=== PATIENT | male | born 1985 | race Caucasian/White ===

== ENCOUNTER 2016-07-05 21:48 | Inpatient (IN) | payer OTHER ==
--- NOTE | 2016-07-05 23:00 | HP ---
CIWA Score - CIWA Score Nausea/Vomitin-No Nausea/No Vomiting Muscle Tremors: 3 Anxiety: 4-Mod. Anxious/Guarded Agitation: 4-Moderately Restless Paroxysmal Sweats: 3 Orientation: 0-Oriented Tacttile Disturbances: 0-None Auditory Disturbances: 1-Very Mild Visual Disturbances: 1-Very Mild Sensitivity Headache: 2-Mild CIWA-Ar Total Score: 18 Admission ROS BHS - HPI Chief Complaint: WITHDRAWAL SYMPTOMS Allergies/Adverse Reactions: Allergies Allergy/AdvReac Type Severity Reaction Status Date / Time risperidone [From Risperdal] AdvReac Verified 07/05/16 23:12 History of Present Illness: 30 Y.O. MAN WITH AN EXTENSIVE HISTORY OF ALCOHOL AND COCAINE DEPENDENCE IS SEEKING DETOX. HE WAS PREVIOUSLY HERE IN 01/2016. HE STATES HIS LONGEST PERIOD OF SOBRIETY WAS 2 YEARS. Exam Limitations: No Limitations - Ebola screening Have you traveled outside of the country in the last 21 days: No (N) Have you had contact with anyone from an Ebola affected area: No Do you have a fever: No - Review of Systems Constitutional: Chills, Diaphoresis, Loss of Appetite, Night Sweats EENT: reports: Blurred Vision Respiratory: reports: Wheezing (H/O ASTHMA) Cardiac: reports: No Symptoms Reported GI: reports: No Symptoms Reported : reports: No Symptoms Reported Musculoskeletal: reports: No Symptoms Reported Integumentary: reports: No Symptoms Reported Neuro: reports: Headache, Seizure (LAST SEIZURE WAS 2 YEARS PRIOR DUE TO S/E OF RISPERDAL.) Endocrine: reports: No Symptoms Reported Hematology: reports: No Symptoms Reported Psychiatric: reports: Orientated x3, Anxious, Depressed, other Other Systems: Reviewed and Negative (Schizoaffective disorder w/ bipolar tendancies) Patient History - Patient Medical History Hx Anemia: No Hx Asthma: Yes (not on any medication) Hx Chronic Obstructive Pulmonary Disease (COPD): No Hx Cancer: No Hx Cardiac Disorders: No Hx Congestive Heart Failure: No Hx Hypertension: No Hx Hypercholesterolemia: No Hx Pacemaker: No HX Cerebrovascular Accident: No Hx Seizures: Yes (2 years ago-a/e of risperdal) Hx Dementia: No Hx Diabetes: No Hx Gastrointestinal Disorders: Yes (gerd) Hx Liver Disease: No Hx Genitourinary Disorders: No Hx Sexually Transmitted Disorders: Yes (patient reported treated for syphillis & gonorrhea 4 yrs ago.) Hx Renal Disease (ESRD): No Hx Thyroid Disease: No Hx Human Immunodeficiency Virus (HIV): No (negative) Hx Hepatitis C: No Hx Depression: Yes Hx Suicide Attempt: Yes (At 8 y.o. attempted to hang and shoot himself ) Hx Bipolar Disorder: Yes Hx Schizophrenia: Yes - Patient Surgical History Past Surgical History: No Hx Neurologic Surgery: No Hx Cataract Extraction: No Hx Cardiac Surgery: No Hx Lung Surgery: No Hx Breast Surgery: No Hx Breast Biopsy: No Hx Abdominal Surgery: No Hx Appendectomy: No Hx Cholecystectomy: No Hx Genitourinary Surgery: No Hx Section: No Hx Orthopedic Surgery: Yes (right tibia/fibula fracture 12/2015 has a cast on) Anesthesia Reaction: No - PPD History Previous Implant?: Yes Documented Results: Negative w/proof Implanted On Prior [facility] Admission?: Yes Date: 10/21/15 Results: 0 mm. PPD to be Administered?: No - Reproductive History Patient is a Female of Child Bearing Age (11 -55 yrs old): No - Smoking Cessation Smoking history: Current every day smoker Have you smoked in the past 12 months: Yes Aproximately how many cigarettes per day: 10 Cigars Per Day: 0 Hx Chewing Tobacco Use: No Initiated information on smoking cessation: Yes 'Breaking Loose' booklet given: 07/05/16 - Substance & Tx. History Hx Alcohol Use: Yes Hx Substance Use: Yes Substance Use Type: Alcohol, Cocaine Hx Substance Use Treatment: Yes (Detox and rehab ) - Substances Abused Alcohol Frequency: Daily Amount used: 1 pint of liquor and 1-2 cans of 40oz of beer Age of first use: 11 Date of Last Use: 07/05/16 Cocaine Route: Inhalation Frequency: 1-2 times per week Amount used: $20 Age of first use: 10 Date of Last Use: 07/05/16 Family Disease History - Family Disease History Family Disease History: Diabetes: Mother (a lot of medical problems), CA: Mother , Other: Father (etoh), Mother Admission Physical Exam BHS - Vital Signs Vital Signs: Vital Signs 07/05/16 23:17 Temperature 97.9 F Pulse Rate 72 Respiratory 16 Rate Blood Pressure 121/72 - Physical General Appearance: Yes: Disheveled, Irritable, Anxious HEENTM: Yes: Hearing grossly Normal, Normal ENT Inspection, Normocephalic, Normal Voice Respiratory: Yes: Chest Non-Tender, Lungs Clear, Normal Breath Sounds, No Respiratory Distress, No Accessory Muscle Use Neck: Yes: No masses,lesions,Nodules, Trachea in good position Breast: Yes: Breast Exam Deferred Cardiology: Yes: Regular Rhythm, Regular Rate, S1, S2 Abdominal: Yes: Normal Bowel Sounds, Non Tender, Flat Genitourinary: Yes: Other (NO COMPLAINTS REPORTED) Back: Yes: Normal Inspection Extremities: Yes: Normal Capillary Refill, Normal Inspection, Normal Range of Motion, Non-Tender Neurological: Yes: Fully Oriented, Alert, Normal Mood/Affect, Normal Response Integumentary: Yes: Normal Color, Dry, Warm Lymphatic: Yes: Within Normal Limits - Diagnostic (1) Alcohol dependence with uncomplicated withdrawal Current Visit: No Status: Acute (2) Cocaine dependence Current Visit: Yes Status: Chronic Qualifiers: Substance use status: uncomplicated Qualified Code(s): F14.20 - Cocaine dependence, uncomplicated (3) Nicotine dependence Current Visit: Yes Status: Chronic Qualifiers: Nicotine product type: cigarettes Substance use status: uncomplicated Qualified Code(s): F17.210 - Nicotine dependence, cigarettes, uncomplicated (4) Asthma Current Visit: Yes Status: Chronic Qualifiers: Asthma severity: mild intermittent (5) GERD (gastroesophageal reflux disease) Current Visit: Yes Status: Chronic Cleared for Admission BHS - Detox or Rehab [facility] Level of Care: Medically Managed Detox Regimen/Protocol: Valium BHS Breath Alcohol Content Breath Alcohol Content: 0 Vital Signs - Vital Signs Vital Signs Refused: No Temperature: 97.9 F Temperature Source: Oral Pulse Rate: 72 Respiratory Rate: 16 Blood Pressure: 121/72 BP Location: Left Arm Blood Pressure Position: Sitting - Height Height: 5 ft 10 in - Weight Weight: 200 lb Weight Measurement Method: Standing Scale Body Mass Index (BMI): 28.7 Urine Drug Screen - Test Device Lot Number: [id number] Expiration Date: 03/04/18 - Control Is Test Valid: Yes - Results Drug Screen Negative: No Urine Drug Screen Results: SILVANA-Cocaine, TCA-Tricyclic Antidepress
[2016-07-05 23:18] VITALS: BMI 28.7
[2016-07-05] MEDS ORDERED: NICOTINE POLACRILEX 2 MG GUM BC PRN (23:20)
[2016-07-05] MEDS ORDERED: ACETAMINOPHEN 325 MG TABLET (FP) PO PRN (23:20)
[2016-07-05] MEDS ORDERED: guaiFENesin/D-METHORPHAN HB 10 ML UNIT-DOSE CUPS PO PRN (23:20)
[2016-07-05] MEDS ORDERED: MENTHOL/PHENOL 1 EACH UD MM PRN (23:20)
[2016-07-05] MEDS ORDERED: LOPERAMIDE HCL 2 MG CAPSULE PO PRN (23:20)
[2016-07-05] MEDS ORDERED: MAGNESIUM HYDROX 2400MG/30ML ORAL SUSPENSION 30 ML CUP PO PRN (23:20)
[2016-07-05] MEDS ORDERED: hydrOXYzine PAMOATE 50 MG CAPSULE (FP) PO PRN (23:20)
[2016-07-05] MEDS ORDERED: MAGNESIUM CITRATE 300 ML BOTTLE PO PRN (23:20)
[2016-07-05] MEDS ORDERED: diazePAM 5 MG TABLET PO ONE (23:20)
[2016-07-05] MEDS ORDERED: P-EPHED 60MG/TRIPROLIDI 2.5MG TABLET PO PRN (23:20)
[2016-07-05] MEDS ORDERED: MAG HYDROX/AL HYDROX/SIMETH 30 ML UNIT-DOSE CUP PO PRN (23:20)
[2016-07-05] MEDS ORDERED: ALBUTEROL SO4 6.7 GM HFA INHALER IH PRN (23:25)
[2016-07-06] MEDS: diazePAM 5 MG TABLET PO SCH ×5 (00:21→22:14)
[2016-07-06 09:40] LABS: MCH 29.5 pg (25.7-33.7); MCHC 33.1 g/dl (32.0-35.9); MEAN CELL VOLUME 89.2 fl (80-96); MEAN PLT VOLUME 8.7 fl (7.5-11.1); PLATELET COUNT 194 K/MM3 (134-434); RDW 13.9 % (11.9-15.9); WHITE BLOOD COUNT 6.4 K/mm3 (4.0-10.0)
[2016-07-06 09:53] LABS: ALBUMIN 3.4 g/dl (3.4-5.0); ANION GAP 10 (8-16); CALCIUM 8.6 mg/dL (8.5-10.1); CO2 29 mmol/L (21-32); GLUCOSE,RANDOM 116 mg/dL (74-106); SGOT/AST 17 U/L (15-37); SGPT/ALT 27 U/L (12-78)
[2016-07-06 09:55] LABS: ALK PHOS 74 U/L (45-117); BILIRUBIN,TOTAL 0.2 mg/dL (0.2-1.0)
[2016-07-06 10:11] LABS: HIV 1 & 2 AB NEGATIVE; HIV 1 AGp24 NEGATIVE
[2016-07-06] MEDS: RANITIDINE HCL 150 MG TABLET (FP) PO SCH (10:12)
[2016-07-06] MEDS: NICOTINE 14 MG/24 HOURS TOPICAL PATCH TD SCH (10:12)
[2016-07-06] MEDS: PRENATAL VITAMINS W/ FOLIC ACID TABLET (FP) PO SCH (10:12)
[2016-07-06] MEDS: diazePAM 5 MG TABLET PO PRN (10:12)
--- NOTE | 2016-07-06 10:37 | CONSULT ---
[facility] Psychiatric Consult - Data Date of interview: 07/06/16 Admission source: [facility] Identifying data: Another admission to [facility] for this 30 y/o male seeking detox treatment on for alcohol and cocaine dependence.Patient is single,a father of one,domiciled,unemployed and supported on SSI/SSD benefits. Substance Abuse History: - Smoking Cessation. Smoking history: Current every day smoker. Have you smoked in the past 12 months: Yes. Aproximately how many cigarettes per day: 10. Cigars Per Day: 0. Hx Chewing Tobacco Use: No. Initiated information on smoking cessation: Yes. 'Breaking Loose' booklet given : 07/05/16. - Substance & Tx. History. Hx Alcohol Use: Yes. Hx Substance Use : Yes. Substance Use Type: Alcohol, Cocaine. Hx Substance Use Treatment: Yes ( Detox and rehab ). - Substances Abused. Alcohol. Frequency: Daily. Amount used: 1 pint of liquor and 1-2 cans of 40oz of beer. Age of first use: 11. Date of Last Use: 07/05/16. Cocaine. Route: Inhalation. Frequency: 1- 2 times per week. Amount used: $20. Age of first use: 10. Date of Last Use: 07/05/16 Medical History: GERD,bronchial asthma and past treatment for gonorrhea/ syphilis.Additional history of orthosurgery for fracture of right tibia/fibula ( December 2015). Psychiatric History: Diagnosed with Schizoaffective Disorder.Prescribed seroquel 300 mg hs + depakote 500 mg po bid + benadryl 50 mg daily (patient's report).History of multiple hospitalizations (mostly at [facility]) since onset of mental illnes at age 17.Mr Wing is currently getting his OPD care at the [facility] in the [place].Last took his medications four days ago (self-report).Patient reports a remote history of suicide attempts (shooting/ hanging at age [age]). Physical/Sexual Abuse/Trauma History: Patient denies. Additional Comment: Urine Drug Screen Results: SILVANA-Cocaine, TCA-Tricyclic Antidepressant.Noted. Mental Status Exam - Mental Status Exam Alert and Oriented to: Time, Place, Person Cognitive Function: Good Patient Appearance: Well Groomed Mood: Nervous, Withdrawn, Anxious Affect: Mood Congruent Patient Behavior: Fatigued, Appropriate, Cooperative Speech Pattern: Clear Voice Loudness: Normal Thought Process: Goal Oriented Thought Disorder: Not Present Hallucinations: Denies Suicidal Ideation: Denies Homicidal Ideation: Denies Insight/Judgement: Poor Sleep: Fair Appetite: Good Muscle strength/Tone: Normal Gait/Station: Normal Psychiatric Findings - Problem List ([place] 1, 2,3) (1) Cocaine dependence Current Visit: Yes Status: Acute Qualifiers: Substance use status: uncomplicated Qualified Code(s): F14.20 - Cocaine dependence, uncomplicated (2) Alcohol dependence with uncomplicated withdrawal Current Visit: Yes Status: Acute (3) Nicotine dependence Current Visit: Yes Status: Acute Qualifiers: Nicotine product type: cigarettes Substance use status: uncomplicated Qualified Code(s): F17.210 - Nicotine dependence, cigarettes, uncomplicated (4) Substance induced mood disorder Current Visit: Yes Status: Acute (5) Schizoaffective disorder Current Visit: Yes Status: Chronic (6) Asthma Current Visit: Yes Status: Chronic Qualifiers: Asthma severity: mild intermittent (7) GERD (gastroesophageal reflux disease) Current Visit: Yes Status: Chronic - Initial Treatment Plan Initial Treatment Plan: Psychoeducation.Detoxification.Medications : seroquel 200 mg po hs (reduced) + depakote 500 mg po bid + benadryl 50 mg po hs.Side effects/benefits of each drug discussed with the patient.He is in agreement with this plan of care.Observation.Valproic acid level is pending.Will follow.Doses are verified by checking recent pharmacy claims (06/12/16 @ [facility]).
--- NOTE | 2016-07-06 13:17 | PN ---
S CIWA - CIWA Score Nausea/Vomitin-No Nausea/No Vomiting Muscle Tremors: 4-Moderate,w/Arms Extend Anxiety: 4-Mod. Anxious/Guarded Agitation: 3 Paroxysmal Sweats: 3 Orientation: 0-Oriented Tacttile Disturbances: 0-None Auditory Disturbances: 0-None Visual Disturbances: 0-None Headache: 0-None Present CIWA-Ar Total Score: 14 BHS Progress Note (SOAP) Subjective: Anxiety,tremors,sweating,interrupted sleep,restless Objective: 07/06/16 13:16 Vital Signs - 8 hr 07/06/16 07/06/16 06:31 09:51 Temperature 97.2 F L 96 F L Pulse Rate 77 66 Respiratory 16 18 Rate Blood Pressure 110/73 110/69 Laboratory Tests 07/06/16 07/06/16 07/06/16 07:00 07:00 07:00 WBC 6.4 D RBC 4.69 Hgb 13.9 Hct 41.8 MCV 89.2 MCHC 33.1 RDW 13.9 Plt Count 194 D MPV 8.7 Sodium 140 Potassium 3.8 Chloride 101 Carbon Dioxide 29 Anion Gap 10 BUN 14 D Creatinine 1.0 Creat Clearance w eGFR > 60 Random Glucose 116 H D Calcium 8.6 Total Bilirubin 0.2 D AST 17 ALT 27 Alkaline Phosphatase 74 Total Protein 7.0 Albumin 3.4 RPR Titer Reactive 1:4 H T.pallidum Ab (MHA) Previously reactive HIV 1&2 Antibody Screen HIV P24 Antigen 07/06/16 07:00 WBC RBC Hgb Hct MCV MCHC RDW Plt Count MPV Sodium Potassium Chloride Carbon Dioxide Anion Gap BUN Creatinine Creat Clearance w eGFR Random Glucose Calcium Total Bilirubin AST ALT Alkaline Phosphatase Total Protein Albumin RPR Titer T.pallidum Ab (MHA) HIV 1&2 Antibody Screen Negative HIV P24 Antigen Negative labs noted Assessment: 07/06/16 13:16 Withdrawal sx. Plan: Continue detox
[2016-07-06] MEDS: DIVALPROEX SODIUM 500 MG TABLET E.C. PO SCH ×3 (13:42→22:14)
[2016-07-06 14:19] LABS: URINE APPEARANCE CLEAR; URINE BILIRUBIN NEGATIVE (NEGATIVE); URINE BLOOD NEGATIVE (NEGATIVE); URINE COLOR LTYELLOW; URINE GLUCOSE (UA) NEGATIVE (NEGATIVE); URINE KETONE NEGATIVE (NEGATIVE); URINE NITRITE NEGATIVE (NEGATIVE); URINE PROTEIN NEGATIVE (NEGATIVE); URINE UROBILINOGEN 2.0 E.U/dl E.U./dl (0.2-1.0)
[2016-07-06 14:23] LABS: URINE LEUK ESTERASE 1+ (NEGATIVE)
[2016-07-06 14:35] LABS: URINE RBC <1 /hpf (0-3); URINE WBC 3 /hpf (3-5)
[2016-07-06] MEDS: THIAMINE HCL 100 MG TABLET (FP) PO SCH (22:14)
[2016-07-06] MEDS: diphenhydrAMINE HCL 50 MG CAPSULE PO PRN (22:14)
[2016-07-06] MEDS: QUEtiapine FUMARATE 200 MG TABLET PO SCH (22:14)
[2016-07-07] MEDS: diazePAM 5 MG TABLET PO PRN (05:53)
[2016-07-07] MEDS: RANITIDINE HCL 150 MG TABLET (FP) PO SCH (10:18)
[2016-07-07] MEDS: diazePAM 5 MG TABLET PO SCH ×2 (10:18→22:08)
[2016-07-07] MEDS: DIVALPROEX SODIUM 500 MG TABLET E.C. PO SCH ×2 (10:18→22:08)
[2016-07-07] MEDS: PRENATAL VITAMINS W/ FOLIC ACID TABLET (FP) PO SCH (10:18)
[2016-07-07] MEDS: NICOTINE 14 MG/24 HOURS TOPICAL PATCH TD SCH (10:19)
--- NOTE | 2016-07-07 10:29 | PN ---
[facility] CIWA - CIWA Score Nausea/Vomitin-No Nausea/No Vomiting Muscle Tremors: 4-Moderate,w/Arms Extend Anxiety: 4-Mod. Anxious/Guarded Agitation: 4-Moderately Restless Paroxysmal Sweats: 1-Minimal Palms Moist Orientation: 0-Oriented Tacttile Disturbances: 3-Moderate Itch/Numb/Burn Auditory Disturbances: 0-None Visual Disturbances: 0-None Headache: 0-None Present CIWA-Ar Total Score: 16 BHS Progress Note (SOAP) Subjective: ANXIETY,SWEATS,FATIGUE. Objective: 07/07/16 10:29 Vital Signs Temperature 96.4 F L 07/07/16 10:02 Pulse Rate 83 07/07/16 10:02 Respiratory Rate 20 07/07/16 10:02 Blood Pressure 101/72 07/07/16 10:02 O2 Sat by Pulse Oximetry (%) Laboratory Last Values WBC 6.4 K/mm3 (4.0-10.0) D 07/06/16 07:00 RBC 4.69 M/mm3 (4.00-5.60) 07/06/16 07:00 Hgb 13.9 GM/dL (11.7-16.9) 07/06/16 07:00 Hct 41.8 % (35.4-49) 07/06/16 07:00 MCV 89.2 fl (80-96) 07/06/16 07:00 MCHC 33.1 g/dl (32.0-35.9) 07/06/16 07:00 RDW 13.9 % (11.9-15.9) 07/06/16 07:00 Plt Count 194 K/MM3 (134-434) D 07/06/16 07:00 MPV 8.7 fl (7.5-11.1) 07/06/16 07:00 Sodium 140 mmol/L (136-145) 07/06/16 07:00 Potassium 3.8 mmol/L (3.5-5.1) 07/06/16 07:00 Chloride 101 mmol/L (98-107) 07/06/16 07:00 Carbon Dioxide 29 mmol/L (21-32) 07/06/16 07:00 Anion Gap 10 (8-16) 07/06/16 07:00 BUN 14 mg/dL (7-18) D 07/06/16 07:00 Creatinine 1.0 mg/dL (0.7-1.3) 07/06/16 07:00 Creat Clearance w eGFR > 60 (>60) 07/06/16 07:00 Random Glucose 116 mg/dL (74-106) H D 07/06/16 07:00 Calcium 8.6 mg/dL (8.5-10.1) 07/06/16 07:00 Total Bilirubin 0.2 mg/dL (0.2-1.0) D 07/06/16 07:00 AST 17 U/L (15-37) 07/06/16 07:00 ALT 27 U/L (12-78) 07/06/16 07:00 Alkaline Phosphatase 74 U/L (45-117) 07/06/16 07:00 Total Protein 7.0 g/dl (6.4-8.2) 07/06/16 07:00 Albumin 3.4 g/dl (3.4-5.0) 07/06/16 07:00 Urine Color Ltyellow 07/06/16 10:10 Urine Appearance Clear 07/06/16 10:10 Urine pH 7.0 (5.0-8.0) 07/06/16 10:10 Ur Specific [place] 1.016 (1.001-1.035) 07/06/16 10:10 Urine Protein Negative (NEGATIVE) 07/06/16 10:10 Urine Glucose (UA) Negative (NEGATIVE) 07/06/16 10:10 Urine Ketones Negative (NEGATIVE) 07/06/16 10:10 Urine Blood Negative (NEGATIVE) 07/06/16 10:10 Urine Nitrite Negative (NEGATIVE) 07/06/16 10:10 Urine Bilirubin Negative (NEGATIVE) 07/06/16 10:10 Urine Urobilinogen 2.0 e.u/dl E.U./dl (0.2-1.0) 07/06/16 10:10 Ur Leukocyte Esterase 1+ (NEGATIVE) H 07/06/16 10:10 Urine RBC <1 /hpf (0-3) 07/06/16 10:10 Urine WBC 3 /hpf (3-5) 07/06/16 10:10 Valproic Acid 82.411 ug/ml (50-100) 07/07/16 07:00 RPR Titer Reactive 1:4 (NONREACTIVE) H 07/06/16 07:00 T.pallidum Ab (MHA) Previously reactive (NONREACTIVE) 07/06/16 07:00 Hepatitis C Antibody <0.1 s/co ratio (0.0-0.9) 07/05/16 07:00 HIV 1&2 Antibody Screen Negative 07/06/16 07:00 HIV P24 Antigen Negative 07/06/16 07:00 Assessment: 07/07/16 10:29 WITHDRAWAL SX Plan: CONTINUE DETOX
[2016-07-07] MEDS: diphenhydrAMINE HCL 50 MG CAPSULE PO PRN (22:08)
[2016-07-07] MEDS: THIAMINE HCL 100 MG TABLET (FP) PO SCH (22:08)
[2016-07-07] MEDS: QUEtiapine FUMARATE 200 MG TABLET PO SCH (22:08)
--- NOTE | 2016-07-07 22:48 | EKG ---
Test Reason : Blood Pressure : / mmHG Vent. Rate : 061 BPM Atrial Rate : 061 BPM P-R Int : 134 ms QRS Dur : 100 ms QT Int : 386 ms P-R-T Axes : 059 004 016 degrees QTc Int : 388 ms NORMAL SINUS RHYTHM NORMAL ECG NO PREVIOUS ECGS AVAILABLE Confirmed by JOHN CARRASCO MD ([id number]) on 07/07/2016 10:48:33 PM Referred By: Confirmed By:JOHN CARRASCO MD
[2016-07-08] MEDS: diazePAM 5 MG TABLET PO PRN (05:40)
[2016-07-08] MEDS: IBUPROFEN 400 MG TABLET (FP) PO PRN ×2 (05:41→22:19)
[2016-07-08] MEDS: DIVALPROEX SODIUM 500 MG TABLET E.C. PO SCH ×2 (10:16→22:17)
[2016-07-08] MEDS: diazePAM 5 MG TABLET PO SCH ×2 (10:16→22:16)
[2016-07-08] MEDS: PRENATAL VITAMINS W/ FOLIC ACID TABLET (FP) PO SCH (10:16)
[2016-07-08] MEDS: RANITIDINE HCL 150 MG TABLET (FP) PO SCH (10:16)
--- NOTE | 2016-07-08 10:56 | PN ---
BHS Progress Note (SOAP) Subjective: ANXIETY,SWEATS,TREMORS,INTERMITTENT SLEEP. Objective: 07/08/16 10:55 Vital Signs Temperature 97.6 F 07/08/16 09:38 Pulse Rate 89 07/08/16 09:38 Respiratory Rate 18 07/08/16 09:38 Blood Pressure 108/74 07/08/16 09:38 O2 Sat by Pulse Oximetry (%) Laboratory Last Values WBC 6.4 K/mm3 (4.0-10.0) D 07/06/16 07:00 RBC 4.69 M/mm3 (4.00-5.60) 07/06/16 07:00 Hgb 13.9 GM/dL (11.7-16.9) 07/06/16 07:00 Hct 41.8 % (35.4-49) 07/06/16 07:00 MCV 89.2 fl (80-96) 07/06/16 07:00 MCHC 33.1 g/dl (32.0-35.9) 07/06/16 07:00 RDW 13.9 % (11.9-15.9) 07/06/16 07:00 Plt Count 194 K/MM3 (134-434) D 07/06/16 07:00 MPV 8.7 fl (7.5-11.1) 07/06/16 07:00 Sodium 140 mmol/L (136-145) 07/06/16 07:00 Potassium 3.8 mmol/L (3.5-5.1) 07/06/16 07:00 Chloride 101 mmol/L (98-107) 07/06/16 07:00 Carbon Dioxide 29 mmol/L (21-32) 07/06/16 07:00 Anion Gap 10 (8-16) 07/06/16 07:00 BUN 14 mg/dL (7-18) D 07/06/16 07:00 Creatinine 1.0 mg/dL (0.7-1.3) 07/06/16 07:00 Creat Clearance w eGFR > 60 (>60) 07/06/16 07:00 Random Glucose 116 mg/dL (74-106) H D 07/06/16 07:00 Calcium 8.6 mg/dL (8.5-10.1) 07/06/16 07:00 Total Bilirubin 0.2 mg/dL (0.2-1.0) D 07/06/16 07:00 AST 17 U/L (15-37) 07/06/16 07:00 ALT 27 U/L (12-78) 07/06/16 07:00 Alkaline Phosphatase 74 U/L (45-117) 07/06/16 07:00 Total Protein 7.0 g/dl (6.4-8.2) 07/06/16 07:00 Albumin 3.4 g/dl (3.4-5.0) 07/06/16 07:00 Urine Color Ltyellow 07/06/16 10:10 Urine Appearance Clear 07/06/16 10:10 Urine pH 7.0 (5.0-8.0) 07/06/16 10:10 Ur Specific [place] 1.016 (1.001-1.035) 07/06/16 10:10 Urine Protein Negative (NEGATIVE) 07/06/16 10:10 Urine Glucose (UA) Negative (NEGATIVE) 07/06/16 10:10 Urine Ketones Negative (NEGATIVE) 07/06/16 10:10 Urine Blood Negative (NEGATIVE) 07/06/16 10:10 Urine Nitrite Negative (NEGATIVE) 07/06/16 10:10 Urine Bilirubin Negative (NEGATIVE) 07/06/16 10:10 Urine Urobilinogen 2.0 e.u/dl E.U./dl (0.2-1.0) 07/06/16 10:10 Ur Leukocyte Esterase 1+ (NEGATIVE) H 07/06/16 10:10 Urine RBC <1 /hpf (0-3) 07/06/16 10:10 Urine WBC 3 /hpf (3-5) 07/06/16 10:10 Valproic Acid 82.411 ug/ml (50-100) 07/07/16 07:00 RPR Titer Reactive 1:4 (NONREACTIVE) H 07/06/16 07:00 T.pallidum Ab (MHA) Previously reactive (NONREACTIVE) 07/06/16 07:00 Hepatitis C Antibody <0.1 s/co ratio (0.0-0.9) 07/05/16 07:00 HIV 1&2 Antibody Screen Negative 07/06/16 07:00 HIV P24 Antigen Negative 07/06/16 07:00 Assessment: 07/08/16 10:56 WITHDRAWAL SX Plan: CONTINUE DETOX
[2016-07-08] MEDS: NICOTINE 14 MG/24 HOURS TOPICAL PATCH TD SCH (11:50)
[2016-07-08] MEDS: QUEtiapine FUMARATE 200 MG TABLET PO SCH (22:16)
[2016-07-08] MEDS: THIAMINE HCL 100 MG TABLET (FP) PO SCH (22:17)
[2016-07-08] MEDS: diphenhydrAMINE HCL 50 MG CAPSULE PO PRN (22:18)
[2016-07-09] MEDS: IBUPROFEN 400 MG TABLET (FP) PO PRN ×2 (05:29→17:18)
[2016-07-09] MEDS ORDERED: diazePAM 5 MG TABLET PO SCH (10:00)
[2016-07-09] MEDS: PRENATAL VITAMINS W/ FOLIC ACID TABLET (FP) PO SCH (10:08)
[2016-07-09] MEDS: DIVALPROEX SODIUM 500 MG TABLET E.C. PO SCH ×2 (10:08→22:16)
[2016-07-09] MEDS: NICOTINE 14 MG/24 HOURS TOPICAL PATCH TD SCH (10:08)
[2016-07-09] MEDS: RANITIDINE HCL 150 MG TABLET (FP) PO SCH (10:08)
--- NOTE | 2016-07-09 11:42 | PN ---
S Progress Note (SOAP) Subjective: Fatigue, Body Aches, H/A, Tremors, Sweating. Objective: PT. A & O X 3. 07/09/16 11:41 Vital Signs Temperature 95.9 F L 07/09/16 09:18 Pulse Rate 80 07/09/16 09:18 Respiratory Rate 18 07/09/16 09:18 Blood Pressure 101/64 07/09/16 09:18 O2 Sat by Pulse Oximetry (%) Laboratory Last Values WBC 6.4 K/mm3 (4.0-10.0) D 07/06/16 07:00 RBC 4.69 M/mm3 (4.00-5.60) 07/06/16 07:00 Hgb 13.9 GM/dL (11.7-16.9) 07/06/16 07:00 Hct 41.8 % (35.4-49) 07/06/16 07:00 MCV 89.2 fl (80-96) 07/06/16 07:00 MCHC 33.1 g/dl (32.0-35.9) 07/06/16 07:00 RDW 13.9 % (11.9-15.9) 07/06/16 07:00 Plt Count 194 K/MM3 (134-434) D 07/06/16 07:00 MPV 8.7 fl (7.5-11.1) 07/06/16 07:00 Sodium 140 mmol/L (136-145) 07/06/16 07:00 Potassium 3.8 mmol/L (3.5-5.1) 07/06/16 07:00 Chloride 101 mmol/L (98-107) 07/06/16 07:00 Carbon Dioxide 29 mmol/L (21-32) 07/06/16 07:00 Anion Gap 10 (8-16) 07/06/16 07:00 BUN 14 mg/dL (7-18) D 07/06/16 07:00 Creatinine 1.0 mg/dL (0.7-1.3) 07/06/16 07:00 Creat Clearance w eGFR > 60 (>60) 07/06/16 07:00 Random Glucose 116 mg/dL (74-106) H D 07/06/16 07:00 Calcium 8.6 mg/dL (8.5-10.1) 07/06/16 07:00 Total Bilirubin 0.2 mg/dL (0.2-1.0) D 07/06/16 07:00 AST 17 U/L (15-37) 07/06/16 07:00 ALT 27 U/L (12-78) 07/06/16 07:00 Alkaline Phosphatase 74 U/L (45-117) 07/06/16 07:00 Total Protein 7.0 g/dl (6.4-8.2) 07/06/16 07:00 Albumin 3.4 g/dl (3.4-5.0) 07/06/16 07:00 Urine Color Ltyellow 07/06/16 10:10 Urine Appearance Clear 07/06/16 10:10 Urine pH 7.0 (5.0-8.0) 07/06/16 10:10 Ur Specific [place] 1.016 (1.001-1.035) 07/06/16 10:10 Urine Protein Negative (NEGATIVE) 07/06/16 10:10 Urine Glucose (UA) Negative (NEGATIVE) 07/06/16 10:10 Urine Ketones Negative (NEGATIVE) 07/06/16 10:10 Urine Blood Negative (NEGATIVE) 07/06/16 10:10 Urine Nitrite Negative (NEGATIVE) 07/06/16 10:10 Urine Bilirubin Negative (NEGATIVE) 07/06/16 10:10 Urine Urobilinogen 2.0 e.u/dl E.U./dl (0.2-1.0) 07/06/16 10:10 Ur Leukocyte Esterase 1+ (NEGATIVE) H 07/06/16 10:10 Urine RBC <1 /hpf (0-3) 07/06/16 10:10 Urine WBC 3 /hpf (3-5) 07/06/16 10:10 Valproic Acid 82.411 ug/ml (50-100) 07/07/16 07:00 RPR Titer Reactive 1:4 (NONREACTIVE) H 07/06/16 07:00 T.pallidum Ab (MHA) Previously reactive (NONREACTIVE) 07/06/16 07:00 Hepatitis C Antibody <0.1 s/co ratio (0.0-0.9) 07/05/16 07:00 HIV 1&2 Antibody Screen Negative 07/06/16 07:00 HIV P24 Antigen Negative 07/06/16 07:00 LABS NOTED. PATIENT REPORTS THAT HE COMPLETED TREATMENT (ALL 3 DOSES) FOR SYPHILIS WITHIN THE LAST 3-4 YEARS. 07/09/16 13:42 07/09/16 13:46 07/09/16 17:00 Assessment: 07/09/16 11:42 WITHDRAWAL SYMPTOMS. Plan: CONTINUE DETOX. ADVISED PATIENT TO FOLLOW-UP WITH DIPPING MACHINE OPERATOR / REHAB MEDICAL PROVIDER AFTER DISCHARGE FROM DETOX FOR GENERAL MEDICAL ASSESSMENT AND FOR ANY ABNORMAL ADMISSION LAB VALUES.
[2016-07-09] MEDS: diphenhydrAMINE HCL 50 MG CAPSULE PO PRN (22:16)
[2016-07-09] MEDS: QUEtiapine FUMARATE 200 MG TABLET PO SCH (22:16)
[2016-07-09] MEDS: THIAMINE HCL 100 MG TABLET (FP) PO SCH (22:16)
[2016-07-10] MEDS: PRENATAL VITAMINS W/ FOLIC ACID TABLET (FP) PO SCH (09:12)
[2016-07-10] MEDS: DIVALPROEX SODIUM 500 MG TABLET E.C. PO SCH (09:12)
[2016-07-10] MEDS: RANITIDINE HCL 150 MG TABLET (FP) PO SCH (09:12)
[2016-07-10] MEDS: NICOTINE 14 MG/24 HOURS TOPICAL PATCH TD SCH (09:13)
--- NOTE | 2016-07-10 10:13 | DS ---
[facility] Detox Discharge Summary Admission Date: 07/05/16 Discharge Date: 07/10/16 - History Present History: Alcohol Dependence, Cocaine Dependence Pertinent Past History: Asthma GERD - Physical Exam Results Vital Signs: Vital Signs Temperature 97.6 F 07/10/16 07:01 Pulse Rate 82 07/10/16 07:01 Respiratory Rate 18 07/10/16 07:01 Blood Pressure 115/76 07/10/16 07:01 O2 Sat by Pulse Oximetry (%) Pertinent Admission Physical Exam Findings: Withdrawal sx. Laboratory Last Values WBC 6.4 K/mm3 (4.0-10.0) D 07/06/16 07:00 RBC 4.69 M/mm3 (4.00-5.60) 07/06/16 07:00 Hgb 13.9 GM/dL (11.7-16.9) 07/06/16 07:00 Hct 41.8 % (35.4-49) 07/06/16 07:00 MCV 89.2 fl (80-96) 07/06/16 07:00 MCHC 33.1 g/dl (32.0-35.9) 07/06/16 07:00 RDW 13.9 % (11.9-15.9) 07/06/16 07:00 Plt Count 194 K/MM3 (134-434) D 07/06/16 07:00 MPV 8.7 fl (7.5-11.1) 07/06/16 07:00 Sodium 140 mmol/L (136-145) 07/06/16 07:00 Potassium 3.8 mmol/L (3.5-5.1) 07/06/16 07:00 Chloride 101 mmol/L (98-107) 07/06/16 07:00 Carbon Dioxide 29 mmol/L (21-32) 07/06/16 07:00 Anion Gap 10 (8-16) 07/06/16 07:00 BUN 14 mg/dL (7-18) D 07/06/16 07:00 Creatinine 1.0 mg/dL (0.7-1.3) 07/06/16 07:00 Creat Clearance w eGFR > 60 (>60) 07/06/16 07:00 Random Glucose 116 mg/dL (74-106) H D 07/06/16 07:00 Calcium 8.6 mg/dL (8.5-10.1) 07/06/16 07:00 Total Bilirubin 0.2 mg/dL (0.2-1.0) D 07/06/16 07:00 AST 17 U/L (15-37) 07/06/16 07:00 ALT 27 U/L (12-78) 07/06/16 07:00 Alkaline Phosphatase 74 U/L (45-117) 07/06/16 07:00 Total Protein 7.0 g/dl (6.4-8.2) 07/06/16 07:00 Albumin 3.4 g/dl (3.4-5.0) 07/06/16 07:00 Urine Color Ltyellow 07/06/16 10:10 Urine Appearance Clear 07/06/16 10:10 Urine pH 7.0 (5.0-8.0) 07/06/16 10:10 Ur Specific [place] 1.016 (1.001-1.035) 07/06/16 10:10 Urine Protein Negative (NEGATIVE) 07/06/16 10:10 Urine Glucose (UA) Negative (NEGATIVE) 07/06/16 10:10 Urine Ketones Negative (NEGATIVE) 07/06/16 10:10 Urine Blood Negative (NEGATIVE) 07/06/16 10:10 Urine Nitrite Negative (NEGATIVE) 07/06/16 10:10 Urine Bilirubin Negative (NEGATIVE) 07/06/16 10:10 Urine Urobilinogen 2.0 e.u/dl E.U./dl (0.2-1.0) 07/06/16 10:10 Ur Leukocyte Esterase 1+ (NEGATIVE) H 07/06/16 10:10 Urine RBC <1 /hpf (0-3) 07/06/16 10:10 Urine WBC 3 /hpf (3-5) 07/06/16 10:10 Valproic Acid 82.411 ug/ml (50-100) 07/07/16 07:00 RPR Titer Reactive 1:4 (NONREACTIVE) H 07/06/16 07:00 T.pallidum Ab (MHA) Previously reactive (NONREACTIVE) 07/06/16 07:00 Hepatitis C Antibody <0.1 s/co ratio (0.0-0.9) 07/05/16 07:00 HIV 1&2 Antibody Screen Negative 07/06/16 07:00 HIV P24 Antigen Negative 07/06/16 07:00 labs noted - Treatment Hospital Course: Detox Protocol Followed, Detoxed Safely, Responded well, Discharged Condition Good, Rehab Referral Accepted Patient has Accepted a Rehab Referral to: [facility] - Medication Discharge Medications: Ambulatory Orders Zolpidem Tartrate [Ambien] 10 mg PO HS 09/06/13 Quetiapine Fumarate [Seroquel -] 300 mg PO HS #30 tablet 11/19/15 Ranitidine [Zantac -] 150 mg PO BID #60 tablet 11/19/15 Divalproex [Depakote -] 500 mg PO BID #60 tablet.ec 01/22/16 Divalproex [Depakote -] 500 mg PO BID #60 tablet.ec 07/06/16 Quetiapine Fumarate [Seroquel -] 300 mg PO HS #30 tab 07/06/16 - Diagnosis (1) Alcohol dependence with uncomplicated withdrawal Current Visit: Yes Status: Acute (2) Cocaine dependence Current Visit: Yes Status: Acute Qualifiers: Substance use status: uncomplicated Qualified Code(s): F14.20 - Cocaine dependence, uncomplicated (3) Nicotine dependence Current Visit: Yes Status: Acute Qualifiers: Nicotine product type: cigarettes Substance use status: uncomplicated Qualified Code(s): F17.210 - Nicotine dependence, cigarettes, uncomplicated (4) Substance induced mood disorder Current Visit: Yes Status: Acute (5) Asthma Current Visit: Yes Status: Chronic Qualifiers: Asthma severity: mild intermittent (6) GERD (gastroesophageal reflux disease) Current Visit: Yes Status: Chronic (7) Schizoaffective disorder Current Visit: Yes Status: Chronic - AMA Did Patient Leave Against Medical Advice: No
[2016-07-10 10:47] VITALS: BP 115/75; PULSE 85; TEMP 96.3
== END 2016-07-10 10:45 | disposition home or self-care (01) | DRG 897 ==
LOC: YASAS 21:48 → Y3N 22:13
PROVIDERS: ADMIT Internal Medicine; ATTEND Internal Medicine
PROC: HZ2ZZZZ Detoxification Services for Substance Abuse Treatment (ICD-10-PCS; principal; 2016-07-10)
DX: F10.230 Alcohol dependence with withdrawal, uncomplicated (principal); F14.20 Cocaine dependence, uncomplicated; F17.210 Nicotine dependence, cigarettes, uncomplicated; F19.24 Other psychoactive substance dependence with psychoactive substance-induced mood disorder; F25.9 Schizoaffective disorder, unspecified; J45.20 Mild intermittent asthma, uncomplicated; K21.9 Gastro-esophageal reflux disease without esophagitis
CPT/HCPCS: 36415; 80053; 80164; 81003; 81015; 85027; 86593; 86780; 87389; 93005; 93010

== ENCOUNTER 2016-09-02 16:04 | Inpatient (IN) | payer OTHER ==
[2016-09-02 17:34] VITALS: BMI 28.7
--- NOTE | 2016-09-02 19:02 | HP ---
CIWA Score - CIWA Score Nausea/Vomitin-Mild Nausea/No Vomiting Muscle Tremors: 4-Moderate,w/Arms Extend Anxiety: 4-Mod. Anxious/Guarded Agitation: 4-Moderately Restless Paroxysmal Sweats: 1-Minimal Palms Moist Orientation: 0-Oriented Tacttile Disturbances: 0-None Auditory Disturbances: 0-None Visual Disturbances: 0-None Headache: 1-Very Mild CIWA-Ar Total Score: 15 Admission ROS BHS - HPI Chief Complaint: withdrawal sx Allergies/Adverse Reactions: Allergies Allergy/AdvReac Type Severity Reaction Status Date / Time No Known Drug Allergies Allergy Verified 07/06/16 12:25 risperidone [From Risperdal] AdvReac Swelling Verified 09/02/16 17:48 History of Present Illness: 30 years old male with long history of alcohol nicotine dependence has asthma and bipolar ii is admitted to detox Exam Limitations: No Limitations - Ebola screening Have you traveled outside of the country in the last 21 days: No Have you had contact with anyone from an Ebola affected area: No Have you been sick,other than usual withdrawal symptoms: No Do you have a fever: No - Review of Systems Constitutional: Chills, Changes in sleep, Weight Stable EENT: reports: No Symptoms Reported Respiratory: reports: No Symptoms reported Cardiac: reports: No Symptoms Reported GI: reports: Nausea, Indigestion, Abdominal cramping : reports: No Symptoms Reported Musculoskeletal: reports: Joint Pain (right ankle fx 2016) Integumentary: reports: No Symptoms Reported Neuro: reports: Seizure (2016 early no tratment), Tremors Endocrine: reports: No Symptoms Reported Hematology: reports: No Symptoms Reported Psychiatric: reports: Judgement Intact, Orientated x3, Depressed Other Systems: Reviewed and Negative Patient History - Patient Medical History Hx Anemia: No Hx Asthma: Yes Hx Chronic Obstructive Pulmonary Disease (COPD): No Hx Cancer: No Hx Cardiac Disorders: No Hx Congestive Heart Failure: No Hx Hypertension: No Hx Hypercholesterolemia: No Hx Pacemaker: No HX Cerebrovascular Accident: No Hx Seizures: No Hx Dementia: No Hx Diabetes: No Hx Gastrointestinal Disorders: Yes (ACID REFLUX) Hx Liver Disease: No Hx Genitourinary Disorders: No Hx Sexually Transmitted Disorders: Yes (hX. GONORRHEA) Hx Renal Disease (ESRD): No Hx Thyroid Disease: No Hx Human Immunodeficiency Virus (HIV): No (negative) Hx Hepatitis C: No Hx Depression: No Hx Suicide Attempt: Yes (At 8 y.o. attempted to hang and shoot himself ) Hx Bipolar Disorder: Yes Hx Schizophrenia: No - Patient Surgical History Past Surgical History: No Hx Neurologic Surgery: No Hx Cataract Extraction: No Hx Cardiac Surgery: No Hx Lung Surgery: No Hx Breast Surgery: No Hx Breast Biopsy: No Hx Abdominal Surgery: No Hx Appendectomy: No Hx Cholecystectomy: No Hx Genitourinary Surgery: No Hx Section: No Hx Orthopedic Surgery: Yes (right tibia/fibula fracture 12/2015 has a cast on) Anesthesia Reaction: No - PPD History Previous Implant?: Yes Documented Results: Negative w/proof Implanted On Prior R Admission?: Yes Date: 10/21/15 Results: 0 mm PPD to be Administered?: No - Smoking Cessation Smoking history: Current every day smoker Have you smoked in the past 12 months: Yes Aproximately how many cigarettes per day: 10 Cigars Per Day: 0 Hx Chewing Tobacco Use: No Initiated information on smoking cessation: Yes 'Breaking Loose' booklet given: 09/02/16 - Substance & Tx. History Hx Alcohol Use: Yes Hx Substance Use: Yes Substance Use Type: Alcohol, Cocaine Hx Substance Use Treatment: Yes - Substances Abused Alcohol Route: Oral Frequency: Daily Amount used: VODKA 1PINT Age of first use: 11 Date of Last Use: 09/02/16 Cocaine Route: Inhalation Frequency: Daily Amount used: 1 GRAM Age of first use: 22 Date of Last Use: 09/02/16 Family Disease History - Family Disease History Family Disease History: Diabetes: Mother (a lot of medical problems), CA: Mother , Other: Father (etoh), Mother Admission Physical Exam S - Vital Signs Vital Signs: Vital Signs - 24 hr 09/02/16 17:32 Temperature 97.5 F L Pulse Rate 92 H Respiratory 18 Rate Blood Pressure 128/75 - Physical General Appearance: Yes: Nourished, Appropriately Dressed, Tremorous, Irritable , Sweating, Anxious HEENTM: Yes: Hearing grossly Normal, Normal ENT Inspection, Normocephalic, Normal Voice Respiratory: Yes: Chest Non-Tender, Lungs Clear, Normal Breath Sounds, No Respiratory Distress, No Accessory Muscle Use Neck: Yes: No masses,lesions,Nodules, Supple Breast: Yes: Axillae without masses Cardiology: Yes: Regular Rhythm, S1, S2, Tachycardia Abdominal: Yes: Non Tender, Soft Genitourinary: Yes: Within Normal Limits Back: Yes: Normal Inspection Musculoskeletal: Yes: full range of Motion, Gait Steady, Muscle Pain (right ankle pain from fx 2016) Extremities: Yes: Normal Range of Motion, Non-Tender, Tremors Neurological: Yes: Fully Oriented, Alert, Motor Strength 5/5, Normal Response, Depressed Affect Integumentary: Yes: Warm Lymphatic: Yes: Within Normal Limits - Diagnostic (1) Alcohol dependence with uncomplicated withdrawal Current Visit: Yes Status: Acute (2) Nicotine dependence Current Visit: Yes Status: Acute Qualifiers: Nicotine product type: cigarettes Substance use status: in withdrawal Qualified Code(s): F17.213 - Nicotine dependence, cigarettes, with withdrawal (3) Asthma Current Visit: Yes Status: Chronic Qualifiers: Asthma severity: mild intermittent Asthma complication type: uncomplicated Qualified Code(s): J45.20 - Mild intermittent asthma, uncomplicated (4) GERD (gastroesophageal reflux disease) Current Visit: Yes Status: Chronic Qualifiers: Esophagitis presence: without esophagitis Qualified Code(s): K21.9 - Gastro-esophageal reflux disease without esophagitis (5) Schizoaffective disorder Current Visit: Yes Status: Suspected Qualifiers: Schizoaffective disorder type: bipolar Qualified Code(s): F25.0 - Schizoaffective disorder, bipolar type (6) Closed right ankle fracture Current Visit: Yes Status: Chronic Qualifiers: Encounter type: sequela Qualified Code(s): S82.891S - Other fracture of right lower leg, sequela Comment: 01/2016 Cleared for Admission [facility] - Detox or Rehab [facility] Level of Care: Medically Managed Detox Regimen/Protocol: Valium [facility] Breath Alcohol Content Breath Alcohol Content: 0 Urine Drug Screen - Results Drug Screen Negative: No Urine Drug Screen Results: SILVANA-Cocaine
[2016-09-02] MEDS ORDERED: diphenhydrAMINE HCL 50 MG CAPSULE PO PRN (19:09)
[2016-09-02] MEDS ORDERED: NICOTINE POLACRILEX 2 MG GUM BC PRN (19:09)
[2016-09-02] MEDS ORDERED: hydrOXYzine PAMOATE 50 MG CAPSULE (FP) PO PRN (19:09)
[2016-09-02] MEDS ORDERED: diazePAM 5 MG TABLET PO PRN (19:09)
[2016-09-02] MEDS ORDERED: ACETAMINOPHEN 325 MG TABLET (FP) PO PRN (19:09)
[2016-09-02] MEDS ORDERED: guaiFENesin/D-METHORPHAN HB 10 ML UNIT-DOSE CUPS PO PRN (19:09)
[2016-09-02] MEDS ORDERED: MAG HYDROX/AL HYDROX/SIMETH 30 ML UNIT-DOSE CUP PO PRN (19:09)
[2016-09-02] MEDS ORDERED: MAGNESIUM CITRATE 300 ML BOTTLE PO PRN (19:09)
[2016-09-02] MEDS ORDERED: NICOTINE 14 MG/24 HOURS TOPICAL PATCH TD PRN (19:09)
[2016-09-02] MEDS ORDERED: P-EPHED 60MG/TRIPROLIDI 2.5MG TABLET PO PRN (19:09)
[2016-09-02] MEDS ORDERED: MENTHOL/PHENOL 1 EACH UD MM PRN (19:09)
[2016-09-02] MEDS ORDERED: MAGNESIUM HYDROX 2400MG/30ML ORAL SUSPENSION 30 ML CUP PO PRN (19:09)
[2016-09-02] MEDS ORDERED: LOPERAMIDE HCL 2 MG CAPSULE PO PRN (19:09)
[2016-09-02] MEDS ORDERED: diazePAM 5 MG TABLET PO ONE (19:09)
[2016-09-02] MEDS ORDERED: ALBUTEROL SO4 6.7 GM HFA INHALER IH PRN (19:13)
[2016-09-02] MEDS: diazePAM 5 MG TABLET PO SCH (22:24)
[2016-09-02] MEDS: THIAMINE HCL 100 MG TABLET (FP) PO SCH (22:24)
[2016-09-02] MEDS: RANITIDINE HCL 150 MG TABLET (FP) PO SCH (22:24)
[2016-09-02 23:13] LABS: URINE APPEARANCE CLEAR; URINE BILIRUBIN NEGATIVE (NEGATIVE); URINE BLOOD NEGATIVE (NEGATIVE); URINE COLOR LTYELLOW; URINE GLUCOSE (UA) NEGATIVE (NEGATIVE); URINE KETONE 2+ (NEGATIVE); URINE LEUK ESTERASE NEGATIVE (NEGATIVE); URINE NITRITE NEGATIVE (NEGATIVE); URINE PROTEIN NEGATIVE (NEGATIVE); URINE UROBILINOGEN NEGATIVE E.U./dl (0.2-1.0)
[2016-09-03] MEDS: diazePAM 5 MG TABLET PO SCH ×3 (06:12→22:30)
--- NOTE | 2016-09-03 07:34 | CONSULT ---
[facility] Psychiatric Consult - Data Date of interview: 09/03/16 Admission source: [facility] Identifying data: This is 30 years old male with historey of psychiatric hospitalization, history of Bipolar disorder intoxicated with: Alcohol, Cocaine and Nicotine Substance Abuse History: Smoking Cessation. Smoking history: Current every day smoker. Have you smoked in the past 12 months: Yes. Aproximately how many cigarettes per day: 10. Cigars Per Day: 0. Hx Chewing Tobacco Use: No. Initiated information on smoking cessation: Yes. 'Breaking Loose' booklet given : 09/02/16. - Substance & Tx. History. Hx Alcohol Use: Yes. Hx Substance Use : Yes. Substance Use Type: Alcohol, Cocaine. Hx Substance Use Treatment: Yes. - Substances Abused. Alcohol. Route: Oral. Frequency: Daily. Amount used: VODKA 1PINT. Age of first use: 11. Date of Last Use: 09/02/16. Cocaine. Route: Inhalation. Frequency: Daily. Amount used: 1 GRAM. Age of first use: 22. Date of Last Use: 09/02/16 Medical History: GERD, Right Ankle Fracture S/P Psychiatric History: Patient reports to carry Bipolar disorder, as per computer Schizoaffective disorder history, with nost recent psychiatric admsision on at [facility], reports taking prior to admission: Seroquel 200mg poqd, 100mg p[oqhs. Benadryl 50mg po bid. Ambien 10mg po qhs. Depakote 750mg po bid Physical/Sexual Abuse/Trauma History: Denies Additional Comment: Seroquel 200mg poqd, 100mg p[oqhs. Benadryl 50mg po bid. Ambien 10mg po qhs. Depakote 750mg po bid Mental Status Exam - Mental Status Exam Alert and Oriented to: Person Cognitive Function: Fair Patient Appearance: Unkempt Mood: Anxious Affect: Mood Congruent Patient Behavior: Guarded, Talkative Speech Pattern: Excessive Voice Loudness: Normal Thought Process: Circumstantial Thought Disorder: Being Controlled Hallucinations: Denies Suicidal Ideation: Denies Homicidal Ideation: Denies Insight/Judgement: Fair Sleep: Difficulty falling asleep Appetite: Fair Muscle strength/Tone: Mild Hypotonicity Gait/Station: Shuffling Additional Comments: Seroquel 200mg poqd, 100mg p[oqhs. Benadryl 50mg po bid. Ambien 10mg po qhs. Depakote 750mg po bid Psychiatric Findings - Problem List ([place] 1, 2,3) (1) Alcohol dependence with uncomplicated withdrawal Current Visit: Yes Status: Acute (2) Nicotine dependence Current Visit: Yes Status: Acute Qualifiers: Nicotine product type: cigarettes Substance use status: in withdrawal Qualified Code(s): F17.213 - Nicotine dependence, cigarettes, with withdrawal (3) Schizoaffective disorder Current Visit: Yes Status: Suspected Qualifiers: Schizoaffective disorder type: bipolar Qualified Code(s): F25.0 - Schizoaffective disorder, bipolar type (4) Cocaine dependence Current Visit: No Status: Acute Qualifiers: Substance use status: uncomplicated Qualified Code(s): F14.20 - Cocaine dependence, uncomplicated (5) Substance induced mood disorder Current Visit: No Status: Acute (6) Bipolar disorder Current Visit: Yes Status: Acute - Initial Treatment Plan Initial Treatment Plan: Seroquel 200mg poqd, 100mg p[oqhs. Benadryl 50mg po bid. Ambien 10mg po qhs. Depakote 750mg po bid
[2016-09-03] MEDS ORDERED: diphenhydrAMINE HCL 25 MG CAPSULE (FP) PO ONE ×2 (09:23→21:12)
[2016-09-03 10:06] LABS: ALBUMIN 3.7 g/dl (3.4-5.0); ANION GAP 9 (8-16); CALCIUM 8.9 mg/dL (8.5-10.1); CO2 28 mmol/L (21-32); GLUCOSE,RANDOM 134 mg/dL (74-106)
[2016-09-03 10:07] LABS: MCH 29.5 pg (25.7-33.7); MCHC 33.3 g/dl (32.0-35.9); MEAN CELL VOLUME 88.7 fl (80-96); MEAN PLT VOLUME 8.4 fl (7.5-11.1); PLATELET COUNT 183 K/MM3 (134-434); RDW 14.1 % (11.9-15.9); WHITE BLOOD COUNT 5.2 K/mm3 (4.0-10.0)
[2016-09-03 10:10] LABS: ALK PHOS 69 U/L (45-117); BILIRUBIN,TOTAL 0.3 mg/dL (0.2-1.0); COCKROFT - GAULT 137.33; SGOT/AST 22 U/L (15-37); SGPT/ALT 29 U/L (12-78); TOT PROT 7.5 g/dl (6.4-8.2)
[2016-09-03] MEDS: QUEtiapine FUMARATE 200 MG TABLET PO SCH (10:29)
[2016-09-03] MEDS: PRENATAL VITAMINS W/ FOLIC ACID TABLET (FP) PO SCH (10:29)
[2016-09-03] MEDS: DIVALPROEX SODIUM 250 MG TABLET E.C. (FP) PO SCH ×2 (10:29→22:29)
[2016-09-03] MEDS: diphenhydrAMINE HCL 50 MG CAPSULE PO SCH ×2 (10:30→22:29)
[2016-09-03] MEDS: TOLNAFTATE 1% CREAM 15 GM TUBE TP SCH ×2 (10:54→22:43)
[2016-09-03] MEDS: RANITIDINE HCL 150 MG TABLET (FP) PO SCH ×2 (11:24→22:29)
[2016-09-03 12:14] LABS: HIV 1 & 2 AB NEGATIVE; HIV 1 AGp24 NEGATIVE
--- NOTE | 2016-09-03 12:32 | PN ---
[facility] CIWA - CIWA Score Nausea/Vomitin Muscle Tremors: 3 Anxiety: 2 Agitation: 3 Paroxysmal Sweats: 1-Minimal Palms Moist Orientation: 0-Oriented Tacttile Disturbances: 1-Very Mild Itch/Numbness Auditory Disturbances: 1-Very Mild Visual Disturbances: 1-Very Mild Sensitivity Headache: 2-Mild CIWA-Ar Total Score: 17 BHS Progress Note (SOAP) Subjective: ALERT,IRRITABLE,ANXIOUS,INTERRUPTED SLEEP,TREMOR Objective: 09/03/16 12:29 Vital Signs Temperature 98.0 F 09/03/16 09:52 Pulse Rate 81 09/03/16 09:52 Respiratory Rate 20 09/03/16 09:52 Blood Pressure 104/75 09/03/16 09:52 O2 Sat by Pulse Oximetry (%) EKG NSR,LVH NO CHEST PAIN,NO SOB,NO DIZZINESS Laboratory Last Values WBC 5.2 K/mm3 (4.0-10.0) 09/03/16 07:00 RBC 4.76 M/mm3 (4.00-5.60) 09/03/16 07:00 Hgb 14.1 GM/dL (11.7-16.9) 09/03/16 07:00 Hct 42.3 % (35.4-49) 09/03/16 07:00 MCV 88.7 fl (80-96) 09/03/16 07:00 MCHC 33.3 g/dl (32.0-35.9) 09/03/16 07:00 RDW 14.1 % (11.9-15.9) 09/03/16 07:00 Plt Count 183 K/MM3 (134-434) 09/03/16 07:00 MPV 8.4 fl (7.5-11.1) 09/03/16 07:00 Sodium 140 mmol/L (136-145) 09/03/16 07:00 Potassium 3.9 mmol/L (3.5-5.1) 09/03/16 07:00 Chloride 103 mmol/L (98-107) 09/03/16 07:00 Carbon Dioxide 28 mmol/L (21-32) 09/03/16 07:00 Anion Gap 9 (8-16) 09/03/16 07:00 BUN 15 mg/dL (7-18) 09/03/16 07:00 Creatinine 1.0 mg/dL (0.7-1.3) 09/03/16 07:00 Creat Clearance w eGFR > 60 (>60) 09/03/16 07:00 Random Glucose 134 mg/dL (74-106) H 09/03/16 07:00 Calcium 8.9 mg/dL (8.5-10.1) 09/03/16 07:00 Total Bilirubin 0.3 mg/dL (0.2-1.0) D 09/03/16 07:00 AST 22 U/L (15-37) D 09/03/16 07:00 ALT 29 U/L (12-78) 09/03/16 07:00 Alkaline Phosphatase 69 U/L (45-117) 09/03/16 07:00 Total Protein 7.5 g/dl (6.4-8.2) 09/03/16 07:00 Albumin 3.7 g/dl (3.4-5.0) 09/03/16 07:00 Urine Color Ltyellow 09/02/16 23:00 Urine Appearance Clear 09/02/16 23:00 Urine pH 5.0 (5.0-8.0) D 09/02/16 23:00 Ur Specific [place] 1.010 (1.005-1.025) 09/02/16 23:00 Urine Protein Negative (NEGATIVE) 09/02/16 23:00 Urine Glucose (UA) Negative (NEGATIVE) 09/02/16 23:00 Urine Ketones 2+ (NEGATIVE) H 09/02/16 23:00 Urine Blood Negative (NEGATIVE) 09/02/16 23:00 Urine Nitrite Negative (NEGATIVE) 09/02/16 23:00 Urine Bilirubin Negative (NEGATIVE) 09/02/16 23:00 Urine Urobilinogen Negative E.U./dl (0.2-1.0) 09/02/16 23:00 Ur Leukocyte Esterase Negative (NEGATIVE) 09/02/16 23:00 Valproic Acid 4.139 ug/ml (50-100) L 09/03/16 07:00 HIV 1&2 Antibody Screen Negative 09/03/16 07:00 HIV P24 Antigen Negative 09/03/16 07:00 Assessment: 09/03/16 12:31 WITHDRAWAL SYMPTOM Plan: CONTINUE DETOX,BGM MONITORING
[2016-09-03] MEDS: CYCLOBENZAPRINE HCL 10 MG TABLET (FP) PO PRN ×2 (14:11→22:32)
[2016-09-03] MEDS ORDERED: QUEtiapine FUMARATE 100 MG TABLET (FP) PO SCH (22:00)
[2016-09-03] MEDS ORDERED: ZOLPIDEM TARTRATE 10 MG TABLET (PARK CARE ONLY) PO PRN (22:00)
[2016-09-03] MEDS: THIAMINE HCL 100 MG TABLET (FP) PO SCH (22:43)
[2016-09-04] MEDS ORDERED: diphenhydrAMINE HCL 25 MG CAPSULE (FP) PO ONE (09:26)
--- NOTE | 2016-09-04 09:55 | EKG ---
Test Reason : Blood Pressure : / mmHG Vent. Rate : 085 BPM Atrial Rate : 085 BPM P-R Int : 140 ms QRS Dur : 104 ms QT Int : 384 ms P-R-T Axes : 060 -13 000 degrees QTc Int : 456 ms NORMAL SINUS RHYTHM POSSIBLE LEFT ATRIAL ENLARGEMENT LEFT VENTRICULAR HYPERTROPHY ABNORMAL ECG WHEN COMPARED WITH ECG OF 05-JUL-2016 23:26, QT HAS LENGTHENED Confirmed by JAMES ABARCA MD ([id number]) on 09/04/2016 9:55:29 AM Referred By: Confirmed By:JAMES ABARCA MD
[2016-09-04] MEDS ORDERED: diazePAM 5 MG TABLET PO SCH (10:00)
[2016-09-04 10:05] VITALS: BP 100/82; PULSE 82; TEMP 98.2
--- NOTE | 2016-09-04 10:07 | PN ---
S CIWA - CIWA Score Nausea/Vomitin Muscle Tremors: 3 Anxiety: 2 Agitation: 2 Paroxysmal Sweats: 1-Minimal Palms Moist Orientation: 0-Oriented Tacttile Disturbances: 1-Very Mild Itch/Numbness Auditory Disturbances: 1-Very Mild Visual Disturbances: 1-Very Mild Sensitivity Headache: 2-Mild CIWA-Ar Total Score: 15 S Progress Note (SOAP) Subjective: ALERT,IRRITABLE,INTERRUPTED SLEEP,TREMOR Objective: 09/04/16 10:06 Vital Signs Temperature 98.2 F 09/04/16 10:04 Pulse Rate 82 09/04/16 10:04 Respiratory Rate 18 09/04/16 10:04 Blood Pressure 100/82 09/04/16 10:04 O2 Sat by Pulse Oximetry (%) Laboratory Last Values WBC 5.2 K/mm3 (4.0-10.0) 09/03/16 07:00 RBC 4.76 M/mm3 (4.00-5.60) 09/03/16 07:00 Hgb 14.1 GM/dL (11.7-16.9) 09/03/16 07:00 Hct 42.3 % (35.4-49) 09/03/16 07:00 MCV 88.7 fl (80-96) 09/03/16 07:00 MCHC 33.3 g/dl (32.0-35.9) 09/03/16 07:00 RDW 14.1 % (11.9-15.9) 09/03/16 07:00 Plt Count 183 K/MM3 (134-434) 09/03/16 07:00 MPV 8.4 fl (7.5-11.1) 09/03/16 07:00 Sodium 140 mmol/L (136-145) 09/03/16 07:00 Potassium 3.9 mmol/L (3.5-5.1) 09/03/16 07:00 Chloride 103 mmol/L (98-107) 09/03/16 07:00 Carbon Dioxide 28 mmol/L (21-32) 09/03/16 07:00 Anion Gap 9 (8-16) 09/03/16 07:00 BUN 15 mg/dL (7-18) 09/03/16 07:00 Creatinine 1.0 mg/dL (0.7-1.3) 09/03/16 07:00 Creat Clearance w eGFR > 60 (>60) 09/03/16 07:00 POC Glucometer 130 UNITS (()) 09/04/16 06:45 Random Glucose 134 mg/dL (74-106) H 09/03/16 07:00 Calcium 8.9 mg/dL (8.5-10.1) 09/03/16 07:00 Total Bilirubin 0.3 mg/dL (0.2-1.0) D 09/03/16 07:00 AST 22 U/L (15-37) D 09/03/16 07:00 ALT 29 U/L (12-78) 09/03/16 07:00 Alkaline Phosphatase 69 U/L (45-117) 09/03/16 07:00 Total Protein 7.5 g/dl (6.4-8.2) 09/03/16 07:00 Albumin 3.7 g/dl (3.4-5.0) 09/03/16 07:00 Urine Color Ltyellow 09/02/16 23:00 Urine Appearance Clear 09/02/16 23:00 Urine pH 5.0 (5.0-8.0) D 09/02/16 23:00 Ur Specific [place] 1.010 (1.005-1.025) 09/02/16 23:00 Urine Protein Negative (NEGATIVE) 09/02/16 23:00 Urine Glucose (UA) Negative (NEGATIVE) 09/02/16 23:00 Urine Ketones 2+ (NEGATIVE) H 09/02/16 23:00 Urine Blood Negative (NEGATIVE) 09/02/16 23:00 Urine Nitrite Negative (NEGATIVE) 09/02/16 23:00 Urine Bilirubin Negative (NEGATIVE) 09/02/16 23:00 Urine Urobilinogen Negative E.U./dl (0.2-1.0) 09/02/16 23:00 Ur Leukocyte Esterase Negative (NEGATIVE) 09/02/16 23:00 Valproic Acid 4.139 ug/ml (50-100) L 09/03/16 07:00 RPR Titer Reactive 1:1 (NONREACTIVE) H D 09/03/16 07:00 T.pallidum Ab (MHA) Previously reactive (NONREACTIVE) 09/03/16 07:00 HIV 1&2 Antibody Screen Negative 09/03/16 07:00 HIV P24 Antigen Negative 09/03/16 07:00 09/04/16 10:08 PEVIUOSLY TREATED FOR SYPHILIS Assessment: 09/04/16 10:09 WITHDRAWAL SYMPTOM Plan: CONTINUE DETOX
--- NOTE | 2016-09-04 10:12 | PN ---
[facility] Progress Note Note: PATIENT DID NOT WANT TO COMPLETE TREATMENT STATED HE HAS TO LEAVE FOR HIS DOCTOR 'S APPOINT AND PSYCHIATRIST,SEEN BY COUNSELOR,SIGNED RELEASE CAROLINE
--- NOTE | 2016-09-04 10:17 | DS ---
[facility] Detox Discharge Summary Admission Date: 09/02/16 Discharge Date: 09/04/16 - History Present History: Alcohol Dependence Additional Comments: PATIENT DID NOT WANT TO COMPLETE TREATMENT,STATED HAS TO LEAVE FOR DOCTOR'S APPOINTMENT FAMILY PHYSICIAN AND PSYCHIATRIST,SEEN BY COUNSELOR,SIGNED RELEASE AMA Pertinent Past History: ASTHMA GERD SCHIZOAFFECTIVE DISORDER - Physical Exam Results Vital Signs: Vital Signs Temperature 98.2 F 09/04/16 10:04 Pulse Rate 82 09/04/16 10:04 Respiratory Rate 18 09/04/16 10:04 Blood Pressure 100/82 09/04/16 10:04 O2 Sat by Pulse Oximetry (%) Pertinent Admission Physical Exam Findings: WITHDRAWAL SYMPTOM - Medication Discharge Medications: Ambulatory Orders Zolpidem Tartrate [Ambien] 10 mg PO HS 09/06/13 Ranitidine [Zantac -] 150 mg PO BID #60 tablet 11/19/15 Divalproex [Depakote -] 750 mg PO BID 09/02/16 Quetiapine Fumarate [Seroquel -] 100 mg PO HS 09/02/16 Quetiapine Fumarate [Seroquel -] 200 mg PO DAILY 09/02/16 Diphenhydramine [Benadryl Capsule -] 50 mg PO BID #60 cap 09/03/16 Divalproex [Depakote -] 750 mg PO BID #60 tablet 09/03/16 Quetiapine Fumarate [Seroquel -] 200 mg PO DAILY #30 tab 09/03/16 Quetiapine Fumarate [Seroquel] 100 mg PO HS #30 tablet 09/03/16 Zolpidem Tartrate [Ambien] 10 mg PO HS #14 tablet MDD 10 09/03/16 - Diagnosis (1) Alcohol dependence with uncomplicated withdrawal Current Visit: Yes Status: Acute (2) Nicotine dependence Current Visit: Yes Status: Acute Qualifiers: Nicotine product type: cigarettes Substance use status: in withdrawal Qualified Code(s): F17.213 - Nicotine dependence, cigarettes, with withdrawal (3) Asthma Current Visit: Yes Status: Chronic Qualifiers: Asthma severity: mild intermittent Asthma complication type: uncomplicated Qualified Code(s): J45.20 - Mild intermittent asthma, uncomplicated (4) GERD (gastroesophageal reflux disease) Current Visit: Yes Status: Chronic Qualifiers: Esophagitis presence: without esophagitis Qualified Code(s): K21.9 - Gastro-esophageal reflux disease without esophagitis (5) Schizoaffective disorder Current Visit: Yes Status: Suspected Qualifiers: Schizoaffective disorder type: bipolar Qualified Code(s): F25.0 - Schizoaffective disorder, bipolar type - AMA Did Patient Leave Against Medical Advice: Yes
[2016-09-04] MEDS: PRENATAL VITAMINS W/ FOLIC ACID TABLET (FP) PO SCH (10:48)
[2016-09-04] MEDS: DIVALPROEX SODIUM 250 MG TABLET E.C. (FP) PO SCH (10:48)
[2016-09-04] MEDS: QUEtiapine FUMARATE 200 MG TABLET PO SCH (10:48)
[2016-09-04] MEDS: RANITIDINE HCL 150 MG TABLET (FP) PO SCH (10:48)
[2016-09-04] MEDS: diphenhydrAMINE HCL 50 MG CAPSULE PO SCH (10:49)
[2016-09-04] MEDS: TOLNAFTATE 1% CREAM 15 GM TUBE TP SCH (10:49)
[2016-09-06] MEDS ORDERED: diazePAM 5 MG TABLET PO SCH (10:00)
== END 2016-09-04 11:21 | disposition left against medical advice (07) | DRG 894 ==
LOC: YASAS 16:04 → Y6N 18:47
PROVIDERS: ADMIT Internal Medicine Addiction Medicine; ATTEND Internal Medicine Addiction Medicine
PROC: HZ2ZZZZ Detoxification Services for Substance Abuse Treatment (ICD-10-PCS; principal; 2016-09-04)
DX: F10.230 Alcohol dependence with withdrawal, uncomplicated (principal); F14.20 Cocaine dependence, uncomplicated; F17.210 Nicotine dependence, cigarettes, uncomplicated; F25.0 Schizoaffective disorder, bipolar type; F31.9 Bipolar disorder, unspecified; J45.20 Mild intermittent asthma, uncomplicated; K21.9 Gastro-esophageal reflux disease without esophagitis; S82.891S Other fracture of right lower leg, sequela; M89.8X7 Other specified disorders of bone, ankle and foot
CPT/HCPCS: 36415; 80053; 80164; 81003; 85027; 86593; 86780; 87389; 93005; 93010

== ENCOUNTER 2016-12-04 12:19 | Inpatient (IN) | payer OTHER ==
[2016-12-04 13:05] VITALS: BMI 25.8
--- NOTE | 2016-12-04 15:31 | HP ---
CIWA Score - CIWA Score Nausea/Vomitin-No Nausea/No Vomiting Muscle Tremors: 4-Moderate,w/Arms Extend Anxiety: 3 Agitation: 4-Moderately Restless Paroxysmal Sweats: 3 Orientation: 0-Oriented Tacttile Disturbances: 0-None Auditory Disturbances: 0-None Visual Disturbances: 0-None Headache: 1-Very Mild CIWA-Ar Total Score: 15 Admission ROS BHS - HPI Chief Complaint: I am here to detox. Allergies/Adverse Reactions: Allergies Allergy/AdvReac Type Severity Reaction Status Date / Time No Known Drug Allergies Allergy Verified 07/06/16 12:25 risperidone [From Risperdal] AdvReac stiffness Verified 12/04/16 13:18 History of Present Illness: pt is a 31yr old male with a history of alcohol and cocaine dependence seeking detox for treatment. Exam Limitations: No Limitations - Ebola screening Have you traveled outside of the country in the last 21 days: No Have you had contact with anyone from an Ebola affected area: No Have you been sick,other than usual withdrawal symptoms: No Do you have a fever: No - Review of Systems Constitutional: Diaphoresis, Loss of Appetite, Night Sweats, Changes in sleep EENT: reports: Tearing Respiratory: reports: No Symptoms reported Cardiac: reports: No Symptoms Reported GI: reports: No Symptoms Reported : reports: No Symptoms Reported Musculoskeletal: reports: Joint Pain (ankle pain) Integumentary: reports: No Symptoms Reported Neuro: reports: Headache, Seizure (alcohol related seizure 07/2015), Tingling, Tremors Endocrine: reports: Excessive Sweating, Flushing Hematology: reports: No Symptoms Reported Psychiatric: reports: No Sypmtoms Reported, Judgement Intact, Mood/Affect Appropiate, Orientated x3, Agitated, Anxious Other Systems: Reviewed and Negative Patient History - Patient Medical History Hx Anemia: No Hx Asthma: Yes Hx Chronic Obstructive Pulmonary Disease (COPD): No Hx Cancer: No Hx Cardiac Disorders: No Hx Congestive Heart Failure: No Hx Hypertension: No Hx Hypercholesterolemia: No Hx Pacemaker: No HX Cerebrovascular Accident: No Hx Seizures: Yes (alcohol related -last episode was in 07/2015) Hx Dementia: No Hx Diabetes: No Hx Gastrointestinal Disorders: Yes (acid reflux) Hx Liver Disease: No Hx Genitourinary Disorders: No Hx Sexually Transmitted Disorders: Yes (chlamydia) Hx Renal Disease (ESRD): No Hx Thyroid Disease: No Hx Human Immunodeficiency Virus (HIV): No (negative) Hx Hepatitis C: No Hx Depression: No Hx Suicide Attempt: Yes (hanged self at age 8/denies any S/H ideation today) Hx Bipolar Disorder: Yes Hx Schizophrenia: Yes - Patient Surgical History Past Surgical History: No Hx Neurologic Surgery: No Hx Cataract Extraction: No Hx Cardiac Surgery: No Hx Lung Surgery: No Hx Breast Surgery: No Hx Breast Biopsy: No Hx Abdominal Surgery: No Hx Appendectomy: No Hx Cholecystectomy: No Hx Genitourinary Surgery: No Hx Section: No Hx Orthopedic Surgery: No Anesthesia Reaction: No - PPD History Previous Implant?: Yes Documented Results: Negative w/proof Implanted On Prior [facility] Admission?: Yes Date: 10/21/15 Results: 0 mm PPD to be Administered?: No - Reproductive History Patient is a Female of Child Bearing Age (11 -55 yrs old): No - Smoking Cessation Smoking history: Current some day smoker Have you smoked in the past 12 months: Yes Aproximately how many cigarettes per day: 5 Cigars Per Day: 0 Hx Chewing Tobacco Use: No Initiated information on smoking cessation: Yes 'Breaking Loose' booklet given: 12/04/16 - Substance & Tx. History Hx Alcohol Use: Yes Hx Substance Use: Yes Substance Use Type: Alcohol, Cocaine Hx Substance Use Treatment: Yes (last detox 09/2016 [facility]) - Substances Abused Cocaine Route: Inhalation Frequency: Daily Amount used: $20-40 Age of first use: 22 Date of Last Use: 12/03/16 Alcohol-vodka Route: Oral Frequency: Daily Amount used: 2-3 pts. Age of first use: 16 Date of Last Use: 12/04/16 Family Disease History - Family Disease History Family Disease History: Diabetes: Mother (a lot of medical problems), CA: Mother , Other: Father (etoh), Mother Admission Physical Exam BHS - Vital Signs Vital Signs: Vital Signs - 24 hr 12/04/16 13:03 Temperature 97.4 F L Pulse Rate 71 Respiratory 20 Rate Blood Pressure 114/67 - Physical General Appearance: Yes: Appropriately Dressed, Moderate Distress, Tremorous, Irritable, Sweating, Anxious HEENTM: Yes: Hearing grossly Normal, Normal Voice, Nasal Congestion, Rhinorrhea Respiratory: Yes: Lungs Clear, Normal Breath Sounds, No Respiratory Distress Neck: Yes: No masses,lesions,Nodules Breast: Yes: Within Normal Limits Cardiology: Yes: Regular Rhythm, Regular Rate, S1, S2 Abdominal: Yes: Normal Bowel Sounds, Non Tender, Soft Genitourinary: Yes: Within Normal Limits Back: Yes: Normal Inspection Musculoskeletal: Yes: full range of Motion, Joint Stiffness (a healing ankle fx a year ago.) Extremities: Yes: Normal Capillary Refill, Normal Inspection, Non-Tender, Tremors Neurological: Yes: Fully Oriented, Alert, Normal Response Integumentary: Yes: Normal Color, Diaphoresis Lymphatic: Yes: Within Normal Limits - Diagnostic (1) Alcohol dependence with uncomplicated withdrawal Current Visit: Yes Status: Chronic (2) Cocaine dependence Current Visit: No Status: Acute Qualifiers: Substance use status: uncomplicated (3) Nicotine dependence Current Visit: Yes Status: Chronic Qualifiers: Nicotine product type: cigarettes (4) Asthma Current Visit: Yes Status: Chronic Qualifiers: Asthma severity: mild intermittent (5) Closed right ankle fracture Current Visit: No Status: Chronic Qualifiers: Encounter type: subsequent encounter Fracture healing: with routine healing Qualified Code(s): S82.891D - Other fracture of right lower leg, subsequent encounter for closed fracture with routine healing Comment: 01/2016 Cleared for Admission [facility] - Detox or Rehab [facility] Level of Care: Medically Managed Detox Regimen/Protocol: Librium [facility] Breath Alcohol Content Breath Alcohol Content: 0 Urine Drug Screen - Results Drug Screen Negative: No Urine Drug Screen Results: SILVANA-Cocaine, TCA-Tricyclic Antidepress
[2016-12-04] MEDS ORDERED: chlordiazePOXIDE HCL 25 MG CAPSULE PO ONE (15:35)
[2016-12-04] MEDS ORDERED: MAG HYDROX/AL HYDROX/SIMETH 30 ML UNIT-DOSE CUP PO PRN (15:35)
[2016-12-04] MEDS ORDERED: NICOTINE POLACRILEX 4 MG GUM BC PRN (15:35)
[2016-12-04] MEDS ORDERED: chlordiazePOXIDE HCL 25 MG CAPSULE PO PRN (15:35)
[2016-12-04] MEDS ORDERED: MENTHOL/PHENOL 1 EACH UD MM PRN (15:35)
[2016-12-04] MEDS ORDERED: LOPERAMIDE HCL 2 MG CAPSULE PO PRN (15:35)
[2016-12-04] MEDS ORDERED: MAGNESIUM CITRATE 300 ML BOTTLE PO PRN (15:35)
[2016-12-04] MEDS ORDERED: MAGNESIUM HYDROX 2400MG/30ML ORAL SUSPENSION 30 ML CUP PO PRN (15:35)
[2016-12-04] MEDS ORDERED: hydrOXYzine PAMOATE 50 MG CAPSULE (FP) PO PRN (15:35)
[2016-12-04] MEDS ORDERED: IBUPROFEN 400 MG TABLET (FP) PO PRN (15:35)
[2016-12-04] MEDS ORDERED: P-EPHED 60MG/TRIPROLIDI 2.5MG TABLET PO PRN (15:35)
[2016-12-04] MEDS ORDERED: guaiFENesin/D-METHORPHAN HB 10 ML UNIT-DOSE CUPS PO PRN (15:35)
[2016-12-04] MEDS ORDERED: ACETAMINOPHEN 325 MG TABLET (FP) PO PRN (15:35)
[2016-12-04] MEDS: chlordiazePOXIDE HCL 25 MG CAPSULE PO SCH ×2 (17:04→22:13)
--- NOTE | 2016-12-04 17:04 | CONSULT ---
[facility] Psychiatric Consult - Data Date of interview: 12/04/16 Admission source: [facility] Identifying data: One of several admissions to [facility] for this 31 y/o male seeking detox treatment on for alcohol and cocaine dependence.Patient is single,a father of one,undomiciled (care home),unemployed and supported on SSI/SSD benefits. Substance Abuse History: Confirmed by the patient in this interview. Smoking Cessation. Smoking history: Current some day smoker. Have you smoked in the past 12 months: Yes. Aproximately how many cigarettes per day: 5. Cigars Per Day: 0. Hx Chewing Tobacco Use: No. Initiated information on smoking cessation : Yes. 'Breaking Loose' booklet given: 12/04/16. - Substance & Tx. History. Hx Alcohol Use: Yes. Hx Substance Use: Yes. Substance Use Type: Alcohol, Cocaine. Hx Substance Use Treatment: Yes (last detox 09/2016 [facility]). - Substances Abused. Cocaine. Route: Inhalation. Frequency: Daily. Amount used: $20-40. Age of first use: 22. Date of Last Use: 12/03/16. Alcohol- vodka. Route: Oral. Frequency: Daily. Amount used: 2-3 pts. Age of first use : 16. Date of Last Use: 12/04/16 Medical History: No new findings.Medical history is remarkable for GERD, bronchial asthma and past treatment for gonorrhea/syphilis.Additional history of orthosurgery for fracture of right tibia/fibula (December 2015). Psychiatric History: No variation in self-reported psychiatric profile.Diagnosed with Schizoaffective Disorder.Prescribed seroquel 200 mg/ daily - 100 mg at + depakote 750 mg po bid + benadryl 50 mg daily (patient's report).History of multiple hospitalizations (mostly at [facility]) since onset of mental illnes at age 17.Mr Wing is still psychiatric OPD care at the [facility] in the [place].Last took his medications three days ago ( self-report).Patient reports a remote history of suicide attempts (shooting/ hanging at age [age]). Physical/Sexual Abuse/Trauma History: Patient denies history of sexual abuse. Additional Comment: Urine Drug Screen Results: SILVANA-Cocaine, TCA-Tricyclic Antidepressant.Noted. Mental Status Exam - Mental Status Exam Alert and Oriented to: Time, Place, Person Cognitive Function: Good Patient Appearance: Well Groomed Mood: Nervous, Anxious Affect: Mood Congruent Patient Behavior: Fatigued, Appropriate, Cooperative Speech Pattern: Clear, Appropriate Voice Loudness: Normal Thought Process: Intact, Goal Oriented Thought Disorder: Not Present Hallucinations: Denies Suicidal Ideation: Denies Homicidal Ideation: Denies Insight/Judgement: Poor Sleep: Poorly, Difficulty falling asleep Appetite: Good Muscle strength/Tone: Normal Gait/Station: Normal Psychiatric Findings - Problem List ([place] 1, 2,3) (1) Alcohol dependence with uncomplicated withdrawal Current Visit: Yes Status: Acute (2) Cocaine dependence Current Visit: Yes Status: Acute Qualifiers: Substance use status: uncomplicated Qualified Code(s): F14.20 - Cocaine dependence, uncomplicated (3) Nicotine dependence Current Visit: Yes Status: Acute Qualifiers: Nicotine product type: cigarettes (4) Substance induced mood disorder Current Visit: Yes Status: Acute (5) Schizoaffective disorder Current Visit: Yes Status: Chronic Qualifiers: Schizoaffective disorder type: bipolar Qualified Code(s): F25.0 - Schizoaffective disorder, bipolar type Comment: Self-reported history. (6) Asthma Current Visit: Yes Status: Chronic Qualifiers: Asthma severity: mild intermittent (7) GERD (gastroesophageal reflux disease) Current Visit: Yes Status: Chronic Qualifiers: Esophagitis presence: without esophagitis Qualified Code(s): K21.9 - Gastro-esophageal reflux disease without esophagitis (8) Insomnia Current Visit: Yes Status: Acute - Initial Treatment Plan Initial Treatment Plan: Psychoeducation.Detoxification.Medications : seroquel 100 mg po bid + depakote 750 mg po bid + benadryl 50 mg po hs prn hs.Side effects/benefits discussed with patient,including but not limited to risk for liver dysfunction,blood dyscrasias,weight gain,abnormal involuntary movements, metabolic syndrome,oversedation and cardiovascular adverse events.History of good tolerability as per patient.Mr Wing consents (verbally) to follow this plan of care.Medications are verified via survey of recent pharmacy claims.Confirmed ([facility] 11/18/16).Observation.Valproic acid level is requested.Will follow.
[2016-12-04 21:35] LABS: URINE APPEARANCE CLEAR; URINE BILIRUBIN NEGATIVE (NEGATIVE); URINE BLOOD NEGATIVE (NEGATIVE); URINE COLOR LT. YELLOW; URINE GLUCOSE (UA) NEGATIVE (NEGATIVE); URINE KETONE NEGATIVE (NEGATIVE); URINE LEUK ESTERASE NEGATIVE (NEGATIVE); URINE NITRITE NEGATIVE (NEGATIVE); URINE PROTEIN NEGATIVE (NEGATIVE); URINE UROBILINOGEN 0.2 mg/dL (0.2-1.0)
[2016-12-04] MEDS: RANITIDINE HCL 150 MG TABLET (FP) PO SCH (22:13)
[2016-12-04] MEDS: DIVALPROEX SODIUM 250 MG TABLET E.C. (FP) PO SCH (22:13)
[2016-12-04] MEDS: QUEtiapine FUMARATE 100 MG TABLET (FP) PO SCH (22:13)
[2016-12-04] MEDS: THIAMINE HCL 100 MG TABLET (FP) PO SCH (22:13)
[2016-12-04] MEDS: diphenhydrAMINE HCL 50 MG CAPSULE PO PRN (22:14)
[2016-12-05] MEDS: chlordiazePOXIDE HCL 25 MG CAPSULE PO SCH ×4 (05:49→22:13)
[2016-12-05] MEDS: PRENATAL VITAMINS W/ FOLIC ACID TABLET (FP) PO SCH (10:10)
[2016-12-05] MEDS: DIVALPROEX SODIUM 250 MG TABLET E.C. (FP) PO SCH ×2 (10:10→22:14)
[2016-12-05] MEDS: RANITIDINE HCL 150 MG TABLET (FP) PO SCH ×2 (10:10→22:14)
[2016-12-05] MEDS: QUEtiapine FUMARATE 100 MG TABLET (FP) PO SCH ×2 (10:10→22:14)
[2016-12-05] MEDS: NICOTINE 21 MG/24 HOURS TOPICAL PATCH TD SCH (10:10)
[2016-12-05 10:26] LABS: MCH 29.2 pg (25.7-33.7); MCHC 32.3 g/dl (32.0-35.9); MEAN CELL VOLUME 90.2 fl (80-96); MEAN PLT VOLUME 9.5 fl (7.5-11.1); PLATELET COUNT 186 K/MM3 (134-434); RDW 15.2 % (11.9-15.9); WHITE BLOOD COUNT 5.8 K/mm3 (4.0-10.0)
[2016-12-05 10:55] LABS: ALBUMIN 4.1 g/dl (3.4-5.0); ALK PHOS 64 U/L (45-117); ANION GAP 6 (8-16); BILIRUBIN,TOTAL 0.4 mg/dL (0.2-1.0); CALCIUM 9.3 mg/dL (8.5-10.1); CO2 32 mmol/L (21-32); CREATININE 0.9 mg/dL (0.7-1.3); GLUCOSE,RANDOM 86 mg/dL (74-106); SGOT/AST 16 U/L (15-37); SGPT/ALT 20 U/L (12-78); TOT PROT 7.8 g/dl (6.4-8.2)
--- NOTE | 2016-12-05 12:59 | EKG ---
Test Reason : Blood Pressure : / mmHG Vent. Rate : 062 BPM Atrial Rate : 062 BPM P-R Int : 130 ms QRS Dur : 098 ms QT Int : 406 ms P-R-T Axes : 055 028 013 degrees QTc Int : 412 ms NORMAL SINUS RHYTHM BASELINE ARTIFACT WHEN COMPARED WITH ECG OF 02-SEP-2016 19:36, NO SIGNIFICANT CHANGE WAS FOUND Confirmed by NERIS MANUEL MD ([id number]) on 12/05/2016 12:59:19 PM Referred By: Confirmed By:NERIS MANUEL MD
--- NOTE | 2016-12-05 14:22 | PN ---
S CIWA - CIWA Score Nausea/Vomitin-Mild Nausea/No Vomiting Muscle Tremors: 4-Moderate,w/Arms Extend Anxiety: 3 Agitation: 2 Paroxysmal Sweats: 2 Orientation: 0-Oriented Tacttile Disturbances: 3-Moderate Itch/Numb/Burn Auditory Disturbances: 0-None Visual Disturbances: 1-Very Mild Sensitivity Headache: 0-None Present CIWA-Ar Total Score: 16 BHS Progress Note (SOAP) Subjective: Tremors, Body Aches. Objective: PT. A & O X 3. NO ACUTE DISTRESS. 12/05/16 14:20 Vital Signs Temperature 97.8 F 12/05/16 14:08 Pulse Rate 80 12/05/16 14:08 Respiratory Rate 18 12/05/16 14:08 Blood Pressure 84/50 12/05/16 14:08 O2 Sat by Pulse Oximetry (%) Laboratory Tests 12/04/16 12/05/16 12/05/16 21:20 06:00 06:00 WBC 5.8 RBC 4.75 Hgb 13.9 Hct 42.9 MCV 90.2 MCH 29.2 MCHC 32.3 RDW 15.2 Plt Count 186 MPV 9.5 D Sodium 143 Potassium 4.6 Chloride 105 Carbon Dioxide 32 Anion Gap 6 L BUN 16 Creatinine 0.9 Creat Clearance w eGFR > 60 Random Glucose 86 D Calcium 9.3 Total Bilirubin 0.4 D AST 16 D ALT 20 D Alkaline Phosphatase 64 Total Protein 7.8 Albumin 4.1 Urine Color Lt. yellow Urine Appearance Clear Urine pH 6.0 Ur Specific [place] 1.025 Urine Protein Negative Urine Glucose (UA) Negative Urine Ketones Negative Urine Blood Negative Urine Nitrite Negative Urine Bilirubin Negative Urine Urobilinogen 0.2 Ur Leukocyte Esterase Negative Valproic Acid RPR Titer T.pallidum Ab (A) 12/05/16 12/05/16 06:00 06:00 WBC RBC Hgb Hct MCV MCH MCHC RDW Plt Count MPV Sodium Potassium Chloride Carbon Dioxide Anion Gap BUN Creatinine Creat Clearance w eGFR Random Glucose Calcium Total Bilirubin AST ALT Alkaline Phosphatase Total Protein Albumin Urine Color Urine Appearance Urine pH Ur Specific [place] Urine Protein Urine Glucose (UA) Urine Ketones Urine Blood Urine Nitrite Urine Bilirubin Urine Urobilinogen Ur Leukocyte Esterase Valproic Acid 9.579 L RPR Titer Reactive 1:1 H T.pallidum Ab ([facility]) Previously reactive LABS NOTED. PT. REPORTS THAT HE COMPLETED FULL COURSE OF ANTIBIOTIC TREATMENT FOR SYPHILIS IN IN 2011. PSYCHIATRIST DR. BELTRAN MADE AWARE OF VALPROIC ACID LEVEL LAB RESULT. 12/05/16 14:23 Assessment: 12/05/16 14:21 WITHDRAWAL SYMPTOMS. 12/05/16 14:24 Plan: CONTINUED DETOX.
[2016-12-05] MEDS: diphenhydrAMINE HCL 50 MG CAPSULE PO PRN (22:14)
[2016-12-05] MEDS: THIAMINE HCL 100 MG TABLET (FP) PO SCH (22:14)
[2016-12-06] MEDS: chlordiazePOXIDE HCL 25 MG CAPSULE PO SCH ×2 (06:01→10:22)
[2016-12-06] MEDS: PRENATAL VITAMINS W/ FOLIC ACID TABLET (FP) PO SCH (10:22)
[2016-12-06] MEDS: RANITIDINE HCL 150 MG TABLET (FP) PO SCH ×2 (10:22→22:10)
[2016-12-06] MEDS: NICOTINE 21 MG/24 HOURS TOPICAL PATCH TD SCH (10:24)
[2016-12-06] MEDS: DIVALPROEX SODIUM 250 MG TABLET E.C. (FP) PO SCH ×2 (11:19→22:11)
[2016-12-06] MEDS: QUEtiapine FUMARATE 100 MG TABLET (FP) PO SCH ×2 (12:00→22:10)
--- NOTE | 2016-12-06 14:16 | PN ---
[facility] CIWA - CIWA Score Nausea/Vomitin Muscle Tremors: 3 Anxiety: 4-Mod. Anxious/Guarded Agitation: 3 Paroxysmal Sweats: No Perspiration Orientation: 0-Oriented Tacttile Disturbances: 2-Mild Itch/Numbness/Burn Auditory Disturbances: 0-None Visual Disturbances: 2-Mild Sensitivity Headache: 0-None Present CIWA-Ar Total Score: 17 BHS Progress Note (SOAP) Subjective: Diarrhea, Tremors, Body Aches. Objective: PT. A & O X 3, OBSERVED AMBULATING ON UNIT. NO ACUTE DISTRESS PT. REPORTS THAT, AT HOME, HE TAKES 50 MG PO BENADRYL WITH EVERY DOSE OF SEROQUEL (100 MG PO BID). NO SUCH INFORMATION NOTED IN PATIENT'S HOME MEDICATION LIST. PATIENT REPORTS THAT THIS IS FOR THE PREVENTION OF ADVERSE REACTIONS TO SEROQUEL. PSYCHIATRIST DR. PROSPER MD CONTACTED REGARDING THIS MATTER. PER DR. CHENG, PT. OKAY TO RECEIVE DOSE (PRN) OF BENADRYL AT NIGHT WITH EVENING DOSE OF SEROQUEL. HOWEVER, NO BENADRYL TO BE GIVEN WITH AM DOSE OF SEROQUEL. 12/06/16 14:09 Vital Signs Temperature 97 F L 12/06/16 10:23 Pulse Rate 82 12/06/16 10:23 Respiratory Rate 16 12/06/16 10:23 Blood Pressure 99/70 12/06/16 10:23 O2 Sat by Pulse Oximetry (%) Laboratory Tests 12/04/16 12/05/16 12/05/16 21:20 06:00 06:00 WBC 5.8 RBC 4.75 Hgb 13.9 Hct 42.9 MCV 90.2 MCH 29.2 MCHC 32.3 RDW 15.2 Plt Count 186 MPV 9.5 D Sodium 143 Potassium 4.6 Chloride 105 Carbon Dioxide 32 Anion Gap 6 L BUN 16 Creatinine 0.9 Creat Clearance w eGFR > 60 Random Glucose 86 D Calcium 9.3 Total Bilirubin 0.4 D AST 16 D ALT 20 D Alkaline Phosphatase 64 Total Protein 7.8 Albumin 4.1 Urine Color Lt. yellow Urine Appearance Clear Urine pH 6.0 Ur Specific [place] 1.025 Urine Protein Negative Urine Glucose (UA) Negative Urine Ketones Negative Urine Blood Negative Urine Nitrite Negative Urine Bilirubin Negative Urine Urobilinogen 0.2 Ur Leukocyte Esterase Negative Valproic Acid RPR Titer T.pallidum Ab (A) 12/05/16 12/05/16 06:00 06:00 WBC RBC Hgb Hct MCV MCH MCHC RDW Plt Count MPV Sodium Potassium Chloride Carbon Dioxide Anion Gap BUN Creatinine Creat Clearance w eGFR Random Glucose Calcium Total Bilirubin AST ALT Alkaline Phosphatase Total Protein Albumin Urine Color Urine Appearance Urine pH Ur Specific [place] Urine Protein Urine Glucose (UA) Urine Ketones Urine Blood Urine Nitrite Urine Bilirubin Urine Urobilinogen Ur Leukocyte Esterase Valproic Acid 9.579 L RPR Titer Reactive 1:1 H T.pallidum Ab (A) Previously reactive LABS NOTED. 12/06/16 14:11 Assessment: 12/06/16 14:16 WITHDRAWAL SYMPTOMS. Plan: CONTINUE DETOX.
[2016-12-06] MEDS: chlordiazePOXIDE 5 MG CAPSULE PO SCH ×2 (16:52→22:11)
[2016-12-06] MEDS: diphenhydrAMINE HCL 50 MG CAPSULE PO PRN (22:10)
[2016-12-06] MEDS: THIAMINE HCL 100 MG TABLET (FP) PO SCH (22:11)
[2016-12-07] MEDS: chlordiazePOXIDE 5 MG CAPSULE PO SCH ×2 (05:51→10:06)
[2016-12-07] MEDS: DIVALPROEX SODIUM 250 MG TABLET E.C. (FP) PO SCH ×2 (10:05→22:10)
[2016-12-07] MEDS: QUEtiapine FUMARATE 100 MG TABLET (FP) PO SCH ×2 (10:06→22:10)
[2016-12-07] MEDS: NICOTINE 21 MG/24 HOURS TOPICAL PATCH TD SCH (10:06)
[2016-12-07] MEDS: PRENATAL VITAMINS W/ FOLIC ACID TABLET (FP) PO SCH (10:06)
[2016-12-07] MEDS: RANITIDINE HCL 150 MG TABLET (FP) PO SCH ×2 (10:06→22:10)
--- NOTE | 2016-12-07 12:13 | PN ---
BHS Progress Note (SOAP) Subjective: Tremors, Fatigue. Objective: PT. A & O X 2 (DISORIENTED ABOUT DAY / DATE). NO ACUTE DISTRESS. 12/07/16 12:11 Vital Signs Temperature 96.9 F L 12/07/16 09:15 Pulse Rate 72 12/07/16 09:15 Respiratory Rate 18 12/07/16 09:15 Blood Pressure 101/69 12/07/16 09:15 O2 Sat by Pulse Oximetry (%) Laboratory Tests 12/04/16 12/05/16 12/05/16 21:20 06:00 06:00 WBC 5.8 RBC 4.75 Hgb 13.9 Hct 42.9 MCV 90.2 MCH 29.2 MCHC 32.3 RDW 15.2 Plt Count 186 MPV 9.5 D Sodium 143 Potassium 4.6 Chloride 105 Carbon Dioxide 32 Anion Gap 6 L BUN 16 Creatinine 0.9 Creat Clearance w eGFR > 60 Random Glucose 86 D Calcium 9.3 Total Bilirubin 0.4 D AST 16 D ALT 20 D Alkaline Phosphatase 64 Total Protein 7.8 Albumin 4.1 Urine Color Lt. yellow Urine Appearance Clear Urine pH 6.0 Ur Specific [place] 1.025 Urine Protein Negative Urine Glucose (UA) Negative Urine Ketones Negative Urine Blood Negative Urine Nitrite Negative Urine Bilirubin Negative Urine Urobilinogen 0.2 Ur Leukocyte Esterase Negative Valproic Acid RPR Titer T.pallidum Ab ([facility]) 12/05/16 12/05/16 06:00 06:00 WBC RBC Hgb Hct MCV MCH MCHC RDW Plt Count MPV Sodium Potassium Chloride Carbon Dioxide Anion Gap BUN Creatinine Creat Clearance w eGFR Random Glucose Calcium Total Bilirubin AST ALT Alkaline Phosphatase Total Protein Albumin Urine Color Urine Appearance Urine pH Ur Specific [place] Urine Protein Urine Glucose (UA) Urine Ketones Urine Blood Urine Nitrite Urine Bilirubin Urine Urobilinogen Ur Leukocyte Esterase Valproic Acid 9.579 L RPR Titer Reactive 1:1 H T.pallidum Ab ([facility]) Previously reactive LABS NOTED. Assessment: 12/07/16 12:11 WITHDRAWAL SYMPTOMS. Plan: CONTINUE DETOX.
[2016-12-07] MEDS: chlordiazePOXIDE HCL 10 MG CAPSULE PO SCH ×2 (17:57→22:09)
[2016-12-07] MEDS: THIAMINE HCL 100 MG TABLET (FP) PO SCH (22:10)
[2016-12-07] MEDS: diphenhydrAMINE HCL 50 MG CAPSULE PO PRN (22:11)
[2016-12-08] MEDS: chlordiazePOXIDE HCL 10 MG CAPSULE PO SCH ×2 (05:36→12:33)
--- NOTE | 2016-12-08 09:19 | DS ---
[facility] Detox Discharge Summary Admission Date: 12/04/16 Discharge Date: 12/08/16 - History Present History: Alcohol Dependence, Cocaine Dependence Additional Comments: DETOX COMPLETED.ALERT O X 3. NAD. INSTRUCTED TO F/U WITH PMD FOR MEDICAL MANAGEMENT. Pertinent Past History: ASTHMA GERD HX FX RIGHT ANKLE - Physical Exam Results Vital Signs: Vital Signs Temperature 97.8 F 12/08/16 06:24 Pulse Rate 77 12/08/16 06:24 Respiratory Rate 18 12/08/16 06:24 Blood Pressure 107/71 12/08/16 06:24 O2 Sat by Pulse Oximetry (%) Pertinent Admission Physical Exam Findings: WITHDRAWAL SX Laboratory Last Values WBC 5.8 K/mm3 (4.0-10.0) 12/05/16 06:00 RBC 4.75 M/mm3 (4.00-5.60) 12/05/16 06:00 Hgb 13.9 GM/dL (11.7-16.9) 12/05/16 06:00 Hct 42.9 % (35.4-49) 12/05/16 06:00 MCV 90.2 fl (80-96) 12/05/16 06:00 MCH 29.2 pg (25.7-33.7) 12/05/16 06:00 MCHC 32.3 g/dl (32.0-35.9) 12/05/16 06:00 RDW 15.2 % (11.9-15.9) 12/05/16 06:00 Plt Count 186 K/MM3 (134-434) 12/05/16 06:00 MPV 9.5 fl (7.5-11.1) D 12/05/16 06:00 Sodium 143 mmol/L (136-145) 12/05/16 06:00 Potassium 4.6 mmol/L (3.5-5.1) 12/05/16 06:00 Chloride 105 mmol/L (98-107) 12/05/16 06:00 Carbon Dioxide 32 mmol/L (21-32) 12/05/16 06:00 Anion Gap 6 (8-16) L 12/05/16 06:00 BUN 16 mg/dL (7-18) 12/05/16 06:00 Creatinine 0.9 mg/dL (0.7-1.3) 12/05/16 06:00 Creat Clearance w eGFR > 60 (>60) 12/05/16 06:00 Random Glucose 86 mg/dL (74-106) D 12/05/16 06:00 Calcium 9.3 mg/dL (8.5-10.1) 12/05/16 06:00 Total Bilirubin 0.4 mg/dL (0.2-1.0) D 12/05/16 06:00 AST 16 U/L (15-37) D 12/05/16 06:00 ALT 20 U/L (12-78) D 12/05/16 06:00 Alkaline Phosphatase 64 U/L (45-117) 12/05/16 06:00 Total Protein 7.8 g/dl (6.4-8.2) 12/05/16 06:00 Albumin 4.1 g/dl (3.4-5.0) 12/05/16 06:00 Urine Color Lt. yellow 12/04/16 21:20 Urine Appearance Clear 12/04/16 21:20 Urine pH 6.0 (5.0-8.0) 12/04/16 21:20 Ur Specific [place] 1.025 (1.005-1.025) 12/04/16 21:20 Urine Protein Negative (NEGATIVE) 12/04/16 21:20 Urine Glucose (UA) Negative (NEGATIVE) 12/04/16 21:20 Urine Ketones Negative (NEGATIVE) 12/04/16 21:20 Urine Blood Negative (NEGATIVE) 12/04/16 21:20 Urine Nitrite Negative (NEGATIVE) 12/04/16 21:20 Urine Bilirubin Negative (NEGATIVE) 12/04/16 21:20 Urine Urobilinogen 0.2 mg/dL (0.2-1.0) 12/04/16 21:20 Ur Leukocyte Esterase Negative (NEGATIVE) 12/04/16 21:20 Valproic Acid 9.579 ug/ml (50-100) L 12/05/16 06:00 RPR Titer Reactive 1:1 (NONREACTIVE) H 12/05/16 06:00 T.pallidum Ab ([facility]) Previously reactive (NONREACTIVE) 12/05/16 06:00 - Treatment Hospital Course: Detox Protocol Followed, Detoxed Safely, Responded well, Discharged Condition Good, Rehab Referral Accepted Patient has Accepted a Rehab Referral to: [facility] - Medication Discharge Medications: Ambulatory Orders Zolpidem Tartrate [Ambien] 10 mg PO HS 09/06/13 Ranitidine [Zantac -] 150 mg PO BID #60 tablet 11/19/15 Divalproex [Depakote -] 750 mg PO BID 09/02/16 Diphenhydramine [Benadryl Capsule -] 50 mg PO BID #60 cap 09/03/16 Quetiapine Fumarate [Seroquel] 100 mg PO HS 12/09/16 Quetiapine Fumarate [Seroquel] 200 mg PO AM 12/09/16 - Diagnosis (1) Alcohol dependence with uncomplicated withdrawal Status: Acute (2) Cocaine dependence Status: Acute Qualifiers: Substance use status: uncomplicated Qualified Code(s): F14.20 - Cocaine dependence, uncomplicated (3) Nicotine dependence Status: Acute Qualifiers: Nicotine product type: cigarettes (4) Asthma Status: Chronic Qualifiers: Asthma severity: mild intermittent (5) GERD (gastroesophageal reflux disease) Status: Chronic Qualifiers: Esophagitis presence: without esophagitis Qualified Code(s): K21.9 - Gastro-esophageal reflux disease without esophagitis (6) Closed right ankle fracture Status: Chronic Qualifiers: Encounter type: subsequent encounter Fracture healing: with routine healing Qualified Code(s): S82.891D - Other fracture of right lower leg, subsequent encounter for closed fracture with routine healing (7) Insomnia Status: Acute (8) Substance induced mood disorder Status: Acute (9) Schizoaffective disorder Status: Chronic Qualifiers: Schizoaffective disorder type: bipolar Qualified Code(s): F25.0 - Schizoaffective disorder, bipolar type - AMA Did Patient Leave Against Medical Advice: No
[2016-12-08] MEDS: RANITIDINE HCL 150 MG TABLET (FP) PO SCH ×2 (10:20→22:20)
[2016-12-08] MEDS: DIVALPROEX SODIUM 250 MG TABLET E.C. (FP) PO SCH ×2 (10:20→22:19)
[2016-12-08] MEDS: PRENATAL VITAMINS W/ FOLIC ACID TABLET (FP) PO SCH (10:20)
[2016-12-08] MEDS: NICOTINE 21 MG/24 HOURS TOPICAL PATCH TD SCH (10:21)
[2016-12-08] MEDS: QUEtiapine FUMARATE 100 MG TABLET (FP) PO SCH ×2 (10:21→22:20)
[2016-12-08] MEDS: THIAMINE HCL 100 MG TABLET (FP) PO SCH (22:19)
[2016-12-08] MEDS: diphenhydrAMINE HCL 50 MG CAPSULE PO PRN (22:20)
[2016-12-09 06:56] VITALS: BP 112/69; PULSE 76; TEMP 97.7
[2016-12-09] MEDS: RANITIDINE HCL 150 MG TABLET (FP) PO SCH (10:27)
[2016-12-09] MEDS: PRENATAL VITAMINS W/ FOLIC ACID TABLET (FP) PO SCH (10:27)
[2016-12-09] MEDS: NICOTINE 21 MG/24 HOURS TOPICAL PATCH TD SCH (10:27)
[2016-12-09] MEDS: DIVALPROEX SODIUM 250 MG TABLET E.C. (FP) PO SCH (10:27)
[2016-12-09] MEDS: QUEtiapine FUMARATE 100 MG TABLET (FP) PO SCH (10:29)
[2016-12-09] MEDS ORDERED: SUVOREXANT 10 MG TABLET PO PRN (10:56)
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
[2016-12-09] MEDS ORDERED: QUEtiapine FUMARATE 200 MG TABLET PO SCH (22:00)
[2016-12-09] MEDS ORDERED: diphenhydrAMINE HCL 50 MG CAPSULE PO SCH (22:00)
== END 2016-12-08 23:01 | disposition other institution (70) | DRG 897 ==
LOC: YASAS 12:19 → Y3N 15:59 → Y5N 12-08 23:01
PROVIDERS: ADMIT Internal Medicine Addiction Medicine; ATTEND Internal Medicine Addiction Medicine
PROC: HZ2ZZZZ Detoxification Services for Substance Abuse Treatment (ICD-10-PCS; principal; 2016-12-04)
DX: F10.230 Alcohol dependence with withdrawal, uncomplicated (principal); F14.20 Cocaine dependence, uncomplicated; F17.210 Nicotine dependence, cigarettes, uncomplicated; F25.0 Schizoaffective disorder, bipolar type; J45.909 Unspecified asthma, uncomplicated; K21.9 Gastro-esophageal reflux disease without esophagitis; G47.00 Insomnia, unspecified; Z86.69 Personal history of other diseases of the nervous system and sense organs; Z87.438 Personal history of other diseases of male genital organs; Z88.8 Allergy status to other drugs, medicaments and biological substances; Z91.5 Personal history of self-harm
CPT/HCPCS: 36415; 80053; 80164; 81003; 85027; 86593; 86780; 93005; 93010

== ENCOUNTER 2016-12-08 22:50 | Inpatient (IN) | payer OTHER ==
[2016-12-09] MEDS ORDERED: MAGNESIUM CITRATE 300 ML BOTTLE PO PRN (15:20)
[2016-12-09] MEDS ORDERED: guaiFENesin/D-METHORPHAN HB 10 ML UNIT-DOSE CUPS PO PRN (15:20)
[2016-12-09] MEDS ORDERED: diphenhydrAMINE HCL 50 MG CAPSULE PO PRN (15:20)
[2016-12-09] MEDS ORDERED: P-EPHED 60MG/TRIPROLIDI 2.5MG TABLET PO PRN (15:20)
[2016-12-09] MEDS ORDERED: LOPERAMIDE HCL 2 MG CAPSULE PO PRN (15:20)
[2016-12-09] MEDS ORDERED: MENTHOL/PHENOL 1 EACH UD MM PRN (15:20)
[2016-12-09] MEDS ORDERED: MAGNESIUM HYDROX 2400MG/30ML ORAL SUSPENSION 30 ML CUP PO PRN (15:20)
[2016-12-09] MEDS ORDERED: MAG HYDROX/AL HYDROX/SIMETH 30 ML UNIT-DOSE CUP PO PRN (15:20)
[2016-12-09] MEDS ORDERED: TUBERCULIN PPD 5 TU/0.1ML VIAL ID ONE (17:44)
[2016-12-09] MEDS: NICOTINE 14 MG/24 HOURS TOPICAL PATCH TD SCH (17:59)
[2016-12-09] MEDS: THIAMINE HCL 100 MG TABLET (FP) PO SCH (21:41)
[2016-12-09] MEDS: DIVALPROEX SODIUM 250 MG TABLET E.C. (FP) PO SCH (21:41)
[2016-12-09] MEDS: QUEtiapine FUMARATE 200 MG TABLET PO SCH (21:41)
[2016-12-09] MEDS: diphenhydrAMINE HCL 50 MG CAPSULE PO SCH (21:41)
[2016-12-09] MEDS: RANITIDINE HCL 150 MG TABLET (FP) PO SCH (21:42)
[2016-12-10] MEDS: DIVALPROEX SODIUM 250 MG TABLET E.C. (FP) PO SCH ×2 (10:58→21:51)
[2016-12-10] MEDS: NICOTINE 14 MG/24 HOURS TOPICAL PATCH TD SCH (10:58)
[2016-12-10] MEDS: PRENATAL VITAMINS W/ FOLIC ACID TABLET (FP) PO SCH (10:59)
[2016-12-10] MEDS: RANITIDINE HCL 150 MG TABLET (FP) PO SCH ×2 (10:59→21:52)
--- NOTE | 2016-12-10 15:39 | PN ---
[facility] Progress Note Note: The patient Odilon Wing was transferred to 5N from 3N by the user "[email or web address] " instead of discharging the patient from 3 and admit him to 5N with a new account. Patient was seen for attending admission note on by undersigned on on his 3N account. Please see my admission note which was filled on his 3n account.
[2016-12-10] MEDS: QUEtiapine FUMARATE 200 MG TABLET PO SCH (21:51)
[2016-12-10] MEDS: diphenhydrAMINE HCL 50 MG CAPSULE PO SCH (21:52)
[2016-12-10] MEDS: THIAMINE HCL 100 MG TABLET (FP) PO SCH (21:53)
[2016-12-10] MEDS: NICOTINE POLACRILEX 2 MG GUM BUC PRN (21:53)
[2016-12-11] MEDS: RANITIDINE HCL 150 MG TABLET (FP) PO SCH ×2 (10:25→21:39)
[2016-12-11] MEDS: PRENATAL VITAMINS W/ FOLIC ACID TABLET (FP) PO SCH (10:25)
[2016-12-11] MEDS: DIVALPROEX SODIUM 250 MG TABLET E.C. (FP) PO SCH ×2 (10:26→21:38)
[2016-12-11] MEDS: NICOTINE 14 MG/24 HOURS TOPICAL PATCH TD SCH (10:26)
[2016-12-11] MEDS: NICOTINE POLACRILEX 2 MG GUM BUC PRN (10:28)
[2016-12-11] MEDS: THIAMINE HCL 100 MG TABLET (FP) PO SCH (21:38)
[2016-12-11] MEDS: diphenhydrAMINE HCL 50 MG CAPSULE PO SCH (21:38)
[2016-12-11] MEDS: QUEtiapine FUMARATE 200 MG TABLET PO SCH (21:38)
[2016-12-11] MEDS: hydrOXYzine PAMOATE 50 MG CAPSULE (FP) PO PRN (22:12)
[2016-12-12] MEDS: RANITIDINE HCL 150 MG TABLET (FP) PO SCH ×2 (10:28→21:41)
[2016-12-12] MEDS: DIVALPROEX SODIUM 250 MG TABLET E.C. (FP) PO SCH ×2 (10:28→21:40)
[2016-12-12] MEDS: PRENATAL VITAMINS W/ FOLIC ACID TABLET (FP) PO SCH (10:28)
[2016-12-12] MEDS: NICOTINE 14 MG/24 HOURS TOPICAL PATCH TD SCH (10:28)
[2016-12-12] MEDS: THIAMINE HCL 100 MG TABLET (FP) PO SCH (21:40)
[2016-12-12] MEDS: diphenhydrAMINE HCL 50 MG CAPSULE PO SCH (21:41)
[2016-12-12] MEDS: QUEtiapine FUMARATE 200 MG TABLET PO SCH (21:41)
[2016-12-13] MEDS: hydrOXYzine PAMOATE 50 MG CAPSULE (FP) PO PRN (00:30)
[2016-12-13] MEDS: DIVALPROEX SODIUM 250 MG TABLET E.C. (FP) PO SCH ×2 (10:09→21:37)
[2016-12-13] MEDS: RANITIDINE HCL 150 MG TABLET (FP) PO SCH ×2 (10:09→21:37)
[2016-12-13] MEDS: PRENATAL VITAMINS W/ FOLIC ACID TABLET (FP) PO SCH (10:09)
[2016-12-13] MEDS: NICOTINE 14 MG/24 HOURS TOPICAL PATCH TD SCH (10:10)
[2016-12-13] MEDS: diphenhydrAMINE HCL 50 MG CAPSULE PO SCH (21:37)
[2016-12-13] MEDS: THIAMINE HCL 100 MG TABLET (FP) PO SCH (21:37)
[2016-12-13] MEDS: QUEtiapine FUMARATE 200 MG TABLET PO SCH (21:37)
[2016-12-13] MEDS: ACETAMINOPHEN 325 MG TABLET (FP) PO PRN (21:42)
[2016-12-14] MEDS: PRENATAL VITAMINS W/ FOLIC ACID TABLET (FP) PO SCH (10:48)
[2016-12-14] MEDS: NICOTINE 14 MG/24 HOURS TOPICAL PATCH TD SCH (10:48)
[2016-12-14] MEDS: RANITIDINE HCL 150 MG TABLET (FP) PO SCH ×2 (10:48→21:49)
[2016-12-14] MEDS: DIVALPROEX SODIUM 250 MG TABLET E.C. (FP) PO SCH ×2 (10:48→21:49)
[2016-12-14] MEDS: diphenhydrAMINE HCL 50 MG CAPSULE PO SCH (21:49)
[2016-12-14] MEDS: QUEtiapine FUMARATE 200 MG TABLET PO SCH (21:49)
[2016-12-14] MEDS: THIAMINE HCL 100 MG TABLET (FP) PO SCH (21:51)
[2016-12-14] MEDS: IBUPROFEN 400 MG TABLET (FP) PO PRN (21:51)
[2016-12-15] MEDS: PRENATAL VITAMINS W/ FOLIC ACID TABLET (FP) PO SCH (10:21)
[2016-12-15] MEDS: NICOTINE 14 MG/24 HOURS TOPICAL PATCH TD SCH (10:21)
[2016-12-15] MEDS: RANITIDINE HCL 150 MG TABLET (FP) PO SCH ×2 (10:21→21:37)
[2016-12-15] MEDS: DIVALPROEX SODIUM 250 MG TABLET E.C. (FP) PO SCH ×2 (10:21→21:37)
[2016-12-15] MEDS: diphenhydrAMINE HCL 50 MG CAPSULE PO SCH (21:37)
[2016-12-15] MEDS: THIAMINE HCL 100 MG TABLET (FP) PO SCH (21:37)
[2016-12-15] MEDS: QUEtiapine FUMARATE 200 MG TABLET PO SCH (21:37)
[2016-12-15] MEDS: ACETAMINOPHEN 325 MG TABLET (FP) PO PRN (21:39)
[2016-12-15] MEDS: hydrOXYzine PAMOATE 50 MG CAPSULE (FP) PO PRN (23:40)
[2016-12-16] MEDS: DIVALPROEX SODIUM 250 MG TABLET E.C. (FP) PO SCH ×2 (10:19→21:35)
[2016-12-16] MEDS: NICOTINE 14 MG/24 HOURS TOPICAL PATCH TD SCH (10:19)
[2016-12-16] MEDS: PRENATAL VITAMINS W/ FOLIC ACID TABLET (FP) PO SCH (10:19)
[2016-12-16] MEDS: RANITIDINE HCL 150 MG TABLET (FP) PO SCH ×2 (10:19→21:35)
[2016-12-16] MEDS: IBUPROFEN 400 MG TABLET (FP) PO PRN (10:21)
[2016-12-16] MEDS: THIAMINE HCL 100 MG TABLET (FP) PO SCH (21:35)
[2016-12-16] MEDS: diphenhydrAMINE HCL 50 MG CAPSULE PO SCH (21:35)
[2016-12-16] MEDS: QUEtiapine FUMARATE 200 MG TABLET PO SCH (21:35)
[2016-12-17] MEDS: PRENATAL VITAMINS W/ FOLIC ACID TABLET (FP) PO SCH (10:50)
[2016-12-17] MEDS: RANITIDINE HCL 150 MG TABLET (FP) PO SCH ×2 (10:50→21:21)
[2016-12-17] MEDS: DIVALPROEX SODIUM 250 MG TABLET E.C. (FP) PO SCH ×2 (10:50→21:21)
[2016-12-17] MEDS: NICOTINE 14 MG/24 HOURS TOPICAL PATCH TD SCH (10:51)
[2016-12-17] MEDS: IBUPROFEN 400 MG TABLET (FP) PO PRN (10:52)
[2016-12-17] MEDS: QUEtiapine FUMARATE 200 MG TABLET PO SCH (21:21)
[2016-12-17] MEDS: diphenhydrAMINE HCL 50 MG CAPSULE PO SCH (21:21)
[2016-12-17] MEDS: THIAMINE HCL 100 MG TABLET (FP) PO SCH (21:21)
[2016-12-17] MEDS: ACETAMINOPHEN 325 MG TABLET (FP) PO PRN (21:22)
[2016-12-18] MEDS: NICOTINE 14 MG/24 HOURS TOPICAL PATCH TD SCH (10:25)
[2016-12-18] MEDS: PRENATAL VITAMINS W/ FOLIC ACID TABLET (FP) PO SCH (10:25)
[2016-12-18] MEDS: RANITIDINE HCL 150 MG TABLET (FP) PO SCH ×2 (10:25→22:00)
[2016-12-18] MEDS: DIVALPROEX SODIUM 250 MG TABLET E.C. (FP) PO SCH ×2 (10:25→22:00)
[2016-12-18] MEDS: IBUPROFEN 400 MG TABLET (FP) PO PRN (10:26)
--- NOTE | 2016-12-18 12:13 | HP ---
[facility]Y [facility] Rehab Assess/Revision - Admission History Admitted to Rehab from: [facility] Date of Admission to Rehab: 12/09/2016 - Vital signs Vital Signs: Vital Signs Period Temp Pulse Resp BP Sys/Ruiz Pulse Ox Last 24 Hr 98.5 F 78 18-18 96/70 - Findings Detox History & Physical reviewed: Yes Concur with findings: Yes Inpatient Rehab Admission - Initial Determination Are CD services needed?: Yes Free of communicable disease: Yes Not in need of hospitalization: Yes - Rehab Admission Criteria Comorbidities: Yes Patient is meeting Inpatient Rehab admission criteria:: Yes
[2016-12-18] MEDS: diphenhydrAMINE HCL 50 MG CAPSULE PO SCH (22:00)
[2016-12-18] MEDS: THIAMINE HCL 100 MG TABLET (FP) PO SCH (22:00)
[2016-12-18] MEDS: QUEtiapine FUMARATE 200 MG TABLET PO SCH (22:00)
[2016-12-18] MEDS: ACETAMINOPHEN 325 MG TABLET (FP) PO PRN (22:02)
[2016-12-19] MEDS: RANITIDINE HCL 150 MG TABLET (FP) PO SCH ×2 (10:13→21:46)
[2016-12-19] MEDS: DIVALPROEX SODIUM 250 MG TABLET E.C. (FP) PO SCH ×2 (10:14→21:46)
[2016-12-19] MEDS: NICOTINE 14 MG/24 HOURS TOPICAL PATCH TD SCH (10:14)
[2016-12-19] MEDS: PRENATAL VITAMINS W/ FOLIC ACID TABLET (FP) PO SCH (10:14)
[2016-12-19] MEDS: ACETAMINOPHEN 325 MG TABLET (FP) PO PRN ×2 (10:15→21:47)
[2016-12-19] MEDS: THIAMINE HCL 100 MG TABLET (FP) PO SCH (21:46)
[2016-12-19] MEDS: QUEtiapine FUMARATE 200 MG TABLET PO SCH (21:46)
[2016-12-19] MEDS: diphenhydrAMINE HCL 50 MG CAPSULE PO SCH (21:46)
[2016-12-20] MEDS: RANITIDINE HCL 150 MG TABLET (FP) PO SCH ×2 (10:48→21:57)
[2016-12-20] MEDS: NICOTINE 14 MG/24 HOURS TOPICAL PATCH TD SCH (10:48)
[2016-12-20] MEDS: PRENATAL VITAMINS W/ FOLIC ACID TABLET (FP) PO SCH (10:48)
[2016-12-20] MEDS: DIVALPROEX SODIUM 250 MG TABLET E.C. (FP) PO SCH ×2 (10:48→21:56)
[2016-12-20] MEDS: ACETAMINOPHEN 325 MG TABLET (FP) PO PRN ×2 (10:49→21:58)
[2016-12-20] MEDS: diphenhydrAMINE HCL 50 MG CAPSULE PO SCH (21:56)
[2016-12-20] MEDS: QUEtiapine FUMARATE 200 MG TABLET PO SCH (21:57)
[2016-12-20] MEDS: THIAMINE HCL 100 MG TABLET (FP) PO SCH (21:57)
[2016-12-21] MEDS: hydrOXYzine PAMOATE 50 MG CAPSULE (FP) PO PRN (00:14)
[2016-12-21 06:54] VITALS: BP 113/66; PULSE 78; TEMP 97.4
[2016-12-21] MEDS: ACETAMINOPHEN 325 MG TABLET (FP) PO PRN (08:51)
[2016-12-21] MEDS: RANITIDINE HCL 150 MG TABLET (FP) PO SCH (10:29)
[2016-12-21] MEDS: PRENATAL VITAMINS W/ FOLIC ACID TABLET (FP) PO SCH (10:29)
[2016-12-21] MEDS: DIVALPROEX SODIUM 250 MG TABLET E.C. (FP) PO SCH (10:29)
[2016-12-21] MEDS: NICOTINE 14 MG/24 HOURS TOPICAL PATCH TD SCH (10:30)
--- NOTE | 2016-12-21 11:29 | PN ---
Psychiatric Progress Note Vital Signs: Vital Signs Period Temp Pulse Resp BP Sys/Ruiz Pulse Ox Last 24 Hr 97.4 F 78 18-18 113/66 Date of Session: 12/21/16 Chief Complaint:: discharge visit HPI: Patient has addressed alcohol, cocaine, nicotine dependence comorbid Schizoaffective disorder ROS: GERD, Asthma medically managed. Current Medications: Active Medications Generic Name Dose Route Start Last Admin Trade Name Freq PRN Reason Stop Dose Admin Acetaminophen 650 mg 12/09/16 15:20 12/21/16 08:51 Tylenol - PO 650 mg Q4H PRN Administration FEVER OR PAIN Al Hydroxide/Mg Hydroxide 30 ml 12/09/16 15:20 Mylanta Oral Suspension - PO Q6H PRN DYSPEPSIA Diphenhydramine HCl 50 mg 12/09/16 22:00 12/20/16 21:56 Benadryl - PO 50 mg HS EMILY Administration Divalproex Sodium 750 mg 12/09/16 22:00 12/21/16 10:29 Depakote - PO 750 mg BID EMILY Administration Eucalyptus/Menthol/Phenol/Sorbitol 1 each 12/09/16 15:20 Cepastat Lozenge - MM Q4H PRN SORE THROAT Guaifenesin 10 ml 12/09/16 15:20 Robitussin Dm - PO Q6H PRN COUGH Hydroxyzine Pamoate 50 mg 12/09/16 15:20 12/21/16 00:14 Vistaril - PO 50 mg Q4H PRN Administration AGITATION Ibuprofen 400 mg 12/09/16 15:20 12/18/16 10:26 Motrin - PO 400 mg Q6H PRN Administration PAIN Loperamide HCl 4 mg 12/09/16 15:20 Imodium - PO Q6H PRN DIARRHEA Magnesium Hydroxide 30 ml 12/09/16 15:20 Milk Of Magnesia - PO DAILY PRN CONSTIPATION Nicotine 14 mg 12/09/16 15:30 12/21/16 10:30 Nicoderm Patch - TD Not Given DAILY EMILY Nicotine Polacrilex 2 mg 12/09/16 15:20 12/11/16 10:28 Nicorette Gum - BUC 2 mg Q2H PRN Administration NICOTINE REPLACEMENT RX Multivit/Folic Acid/Iron 1 tab 12/10/16 10:00 12/21/16 10:29 Vitamins (Sjr) - PO 1 tab DAILY EMILY Administration Pseudoephedrine/Triprolidine 1 combo 12/09/16 15:20 Actifed - PO TID PRN NASAL CONGESTION Quetiapine Fumarate 200 mg 12/09/16 22:00 12/20/16 21:57 Seroquel - PO 200 mg HS EMILY Administration Ranitidine HCl 150 mg 12/09/16 22:00 12/21/16 10:29 Zantac - PO 150 mg BID EMILY Administration Thiamine HCl 100 mg 12/09/16 22:00 12/20/16 21:57 Vitamin B1 - PO 100 mg HS EMIYL Administration Current Side Effect: No Lab tests ordered: No Lab tests reviewed: Yes Provider note:: Patient has completed today his treatmant and met his goals, will continue to address his issues at the next level of care [facility] outpatient treatment program, where he will f/u by a psychiatric as well. Patient gained insights on his addiction and understands the negative impact of his use over his major life areas, including mental and physical health .Medications ( depakoe and seroquel ) well tolerated, no side-effect sreported, scripts provided, patient is stable for discharge today. Total face to face time:: 35 Mental Status Exam - Mental Status Exam Alert and Oriented to: Time, Place, Person Cognitive Function: Fair Patient Appearance: Well Groomed Mood: Hopeful Affect: Appropriate, Mood Congruent Patient Behavior: Appropriate, Cooperative Speech Pattern: Clear, Appropriate Voice Loudness: Normal Thought Process: Intact, Goal Oriented Thought Disorder: Not Present Hallucinations: Denies Suicidal Ideation: Denies Homicidal Ideation: Denies Insight/Judgement: Fair Sleep: Fair Appetite: Good Muscle strength/Tone: Normal Gait/Station: Normal Psychiatric Treatment Plan - Problem List (2) Cocaine dependence Qualifiers: Substance use status: uncomplicated Qualified Code(s): F14.20 - Cocaine dependence, uncomplicated (3) Nicotine dependence Qualifiers: Nicotine product type: cigarettes (4) Asthma Qualifiers: Asthma severity: mild intermittent (5) GERD (gastroesophageal reflux disease) Qualifiers: Esophagitis presence: without esophagitis Qualified Code(s): K21.9 - Gastro-esophageal reflux disease without esophagitis (6) Schizoaffective disorder Qualifiers: Schizoaffective disorder type: bipolar Qualified Code(s): F25.0 - Schizoaffective disorder, bipolar type Comment: Self-reported history.
== END 2016-12-21 12:20 | disposition home or self-care (01) | DRG 895 ==
LOC: YASAS 22:50 → Y5N 22:51 → UNDOADMIN 22:51 → Y5N 23:02
PROVIDERS: ADMIT Psychiatry & Neurology Psychiatry; ATTEND Psychiatry & Neurology Psychiatry
PROC: HZ42ZZZ Group Counseling for Substance Abuse Treatment, Cognitive-Behavioral (ICD-10-PCS; principal; 2016-12-08)
DX: F10.230 Alcohol dependence with withdrawal, uncomplicated (principal); F14.20 Cocaine dependence, uncomplicated; F17.210 Nicotine dependence, cigarettes, uncomplicated; F25.0 Schizoaffective disorder, bipolar type; J45.20 Mild intermittent asthma, uncomplicated; K21.9 Gastro-esophageal reflux disease without esophagitis

== ENCOUNTER 2017-11-05 15:26 | Inpatient (IN) | payer OTHER ==
[2017-11-05 17:10] VITALS: BMI 26.9
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
[2017-11-05] MEDS ORDERED: MENTHOL/PHENOL 1 EACH UD MM PRN (20:34)
[2017-11-05] MEDS ORDERED: guaiFENesin/D-METHORPHAN HB 10 ML UNIT-DOSE CUPS PO PRN (20:34)
[2017-11-05] MEDS ORDERED: MAGNESIUM CITRATE 300 ML BOTTLE PO PRN (20:34)
[2017-11-05] MEDS ORDERED: P-EPHED 60MG/TRIPROLIDI 2.5MG TABLET PO PRN (20:34)
[2017-11-05] MEDS ORDERED: ACETAMINOPHEN 325 MG TABLET (FP) PO PRN (20:34)
[2017-11-05] MEDS ORDERED: MAG HYDROX/AL HYDROX/SIMETH 30 ML UNIT-DOSE CUP PO PRN (20:34)
[2017-11-05] MEDS ORDERED: hydrOXYzine PAMOATE 50 MG CAPSULE (FP) PO PRN (20:34)
[2017-11-05] MEDS ORDERED: IBUPROFEN 400 MG TABLET (FP) PO PRN ×2 (20:34→20:41)
[2017-11-05] MEDS ORDERED: diazePAM 5 MG TABLET PO PRN (20:34)
[2017-11-05] MEDS ORDERED: LOPERAMIDE HCL 2 MG CAPSULE PO PRN (20:34)
[2017-11-05] MEDS ORDERED: diazePAM 5 MG TABLET PO ONE (20:45)
[2017-11-05] MEDS ORDERED: diphenhydrAMINE HCL 25 MG CAPSULE (FP) PO ONE (21:50)
[2017-11-05] MEDS: THIAMINE HCL 100 MG TABLET (FP) PO SCH (21:54)
[2017-11-05] MEDS: diphenhydrAMINE HCL 50 MG CAPSULE PO SCH (21:55)
[2017-11-05] MEDS ORDERED: MELATONIN 5 MG TABLETS PO PRN (22:00)
[2017-11-05] MEDS: diazePAM 5 MG TABLET PO SCH (22:32)
[2017-11-06] MEDS: diazePAM 5 MG TABLET PO SCH ×3 (05:13→22:18)
[2017-11-06] MEDS: PRENATAL VITAMINS W/ FOLIC ACID TABLET (FP) PO SCH (10:10)
--- NOTE | 2017-11-06 10:18 | EKG ---
Test Reason : Blood Pressure : / mmHG Vent. Rate : 078 BPM Atrial Rate : 078 BPM P-R Int : 140 ms QRS Dur : 096 ms QT Int : 386 ms P-R-T Axes : 079 060 043 degrees QTc Int : 440 ms SINUS RHYTHM WITH PREMATURE SUPRAVENTRICULAR COMPLEXES OTHERWISE NORMAL ECG WHEN COMPARED WITH ECG OF 04-DEC-2016 16:10, PREMATURE SUPRAVENTRICULAR COMPLEXES ARE NOW PRESENT Confirmed by MILLA HOWARD, FORTINO ([id number]) on 11/06/2017 10:17:59 AM Referred By: Confirmed By:FORTINO LOYOLA MD
[2017-11-06 10:27] LABS: HEMATOCRIT 36.2 % (35.4-49); HEMOGLOBIN 12.3 GM/dL (11.7-16.9); MCH 30.7 pg (25.7-33.7); MCHC 33.9 g/dl (32.0-35.9); MEAN CELL VOLUME 90.5 fl (80-96); MEAN PLT VOLUME 9.3 fl (7.5-11.1); PLATELET COUNT 156 K/MM3 (134-434); RDW 13.3 % (11.9-15.9); WHITE BLOOD COUNT 4.4 K/mm3 (4.0-10.0)
[2017-11-06 10:42] LABS: CHLORIDE 106 mmol/L (98-107); POTASSIUM 3.8 mmol/L (3.5-5.1); SODIUM 141 mmol/L (136-145)
[2017-11-06 10:59] LABS: ALBUMIN 2.9 g/dl (3.4-5.0); ALK PHOS 65 U/L (45-117); ANION GAP 5 (8-16); BILIRUBIN,TOTAL 0.3 mg/dL (0.2-1.0); BLOOD UREA NITROGEN 9 mg/dL (7-18); CALCIUM 8.1 mg/dL (8.5-10.1); CO2 30 mmol/L (21-32); CREATININE 0.7 mg/dL (0.7-1.3); GLUCOSE,RANDOM 96 mg/dL (74-106); SGOT/AST 32 U/L (15-37); SGPT/ALT 32 U/L (12-78); TOT PROT 6.1 g/dl (6.4-8.2)
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
[2017-11-06] MEDS ORDERED: ONDANSETRON *ODT* 4 MG TABLET SL PRN (13:09)
[2017-11-06] MEDS: MAGNESIUM HYDROX 2400MG/30ML ORAL SUSPENSION 30 ML CUP PO PRN (13:56)
--- NOTE | 2017-11-06 16:53 | PN ---
[facility] CIWA - CIWA Score Nausea/Vomitin-No Nausea/No Vomiting Muscle Tremors: 3 Anxiety: 4-Mod. Anxious/Guarded Agitation: 3 Paroxysmal Sweats: No Perspiration Orientation: 0-Oriented Tacttile Disturbances: 2-Mild Itch/Numbness/Burn Auditory Disturbances: 2-Mild Harshness/Frighten Visual Disturbances: 2-Mild Sensitivity Headache: 0-None Present CIWA-Ar Total Score: 16 S Progress Note (SOAP) Subjective: Interrupted Sleep, Tremors, Stomach Cramping, Body Aches, Nausea, Constipation. Objective: PATIENT A & O X 3, OBSERVED AMBULATING ON UNIT. NO ACUTE DISTRESS. 11/06/17 16:50 Vital Signs Temperature 98.6 F 11/06/17 14:16 Pulse Rate 66 11/06/17 14:16 Respiratory Rate 18 11/06/17 14:16 Blood Pressure 116/70 11/06/17 14:16 O2 Sat by Pulse Oximetry (%) Laboratory Tests 11/06/17 11/06/17 08:00 08:00 WBC 4.4 RBC 4.00 Hgb 12.3 Hct 36.2 D MCV 90.5 MCH 30.7 MCHC 33.9 RDW 13.3 D Plt Count 156 MPV 9.3 Sodium 141 Potassium 3.8 Chloride 106 Carbon Dioxide 30 Anion Gap 5 L BUN 9 Creatinine 0.7 Creat Clearance w eGFR > 60 Random Glucose 96 Calcium 8.1 L Total Bilirubin 0.3 AST 32 D ALT 32 D Alkaline Phosphatase 65 Total Protein 6.1 L Albumin 2.9 L LABS NOTED. RPR, UA RESULTS PENDING. 11/06/17 16:52 Assessment: 11/06/17 16:50 WITHDRAWAL SYMPTOMS. Plan: CONTINUE DETOX. INCREASE DAILY PO FLUID INTAKE. PRN FLEXERIL FOR BODY ACHES / MUSCLE SPASMS.
[2017-11-06 19:20] LABS: URINE APPEARANCE CLEAR; URINE BILIRUBIN NEGATIVE (<2.0 mg/dL); URINE COLOR LTYELLOW; URINE GLUCOSE (UA) NEGATIVE (NEGATIVE); URINE KETONE NEGATIVE (NEGATIVE); URINE LEUK ESTERASE NEGATIVE (NEGATIVE); URINE NITRITE NEGATIVE (NEGATIVE); URINE PROTEIN NEGATIVE (NEGATIVE)
[2017-11-06] MEDS: CYCLOBENZAPRINE HCL 10 MG TABLET (FP) PO PRN (20:20)
[2017-11-06] MEDS: IBUPROFEN 600 MG TABLET (FP) PO PRN (20:20)
[2017-11-06] MEDS ORDERED: diphenhydrAMINE HCL 25 MG CAPSULE (FP) PO ONE (20:51)
[2017-11-06] MEDS: THIAMINE HCL 100 MG TABLET (FP) PO SCH (22:16)
[2017-11-06] MEDS: diphenhydrAMINE HCL 50 MG CAPSULE PO SCH (22:17)
[2017-11-06] MEDS: QUEtiapine FUMARATE 200 MG TABLET PO SCH (22:17)
[2017-11-06] MEDS: DIVALPROEX SODIUM 250 MG TABLET E.C. PO SCH (22:17)
[2017-11-07] MEDS: DIVALPROEX SODIUM 250 MG TABLET E.C. PO SCH ×2 (10:18→22:38)
[2017-11-07] MEDS: PRENATAL VITAMINS W/ FOLIC ACID TABLET (FP) PO SCH (10:19)
[2017-11-07] MEDS: diazePAM 5 MG TABLET PO SCH ×2 (10:19→22:38)
--- NOTE | 2017-11-07 13:27 | PN ---
[facility] CIWA - CIWA Score Nausea/Vomitin-Mild Nausea/No Vomiting Muscle Tremors: 3 Anxiety: 3 Agitation: 3 Paroxysmal Sweats: 3 Orientation: 0-Oriented Tacttile Disturbances: 0-None Auditory Disturbances: 0-None Visual Disturbances: 0-None Headache: 0-None Present CIWA-Ar Total Score: 13 S Progress Note (SOAP) Subjective: Sweating, chills, tremor Objective: 11/07/17 13:23 Last Vital Signs Temp Pulse Resp BP Pulse Ox 96.7 F L 78 16 115/74 11/07/17 10:16 11/07/17 10:16 11/07/17 10:16 11/07/17 10:16 Noted with left arm sling and cast to left arm, c/d/i (patient stated he recently fell while etoh intoxicated and fx his left elbow) Laboratory Tests 11/06/17 11/06/17 11/06/17 08:00 08:00 13:30 WBC 4.4 RBC 4.00 Hgb 12.3 Hct 36.2 D MCV 90.5 MCH 30.7 MCHC 33.9 RDW 13.3 D Plt Count 156 MPV 9.3 Sodium 141 Potassium 3.8 Chloride 106 Carbon Dioxide 30 Anion Gap 5 L BUN 9 Creatinine 0.7 Creat Clearance w eGFR > 60 Random Glucose 96 Calcium 8.1 L Total Bilirubin 0.3 AST 32 D ALT 32 D Alkaline Phosphatase 65 Total Protein 6.1 L Albumin 2.9 L Urine Color Ltyellow Urine Appearance Clear Urine pH 8.0 D Ur Specific [place] 1.015 Urine Protein Negative Urine Glucose (UA) Negative Urine Ketones Negative Urine Blood Negative Urine Nitrite Negative Urine Bilirubin Negative Urine Urobilinogen 2.0 Ur Leukocyte Esterase Negative Valproic Acid 11/07/17 07:40 WBC RBC Hgb Hct MCV MCH MCHC RDW Plt Count MPV Sodium Potassium Chloride Carbon Dioxide Anion Gap BUN Creatinine Creat Clearance w eGFR Random Glucose Calcium Total Bilirubin AST ALT Alkaline Phosphatase Total Protein Albumin Urine Color Urine Appearance Urine pH Ur Specific [place] Urine Protein Urine Glucose (UA) Urine Ketones Urine Blood Urine Nitrite Urine Bilirubin Urine Urobilinogen Ur Leukocyte Esterase Valproic Acid < 3.0 L Labs reviewed Assessment: 11/07/17 13:24 Withdrawal symptoms Plan: Continue detox Encouraged PO hydration (water)
[2017-11-07 14:47] LABS: RPR REACTIVE 1:1 (NONREACTIVE)
[2017-11-07 14:48] LABS: TREPONEMA ANTIBODY PREVIOUSLY REACTIVE (NONREACTIVE)
[2017-11-07] MEDS: CYCLOBENZAPRINE HCL 10 MG TABLET (FP) PO PRN (19:39)
[2017-11-07] MEDS ORDERED: diphenhydrAMINE HCL 25 MG CAPSULE (FP) PO ONE (20:36)
[2017-11-07] MEDS: THIAMINE HCL 100 MG TABLET (FP) PO SCH (22:37)
[2017-11-07] MEDS: diphenhydrAMINE HCL 50 MG CAPSULE PO SCH (22:38)
[2017-11-07] MEDS: IBUPROFEN 600 MG TABLET (FP) PO PRN (22:38)
[2017-11-07] MEDS: QUEtiapine FUMARATE 200 MG TABLET PO SCH (22:38)
[2017-11-07] MEDS: MAGNESIUM HYDROX 2400MG/30ML ORAL SUSPENSION 30 ML CUP PO PRN (22:41)
[2017-11-08] MEDS: DIVALPROEX SODIUM 250 MG TABLET E.C. PO SCH ×2 (11:04→22:15)
[2017-11-08] MEDS: PRENATAL VITAMINS W/ FOLIC ACID TABLET (FP) PO SCH (11:05)
--- NOTE | 2017-11-08 11:38 | PN ---
[facility] Progress Note (SOAP) Subjective: PT SEEN IN BED. AWAKE AND C/O BODY ACHES,FATIGUE. Objective: 11/08/17 11:37 Vital Signs 11/08/17 11/08/17 11/08/17 06:27 06:30 09:12 Temperature 97.2 F L 97.1 F L Pulse Rate 66 65 Respiratory 18 18 20 Rate Blood Pressure 101/56 93/57 Laboratory Tests 11/06/17 11/06/17 11/06/17 08:00 08:00 08:00 WBC 4.4 RBC 4.00 Hgb 12.3 Hct 36.2 D MCV 90.5 MCH 30.7 MCHC 33.9 RDW 13.3 D Plt Count 156 MPV 9.3 Sodium 141 Potassium 3.8 Chloride 106 Carbon Dioxide 30 Anion Gap 5 L BUN 9 Creatinine 0.7 Creat Clearance w eGFR > 60 Random Glucose 96 Calcium 8.1 L Total Bilirubin 0.3 AST 32 D ALT 32 D Alkaline Phosphatase 65 Total Protein 6.1 L Albumin 2.9 L Urine Color Urine Appearance Urine pH Ur Specific [place] Urine Protein Urine Glucose (UA) Urine Ketones Urine Blood Urine Nitrite Urine Bilirubin Urine Urobilinogen Ur Leukocyte Esterase Valproic Acid RPR Titer Reactive 1:1 H T.pallidum Ab (MHA) Previously reactive 11/06/17 11/07/17 13:30 07:40 WBC RBC Hgb Hct MCV MCH MCHC RDW Plt Count MPV Sodium Potassium Chloride Carbon Dioxide Anion Gap BUN Creatinine Creat Clearance w eGFR Random Glucose Calcium Total Bilirubin AST ALT Alkaline Phosphatase Total Protein Albumin Urine Color Ltyellow Urine Appearance Clear Urine pH 8.0 D Ur Specific [place] 1.015 Urine Protein Negative Urine Glucose (UA) Negative Urine Ketones Negative Urine Blood Negative Urine Nitrite Negative Urine Bilirubin Negative Urine Urobilinogen 2.0 Ur Leukocyte Esterase Negative Valproic Acid < 3.0 L RPR Titer T.pallidum Ab (MHA) Assessment: 11/08/17 11:37 WITHDRAWAL SX Plan: CONTINUE DETOX MOTRIN PRN
[2017-11-08] MEDS: diazePAM 5 MG TABLET PO SCH ×2 (12:15→22:15)
[2017-11-08] MEDS: MAGNESIUM HYDROX 2400MG/30ML ORAL SUSPENSION 30 ML CUP PO PRN (12:21)
[2017-11-08] MEDS ORDERED: diphenhydrAMINE HCL 25 MG CAPSULE (FP) PO ONE (20:20)
[2017-11-08] MEDS: diphenhydrAMINE HCL 50 MG CAPSULE PO SCH (22:15)
[2017-11-08] MEDS: CYCLOBENZAPRINE HCL 10 MG TABLET (FP) PO PRN (22:15)
[2017-11-08] MEDS: QUEtiapine FUMARATE 200 MG TABLET PO SCH (22:15)
[2017-11-08] MEDS: THIAMINE HCL 100 MG TABLET (FP) PO SCH (22:15)
[2017-11-08] MEDS: IBUPROFEN 600 MG TABLET (FP) PO PRN (22:19)
[2017-11-09] MEDS ORDERED: diazePAM 5 MG TABLET PO SCH (10:00)
[2017-11-09] MEDS: DIVALPROEX SODIUM 250 MG TABLET E.C. PO SCH (10:48)
[2017-11-09] MEDS: PRENATAL VITAMINS W/ FOLIC ACID TABLET (FP) PO SCH (10:48)
[2017-11-09] MEDS: MAGNESIUM HYDROX 2400MG/30ML ORAL SUSPENSION 30 ML CUP PO PRN (10:52)
[2017-11-09] MEDS: CYCLOBENZAPRINE HCL 10 MG TABLET (FP) PO PRN (10:52)
--- NOTE | 2017-11-09 11:28 | PN ---
BHS Progress Note (SOAP) Subjective: DETOX COMPLETED. ALERT O X 3. NAD. PT REPORTS HE HAS A PMD DR JOE AT [facility]. PT STATES HE HAS FOLLOWUP APPOINTMENTS FOR HIS LEFT HAND FX/CAST AND LEG TODAY AND TOMORROW BEFORE FOLLOW UP WITH [facility] AT [facility]. Objective: 11/09/17 11:28 Vital Signs 11/09/17 11/09/17 11/09/17 03:30 06:20 06:30 Temperature 96.8 F L Pulse Rate 68 Respiratory 18 16 18 Rate Blood Pressure 94/60 11/09/17 09:25 Temperature 96.9 F L Pulse Rate 77 Respiratory 18 Rate Blood Pressure 101/67 Laboratory Tests 11/06/17 11/06/17 11/06/17 08:00 08:00 08:00 WBC 4.4 RBC 4.00 Hgb 12.3 Hct 36.2 D MCV 90.5 MCH 30.7 MCHC 33.9 RDW 13.3 D Plt Count 156 MPV 9.3 Sodium 141 Potassium 3.8 Chloride 106 Carbon Dioxide 30 Anion Gap 5 L BUN 9 Creatinine 0.7 Creat Clearance w eGFR > 60 Random Glucose 96 Calcium 8.1 L Total Bilirubin 0.3 AST 32 D ALT 32 D Alkaline Phosphatase 65 Total Protein 6.1 L Albumin 2.9 L Urine Color Urine Appearance Urine pH Ur Specific [place] Urine Protein Urine Glucose (UA) Urine Ketones Urine Blood Urine Nitrite Urine Bilirubin Urine Urobilinogen Ur Leukocyte Esterase Valproic Acid RPR Titer Reactive 1:1 H T.pallidum Ab (MHA) Previously reactive 11/06/17 11/07/17 13:30 07:40 WBC RBC Hgb Hct MCV MCH MCHC RDW Plt Count MPV Sodium Potassium Chloride Carbon Dioxide Anion Gap BUN Creatinine Creat Clearance w eGFR Random Glucose Calcium Total Bilirubin AST ALT Alkaline Phosphatase Total Protein Albumin Urine Color Ltyellow Urine Appearance Clear Urine pH 8.0 D Ur Specific [place] 1.015 Urine Protein Negative Urine Glucose (UA) Negative Urine Ketones Negative Urine Blood Negative Urine Nitrite Negative Urine Bilirubin Negative Urine Urobilinogen 2.0 Ur Leukocyte Esterase Negative Valproic Acid < 3.0 L RPR Titer T.pallidum Ab (MHA) Assessment: 11/09/17 11:28 MEDICALLY STABLE Plan: D/C PT TODAY. FOLLOW UP AT [facility] PLANNED.
--- NOTE | 2017-11-09 11:32 | DS ---
[facility] Detox Discharge Summary Admission Date: 11/05/17 Discharge Date: 11/09/17 - History Present History: Alcohol Dependence, Cocaine Dependence Additional Comments: DETOX COMPLETED. ALERT O X 3. NAD. Pertinent Past History: PLEASE SEE DX BELOW - Physical Exam Results Vital Signs: Vital Signs Temperature 96.9 F L 11/09/17 09:25 Pulse Rate 77 11/09/17 09:25 Respiratory Rate 18 11/09/17 09:25 Blood Pressure 101/67 11/09/17 09:25 O2 Sat by Pulse Oximetry (%) Pertinent Admission Physical Exam Findings: WITHDRAWAL SX Laboratory Tests 11/06/17 11/06/17 11/06/17 08:00 08:00 08:00 WBC 4.4 RBC 4.00 Hgb 12.3 Hct 36.2 D MCV 90.5 MCH 30.7 MCHC 33.9 RDW 13.3 D Plt Count 156 MPV 9.3 Sodium 141 Potassium 3.8 Chloride 106 Carbon Dioxide 30 Anion Gap 5 L BUN 9 Creatinine 0.7 Creat Clearance w eGFR > 60 Random Glucose 96 Calcium 8.1 L Total Bilirubin 0.3 AST 32 D ALT 32 D Alkaline Phosphatase 65 Total Protein 6.1 L Albumin 2.9 L Urine Color Urine Appearance Urine pH Ur Specific [place] Urine Protein Urine Glucose (UA) Urine Ketones Urine Blood Urine Nitrite Urine Bilirubin Urine Urobilinogen Ur Leukocyte Esterase Valproic Acid RPR Titer Reactive 1:1 H T.pallidum Ab (MHA) Previously reactive 11/06/17 11/07/17 13:30 07:40 WBC RBC Hgb Hct MCV MCH MCHC RDW Plt Count MPV Sodium Potassium Chloride Carbon Dioxide Anion Gap BUN Creatinine Creat Clearance w eGFR Random Glucose Calcium Total Bilirubin AST ALT Alkaline Phosphatase Total Protein Albumin Urine Color Ltyellow Urine Appearance Clear Urine pH 8.0 D Ur Specific [place] 1.015 Urine Protein Negative Urine Glucose (UA) Negative Urine Ketones Negative Urine Blood Negative Urine Nitrite Negative Urine Bilirubin Negative Urine Urobilinogen 2.0 Ur Leukocyte Esterase Negative Valproic Acid < 3.0 L RPR Titer T.pallidum Ab (MHA) - Treatment Hospital Course: Detox Protocol Followed, Detoxed Safely, Responded well, Discharged Condition Good, Rehab Referral Accepted Patient has Accepted a Rehab Referral to: [facility] - Medication Discharge Medications: Ambulatory Orders Divalproex [Depakote -] 750 mg PO BID 09/02/16 Quetiapine Fumarate [Seroquel] 100 mg PO HS 12/09/16 Quetiapine Fumarate [Seroquel] 200 mg PO AM 12/09/16 Diphenhydramine [Benadryl Capsule -] 50 mg PO HS #60 cap 12/21/16 Divalproex [Depakote -] 750 mg PO BID #60 tab 12/21/16 Ibuprofen [Motrin -] 600 mg PO QID 11/05/17 Zolpidem Tartrate [Ambien] 10 mg PO HS 11/05/17 - Diagnosis (1) Alcohol dependence with uncomplicated withdrawal Current Visit: Yes Status: Acute (2) GERD (gastroesophageal reflux disease) Current Visit: Yes Status: Chronic Qualifiers: Esophagitis presence: without esophagitis Qualified Code(s): K21.9 - Gastro -esophageal reflux disease without esophagitis (3) Nicotine dependence Current Visit: Yes Status: Acute Qualifiers: Nicotine product type: cigarettes Substance use status: in withdrawal Qualified Code(s): F17.213 - Nicotine dependence, cigarettes, with withdrawal (4) Asthma Current Visit: Yes Status: Chronic Qualifiers: Asthma severity: unspecified severity Asthma persistence: unspecified Asthma complication type: uncomplicated Qualified Code(s): J45.909 - Unspecified asthma, uncomplicated (5) Fracture of left upper extremity Current Visit: Yes Status: Acute Qualifiers: Encounter type: sequela Fracture type: closed Qualified Code(s): S42.302S - Unspecified fracture of shaft of humerus, left arm, sequela (6) Cocaine dependence Current Visit: Yes Status: Acute Qualifiers: Substance use status: uncomplicated Qualified Code(s): F14.20 - Cocaine dependence, uncomplicated - AMA Did Patient Leave Against Medical Advice: No
[2017-11-09 13:20] VITALS: BP 114/75; PULSE 97; TEMP 98.1
== END 2017-11-09 01:17 | disposition home or self-care (01) | DRG 897 ==
LOC: YASAS 15:26 → Y3N 19:58
PROVIDERS: ADMIT Surgery; ATTEND Surgery
PROC: HZ2ZZZZ Detoxification Services for Substance Abuse Treatment (ICD-10-PCS; principal; 2017-11-05)
DX: F10.230 Alcohol dependence with withdrawal, uncomplicated (principal); F14.20 Cocaine dependence, uncomplicated; F12.10 Cannabis abuse, uncomplicated; F17.213 Nicotine dependence, cigarettes, with withdrawal; F25.0 Schizoaffective disorder, bipolar type; F19.24 Other psychoactive substance dependence with psychoactive substance-induced mood disorder; K21.9 Gastro-esophageal reflux disease without esophagitis; J45.909 Unspecified asthma, uncomplicated; G47.00 Insomnia, unspecified; S42.302S Unspecified fracture of shaft of humerus, left arm, sequela; X58.XXXS Exposure to other specified factors, sequela; Z87.438 Personal history of other diseases of male genital organs; Z86.69 Personal history of other diseases of the nervous system and sense organs; Z91.5 Personal history of self-harm
CPT/HCPCS: 36415; 80053; 80164; 81003; 85027; 86593; 86780; 93005; 93010

== ENCOUNTER 2018-06-09 11:56 | Inpatient (IN) | payer OTHER ==
[2018-06-09 13:11] VITALS: BMI 23.3
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
[2018-06-09] MEDS ORDERED: ALBUTEROL SO4 8 GM HFA INHALER IH PRN (16:29)
[2018-06-09] MEDS ORDERED: MELATONIN 5 MG TABLETS PO PRN (16:32)
[2018-06-09] MEDS ORDERED: ACETAMINOPHEN 325 MG TABLET (FP) PO PRN ×2 (16:32)
[2018-06-09] MEDS ORDERED: cloNIDine HCL 0.1 MG TABLET PO PRN (16:32)
[2018-06-09] MEDS ORDERED: NICOTINE POLACRILEX 2 MG GUM BUC PRN (16:32)
[2018-06-09] MEDS ORDERED: IBUPROFEN 400 MG TABLET (FP) PO PRN (16:32)
[2018-06-09] MEDS ORDERED: BISMUTH SUBSALICYLATE 524 MG/30 ML UD PO PRN (16:32)
[2018-06-09] MEDS ORDERED: MAGNESIUM HYDROX 2400MG/30ML ORAL SUSPENSION 30 ML CUP PO PRN (16:32)
[2018-06-09] MEDS ORDERED: MAGNESIUM CITRATE 300 ML BOTTLE PO PRN (16:32)
[2018-06-09] MEDS ORDERED: MAG HYDROX/AL HYDROX/SIMETH 30 ML UNIT-DOSE CUP PO PRN (16:32)
[2018-06-09] MEDS ORDERED: diazePAM 5 MG TABLET PO PRN (16:32)
[2018-06-09] MEDS ORDERED: MENTHOL/PHENOL 1 EACH UD MM PRN (16:32)
[2018-06-09] MEDS: METHOCARBAMOL 500 MG TABLET PO PRN (18:56)
[2018-06-09] MEDS ORDERED: diphenhydrAMINE HCL 25 MG CAPSULE (FP) PO ONE (21:51)
[2018-06-09] MEDS: THIAMINE HCL 100 MG TABLET (FP) PO SCH (22:24)
[2018-06-09] MEDS: diazePAM 5 MG TABLET PO SCH (22:24)
[2018-06-09] MEDS: diphenhydrAMINE HCL 50 MG CAPSULE PO SCH (22:25)
[2018-06-09] MEDS ORDERED: METHADONE HCL 10 MG TABLET (FOR DETOX USE ONLY) PO ONE (23:00)
[2018-06-10] MEDS: diazePAM 5 MG TABLET PO SCH ×3 (06:41→23:08)
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
[2018-06-10] MEDS ORDERED: METHADONE HCL 5 MG TABLET (FOR DETOX USE ONLY) PO ONE (10:00)
[2018-06-10] MEDS ORDERED: DIVALPROEX SODIUM 500 MG TABLET E.C. PO SCH (10:00)
[2018-06-10] MEDS: METHOCARBAMOL 500 MG TABLET PO PRN (10:19)
[2018-06-10] MEDS: PRENATAL VITAMINS W/ FOLIC ACID TABLET (FP) PO SCH (10:19)
[2018-06-10] MEDS ORDERED: diphenhydrAMINE HCL 25 MG CAPSULE (FP) PO ONE ×2 (10:20→22:07)
[2018-06-10] MEDS ORDERED: DIVALPROEX SODIUM 500 MG TABLET E.C. ONE ×2 (10:21→22:08)
[2018-06-10] MEDS ORDERED: DIVALPROEX SODIUM 250 MG TABLET E.C. ONE ×2 (10:22→22:08)
[2018-06-10] MEDS: DIVALPROEX 250 MG, DIVALPROEX 500 MG PO SCH ×2 (10:23→23:08)
[2018-06-10] MEDS: diphenhydrAMINE HCL 50 MG CAPSULE PO SCH ×2 (10:23→23:08)
[2018-06-10] MEDS: FLUoxetine HCL 10 MG CAPSULE (FP) PO SCH (10:23)
[2018-06-10] MEDS: NICOTINE 14 MG/24 HOURS TOPICAL PATCH TD SCH (10:23)
[2018-06-10] MEDS: QUEtiapine FUMARATE 100 MG TABLET (FP) PO SCH (10:23)
[2018-06-10 10:47] LABS: HEMATOCRIT 38.6 % (35.4-49); HEMOGLOBIN 13.2 GM/dL (11.7-16.9); MCH 31.3 pg (25.7-33.7); MCHC 34.1 g/dl (32.0-35.9); MEAN CELL VOLUME 91.8 fl (80-96); MEAN PLT VOLUME 9.8 fl (7.5-11.1); PLATELET COUNT 137 K/MM3 (134-434); WHITE BLOOD COUNT 5.2 K/mm3 (4.0-10.0)
[2018-06-10 11:17] LABS: ALK PHOS 55 U/L (45-117); ANION GAP 3 MMOL/L (8-16); BILIRUBIN,TOTAL 0.1 mg/dL (0.2-1); BLOOD UREA NITROGEN 13 mg/dL (7-18); CALCIUM 7.7 mg/dL (8.5-10.1); CHLORIDE 107 mmol/L (98-107); CO2 31 mmol/L (21-32); CREATININE 0.8 mg/dL (0.55-1.3); GLUCOSE,RANDOM 92 mg/dL (74-106); POTASSIUM 4.2 mmol/L (3.5-5.1); SGOT/AST 16 U/L (15-37); SGPT/ALT 15 U/L (13-61); SODIUM 142 mmol/L (136-145); TOT PROT 5.8 g/dl (6.4-8.2)
--- NOTE | 2018-06-10 13:14 | PN ---
S CIWA - CIWA Score Nausea/Vomitin-No Nausea/No Vomiting Muscle Tremors: 3 Anxiety: 2 Agitation: 4-Moderately Restless Paroxysmal Sweats: 3 Orientation: 0-Oriented Tacttile Disturbances: 0-None Auditory Disturbances: 0-None Visual Disturbances: 0-None Headache: 0-None Present CIWA-Ar Total Score: 12 BHS COWS - Scale Resting Pulse: 0= [place] 80 or Below Sweatin=Flushed/Facial Moisture Restless Observation: 1= Difficult to Sit Still Pupil Size: 0= Normal to Room Light Bone or Joint Aches: 2= Severe Diffuse Aches Runny Nose/ Eye Tearin= Runny Nose/Eyes GI Upset > 30mins: 0= None Tremor Observation of Outstretched Hands: 2= Slight Tremor Visible Yawning Observation: 2= >3x During Session Anxiety or Irritability: 2=Irritable/Anxious Goose Flesh Skin: 0=Smooth Skin COWS Score: 13 S Progress Note (SOAP) Subjective: sweats shakes i need to see a cashier credit body aches interrupted sleep Objective: 06/10/18 13:13 Vital Signs Temperature 97.3 F L 06/10/18 09:07 Pulse Rate 71 06/10/18 09:07 Respiratory Rate 16 06/10/18 09:07 Blood Pressure 104/62 06/10/18 09:07 O2 Sat by Pulse Oximetry (%) Laboratory Tests 06/10/18 06/10/18 06/10/18 07:00 07:00 07:00 WBC 5.2 RBC 4.20 Hgb 13.2 Hct 38.6 MCV 91.8 MCH 31.3 MCHC 34.1 RDW 14.0 Plt Count 137 MPV 9.8 Sodium 142 Potassium 4.2 Chloride 107 Carbon Dioxide 31 Anion Gap 3 L BUN 13 Creatinine 0.8 Creat Clearance w eGFR > 60 Random Glucose 92 Calcium 7.7 L Total Bilirubin 0.1 L AST 16 ALT 15 Alkaline Phosphatase 55 Total Protein 5.8 L Albumin 3.0 L Valproic Acid 5.7 L aaox3 ambulating no acute distress Assessment: 06/10/18 13:14 withdrawal sx Plan: continue detox increase fluids dietary consultation ordered ensure bid as requested by dietary
--- NOTE | 2018-06-10 14:08 | EKG ---
Test Reason : Blood Pressure : / mmHG Vent. Rate : 061 BPM Atrial Rate : 061 BPM P-R Int : 146 ms QRS Dur : 082 ms QT Int : 398 ms P-R-T Axes : 058 033 034 degrees QTc Int : 400 ms NORMAL SINUS RHYTHM NON-SPECIFIC INTRA-VENTRICULAR CONDUCTION DELAY Confirmed by JAMES ABARCA MD ([id number]) on 06/10/2018 2:08:10 PM Referred By: Confirmed By:JAMES ABARCA MD
[2018-06-10] MEDS: THIAMINE HCL 100 MG TABLET (FP) PO SCH (23:08)
[2018-06-10] MEDS: QUEtiapine FUMARATE 200 MG TABLET PO SCH (23:08)
[2018-06-11] MEDS ORDERED: DIVALPROEX SODIUM 250 MG TABLET E.C. ONE ×2 (09:51→21:57)
[2018-06-11] MEDS ORDERED: DIVALPROEX SODIUM 500 MG TABLET E.C. ONE ×2 (09:51→21:57)
[2018-06-11] MEDS ORDERED: METHADONE HCL 10 MG TABLET (FOR DETOX USE ONLY) PO ONE (10:00)
[2018-06-11] MEDS: NICOTINE 14 MG/24 HOURS TOPICAL PATCH TD SCH (10:20)
[2018-06-11] MEDS: QUEtiapine FUMARATE 100 MG TABLET (FP) PO SCH (10:20)
[2018-06-11] MEDS: DIVALPROEX 250 MG, DIVALPROEX 500 MG PO SCH ×2 (11:05→22:27)
[2018-06-11] MEDS: PRENATAL VITAMINS W/ FOLIC ACID TABLET (FP) PO SCH (11:06)
[2018-06-11] MEDS: FLUoxetine HCL 10 MG CAPSULE (FP) PO SCH (11:06)
[2018-06-11] MEDS: diazePAM 5 MG TABLET PO SCH ×2 (11:08→22:26)
[2018-06-11] MEDS: diphenhydrAMINE HCL 50 MG CAPSULE PO SCH ×2 (11:11→22:27)
--- NOTE | 2018-06-11 13:01 | PN ---
[facility] CIWA - CIWA Score Nausea/Vomitin-No Nausea/No Vomiting Muscle Tremors: 3 Anxiety: 2 Agitation: 3 Paroxysmal Sweats: 3 Orientation: 0-Oriented Tacttile Disturbances: 0-None Auditory Disturbances: 0-None Visual Disturbances: 0-None Headache: 0-None Present CIWA-Ar Total Score: 11 S COWS - Scale Resting Pulse: 0= WI 80 or Below Sweatin=Flushed/Facial Moisture Restless Observation: 1= Difficult to Sit Still Pupil Size: 0= Normal to Room Light Bone or Joint Aches: 2= Severe Diffuse Aches Runny Nose/ Eye Tearin= Nasal Congestion GI Upset > 30mins: 1= Stomach Cramp Tremor Observation of Outstretched Hands: 1= Tremor [place], Not Seen Yawning Observation: 1= 1-2x During Session Anxiety or Irritability: 2=Irritable/Anxious Goose Flesh Skin: 0=Smooth Skin COWS Score: 11 [facility] Progress Note (SOAP) Subjective: sweats shakes interrupted sleep body aches agitation Objective: 06/11/18 13:00 Vital Signs Temperature 98.4 F 06/11/18 10:59 Pulse Rate 75 06/11/18 10:59 Respiratory Rate 18 06/11/18 10:59 Blood Pressure 104/54 L 06/11/18 10:59 O2 Sat by Pulse Oximetry (%) Laboratory Tests 06/10/18 06/10/18 06/10/18 07:00 07:00 07:00 WBC 5.2 RBC 4.20 Hgb 13.2 Hct 38.6 MCV 91.8 MCH 31.3 MCHC 34.1 RDW 14.0 Plt Count 137 MPV 9.8 Sodium 142 Potassium 4.2 Chloride 107 Carbon Dioxide 31 Anion Gap 3 L BUN 13 Creatinine 0.8 Creat Clearance w eGFR > 60 Random Glucose 92 Calcium 7.7 L Total Bilirubin 0.1 L AST 16 ALT 15 Alkaline Phosphatase 55 Total Protein 5.8 L Albumin 3.0 L Valproic Acid 5.7 L aaox3 ambulating no acute distress Assessment: 06/11/18 13:01 withdrawal sx Plan: continue detox increase fluids
[2018-06-11 13:40] LABS: RPR REACTIVE 1:1 (NONREACTIVE)
[2018-06-11 13:41] LABS: TREPONEMA ANTIBODY PREVIOUSLY REACTIVE (NONREACTIVE)
[2018-06-11] MEDS ORDERED: diphenhydrAMINE HCL 25 MG CAPSULE (FP) PO ONE (21:57)
[2018-06-11] MEDS: QUEtiapine FUMARATE 200 MG TABLET PO SCH (22:27)
[2018-06-11] MEDS: THIAMINE HCL 100 MG TABLET (FP) PO SCH (22:28)
[2018-06-12] MEDS ORDERED: METHADONE HCL 5 MG TABLET (FOR DETOX USE ONLY) PO ONE (06:00)
[2018-06-12] MEDS ORDERED: diazePAM 5 MG TABLET PO SCH (06:00)
[2018-06-12] MEDS ORDERED: DIVALPROEX SODIUM 500 MG TABLET E.C. ONE ×2 (09:26→22:06)
[2018-06-12] MEDS ORDERED: DIVALPROEX SODIUM 250 MG TABLET E.C. ONE ×2 (09:27→22:06)
[2018-06-12] MEDS: QUEtiapine FUMARATE 100 MG TABLET (FP) PO SCH (10:11)
[2018-06-12] MEDS: PRENATAL VITAMINS W/ FOLIC ACID TABLET (FP) PO SCH (10:11)
[2018-06-12] MEDS: DIVALPROEX 250 MG, DIVALPROEX 500 MG PO SCH ×2 (10:12→22:19)
[2018-06-12] MEDS: diphenhydrAMINE HCL 50 MG CAPSULE PO SCH ×2 (10:12→22:19)
[2018-06-12] MEDS: FLUoxetine HCL 10 MG CAPSULE (FP) PO SCH (10:12)
[2018-06-12] MEDS: NICOTINE 14 MG/24 HOURS TOPICAL PATCH TD SCH (10:12)
--- NOTE | 2018-06-12 14:29 | PN ---
[facility] Progress Note (SOAP) Subjective: Patient reported sweating, interrupted sleep, anxious. Patient requesting inpatient drug rehab. Patient scheduled for discharge today but no appropriate referral in chart. Referral stated that patient should call [facility] for bed availability. Patient with history of Polysubstance dependence (PSD) and would benefit from inpatient rehab. Patient is high risk for relapse. Will cancel discharge for today. Please evaluate in AM for available bed in Rehab. Objective: 06/12/18 14:27 Last Vital Signs Temp Pulse Resp BP Pulse Ox 97.5 F L 69 18 118/73 06/12/18 14:07 06/12/18 14:07 06/12/18 14:07 06/12/18 14:07 Laboratory Tests 06/10/18 06/10/18 06/10/18 07:00 07:00 07:00 WBC 5.2 RBC 4.20 Hgb 13.2 Hct 38.6 MCV 91.8 MCH 31.3 MCHC 34.1 RDW 14.0 Plt Count 137 MPV 9.8 Sodium 142 Potassium 4.2 Chloride 107 Carbon Dioxide 31 Anion Gap 3 L BUN 13 Creatinine 0.8 Creat Clearance w eGFR > 60 Random Glucose 92 Calcium 7.7 L Total Bilirubin 0.1 L AST 16 ALT 15 Alkaline Phosphatase 55 Total Protein 5.8 L Albumin 3.0 L Valproic Acid RPR Titer Reactive 1:1 H T.pallidum Ab (MHA) Previously reactive 06/10/18 07:00 WBC RBC Hgb Hct MCV MCH MCHC RDW Plt Count MPV Sodium Potassium Chloride Carbon Dioxide Anion Gap BUN Creatinine Creat Clearance w eGFR Random Glucose Calcium Total Bilirubin AST ALT Alkaline Phosphatase Total Protein Albumin Valproic Acid 5.7 L RPR Titer T.pallidum Ab (MHA) Labs reviewed Assessment: 06/12/18 14:28 Withdrawal symptoms Plan: Continue detox Cancel discharge today. Please evaluate patient in AM for admission to inpatient rehab as patient is high risk for relapse due to history of PSD. Patient can be admitted to inpatient rehab today if bed becomes available.
[2018-06-12] MEDS ORDERED: diphenhydrAMINE HCL 25 MG CAPSULE (FP) PO ONE (22:06)
[2018-06-12] MEDS: QUEtiapine FUMARATE 200 MG TABLET PO SCH (22:19)
[2018-06-12] MEDS: THIAMINE HCL 100 MG TABLET (FP) PO SCH (22:20)
--- NOTE | 2018-06-13 09:11 | DS ---
[facility] Detox Discharge Summary Admission Date: 06/09/18 Discharge Date: 06/13/18 - History Present History: Alcohol Dependence, Cannabis Dependence, Cocaine Dependence, Opioid Dependence - Physical Exam Results Vital Signs: Vital Signs Temperature 98.8 F 06/13/18 06:00 Pulse Rate 90 06/13/18 06:00 Respiratory Rate 16 06/13/18 06:00 Blood Pressure 113/65 06/13/18 06:00 O2 Sat by Pulse Oximetry (%) - Treatment Hospital Course: Detox Protocol Followed, Detoxed Safely, Responded well, Discharged Condition Good, Rehab Referral Accepted - Medication Discharge Medications: Ambulatory Orders Divalproex [Depakote -] 750 mg PO BID 09/02/16 Quetiapine Fumarate [Seroquel] 100 mg PO HS 12/09/16 Quetiapine Fumarate [Seroquel] 200 mg PO AM 12/09/16 Zolpidem Tartrate [Ambien] 10 mg PO HS 11/05/17 Albuterol Sulfate Inhaler - [Ventolin Hfa Inhaler -] 2 inh PO Q4H PRN 06/09/18 Diphenhydramine [Benadryl Capsule -] 50 mg PO BID 06/09/18 - Diagnosis (1) Alcohol dependence with uncomplicated withdrawal Current Visit: Yes Status: Chronic (2) Cannabis dependence Current Visit: Yes Status: Chronic (3) Cocaine dependence Current Visit: Yes Status: Chronic Qualifiers: Substance use status: uncomplicated Qualified Code(s): F14.20 - Cocaine dependence, uncomplicated (4) Nicotine dependence Current Visit: Yes Status: Chronic Qualifiers: Nicotine product type: cigarettes Substance use status: uncomplicated Qualified Code(s): F17.210 - Nicotine dependence, cigarettes, uncomplicated (5) Opioid dependence with withdrawal Current Visit: Yes Status: Chronic (6) Substance-induced sleep disorder Current Visit: Yes Status: Acute (7) Asthma Current Visit: Yes Status: Chronic Qualifiers: Asthma severity: unspecified severity Asthma persistence: unspecified Asthma complication type: uncomplicated Qualified Code(s): J45.909 - Unspecified asthma, uncomplicated (8) GERD (gastroesophageal reflux disease) Current Visit: Yes Status: Chronic Qualifiers: Esophagitis presence: without esophagitis Qualified Code(s): K21.9 - Gastro -esophageal reflux disease without esophagitis (9) Osteoarthritis of right ankle Current Visit: Yes Status: Chronic Qualifiers: Osteoarthritis type: unspecified Qualified Code(s): M19.071 - Primary osteoarthritis, right ankle and foot (10) Psychiatric disorder Current Visit: Yes Status: Suspected (11) Bipolar disorder Current Visit: No Status: Acute (12) Fracture of left upper extremity Current Visit: No Status: Acute Qualifiers: Encounter type: sequela Fracture type: closed Qualified Code(s): S42.302S - Unspecified fracture of shaft of humerus, left arm, sequela (13) Fracture of right lower extremity Current Visit: No Status: Acute Qualifiers: Encounter type: initial encounter Fracture type: closed Qualified Code(s) : S82.91XA - Unspecified fracture of right lower leg, initial encounter for closed fracture (14) Insomnia Current Visit: No Status: Acute (15) Substance induced mood disorder Current Visit: No Status: Acute (16) Cannabis abuse Current Visit: No Status: Chronic (17) Schizoaffective disorder Current Visit: No Status: Chronic Qualifiers: Schizoaffective disorder type: bipolar Qualified Code(s): F25.0 - Schizoaffective disorder, bipolar type - AMA Did Patient Leave Against Medical Advice: No (referred to [facility])
[2018-06-13 09:30] VITALS: BP 109/59; PULSE 92; TEMP 99.8
[2018-06-13] MEDS ORDERED: diphenhydrAMINE HCL 25 MG CAPSULE (FP) PO ONE (09:50)
[2018-06-13] MEDS ORDERED: DIVALPROEX SODIUM 250 MG TABLET E.C. ONE (09:51)
[2018-06-13] MEDS ORDERED: DIVALPROEX SODIUM 500 MG TABLET E.C. ONE (09:51)
[2018-06-13] MEDS: DIVALPROEX 250 MG, DIVALPROEX 500 MG PO SCH (10:25)
[2018-06-13] MEDS: PRENATAL VITAMINS W/ FOLIC ACID TABLET (FP) PO SCH (10:25)
[2018-06-13] MEDS: diphenhydrAMINE HCL 50 MG CAPSULE PO SCH (10:26)
[2018-06-13] MEDS: QUEtiapine FUMARATE 100 MG TABLET (FP) PO SCH (10:26)
[2018-06-13] MEDS: FLUoxetine HCL 10 MG CAPSULE (FP) PO SCH (10:26)
[2018-06-13] MEDS: NICOTINE 14 MG/24 HOURS TOPICAL PATCH TD SCH (10:26)
== END 2018-06-13 12:58 | disposition other institution (70) | DRG 897 ==
LOC: YASAS 11:56 → Y6N 17:31
PROVIDERS: ADMIT Surgery; ATTEND Surgery
PROC: HZ2ZZZZ Detoxification Services for Substance Abuse Treatment (ICD-10-PCS; principal; 2018-06-09)
DX: F11.23 Opioid dependence with withdrawal (principal); F14.20 Cocaine dependence, uncomplicated; F19.282 Other psychoactive substance dependence with psychoactive substance-induced sleep disorder; F10.230 Alcohol dependence with withdrawal, uncomplicated; F12.20 Cannabis dependence, uncomplicated; F17.210 Nicotine dependence, cigarettes, uncomplicated; F19.24 Other psychoactive substance dependence with psychoactive substance-induced mood disorder; F29 Unspecified psychosis not due to a substance or known physiological condition; F31.9 Bipolar disorder, unspecified; F25.0 Schizoaffective disorder, bipolar type; J45.909 Unspecified asthma, uncomplicated; K21.9 Gastro-esophageal reflux disease without esophagitis; M19.071 Primary osteoarthritis, right ankle and foot; G47.00 Insomnia, unspecified; Z87.438 Personal history of other diseases of male genital organs; Z86.69 Personal history of other diseases of the nervous system and sense organs
CPT/HCPCS: 36415; 80053; 80164; 85027; 86593; 86780; 93005; 93010; J0735

== ENCOUNTER 2018-06-13 14:08 | Inpatient (IN) | payer OTHER ==
[2018-06-13] MEDS ORDERED: NICOTINE POLACRILEX 2 MG GUM BUC PRN (15:18)
[2018-06-13] MEDS ORDERED: guaiFENesin 200 MG/10 ML 10 ML UNIT-DOSE CUPS PO PRN (15:18)
[2018-06-13] MEDS ORDERED: MENTHOL/PHENOL 1 EACH UD MM PRN (15:18)
[2018-06-13] MEDS ORDERED: MAG HYDROX/AL HYDROX/SIMETH 30 ML UNIT-DOSE CUP PO PRN (15:18)
[2018-06-13] MEDS ORDERED: MAGNESIUM HYDROX 2400MG/30ML ORAL SUSPENSION 30 ML CUP PO PRN (15:18)
[2018-06-13] MEDS ORDERED: MAGNESIUM CITRATE 300 ML BOTTLE PO PRN (15:18)
[2018-06-13] MEDS ORDERED: P-EPHED 60MG/TRIPROLIDI 2.5MG TABLET PO PRN (15:18)
[2018-06-13] MEDS ORDERED: LOPERAMIDE HCL 2 MG CAPSULE PO PRN (15:18)
[2018-06-13] MEDS ORDERED: ALBUTEROL SO4 8 GM HFA INHALER IH PRN (15:19)
--- NOTE | 2018-06-13 15:21 | HP ---
[facility] Rehab Assess/Revision - Admission History Admitted to Rehab from: [facility] Date of Admission to Rehab: 06/13/2018 - Vital signs Vital Signs: Vital Signs Period Temp Pulse Resp BP Sys/Ruiz Pulse Ox Last 24 Hr 98.5 F 94 18 101/62 - Findings Detox History & Physical reviewed: Yes Concur with findings: Yes Comments/Additional Findings: PATIENT'S MEDICAL / MEDICATION HISTORY REVIEWED PRIOR TO DISCHARGE FROM DETOX UNIT. PATIENT WAS DISCHARGED FROM DETOX UNIT TO BE TAKEN TO REHAB UNIT IN STABLE MEDICAL CONDITION. Inpatient Rehab Admission - Rehab Decision to Admit Inpatient rehab admission?: Yes - Initial Determination Are CD services needed?: Yes Free of communicable disease: Yes Not in need of hospitalization: Yes - Rehab Admission Criteria Previous failed treatment: Yes Poor recovery environment: Yes Comorbidities: Yes Lacks judgement: No Patient is meeting Inpatient Rehab admission criteria:: Yes
[2018-06-13] MEDS: MELATONIN 5 MG TABLETS PO PRN (21:47)
[2018-06-13] MEDS: THIAMINE HCL 100 MG TABLET (FP) PO SCH (21:47)
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
[2018-06-14] MEDS: NICOTINE 14 MG/24 HOURS TOPICAL PATCH TD SCH (10:08)
[2018-06-14] MEDS: PRENATAL VITAMINS W/ FOLIC ACID TABLET (FP) PO SCH (10:08)
[2018-06-14] MEDS: ACETAMINOPHEN 325 MG TABLET (FP) PO PRN ×3 (10:09→21:15)
--- NOTE | 2018-06-14 15:13 | PN ---
S Progress Note Note: client requesting methadone maintenance. Consultation with patient and social services assistant. Client will discuss methadone or suboxone treatment with counselor for discharge pkan.
[2018-06-14] MEDS: THIAMINE HCL 100 MG TABLET (FP) PO SCH (21:14)
[2018-06-14] MEDS: MELATONIN 5 MG TABLETS PO PRN (21:14)
[2018-06-15] MEDS: NICOTINE 14 MG/24 HOURS TOPICAL PATCH TD SCH (10:03)
[2018-06-15] MEDS: PRENATAL VITAMINS W/ FOLIC ACID TABLET (FP) PO SCH (10:04)
[2018-06-15] MEDS ORDERED: PT OWN MED DRAWER 7, Y5N ONE (10:44)
[2018-06-15] MEDS: DIVALPROEX SODIUM 250 MG TABLET E.C. PO SCH ×2 (11:44→21:37)
[2018-06-15] MEDS: QUEtiapine FUMARATE 100 MG TABLET (FP) PO SCH ×2 (11:45→21:41)
[2018-06-15] MEDS: diphenhydrAMINE HCL 50 MG CAPSULE PO SCH ×2 (11:46→21:37)
[2018-06-15] MEDS: FLUoxetine HCL 10 MG CAPSULE (FP) PO SCH (12:44)
[2018-06-15] MEDS: THIAMINE HCL 100 MG TABLET (FP) PO SCH (21:37)
[2018-06-15] MEDS: MELATONIN 5 MG TABLETS PO PRN (21:37)
[2018-06-16] MEDS: DIVALPROEX SODIUM 250 MG TABLET E.C. PO SCH ×2 (10:34→21:30)
[2018-06-16] MEDS: PRENATAL VITAMINS W/ FOLIC ACID TABLET (FP) PO SCH (10:34)
[2018-06-16] MEDS: FLUoxetine HCL 10 MG CAPSULE (FP) PO SCH (10:34)
[2018-06-16] MEDS: diphenhydrAMINE HCL 50 MG CAPSULE PO SCH ×2 (10:34→21:30)
[2018-06-16] MEDS: QUEtiapine FUMARATE 100 MG TABLET (FP) PO SCH ×2 (10:34→21:30)
[2018-06-16] MEDS: NICOTINE 14 MG/24 HOURS TOPICAL PATCH TD SCH (10:35)
[2018-06-16] MEDS: THIAMINE HCL 100 MG TABLET (FP) PO SCH (21:30)
[2018-06-16] MEDS: MELATONIN 5 MG TABLETS PO PRN (21:31)
[2018-06-17] MEDS: diphenhydrAMINE HCL 50 MG CAPSULE PO SCH ×2 (10:02→21:43)
[2018-06-17] MEDS: FLUoxetine HCL 10 MG CAPSULE (FP) PO SCH (10:02)
[2018-06-17] MEDS: PRENATAL VITAMINS W/ FOLIC ACID TABLET (FP) PO SCH (10:02)
[2018-06-17] MEDS: DIVALPROEX SODIUM 250 MG TABLET E.C. PO SCH ×2 (10:02→21:42)
[2018-06-17] MEDS: QUEtiapine FUMARATE 100 MG TABLET (FP) PO SCH ×2 (10:02→21:43)
[2018-06-17] MEDS: NICOTINE 14 MG/24 HOURS TOPICAL PATCH TD SCH (10:04)
[2018-06-17] MEDS: MELATONIN 5 MG TABLETS PO PRN (21:42)
[2018-06-17] MEDS: THIAMINE HCL 100 MG TABLET (FP) PO SCH (21:42)
[2018-06-18] MEDS: NICOTINE 14 MG/24 HOURS TOPICAL PATCH TD SCH (10:37)
[2018-06-18] MEDS: QUEtiapine FUMARATE 100 MG TABLET (FP) PO SCH ×2 (10:37→21:42)
[2018-06-18] MEDS: FLUoxetine HCL 10 MG CAPSULE (FP) PO SCH (10:37)
[2018-06-18] MEDS: PRENATAL VITAMINS W/ FOLIC ACID TABLET (FP) PO SCH (10:37)
[2018-06-18] MEDS: DIVALPROEX SODIUM 250 MG TABLET E.C. PO SCH ×2 (10:37→21:42)
[2018-06-18] MEDS: diphenhydrAMINE HCL 50 MG CAPSULE PO SCH ×2 (10:37→21:43)
[2018-06-18] MEDS: THIAMINE HCL 100 MG TABLET (FP) PO SCH (21:42)
[2018-06-18] MEDS: MELATONIN 5 MG TABLETS PO PRN (21:42)
[2018-06-19] MEDS ORDERED: PT OWN MED DRAWER 7, Y5N ONE (08:30)
[2018-06-19] MEDS: diphenhydrAMINE HCL 50 MG CAPSULE PO SCH ×2 (10:34→22:42)
[2018-06-19] MEDS: DIVALPROEX SODIUM 250 MG TABLET E.C. PO SCH ×2 (10:34→22:42)
[2018-06-19] MEDS: PRENATAL VITAMINS W/ FOLIC ACID TABLET (FP) PO SCH (10:34)
[2018-06-19] MEDS: NICOTINE 14 MG/24 HOURS TOPICAL PATCH TD SCH (10:34)
[2018-06-19] MEDS: QUEtiapine FUMARATE 100 MG TABLET (FP) PO SCH ×2 (10:34→22:42)
[2018-06-19] MEDS: FLUoxetine HCL 10 MG CAPSULE (FP) PO SCH (10:34)
[2018-06-19] MEDS: MELATONIN 5 MG TABLETS PO PRN (22:42)
[2018-06-19] MEDS: THIAMINE HCL 100 MG TABLET (FP) PO SCH (22:42)
[2018-06-20] MEDS: PRENATAL VITAMINS W/ FOLIC ACID TABLET (FP) PO SCH (10:33)
[2018-06-20] MEDS: diphenhydrAMINE HCL 50 MG CAPSULE PO SCH ×2 (10:33→21:35)
[2018-06-20] MEDS: QUEtiapine FUMARATE 100 MG TABLET (FP) PO SCH ×2 (10:33→21:36)
[2018-06-20] MEDS: FLUoxetine HCL 10 MG CAPSULE (FP) PO SCH (10:33)
[2018-06-20] MEDS: NICOTINE 14 MG/24 HOURS TOPICAL PATCH TD SCH (10:34)
[2018-06-20] MEDS: DIVALPROEX SODIUM 250 MG TABLET E.C. PO SCH ×2 (10:34→21:35)
[2018-06-20] MEDS: THIAMINE HCL 100 MG TABLET (FP) PO SCH (21:35)
[2018-06-20] MEDS: ACETAMINOPHEN 325 MG TABLET (FP) PO PRN (21:37)
[2018-06-21] MEDS: diphenhydrAMINE HCL 50 MG CAPSULE PO SCH ×2 (10:16→21:41)
[2018-06-21] MEDS: NICOTINE 14 MG/24 HOURS TOPICAL PATCH TD SCH (10:17)
[2018-06-21] MEDS: PRENATAL VITAMINS W/ FOLIC ACID TABLET (FP) PO SCH (10:17)
[2018-06-21] MEDS: DIVALPROEX SODIUM 250 MG TABLET E.C. PO SCH ×2 (10:17→21:40)
[2018-06-21] MEDS: FLUoxetine HCL 10 MG CAPSULE (FP) PO SCH (10:17)
[2018-06-21] MEDS: QUEtiapine FUMARATE 100 MG TABLET (FP) PO SCH ×2 (10:17→21:41)
[2018-06-21] MEDS: THIAMINE HCL 100 MG TABLET (FP) PO SCH (21:40)
[2018-06-21] MEDS: MELATONIN 5 MG TABLETS PO PRN (21:41)
[2018-06-22] MEDS: NICOTINE 14 MG/24 HOURS TOPICAL PATCH TD SCH (10:03)
[2018-06-22] MEDS: diphenhydrAMINE HCL 50 MG CAPSULE PO SCH ×2 (10:04→21:12)
[2018-06-22] MEDS: QUEtiapine FUMARATE 100 MG TABLET (FP) PO SCH ×2 (10:04→21:11)
[2018-06-22] MEDS: DIVALPROEX SODIUM 250 MG TABLET E.C. PO SCH ×2 (10:04→21:11)
[2018-06-22] MEDS: PRENATAL VITAMINS W/ FOLIC ACID TABLET (FP) PO SCH (10:04)
[2018-06-22] MEDS: FLUoxetine HCL 10 MG CAPSULE (FP) PO SCH (10:04)
[2018-06-22] MEDS: ACETAMINOPHEN 325 MG TABLET (FP) PO PRN ×2 (10:05→21:12)
[2018-06-22] MEDS: THIAMINE HCL 100 MG TABLET (FP) PO SCH (21:11)
[2018-06-22] MEDS: MELATONIN 5 MG TABLETS PO PRN (21:11)
[2018-06-23] MEDS: diphenhydrAMINE HCL 50 MG CAPSULE PO SCH ×2 (10:10→21:38)
[2018-06-23] MEDS: PRENATAL VITAMINS W/ FOLIC ACID TABLET (FP) PO SCH (10:11)
[2018-06-23] MEDS: NICOTINE 14 MG/24 HOURS TOPICAL PATCH TD SCH (10:11)
[2018-06-23] MEDS: QUEtiapine FUMARATE 100 MG TABLET (FP) PO SCH ×2 (10:11→21:38)
[2018-06-23] MEDS: FLUoxetine HCL 10 MG CAPSULE (FP) PO SCH (10:11)
[2018-06-23] MEDS: DIVALPROEX SODIUM 250 MG TABLET E.C. PO SCH ×2 (10:11→21:37)
[2018-06-23] MEDS: ACETAMINOPHEN 325 MG TABLET (FP) PO PRN ×2 (10:12→21:42)
[2018-06-23] MEDS: THIAMINE HCL 100 MG TABLET (FP) PO SCH (21:37)
[2018-06-23] MEDS: MELATONIN 5 MG TABLETS PO PRN (21:38)
[2018-06-24] MEDS: diphenhydrAMINE HCL 50 MG CAPSULE PO SCH ×2 (10:34→21:42)
[2018-06-24] MEDS: PRENATAL VITAMINS W/ FOLIC ACID TABLET (FP) PO SCH (10:34)
[2018-06-24] MEDS: DIVALPROEX SODIUM 250 MG TABLET E.C. PO SCH ×2 (10:35→21:42)
[2018-06-24] MEDS: QUEtiapine FUMARATE 100 MG TABLET (FP) PO SCH ×2 (10:35→21:42)
[2018-06-24] MEDS: NICOTINE 14 MG/24 HOURS TOPICAL PATCH TD SCH (10:35)
[2018-06-24] MEDS: FLUoxetine HCL 10 MG CAPSULE (FP) PO SCH (10:35)
[2018-06-24] MEDS: ACETAMINOPHEN 325 MG TABLET (FP) PO PRN (10:37)
[2018-06-24] MEDS: MELATONIN 5 MG TABLETS PO PRN (21:41)
[2018-06-24] MEDS: THIAMINE HCL 100 MG TABLET (FP) PO SCH (21:41)
[2018-06-25] MEDS: FLUoxetine HCL 10 MG CAPSULE (FP) PO SCH (12:11)
[2018-06-25] MEDS: DIVALPROEX SODIUM 250 MG TABLET E.C. PO SCH ×2 (12:11→21:51)
[2018-06-25] MEDS: QUEtiapine FUMARATE 100 MG TABLET (FP) PO SCH ×2 (12:11→21:53)
[2018-06-25] MEDS: PRENATAL VITAMINS W/ FOLIC ACID TABLET (FP) PO SCH (12:11)
[2018-06-25] MEDS: diphenhydrAMINE HCL 50 MG CAPSULE PO SCH ×2 (12:11→21:50)
[2018-06-25] MEDS: NICOTINE 14 MG/24 HOURS TOPICAL PATCH TD SCH (12:12)
[2018-06-25] MEDS: THIAMINE HCL 100 MG TABLET (FP) PO SCH (21:49)
[2018-06-25] MEDS: MELATONIN 5 MG TABLETS PO PRN (21:50)
[2018-06-25] MEDS: ACETAMINOPHEN 325 MG TABLET (FP) PO PRN (22:12)
[2018-06-26] MEDS: FLUoxetine HCL 10 MG CAPSULE (FP) PO SCH (09:29)
[2018-06-26] MEDS: QUEtiapine FUMARATE 100 MG TABLET (FP) PO SCH ×2 (09:29→21:56)
[2018-06-26] MEDS: PRENATAL VITAMINS W/ FOLIC ACID TABLET (FP) PO SCH (09:29)
[2018-06-26] MEDS: DIVALPROEX SODIUM 250 MG TABLET E.C. PO SCH ×2 (09:29→21:55)
[2018-06-26] MEDS: NICOTINE 14 MG/24 HOURS TOPICAL PATCH TD SCH (09:29)
[2018-06-26] MEDS: diphenhydrAMINE HCL 50 MG CAPSULE PO SCH ×2 (09:29→21:53)
[2018-06-26] MEDS: ACETAMINOPHEN 325 MG TABLET (FP) PO PRN ×2 (09:30→21:53)
[2018-06-26] MEDS: THIAMINE HCL 100 MG TABLET (FP) PO SCH (21:53)
[2018-06-26] MEDS: MELATONIN 5 MG TABLETS PO PRN (21:54)
[2018-06-27] MEDS: NICOTINE 14 MG/24 HOURS TOPICAL PATCH TD SCH (10:02)
[2018-06-27] MEDS: QUEtiapine FUMARATE 100 MG TABLET (FP) PO SCH ×2 (10:02→21:39)
[2018-06-27] MEDS: DIVALPROEX SODIUM 250 MG TABLET E.C. PO SCH ×2 (10:03→21:38)
[2018-06-27] MEDS: diphenhydrAMINE HCL 50 MG CAPSULE PO SCH ×2 (10:03→21:39)
[2018-06-27] MEDS: PRENATAL VITAMINS W/ FOLIC ACID TABLET (FP) PO SCH (10:03)
[2018-06-27] MEDS: FLUoxetine HCL 10 MG CAPSULE (FP) PO SCH (10:03)
[2018-06-27] MEDS: ACETAMINOPHEN 325 MG TABLET (FP) PO PRN (21:38)
[2018-06-27] MEDS: MELATONIN 5 MG TABLETS PO PRN (21:39)
[2018-06-27] MEDS: THIAMINE HCL 100 MG TABLET (FP) PO SCH (21:42)
[2018-06-28] MEDS: PRENATAL VITAMINS W/ FOLIC ACID TABLET (FP) PO SCH (10:30)
[2018-06-28] MEDS: QUEtiapine FUMARATE 100 MG TABLET (FP) PO SCH ×2 (10:30→21:05)
[2018-06-28] MEDS: diphenhydrAMINE HCL 50 MG CAPSULE PO SCH ×2 (10:30→21:04)
[2018-06-28] MEDS: DIVALPROEX SODIUM 250 MG TABLET E.C. PO SCH ×2 (10:30→21:05)
[2018-06-28] MEDS: FLUoxetine HCL 10 MG CAPSULE (FP) PO SCH (10:30)
[2018-06-28] MEDS: NICOTINE 14 MG/24 HOURS TOPICAL PATCH TD SCH (10:31)
[2018-06-28] MEDS: THIAMINE HCL 100 MG TABLET (FP) PO SCH (21:03)
[2018-06-28] MEDS: MELATONIN 5 MG TABLETS PO PRN (21:03)
[2018-06-28] MEDS: ACETAMINOPHEN 325 MG TABLET (FP) PO PRN (21:07)
[2018-06-29] MEDS: PRENATAL VITAMINS W/ FOLIC ACID TABLET (FP) PO SCH (10:27)
[2018-06-29] MEDS: QUEtiapine FUMARATE 100 MG TABLET (FP) PO SCH ×2 (10:27→21:26)
[2018-06-29] MEDS: NICOTINE 14 MG/24 HOURS TOPICAL PATCH TD SCH (10:27)
[2018-06-29] MEDS: diphenhydrAMINE HCL 50 MG CAPSULE PO SCH ×2 (10:27→21:24)
[2018-06-29] MEDS: DIVALPROEX SODIUM 250 MG TABLET E.C. PO SCH ×2 (10:27→21:25)
[2018-06-29] MEDS: FLUoxetine HCL 10 MG CAPSULE (FP) PO SCH (10:27)
[2018-06-29] MEDS: ACETAMINOPHEN 325 MG TABLET (FP) PO PRN ×2 (10:29→21:27)
[2018-06-29] MEDS: THIAMINE HCL 100 MG TABLET (FP) PO SCH (21:23)
[2018-06-29] MEDS: MELATONIN 5 MG TABLETS PO PRN (21:24)
[2018-06-30] MEDS: DIVALPROEX SODIUM 250 MG TABLET E.C. PO SCH ×2 (10:20→21:35)
[2018-06-30] MEDS: PRENATAL VITAMINS W/ FOLIC ACID TABLET (FP) PO SCH (10:20)
[2018-06-30] MEDS: diphenhydrAMINE HCL 50 MG CAPSULE PO SCH ×2 (10:20→21:34)
[2018-06-30] MEDS: NICOTINE 14 MG/24 HOURS TOPICAL PATCH TD SCH (10:20)
[2018-06-30] MEDS: FLUoxetine HCL 10 MG CAPSULE (FP) PO SCH (10:20)
[2018-06-30] MEDS: QUEtiapine FUMARATE 100 MG TABLET (FP) PO SCH ×2 (10:21→21:36)
[2018-06-30] MEDS: THIAMINE HCL 100 MG TABLET (FP) PO SCH (21:33)
[2018-06-30] MEDS: MELATONIN 5 MG TABLETS PO PRN (21:34)
[2018-06-30] MEDS: ACETAMINOPHEN 325 MG TABLET (FP) PO PRN (21:35)
[2018-07-01] MEDS: FLUoxetine HCL 10 MG CAPSULE (FP) PO SCH (10:53)
[2018-07-01] MEDS: PRENATAL VITAMINS W/ FOLIC ACID TABLET (FP) PO SCH (10:53)
[2018-07-01] MEDS: NICOTINE 14 MG/24 HOURS TOPICAL PATCH TD SCH (10:53)
[2018-07-01] MEDS: DIVALPROEX SODIUM 250 MG TABLET E.C. PO SCH ×2 (10:53→22:02)
[2018-07-01] MEDS: diphenhydrAMINE HCL 50 MG CAPSULE PO SCH ×2 (10:53→22:03)
[2018-07-01] MEDS: QUEtiapine FUMARATE 100 MG TABLET (FP) PO SCH ×2 (10:54→22:03)
[2018-07-01] MEDS: THIAMINE HCL 100 MG TABLET (FP) PO SCH (22:02)
[2018-07-01] MEDS: ACETAMINOPHEN 325 MG TABLET (FP) PO PRN (22:02)
[2018-07-01] MEDS: MELATONIN 5 MG TABLETS PO PRN (22:03)
[2018-07-02] MEDS: QUEtiapine FUMARATE 100 MG TABLET (FP) PO SCH ×2 (10:10→21:55)
[2018-07-02] MEDS: NICOTINE 14 MG/24 HOURS TOPICAL PATCH TD SCH (10:10)
[2018-07-02] MEDS: DIVALPROEX SODIUM 250 MG TABLET E.C. PO SCH ×2 (10:10→21:55)
[2018-07-02] MEDS: diphenhydrAMINE HCL 50 MG CAPSULE PO SCH ×2 (10:10→21:56)
[2018-07-02] MEDS: FLUoxetine HCL 10 MG CAPSULE (FP) PO SCH (10:10)
[2018-07-02] MEDS: PRENATAL VITAMINS W/ FOLIC ACID TABLET (FP) PO SCH (10:10)
[2018-07-02] MEDS: THIAMINE HCL 100 MG TABLET (FP) PO SCH (21:55)
[2018-07-02] MEDS: MELATONIN 5 MG TABLETS PO PRN (21:56)
[2018-07-02] MEDS: IBUPROFEN 400 MG TABLET (FP) PO PRN (21:56)
[2018-07-03 06:38] VITALS: BP 98/68; PULSE 71; TEMP 98.4
[2018-07-03] MEDS: diphenhydrAMINE HCL 50 MG CAPSULE PO SCH ×2 (10:21→21:47)
[2018-07-03] MEDS: PRENATAL VITAMINS W/ FOLIC ACID TABLET (FP) PO SCH (10:21)
[2018-07-03] MEDS: FLUoxetine HCL 10 MG CAPSULE (FP) PO SCH (10:21)
[2018-07-03] MEDS: DIVALPROEX SODIUM 250 MG TABLET E.C. PO SCH ×2 (10:21→21:47)
[2018-07-03] MEDS: NICOTINE 14 MG/24 HOURS TOPICAL PATCH TD SCH (10:21)
[2018-07-03] MEDS: IBUPROFEN 400 MG TABLET (FP) PO PRN (10:21)
[2018-07-03] MEDS: QUEtiapine FUMARATE 100 MG TABLET (FP) PO SCH ×2 (10:21→22:04)
[2018-07-03] MEDS: MELATONIN 5 MG TABLETS PO PRN (21:47)
[2018-07-03] MEDS: THIAMINE HCL 100 MG TABLET (FP) PO SCH (21:47)
[2018-07-03] MEDS: ACETAMINOPHEN 325 MG TABLET (FP) PO PRN (21:49)
--- NOTE | 2018-07-04 08:12 | PN ---
[facility] Progress Note Note: Patient is scheduled for discharged today. Scripts for 30 days of medications( Prozac, Depakote, Benadryl, Seroquel) are electronically transmitted to [facility] at [address] [place] [id number]
--- NOTE | 2018-07-04 10:27 | PN ---
[facility] Progress Note Note: REHAB DISCHARGE NOTE: PATIENT COMPLETED REHAB TODAY. PATIENT REPORTS ACCOMPLISHING ALL REHAB GOALS, IS MEDICALLY STABLE AND DENIES SI/HI. PATIENT HAS AFTER CARE ARRANGED AT [address] FOR TODAY AT 12:30PM AND PSYCHIATRY APPT AT THE [facility] FOR TODAY AT 4PM. PATIENT ENCOURAGED TO CONTINUE WITH AFTERCARE AND GROUP MEETINGS TO PREVENT RELAPSE. DISCHARGE INSTRUCTIONS PROVIDED TO PATIENT BY NURSING STAFF. Last Vital Signs Temp Pulse Resp BP Pulse Ox 98.4 F 71 18 98/68 07/03/18 06:37 07/03/18 06:37 07/04/18 03:30 07/03/18 06:37 Laboratory Tests 06/17/18 08:40 Valproic Acid 80.3 Ambulatory Orders Quetiapine Fumarate [Seroquel] 200 mg PO AM 12/09/16 Zolpidem Tartrate [Ambien] 10 mg PO HS 11/05/17 Albuterol Sulfate Inhaler - [Ventolin Hfa Inhaler -] 2 inh PO Q4H PRN 06/09/18 Diphenhydramine [Benadryl Capsule -] 50 mg PO BID #60 capsule 07/04/18 Divalproex [Depakote -] 250 mg PO BID #60 tablet.ec 07/04/18 Divalproex [Depakote -] 500 mg PO BID #60 tablet.ec 07/04/18 Fluoxetine HCl [Prozac -] 10 mg PO DAILY #30 capsule 07/04/18 Quetiapine Fumarate [Seroquel -] 200 mg PO HS #30 tab 07/04/18 Quetiapine Fumarate [Seroquel] 100 mg PO HS #30 tablet 07/04/18
[2018-07-04] MEDS: DIVALPROEX SODIUM 250 MG TABLET E.C. PO SCH (10:32)
[2018-07-04] MEDS: PRENATAL VITAMINS W/ FOLIC ACID TABLET (FP) PO SCH (10:32)
[2018-07-04] MEDS: FLUoxetine HCL 10 MG CAPSULE (FP) PO SCH (10:32)
[2018-07-04] MEDS: diphenhydrAMINE HCL 50 MG CAPSULE PO SCH (10:32)
[2018-07-04] MEDS: QUEtiapine FUMARATE 100 MG TABLET (FP) PO SCH (10:32)
[2018-07-04] MEDS: NICOTINE 14 MG/24 HOURS TOPICAL PATCH TD SCH (10:33)
== END 2018-07-04 11:20 | disposition home or self-care (01) | DRG 895 ==
LOC: YASAS 14:08 → Y3W 14:11
PROVIDERS: ADMIT Neuromusculoskeletal Medicine & OMM; ATTEND Neuromusculoskeletal Medicine & OMM
PROC: HZ42ZZZ Group Counseling for Substance Abuse Treatment, Cognitive-Behavioral (ICD-10-PCS; principal; 2018-06-13)
DX: F11.20 Opioid dependence, uncomplicated (principal); F14.20 Cocaine dependence, uncomplicated; F19.282 Other psychoactive substance dependence with psychoactive substance-induced sleep disorder; F10.20 Alcohol dependence, uncomplicated; F12.20 Cannabis dependence, uncomplicated; F17.210 Nicotine dependence, cigarettes, uncomplicated; F25.0 Schizoaffective disorder, bipolar type; F31.9 Bipolar disorder, unspecified; F19.24 Other psychoactive substance dependence with psychoactive substance-induced mood disorder; K21.9 Gastro-esophageal reflux disease without esophagitis; M19.071 Primary osteoarthritis, right ankle and foot; Z87.81 Personal history of (healed) traumatic fracture
CPT/HCPCS: 36415; 80164

== ENCOUNTER 2018-11-16 17:30 | Inpatient (IN) | payer OTHER ==
[2018-11-16 18:12] VITALS: BMI 23.5
--- NOTE | 2018-11-16 20:26 | HP ---
CIWA Score Nausea/Vomitin-No Nausea/No Vomiting Muscle Tremors: 3 Anxiety: 1-Mildly Anxious Agitation: 1-Slight > Activity Paroxysmal Sweats: 3 (iNCREASED FACIAL MOISTURE) Orientation: 0-Oriented Tacttile Disturbances: 0-None Auditory Disturbances: 0-None Visual Disturbances: 0-None Headache: 3-Moderate CIWA-Ar Total Score: 11 - Admission Criteria OAS Guidelines: Admission for Medically Managed Detox: Requires at least one of the followin. CIWA greater than 12 2. Seizures within the past 24 hours 3. Delirium tremens within the past 24 hours 4. Hallucinations within the past 24 hours 5. Acute intervention needed for co occurring medical disorder 6. Acute intervention needed for co occurring psychiatric disorder 7. Severe withdrawal that cannot be handled at a lower level of care (continued vomiting, continued diarrhea, abnormal vital signs) requiring intravenous medication and/or fluids 8. Patient presents the following: Acute intervention needed for co-occurring med or psych disorder Admission Criteria Met: Admission criteria met Admission ROS [facility] Chief Complaint: Having alcohol withdrawal Allergies/Adverse Reactions: Allergies Allergy/AdvReac Type Severity Reaction Status Date / Time haloperidol [From Haldol] Allergy Severe stiffness Verified 11/16/18 18:02 No Known Drug Allergies Allergy Verified 11/16/18 18:02 risperidone [From Risperdal] AdvReac stiffness Verified 11/16/18 18:02 History of Present Illness: 33 yo presents w/ alcohol withdrawal and seeking detox. UTox: + BUP/TCA/MOP/SILVANA FRANCISCO: 0 Alcohol use began at age 13. Became out of control at age 16. Currently 1 pint and beer x past few months. Has been trying to cut down. Heroin use began at age 25. Dibs and dabs - nasally. Currently on [facility] OTP Program x 3 months. States on Suboxone 2 mg SL daily. States last took 2 days ago. States has been using heroin last 2 days. Does not have a Narcan kit at home. NEEDS SUBOXONE DOSE VERIFIED VIA OTP PROGRAM. Cocaine use began at age 22. Uses approx $ 20/day. Nicotine use began at age 8. Smokes 1 cig/day. Seizure r/t allergic medication reaction 2017. Denies blackouts or overdoses. Longest period of sobriety 3 years (1999-) PMHx: OA (Rt foot/ankle); Asthma (Last yrs ago); GERD; RPR+; MHHx: Insomnia; Schizoaffective - on meds. Hasn't taken for 2-3 days. Denies thoughts of harming self or others. Hears voices. Voices loud and arguing. Last yesterday. Does not tell him to do anything. Occ visual hallucinations - last 2-3 days ago. Sees shadows. SHx: Unemployed. Living in a snf residence. Patient Name: Odilon Wing Date: 1985 Address: [address] [place] [address] Sex: Male Rx Written Rx Dispensed Drug Quantity Days Supply Prescriber Name 11/03/2018 11/07/2018 zolpidem tartrate 10 mg tablet 30 30 Chayo Echeverria MD 10/03/2018 10/04/2018 zolpidem tartrate 5 mg tablet 30 30 Chayo Echeverria MD 08/16/2018 08/16/2018 buprenorphine-naloxone 2-0.5 mg sl tablet 7 7 Digna Mackay MD 08/12/2018 08/12/2018 buprenorphine-naloxone 2-0.5 mg sl tablet 4 4 Digna Mackay MD 05/25/2018 05/26/2018 zolpidem tartrate 10 mg tablet 30 30 DarrentiagoMarcial 04/25/2018 04/25/2018 zolpidem tartrate 10 mg tablet 30 30 Calderon Bryant 03/23/2018 03/23/2018 zolpidem tartrate 10 mg tablet 30 30 Chayo Echeverria MD 02/21/2018 02/22/2018 zolpidem tartrate 10 mg tablet 30 30 Chayo Echeverria MD 01/21/2018 01/25/2018 zolpidem tartrate 10 mg tablet 30 30 Chayo Echeverria MD 12/22/2017 12/23/2017 zolpidem tartrate 10 mg tablet 30 30 Chayo Echeverria MD 11/24/2017 11/30/2017 zolpidem tartrate 10 mg tablet 30 30 Chayo Echeverria MD Search Terms: Odilon Wing, 1985 Search Date: 11/16/2018 08:19:46 PM States Searched: [place], [place], [place], [place], [place], [place], [place] The Drug Utilization Report below displays the controlled substance prescriptions, if any, that were dispensed in the indicated state(s). The information displayed on this report is compiled from requests submitted to other states' PMPs, and accurately reflects the information as returned by them. Blank montgomery indicate data not provided by other state. This report was requested by: Milydionte Oates | Reference #: [id number] Exam Limitations: No Limitations - Ebola screening Have you traveled outside of the country in the last 21 days: No (N) Have you had contact with anyone from an Ebola affected area: No Have you been sick,other than usual withdrawal symptoms: No (Denies recent measles exposure) Do you have a fever: No - Review of Systems Constitutional: Chills, Changes in sleep (Difficulty falling and staying asleep - takes ambien) EENT: reports: Dental Problems (Occ tooth pain), Other (sore throat x 1 week) Respiratory: reports: No Symptoms reported Cardiac: reports: Chest Pain (History - occurs w/ breathing hard, jogging) GI: reports: Indigestion (Heart burn - occ takes zantac) : reports: No Symptoms Reported Musculoskeletal: reports: Joint Pain ((R) ankle sharp/dully and achy pain. Pain "9". Increases w/ standing/walking/hanging off bed. Improves w/ massages.) Integumentary: reports: No Symptoms Reported Neuro: reports: Headache ((R) side of head. Sharp moderate.) Endocrine: reports: Increased Thirst Hematology: reports: No Symptoms Reported Psychiatric: reports: Judgement Intact, Orientated x3, Anxious Patient History - Patient Medical History Hx Anemia: No Hx Asthma: Yes Hx Chronic Obstructive Pulmonary Disease (COPD): No Hx Cancer: No Hx Cardiac Disorders: No Hx Congestive Heart Failure: No Hx Hypertension: No Hx Hypercholesterolemia: No Hx Pacemaker: No HX Cerebrovascular Accident: No Hx Seizures: No Hx Dementia: No Hx Diabetes: No Hx Gastrointestinal Disorders: Yes Hx Liver Disease: No Hx Genitourinary Disorders: No Hx Sexually Transmitted Disorders: No Hx Renal Disease (ESRD): No Hx Thyroid Disease: No Hx Human Immunodeficiency Virus (HIV): No (negative) Hx Hepatitis C: No Hx Depression: Yes Hx Suicide Attempt: No Hx Bipolar Disorder: Yes Hx Schizophrenia: Yes (AUDIO /VISUAL HALLUCINATION) - Patient Surgical History Past Surgical History: No Hx Neurologic Surgery: No Hx Cataract Extraction: No Hx Cardiac Surgery: No Hx Lung Surgery: No Hx Breast Surgery: No Hx Breast Biopsy: No Hx Abdominal Surgery: No Hx Appendectomy: No Hx Cholecystectomy: No Hx Genitourinary Surgery: No Hx Section: No Hx Orthopedic Surgery: No Anesthesia Reaction: No - PPD History Previous Implant?: Yes Documented Results: Negative w/o proof Implanted On Prior [facility] Admission?: Yes Date: 06/11/18 Results: 0 mm PPD to be Administered?: No - Smoking Cessation Smoking history: Current some day smoker Have you smoked in the past 12 months: Yes Aproximately how many cigarettes per day: 1 Cigars Per Day: 0 Hx Chewing Tobacco Use: No Initiated information on smoking cessation: Yes 'Breaking Loose' booklet given: 11/16/18 - Substance & Tx. History Hx Alcohol Use: Yes Hx Substance Use: Yes Substance Use Type: Alcohol, Cocaine, Heroin Hx Substance Use Treatment: Yes (detox, rehab; Currently on Suboxone) - Substances abused Alcohol Substance route: Oral Frequency: Daily Amount used: VODKA- 1-3PTS Beers- 2x 6pks Age of first use: 13 Date of last use: 11/16/18 Heroin Substance route: Inhalation Frequency: Daily Amount used: 4bags Age of first use: 25 Date of last use: 11/16/18 Family Disease History - Family Disease History Family Disease History: Diabetes: Mother (a lot of medical problems), CA: Mother , Other: Father (etoh), Mother Admission Physical Exam BHS - Vital Signs Vital Signs: Vital Signs - 24 hr 11/16/18 17:59 Temperature 97.4 F L Pulse Rate 67 Respiratory 18 Rate Blood Pressure 106/73 - Physical General Appearance: Yes: Nourished, Mild Distress, Tremorous (MILD TREMORS OF HANDS), Sweating, Anxious HEENTM: Yes: EOMI, Hearing grossly Normal, Normocephalic, Normal Voice, ZURI ( PUPILS = 3 MM), Pharynx Normal (NO INCREASED ERYTHEMA, NO LESIONS;) Respiratory: Yes: Lungs Clear, Normal Breath Sounds, No Respiratory Distress Neck: Yes: No masses,lesions,Nodules, Supple Breast: Yes: Breast Exam Deferred Cardiology: Yes: Regular Rhythm, S1, S2, Bradycardia (HR: 56) Abdominal: Yes: Non Tender, Flat, Soft, Increased Bowel Sounds Genitourinary: Yes: Within Normal Limits Back: Yes: Normal Inspection Musculoskeletal: Yes: Gait Steady, Joint Stiffness ((R) ANKLE STIFFNESS. PEDAL PULSES +;) Extremities: Yes: Normal Capillary Refill, Non-Tender, Tremors (MILD TREMORS HANDS) Neurological: Yes: casino enforcement agent II-XII NML intact, Fully Oriented, Alert, Motor Strength 5/5, Normal Response Integumentary: Yes: Normal Color, Warm, Diaphoresis (INCREASED FACIAL MOISTURE) Lymphatic: Yes: Within Normal Limits - Diagnostic (1) History of asthma Current Visit: Yes Status: Chronic (2) Opioid dependence on agonist therapy Current Visit: Yes Status: Chronic Comment: Needs Suboxone dose verified from program. (3) Nicotine abuse Current Visit: Yes Status: Chronic (4) Cocaine dependence Current Visit: Yes Status: Chronic Qualifiers: Substance use status: uncomplicated Qualified Code(s): F14.20 - Cocaine dependence, uncomplicated (5) Alcohol dependence with uncomplicated withdrawal Current Visit: Yes Status: Acute (6) Osteoarthritis of right ankle Current Visit: Yes Status: Chronic Qualifiers: Osteoarthritis type: unspecified Qualified Code(s): M19.071 - Primary osteoarthritis, right ankle and foot (7) GERD (gastroesophageal reflux disease) Current Visit: Yes Status: Chronic Qualifiers: Esophagitis presence: without esophagitis Qualified Code(s): K21.9 - Gastro -esophageal reflux disease without esophagitis (8) Opioid use disorder Current Visit: Yes Status: Chronic (9) History of syphilis Current Visit: Yes Status: Chronic Cleared for Admission S - Detox or Rehab [facility] Level of Care: Medically Managed Detox Regimen/Protocol: Librium Claeared for Rehab Admission: No Breathalyzer - Breathalyzer Breathalyzer: 0 Urine Drug Screen - Test Device Lot number: [id number] Expiration date: 08/03/19 - Control Is test valid?: Yes - Results Drug screen NEGATIVE: No (TCA) Urine drug screen results: SILVANA-Cocaine, MOP-Opiates, BUP-Suboxone Inpatient Rehab Admission - Rehab Decision to Admit Inpatient rehab admission?: No
[2018-11-16] MEDS ORDERED: MAG HYDROX/AL HYDROX/SIMETH 30 ML UNIT-DOSE CUP PO PRN (21:21)
[2018-11-16] MEDS ORDERED: MELATONIN 5 MG TABLETS PO PRN (21:21)
[2018-11-16] MEDS ORDERED: MAGNESIUM CITRATE 300 ML BOTTLE PO PRN (21:21)
[2018-11-16] MEDS ORDERED: NICOTINE POLACRILEX 2 MG GUM BUC PRN (21:21)
[2018-11-16] MEDS ORDERED: ACETAMINOPHEN 325 MG TABLET (FP) PO PRN ×2 (21:21)
[2018-11-16] MEDS ORDERED: MENTHOL/PHENOL 1 EACH UD MM PRN (21:21)
[2018-11-16] MEDS ORDERED: BISMUTH SUBSALICYLATE 524 MG/30 ML UD PO PRN (21:21)
[2018-11-16] MEDS ORDERED: MAGNESIUM HYDROX 2400MG/30ML ORAL SUSPENSION 30 ML CUP PO PRN (21:21)
[2018-11-16] MEDS ORDERED: chlordiazePOXIDE HCL 25 MG CAPSULE PO PRN (21:32)
[2018-11-16] MEDS ORDERED: chlordiazePOXIDE HCL 25 MG CAPSULE PO ONE (21:32)
[2018-11-16] MEDS: THIAMINE HCL 100 MG TABLET (FP) PO SCH (23:00)
[2018-11-16] MEDS ORDERED: QUEtiapine FUMARATE 100 MG TABLET (FP) PO ONE (23:00)
[2018-11-16] MEDS ORDERED: diphenhydrAMINE HCL 25 MG CAPSULE (FP) PO ONE (23:00)
[2018-11-17] MEDS: chlordiazePOXIDE HCL 25 MG CAPSULE PO SCH ×4 (05:51→22:34)
[2018-11-17] MEDS: METHOCARBAMOL 500 MG TABLET PO PRN ×3 (05:53→21:04)
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
[2018-11-17 10:06] LABS: HEMATOCRIT 36.6 % (35.4-49); HEMOGLOBIN 12.3 GM/dL (11.7-16.9); MCH 30.1 pg (25.7-33.7); MCHC 33.6 g/dl (32.0-35.9); MEAN CELL VOLUME 89.7 fl (80-96); MEAN PLT VOLUME 8.7 fl (7.5-11.1); PLATELET COUNT 186 K/MM3 (134-434); RBC 4.09 M/mm3 (4.00-5.60); RDW 13.8 % (11.9-15.9)
--- NOTE | 2018-11-17 10:12 | PN ---
S CIWA - CIWA Score Nausea/Vomitin-Mild Nausea/No Vomiting (tolerate breakfast well) Muscle Tremors: 3 Anxiety: 2 Agitation: 3 Paroxysmal Sweats: 2 Orientation: 0-Oriented Tacttile Disturbances: 0-None Auditory Disturbances: 0-None Visual Disturbances: 0-None Headache: 1-Very Mild CIWA-Ar Total Score: 12 BHS Progress Note (SOAP) Subjective: 33 years old male admitted on 11/16/18 for acute alcohol withdrawal sx management multiple admission since 2011 struggle to maintaining sobriety doing well with libirum detox regimen resting on bed limited conversation with staff feeling tired prefers to stay in bed today Objective: 11/17/18 10:11 Vital Signs Temperature 97.7 F 11/17/18 09:30 Pulse Rate 80 11/17/18 09:30 Respiratory Rate 16 11/17/18 09:30 Blood Pressure 124/78 11/17/18 09:30 O2 Sat by Pulse Oximetry (%) 11/17/18 10:11 lab pending Assessment: 11/17/18 10:12 alcohol withdrawal sx Plan: continue librium detox regimen
[2018-11-17 10:29] LABS: ALBUMIN 3.1 g/dl (3.4-5.0); BILIRUBIN,TOTAL 0.2 mg/dL (0.2-1); BLOOD UREA NITROGEN 13.7 mg/dL (7-18); CALCIUM 8.4 mg/dL (8.5-10.1); CREATININE 0.6 mg/dL (0.55-1.3); TOT PROT 6.1 g/dl (6.4-8.2)
[2018-11-17] MEDS: DIVALPROEX SODIUM 500 MG TABLET E.C. PO SCH ×2 (10:53→22:35)
[2018-11-17] MEDS: DIVALPROEX SODIUM 250 MG TABLET E.C. PO SCH ×2 (10:53→22:35)
[2018-11-17] MEDS ORDERED: diphenhydrAMINE HCL 25 MG CAPSULE (FP) PO ONE ×2 (10:53→21:40)
[2018-11-17] MEDS: diphenhydrAMINE HCL 50 MG CAPSULE PO SCH ×2 (10:53→22:34)
[2018-11-17] MEDS: PRENATAL VITAMINS W/ FOLIC ACID TABLET (FP) PO SCH (10:54)
[2018-11-17] MEDS: RANITIDINE HCL 150 MG TABLET (FP) PO SCH (10:57)
[2018-11-17 11:45] LABS: RPR REACTIVE 1:1 (NONREACTIVE)
[2018-11-17 11:46] LABS: TREPONEMA ANTIBODY PREVIOUSLY REACTIVE (NONREACTIVE)
--- NOTE | 2018-11-17 12:16 | PN ---
BHS COWS - Scale Resting Pulse: 0= [place] 80 or Below Sweatin= Chills/Flushing Restless Observation: 0= Sits Still Pupil Size: 0= Normal to Room Light Bone or Joint Aches: 0= None (ambulating with cane) Runny Nose/ Eye Tearin= None GI Upset > 30mins: 2= Nausea/Diarrhea (no diarrhea) Tremor Observation of Outstretched Hands: 1= Tremor Shields, Not Seen Yawning Observation: 0= None Anxiety or Irritability: 1=Feels Anxious/Irritable Goose Flesh Skin: 0=Smooth Skin COWS Score: 5
[2018-11-17] MEDS: FLUoxetine HCL 10 MG CAPSULE (FP) PO SCH (14:10)
[2018-11-17] MEDS: IBUPROFEN 400 MG TABLET (FP) PO PRN ×2 (17:29→22:40)
[2018-11-17] MEDS: QUEtiapine FUMARATE 200 MG TABLET PO SCH (22:35)
[2018-11-17] MEDS: THIAMINE HCL 100 MG TABLET (FP) PO SCH (22:35)
--- NOTE | 2018-11-17 23:58 | PN ---
BHS Progress Note Note: Patient c/o chest pain earlier. HR: 60. O2 sat = 97% Lungs CTA. Pupils = 4mm Increased facial moisture States feels better after receiving some medications earlier.. States feeling w/ drawal symptoms from opiates. Vital Signs 11/17/18 11/17/18 21:58 23:20 Temperature 98.1 F Pulse Rate 60 63 Respiratory 18 18 Rate Blood Pressure 98/66 111/73 Wants to go back on Suboxone.
[2018-11-18] MEDS ORDERED: chlordiazePOXIDE HCL 10 MG CAPSULE PO PRN
[2018-11-18] MEDS: chlordiazePOXIDE HCL 25 MG CAPSULE PO SCH ×4 (06:13→22:41)
[2018-11-18] MEDS: METHOCARBAMOL 500 MG TABLET PO PRN ×3 (06:17→22:48)
[2018-11-18] MEDS ORDERED: QUEtiapine FUMARATE 100 MG TABLET (FP) PO SCH (07:00)
[2018-11-18] MEDS: FLUoxetine HCL 10 MG CAPSULE (FP) PO SCH (11:02)
[2018-11-18] MEDS: PRENATAL VITAMINS W/ FOLIC ACID TABLET (FP) PO SCH (11:02)
[2018-11-18] MEDS: DIVALPROEX SODIUM 250 MG TABLET E.C. PO SCH ×2 (11:02→22:40)
[2018-11-18] MEDS: DIVALPROEX SODIUM 500 MG TABLET E.C. PO SCH ×2 (11:02→22:41)
[2018-11-18] MEDS: RANITIDINE HCL 150 MG TABLET (FP) PO SCH (11:02)
[2018-11-18 11:31] LABS: PH,URINE 8.5 (5.0-8.0); URINE APPEARANCE CLEAR; URINE BILIRUBIN NEGATIVE (NEGATIVE); URINE COLOR YELLOW; URINE GLUCOSE (UA) NEGATIVE (NEGATIVE); URINE KETONE TRACE (NEGATIVE); URINE LEUK ESTERASE NEGATIVE (NEGATIVE); URINE NITRITE NEGATIVE (NEGATIVE); URINE PROTEIN NEGATIVE (NEGATIVE)
--- NOTE | 2018-11-18 12:33 | PN ---
S CIWA - CIWA Score Nausea/Vomitin-Mild Nausea/No Vomiting Muscle Tremors: 2 Anxiety: 3 Agitation: 1-Slight > Activity Paroxysmal Sweats: No Perspiration Orientation: 0-Oriented Tacttile Disturbances: 0-None Auditory Disturbances: 0-None Visual Disturbances: 1-Very Mild Sensitivity Headache: 0-None Present CIWA-Ar Total Score: 8 S Progress Note (SOAP) Subjective: Patient has complaints of diffuse abdominal pain This he states he's had for a long time and that he was seen by a doctor who told him he had a stomach infection However, he never followed up. He is also concerned about his medication for opiates. Objective: 11/18/18 12:32 Vitals: BP:98/62 P:59 R:18 T:97.6 Abnormal Lab Results 11/17/18 07:30 Urine pH 8.5 H Urine Ketones Trace H Laboratory 11/17/18 11/17/18 11/17/18 07:00 07:00 07:00 WBC 5.0 K/mm3 K/mm3 (4.0-10.0) RBC 4.09 M/mm3 M/mm3 (4.00-5.60) Hgb 12.3 GM/dL GM/dL (11.7-16.9) Hct 36.6 % % (35.4-49) MCV 89.7 fl fl (80-96) MCH 30.1 pg pg (25.7-33.7) MCHC 33.6 g/dl g/dl (32.0-35.9) RDW 13.8 % % (11.9-15.9) Plt Count 186 K/MM3 D K/MM3 (134-434) MPV 8.7 fl D fl (7.5-11.1) Sodium 143 mmol/L mmol/L (136-145) Potassium 4.0 mmol/L mmol/L (3.5-5.1) Chloride 106 mmol/L mmol/L (98-107) Carbon Dioxide 34 mmol/L H mmol/L (21-32) Anion Gap 3 MMOL/L L MMOL/L (8-16) BUN 13.7 mg/dL mg/dL (7-18) Creatinine 0.6 mg/dL mg/dL (0.55-1.3) Est GFR (CKD-EPI)AfAm 152.04 Est GFR (CKD-EPI)NonAf 131.18 Random Glucose 91 mg/dL mg/dL (74-106) Calcium 8.4 mg/dL L mg/dL (8.5-10.1) Total Bilirubin 0.2 mg/dL mg/dL (0.2-1) AST 27 U/L U/L (15-37) ALT 32 U/L U/L (13-61) Alkaline Phosphatase 69 U/L U/L (45-117) Total Protein 6.1 g/dl L g/dl (6.4-8.2) Albumin 3.1 g/dl L g/dl (3.4-5.0) Urine Color Urine Appearance Urine pH Ur Specific [place] Urine Protein Urine Glucose (UA) Urine Ketones Urine Blood Urine Nitrite Urine Bilirubin Urine Urobilinogen Ur Leukocyte Esterase Valproic Acid RPR Titer Reactive 1:1 H (NONREACTIVE) T.pallidum Ab ([facility]) Previously reactive (NONREACTIVE) 11/17/18 11/17/18 07:00 07:30 WBC RBC Hgb Hct MCV MCH MCHC RDW Plt Count MPV Sodium Potassium Chloride Carbon Dioxide Anion Gap BUN Creatinine Est GFR (CKD-EPI)AfAm Est GFR (CKD-EPI)NonAf Random Glucose Calcium Total Bilirubin AST ALT Alkaline Phosphatase Total Protein Albumin Urine Color Yellow Urine Appearance Clear Urine pH 8.5 H (5.0-8.0) Ur Specific [place] 1.015 (1.010-1.035) Urine Protein Negative (NEGATIVE) Urine Glucose (UA) Negative (NEGATIVE) Urine Ketones Trace H (NEGATIVE) Urine Blood Negative (NEGATIVE) Urine Nitrite Negative (NEGATIVE) Urine Bilirubin Negative (NEGATIVE) Urine Urobilinogen 1.0 mg/dL mg/dL (0.2-1.0) Ur Leukocyte Esterase Negative (NEGATIVE) Valproic Acid 10.7 ug/ml L ug/ml (50-100) RPR Titer T.pallidum Ab ([facility]) Assessment: 11/18/18 12:33 1. Opioid Dependence and Alcohol Dependence: 2.Poor nutrition: 3. GERD: Plan: 1. Continue detox protocol Upon discharge he must follow up with his program to reinitiate suboxone. 2. Abnormal labs consistent with nausea and vomitting leading to hyperchloremia and low anion gap. 3. GERD: He has symptoms of it. Will add protonix to meds today. Dr. Vásquez
[2018-11-18] MEDS ORDERED: QUEtiapine FUMARATE 50 MG TABLET PO ONE (13:45)
[2018-11-18] MEDS: diphenhydrAMINE HCL 50 MG CAPSULE PO SCH ×2 (15:10→22:40)
[2018-11-18] MEDS: PANTOPRAZOLE 20 MG TABLET (FP) PO SCH (15:16)
[2018-11-18] MEDS: IBUPROFEN 400 MG TABLET (FP) PO PRN ×2 (16:42→22:49)
[2018-11-18] MEDS ORDERED: diphenhydrAMINE HCL 25 MG CAPSULE (FP) PO ONE (21:27)
[2018-11-18] MEDS: QUEtiapine FUMARATE 200 MG TABLET PO SCH (22:41)
[2018-11-18] MEDS: THIAMINE HCL 100 MG TABLET (FP) PO SCH (22:41)
[2018-11-19] MEDS: chlordiazePOXIDE HCL 10 MG CAPSULE PO SCH ×4 (05:47→22:41)
[2018-11-19] MEDS: METHOCARBAMOL 500 MG TABLET PO PRN ×3 (05:48→22:45)
[2018-11-19] MEDS: IBUPROFEN 400 MG TABLET (FP) PO PRN ×2 (06:34→22:46)
[2018-11-19] MEDS ORDERED: diphenhydrAMINE HCL 25 MG CAPSULE (FP) PO ONE (09:07)
[2018-11-19] MEDS: QUEtiapine FUMARATE 100 MG TABLET (FP) PO SCH (10:41)
[2018-11-19] MEDS: DIVALPROEX SODIUM 250 MG TABLET E.C. PO SCH ×2 (10:41→22:41)
[2018-11-19] MEDS: RANITIDINE HCL 150 MG TABLET (FP) PO SCH (10:41)
[2018-11-19] MEDS: DIVALPROEX SODIUM 500 MG TABLET E.C. PO SCH ×2 (10:41→22:41)
[2018-11-19] MEDS: PANTOPRAZOLE 20 MG TABLET (FP) PO SCH (10:41)
[2018-11-19] MEDS: diphenhydrAMINE HCL 50 MG CAPSULE PO SCH ×2 (10:44→22:40)
[2018-11-19] MEDS: PRENATAL VITAMINS W/ FOLIC ACID TABLET (FP) PO SCH (10:45)
[2018-11-19] MEDS: FLUoxetine HCL 10 MG CAPSULE (FP) PO SCH (13:29)
--- NOTE | 2018-11-19 13:53 | PN ---
S CIWA - CIWA Score Nausea/Vomitin-No Nausea/No Vomiting Muscle Tremors: None Anxiety: 3 Agitation: 1-Slight > Activity Paroxysmal Sweats: No Perspiration Orientation: 0-Oriented Tacttile Disturbances: 0-None Auditory Disturbances: 0-None Visual Disturbances: 2-Mild Sensitivity Headache: 0-None Present CIWA-Ar Total Score: 6 BHS Progress Note (SOAP) Subjective: Fatigue. Patient reports that current Withdrawal / Detox symptoms are minimal in degree and that he feels well overall at this time. Objective: PATIENT A & O X 3, OBSERVED AMBULATING ON UNIT. IN NO ACUTE DISTRESS. 11/19/18 13:52 Vital Signs Temperature 96.4 F L 11/19/18 06:38 Pulse Rate 60 11/19/18 06:38 Respiratory Rate 18 11/19/18 06:38 Blood Pressure 101/59 L 11/19/18 06:38 O2 Sat by Pulse Oximetry (%) Laboratory Tests 11/17/18 11/17/18 11/17/18 07:00 07:00 07:00 WBC 5.0 RBC 4.09 Hgb 12.3 Hct 36.6 MCV 89.7 MCH 30.1 MCHC 33.6 RDW 13.8 Plt Count 186 D MPV 8.7 D Sodium 143 Potassium 4.0 Chloride 106 Carbon Dioxide 34 H Anion Gap 3 L BUN 13.7 Creatinine 0.6 Est GFR (CKD-EPI)AfAm 152.04 Est GFR (CKD-EPI)NonAf 131.18 Random Glucose 91 Calcium 8.4 L Total Bilirubin 0.2 AST 27 ALT 32 Alkaline Phosphatase 69 Total Protein 6.1 L Albumin 3.1 L Urine Color Urine Appearance Urine pH Ur Specific [place] Urine Protein Urine Glucose (UA) Urine Ketones Urine Blood Urine Nitrite Urine Bilirubin Urine Urobilinogen Ur Leukocyte Esterase Valproic Acid RPR Titer Reactive 1:1 H T.pallidum Ab ([facility]) Previously reactive 11/17/18 11/17/18 07:00 07:30 WBC RBC Hgb Hct MCV MCH MCHC RDW Plt Count MPV Sodium Potassium Chloride Carbon Dioxide Anion Gap BUN Creatinine Est GFR (CKD-EPI)AfAm Est GFR (CKD-EPI)NonAf Random Glucose Calcium Total Bilirubin AST ALT Alkaline Phosphatase Total Protein Albumin Urine Color Yellow Urine Appearance Clear Urine pH 8.5 H Ur Specific [place] 1.015 Urine Protein Negative Urine Glucose (UA) Negative Urine Ketones Trace H Urine Blood Negative Urine Nitrite Negative Urine Bilirubin Negative Urine Urobilinogen 1.0 Ur Leukocyte Esterase Negative Valproic Acid 10.7 L RPR Titer T.pallidum Ab ([facility]) LABS NOTED. ADMISSION RPR RESULT NOTED: REACTIVE 1:1 ([facility]: PREVIOUSLY REACTIVE). PATIENT REPORTS THAT HE COMPLETED A FULL COURSE OF TREATMENT FOR SYPHILIS IN THE LAST FEW YEARS. 11/19/18 13:53 Assessment: 11/19/18 13:55 WITHDRAWAL SYMPTOMS. REACTIVE RPR. 11/19/18 14:59 Plan: CONTINUE DETOX. PATIENT AGAIN INQUIRED ABOUT BEING PRESCRIBED SUBOXONE WHILE ADMITTED FOR DETOX. PATIENT REMINDED THAT THIS MATTER WAS DISCUSSED WITH HIM ON 11/17/2018 AND THAT SUBOXONE UNABLE TO BE PRESCRIBED TO HIM AT THIS TIME DURING DETOX ADMISSION AND THAT HE SHOULD FOLLOW-UP WITH PREVIOUS SUBOXONE MEDICAL PROVIDER AFTER DISCHARGE FROM DETOX. PATIENT VERBALIZED UNDERSTANDING OF RECOMMENDATION.
[2018-11-19] MEDS: THIAMINE HCL 100 MG TABLET (FP) PO SCH (22:40)
[2018-11-19] MEDS: QUEtiapine FUMARATE 200 MG TABLET PO SCH (22:41)
[2018-11-20] MEDS ORDERED: chlordiazePOXIDE HCL 10 MG CAPSULE PO ONE (05:00)
[2018-11-20] MEDS ORDERED: chlordiazePOXIDE HCL 10 MG CAPSULE PO SCH (05:00)
[2018-11-20] MEDS ORDERED: diphenhydrAMINE HCL 25 MG CAPSULE (FP) PO ONE (09:16)
[2018-11-20 09:46] VITALS: BP 106/66; PULSE 76; TEMP 96.5
[2018-11-20] MEDS: QUEtiapine FUMARATE 100 MG TABLET (FP) PO SCH (10:30)
[2018-11-20] MEDS: FLUoxetine HCL 10 MG CAPSULE (FP) PO SCH (10:30)
[2018-11-20] MEDS: diphenhydrAMINE HCL 50 MG CAPSULE PO SCH (10:30)
[2018-11-20] MEDS: DIVALPROEX SODIUM 500 MG TABLET E.C. PO SCH (10:30)
[2018-11-20] MEDS: PRENATAL VITAMINS W/ FOLIC ACID TABLET (FP) PO SCH (10:30)
[2018-11-20] MEDS: DIVALPROEX SODIUM 250 MG TABLET E.C. PO SCH (10:30)
[2018-11-20] MEDS: METHOCARBAMOL 500 MG TABLET PO PRN (10:32)
[2018-11-20] MEDS: PANTOPRAZOLE 20 MG TABLET (FP) PO SCH (10:32)
[2018-11-20] MEDS: RANITIDINE HCL 150 MG TABLET (FP) PO SCH (11:17)
--- NOTE | 2018-11-20 16:50 | DS ---
[facility] Detox Discharge Summary Admission Date: 11/16/18 Discharge Date: 11/20/18 - History Present History: Alcohol Dependence Additional Comments: 33 years old male admitted on 11/16/18 for acute alcohol withdrawal sx management doing well with librium detox regimen no complication throughout the detox stay but one episode of none cardiogenic chest pain resolved by muscle relaxant aftercare [facility] Pertinent Past History: asthma gerd bipolar II - Physical Exam Results Vital Signs: Vital Signs Temperature 96.5 F L 11/20/18 09:46 Pulse Rate 76 11/20/18 09:46 Respiratory Rate 18 11/20/18 09:46 Blood Pressure 106/66 11/20/18 09:46 O2 Sat by Pulse Oximetry (%) Pertinent Admission Physical Exam Findings: alcohol withdrawal sx Laboratory Last Values WBC 5.0 K/mm3 (4.0-10.0) 11/17/18 07:00 RBC 4.09 M/mm3 (4.00-5.60) 11/17/18 07:00 Hgb 12.3 GM/dL (11.7-16.9) 11/17/18 07:00 Hct 36.6 % (35.4-49) 11/17/18 07:00 MCV 89.7 fl (80-96) 11/17/18 07:00 MCH 30.1 pg (25.7-33.7) 11/17/18 07:00 MCHC 33.6 g/dl (32.0-35.9) 11/17/18 07:00 RDW 13.8 % (11.9-15.9) 11/17/18 07:00 Plt Count 186 K/MM3 (134-434) D 11/17/18 07:00 MPV 8.7 fl (7.5-11.1) D 11/17/18 07:00 Sodium 143 mmol/L (136-145) 11/17/18 07:00 Potassium 4.0 mmol/L (3.5-5.1) 11/17/18 07:00 Chloride 106 mmol/L (98-107) 11/17/18 07:00 Carbon Dioxide 34 mmol/L (21-32) H 11/17/18 07:00 Anion Gap 3 MMOL/L (8-16) L 11/17/18 07:00 BUN 13.7 mg/dL (7-18) 11/17/18 07:00 Creatinine 0.6 mg/dL (0.55-1.3) 11/17/18 07:00 Est GFR (CKD-EPI)AfAm 152.04 11/17/18 07:00 Est GFR (CKD-EPI)NonAf 131.18 11/17/18 07:00 Random Glucose 91 mg/dL (74-106) 11/17/18 07:00 Calcium 8.4 mg/dL (8.5-10.1) L 11/17/18 07:00 Total Bilirubin 0.2 mg/dL (0.2-1) 11/17/18 07:00 AST 27 U/L (15-37) 11/17/18 07:00 ALT 32 U/L (13-61) 11/17/18 07:00 Alkaline Phosphatase 69 U/L (45-117) 11/17/18 07:00 Total Protein 6.1 g/dl (6.4-8.2) L 11/17/18 07:00 Albumin 3.1 g/dl (3.4-5.0) L 11/17/18 07:00 Urine Color Yellow 11/17/18 07:30 Urine Appearance Clear 11/17/18 07:30 Urine pH 8.5 (5.0-8.0) H 11/17/18 07:30 Ur Specific Wanda 1.015 (1.010-1.035) 11/17/18 07:30 Urine Protein Negative (NEGATIVE) 11/17/18 07:30 Urine Glucose (UA) Negative (NEGATIVE) 11/17/18 07:30 Urine Ketones Trace (NEGATIVE) H 11/17/18 07:30 Urine Blood Negative (NEGATIVE) 11/17/18 07:30 Urine Nitrite Negative (NEGATIVE) 11/17/18 07:30 Urine Bilirubin Negative (NEGATIVE) 11/17/18 07:30 Urine Urobilinogen 1.0 mg/dL (0.2-1.0) 11/17/18 07:30 Ur Leukocyte Esterase Negative (NEGATIVE) 11/17/18 07:30 Valproic Acid 10.7 ug/ml (50-100) L 11/17/18 07:00 RPR Titer Reactive 1:1 (NONREACTIVE) H 11/17/18 07:00 T.pallidum Ab (MHA) Previously reactive (NONREACTIVE) 11/17/18 07:00 lab noted alert oriented x 3 S1S2 Regular denies suicidal ideation speech clearly coherently stable mood - Treatment Hospital Course: Detox Protocol Followed, Detoxed Safely, Responded well, Discharged Condition Good, Rehab Referral Accepted Patient has Accepted a Rehab Referral to: [facility] - Medication Discharge Medications: Ambulatory Orders Quetiapine Fumarate [Seroquel] 100 mg PO AM 12/09/16 Zolpidem Tartrate [Ambien] 10 mg PO HS 11/05/17 Diphenhydramine [Benadryl Capsule -] 50 mg PO BID #60 capsule 07/04/18 Divalproex [Depakote -] 250 mg PO BID #60 tablet.ec 07/04/18 Divalproex [Depakote -] 500 mg PO BID #60 tablet.ec 07/04/18 Fluoxetine HCl [Prozac -] 10 mg PO DAILY #30 capsule 07/04/18 Quetiapine Fumarate [Seroquel -] 200 mg PO HS #30 tab 07/04/18 Buprenorphine/Naloxone [Suboxone 2Mg/0.5MG Sl Film -] 1 combo SL ONCE 11/16/18 Albuterol Sulfate Inhaler - [Ventolin Hfa Inhaler -] 2 inh PO Q4H PRN #1 inhaler 11/19/18 - Diagnosis (1) 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: Chronic (2) Asthma Status: Chronic Qualifiers: Asthma severity: mild Asthma persistence: intermittent Asthma complication type: with status asthmaticus Qualified Code(s): J45.22 - Mild intermittent asthma with status asthmaticus (3) Nicotine dependence Status: Acute Qualifiers: Nicotine product type: cigarettes Substance use status: in withdrawal Qualified Code(s): F17.213 - Nicotine dependence, cigarettes, with withdrawal (4) Alcohol dependence with uncomplicated withdrawal Status: Acute (5) Substance induced mood disorder Status: Suspected (6) GERD (gastroesophageal reflux disease) Status: Chronic Qualifiers: Esophagitis presence: without esophagitis Qualified Code(s): K21.9 - Gastro -esophageal reflux disease without esophagitis (7) Nicotine dependence Status: Acute Qualifiers: Nicotine product type: cigarettes Substance use status: in withdrawal Qualified Code(s): F17.213 - Nicotine dependence, cigarettes, with withdrawal (8) Nicotine abuse Status: Acute - AMA Did Patient Leave Against Medical Advice: No
== END 2018-11-20 14:20 | disposition other institution (70) | DRG 897 ==
LOC: YASAS 17:30 → Y3N 20:02
PROVIDERS: ADMIT Surgery; ATTEND Surgery
PROC: HZ2ZZZZ Detoxification Services for Substance Abuse Treatment (ICD-10-PCS; principal; 2018-11-16)
DX: F10.230 Alcohol dependence with withdrawal, uncomplicated (principal); F19.282 Other psychoactive substance dependence with psychoactive substance-induced sleep disorder; F17.213 Nicotine dependence, cigarettes, with withdrawal; F25.9 Schizoaffective disorder, unspecified; F31.9 Bipolar disorder, unspecified; K21.9 Gastro-esophageal reflux disease without esophagitis; R76.8 Other specified abnormal immunological findings in serum; M19.071 Primary osteoarthritis, right ankle and foot; J45.909 Unspecified asthma, uncomplicated; Z87.438 Personal history of other diseases of male genital organs; Z86.69 Personal history of other diseases of the nervous system and sense organs
CPT/HCPCS: 36415; 80053; 80164; 81003; 85027; 86593; 86780

== ENCOUNTER 2018-11-20 14:18 | Inpatient (IN) | payer OTHER ==
[2018-11-20] MEDS ORDERED: MAGNESIUM CITRATE 300 ML BOTTLE PO PRN (16:58)
[2018-11-20] MEDS ORDERED: guaiFENesin 200 MG/10 ML 10 ML UNIT-DOSE CUPS PO PRN (16:58)
[2018-11-20] MEDS ORDERED: MENTHOL/PHENOL 1 EACH UD MM PRN (16:58)
[2018-11-20] MEDS ORDERED: MAGNESIUM HYDROX 2400MG/30ML ORAL SUSPENSION 30 ML CUP PO PRN (16:58)
[2018-11-20] MEDS ORDERED: MAG HYDROX/AL HYDROX/SIMETH 30 ML UNIT-DOSE CUP PO PRN (16:58)
[2018-11-20] MEDS ORDERED: ACETAMINOPHEN 325 MG TABLET (FP) PO PRN (16:58)
[2018-11-20] MEDS ORDERED: P-EPHED 60MG/TRIPROLIDI 2.5MG TABLET PO PRN (16:58)
[2018-11-20] MEDS ORDERED: NICOTINE POLACRILEX 2 MG GUM BUC PRN (16:58)
[2018-11-20] MEDS ORDERED: LOPERAMIDE HCL 2 MG CAPSULE PO PRN (16:58)
--- NOTE | 2018-11-20 16:58 | HP ---
[facility] Rehab Assess/Revision - Admission History Admitted to Rehab from: [facility] Date of Admission to Rehab: 11/20/18 - Vital signs Vital Signs: Vital Signs Period Temp Pulse Resp BP Sys/Ruiz Pulse Ox Last 24 Hr 97.1 F 73 18 112/65 - Findings Detox History & Physical reviewed: Yes Concur with findings: Yes Comments/Additional Findings: transferred from detox to rehab admission as per protocol Inpatient Rehab Admission - Rehab Decision to Admit Inpatient rehab admission?: Yes - Initial Determination Are CD services needed?: Yes Free of communicable disease: Yes Not in need of hospitalization: Yes - Rehab Admission Criteria Previous failed treatment: Yes Poor recovery environment: Yes Comorbidities: Yes Lacks judgement: No Patient is meeting Inpatient Rehab admission criteria:: Yes
[2018-11-20] MEDS ORDERED: ALBUTEROL SO4 8 GM HFA INHALER IH PRN (16:59)
[2018-11-20] MEDS: IBUPROFEN 400 MG TABLET (FP) PO PRN (18:04)
[2018-11-20] MEDS: DIVALPROEX SODIUM 500 MG TABLET E.C. PO SCH (21:31)
[2018-11-20] MEDS: diphenhydrAMINE HCL 50 MG CAPSULE PO PRN (21:31)
[2018-11-20] MEDS: THIAMINE HCL 100 MG TABLET (FP) PO SCH (21:31)
[2018-11-20] MEDS ORDERED: MELATONIN 5 MG TABLETS PO PRN (22:00)
[2018-11-21] MEDS: QUEtiapine FUMARATE 100 MG TABLET (FP) PO SCH (06:49)
[2018-11-21] MEDS: diphenhydrAMINE HCL 50 MG CAPSULE PO PRN ×2 (06:50→21:59)
[2018-11-21] MEDS: PANTOPRAZOLE 20 MG TABLET (FP) PO SCH (10:00)
[2018-11-21] MEDS: DIVALPROEX SODIUM 500 MG TABLET E.C. PO SCH ×2 (10:01→21:56)
[2018-11-21] MEDS: NICOTINE 14 MG/24 HOURS TOPICAL PATCH TD SCH (10:01)
[2018-11-21] MEDS: PRENATAL VITAMINS W/ FOLIC ACID TABLET (FP) PO SCH (10:01)
[2018-11-21] MEDS: IBUPROFEN 400 MG TABLET (FP) PO PRN ×2 (10:03→21:58)
[2018-11-21] MEDS: THIAMINE HCL 100 MG TABLET (FP) PO SCH (21:56)
[2018-11-22] MEDS: QUEtiapine FUMARATE 100 MG TABLET (FP) PO SCH (06:32)
[2018-11-22] MEDS: diphenhydrAMINE HCL 50 MG CAPSULE PO PRN (06:33)
[2018-11-22] MEDS: IBUPROFEN 400 MG TABLET (FP) PO PRN ×2 (06:33→16:54)
--- NOTE | 2018-11-22 09:58 | PN ---
[facility] Progress Note Note: Pt here requesting to restart Suboxone- pt has h/o OUD. Last use of heroin 2-3 weeks. Pt is on Suboxone at the [facility]. Was on Suboxone 2 mg- will restart. Confirmed with counselor that pt can continue as outpt
[2018-11-22] MEDS: PANTOPRAZOLE 20 MG TABLET (FP) PO SCH (10:14)
[2018-11-22] MEDS: PRENATAL VITAMINS W/ FOLIC ACID TABLET (FP) PO SCH (10:14)
[2018-11-22] MEDS: DIVALPROEX SODIUM 500 MG TABLET E.C. PO SCH ×2 (10:14→22:14)
[2018-11-22] MEDS: NICOTINE 14 MG/24 HOURS TOPICAL PATCH TD SCH (10:14)
[2018-11-22] MEDS: THIAMINE HCL 100 MG TABLET (FP) PO SCH (22:14)
[2018-11-22] MEDS: diphenhydrAMINE HCL 50 MG CAPSULE PO SCH (22:14)
[2018-11-23] MEDS: NICOTINE 14 MG/24 HOURS TOPICAL PATCH TD SCH (10:16)
[2018-11-23] MEDS: PRENATAL VITAMINS W/ FOLIC ACID TABLET (FP) PO SCH (10:16)
[2018-11-23] MEDS: PANTOPRAZOLE 20 MG TABLET (FP) PO SCH (10:17)
[2018-11-23] MEDS: DIVALPROEX SODIUM 500 MG TABLET E.C. PO SCH ×2 (10:17→21:17)
[2018-11-23] MEDS: BUPRENORPHINE/NALOXONE 2 MG/0.5 MG FILM PACKET SL SCH (10:19)
[2018-11-23] MEDS: IBUPROFEN 400 MG TABLET (FP) PO PRN ×2 (10:19→18:07)
[2018-11-23] MEDS: diphenhydrAMINE HCL 50 MG CAPSULE PO SCH (21:17)
[2018-11-23] MEDS: QUEtiapine FUMARATE 100 MG TABLET (FP) PO SCH (21:17)
[2018-11-23] MEDS: THIAMINE HCL 100 MG TABLET (FP) PO SCH (21:17)
[2018-11-23] MEDS ORDERED: diphenhydrAMINE HCL 50 MG CAPSULE PO SCH (22:00)
[2018-11-24] MEDS: DIVALPROEX SODIUM 500 MG TABLET E.C. PO SCH ×2 (09:30→21:14)
[2018-11-24] MEDS: BUPRENORPHINE/NALOXONE 2 MG/0.5 MG FILM PACKET SL SCH (09:31)
[2018-11-24] MEDS: NICOTINE 14 MG/24 HOURS TOPICAL PATCH TD SCH (09:31)
[2018-11-24] MEDS: PRENATAL VITAMINS W/ FOLIC ACID TABLET (FP) PO SCH (09:31)
[2018-11-24] MEDS: PANTOPRAZOLE 20 MG TABLET (FP) PO SCH (09:31)
[2018-11-24] MEDS: IBUPROFEN 400 MG TABLET (FP) PO PRN ×2 (14:46→22:08)
[2018-11-24] MEDS: CYCLOBENZAPRINE HCL 10 MG TABLET (FP) PO PRN (18:59)
[2018-11-24] MEDS: THIAMINE HCL 100 MG TABLET (FP) PO SCH (21:14)
[2018-11-24] MEDS: QUEtiapine FUMARATE 100 MG TABLET (FP) PO SCH (21:14)
[2018-11-24] MEDS: diphenhydrAMINE HCL 50 MG CAPSULE PO SCH (21:14)
[2018-11-24] MEDS: MELATONIN 1 MG TABLET PO PRN (21:18)
[2018-11-25] MEDS: DIVALPROEX SODIUM 500 MG TABLET E.C. PO SCH ×2 (10:07→21:45)
[2018-11-25] MEDS: NICOTINE 14 MG/24 HOURS TOPICAL PATCH TD SCH (10:07)
[2018-11-25] MEDS: PRENATAL VITAMINS W/ FOLIC ACID TABLET (FP) PO SCH (10:07)
[2018-11-25] MEDS: PANTOPRAZOLE 20 MG TABLET (FP) PO SCH (10:07)
[2018-11-25] MEDS: BUPRENORPHINE/NALOXONE 2 MG/0.5 MG FILM PACKET SL SCH (10:08)
[2018-11-25] MEDS: CYCLOBENZAPRINE HCL 10 MG TABLET (FP) PO PRN ×2 (10:09→21:49)
[2018-11-25] MEDS: THIAMINE HCL 100 MG TABLET (FP) PO SCH (21:44)
[2018-11-25] MEDS: MELATONIN 1 MG TABLET PO PRN (21:44)
[2018-11-25] MEDS: diphenhydrAMINE HCL 50 MG CAPSULE PO SCH (21:44)
[2018-11-25] MEDS: QUEtiapine FUMARATE 100 MG TABLET (FP) PO SCH (21:45)
[2018-11-25] MEDS: IBUPROFEN 400 MG TABLET (FP) PO PRN (23:14)
[2018-11-26] MEDS: NICOTINE 14 MG/24 HOURS TOPICAL PATCH TD SCH (10:14)
[2018-11-26] MEDS: PANTOPRAZOLE 20 MG TABLET (FP) PO SCH (10:14)
[2018-11-26] MEDS: PRENATAL VITAMINS W/ FOLIC ACID TABLET (FP) PO SCH (10:14)
[2018-11-26] MEDS: BUPRENORPHINE/NALOXONE 2 MG/0.5 MG FILM PACKET SL SCH (10:14)
[2018-11-26] MEDS: DIVALPROEX SODIUM 500 MG TABLET E.C. PO SCH ×2 (10:14→21:46)
[2018-11-26] MEDS: CYCLOBENZAPRINE HCL 10 MG TABLET (FP) PO PRN ×2 (10:15→21:48)
[2018-11-26] MEDS: IBUPROFEN 400 MG TABLET (FP) PO PRN ×2 (10:16→21:47)
[2018-11-26] MEDS: diphenhydrAMINE HCL 50 MG CAPSULE PO SCH (21:46)
[2018-11-26] MEDS: THIAMINE HCL 100 MG TABLET (FP) PO SCH (21:46)
[2018-11-26] MEDS: MELATONIN 1 MG TABLET PO PRN (21:46)
[2018-11-26] MEDS: QUEtiapine FUMARATE 100 MG TABLET (FP) PO SCH (21:47)
[2018-11-27] MEDS: DIVALPROEX SODIUM 500 MG TABLET E.C. PO SCH ×2 (10:27→21:29)
[2018-11-27] MEDS: PRENATAL VITAMINS W/ FOLIC ACID TABLET (FP) PO SCH (10:28)
[2018-11-27] MEDS: PANTOPRAZOLE 20 MG TABLET (FP) PO SCH (10:28)
[2018-11-27] MEDS: BUPRENORPHINE/NALOXONE 2 MG/0.5 MG FILM PACKET SL SCH (10:29)
[2018-11-27] MEDS: NICOTINE 14 MG/24 HOURS TOPICAL PATCH TD SCH (10:29)
[2018-11-27] MEDS: IBUPROFEN 400 MG TABLET (FP) PO PRN ×2 (10:31→21:32)
[2018-11-27] MEDS: diphenhydrAMINE HCL 50 MG CAPSULE PO SCH (21:29)
[2018-11-27] MEDS: QUEtiapine FUMARATE 100 MG TABLET (FP) PO SCH (21:29)
[2018-11-27] MEDS: THIAMINE HCL 100 MG TABLET (FP) PO SCH (21:29)
[2018-11-27] MEDS: CYCLOBENZAPRINE HCL 10 MG TABLET (FP) PO PRN (21:33)
[2018-11-28 06:43] VITALS: BP 106/64; PULSE 78; TEMP 98.2
--- NOTE | 2018-11-28 11:38 | DS ---
[facility] Detox Discharge Summary Admission Date: 11/20/18 Discharge Date: 11/28/18 - History Present History: Cannabis Dependence, Cocaine Dependence, Opioid Dependence Pertinent Past History: 33 yo male admitted for alcohol withdrawal; completed detox and rehab. PMHX: Alcohol use began at age 13. Became out of control at age 16. Currently 1 pint and beer x past few months. Heroin use began at age 25. Dibs and dabs - nasally. Currently on [facility] OTP Program x 3 months. States on Suboxone 2 mg SL daily. States last took 2 days ago. Cocaine use began at age 22. Uses approx $ 20/day. Nicotine use began at age 8. Smokes 1 cig/day. Seizure r/t allergic medication reaction 2017. Denies blackouts or overdoses. Longest period of sobriety 3 years (1999-) PMHx: OA (Rt foot/ankle); Asthma (Last [id number] yrs ago); GERD; RPR+; MHHx: Insomnia; Schizoaffective - on meds. Hears voices. Voices loud and arguing. Occ visual hallucinations - last 2-3 days ago. Sees shadows. SHx: Unemployed. Living in [place] [facility] residence. - Physical Exam Results Vital Signs: Vital Signs Temperature 98.2 F 11/28/18 06:29 Pulse Rate 78 11/28/18 06:29 Respiratory Rate 18 11/28/18 06:29 Blood Pressure 106/64 11/28/18 06:29 O2 Sat by Pulse Oximetry (%) Pertinent Admission Physical Exam Findings: - Physical General Appearance: No apparent distress HEENTM: Normocephalic, Normal Voice, ZURI Respiratory: Lungs Clear Neck: Supple Cardiology: S1, S2, 6) Abdominal: Non Tender, Flat, Soft, +Bowel Sounds Musculoskeletal: Gait Steady, Extremities: +Capillary Refill, Non-Tender, Neurological: beef pusher II-XII NML intact, Motor Strength 5/5, Integumentary: Color consistent throughout trunk and extremities, Warm, - Treatment Hospital Course: Discharged Condition Good, Rehab Referral Accepted ([facility].) Patient has Accepted a Rehab Referral to: will return to [facility] where he received care prior to admission - Medication Discharge Medications: Ambulatory Orders Quetiapine Fumarate [Seroquel] 100 mg PO AM 12/09/16 Zolpidem Tartrate [Ambien] 10 mg PO HS 11/05/17 Diphenhydramine [Benadryl Capsule -] 50 mg PO BID #60 capsule 07/04/18 Divalproex [Depakote -] 250 mg PO BID #60 tablet.ec 07/04/18 Divalproex [Depakote -] 500 mg PO BID #60 tablet.ec 07/04/18 Fluoxetine HCl [Prozac -] 10 mg PO DAILY #30 capsule 07/04/18 Quetiapine Fumarate [Seroquel -] 200 mg PO HS #30 tab 07/04/18 Buprenorphine/Naloxone [Suboxone 2Mg/0.5MG Sl Film -] 1 combo SL ONCE 11/16/18 Albuterol Sulfate Inhaler - [Ventolin HFA Inhaler -] 2 inh PO Q4H PRN #1 inhaler 11/28/18 - Diagnosis (1) Alcohol dependence with uncomplicated withdrawal Current Visit: No Status: Acute (2) Cocaine dependence Current Visit: No Status: Chronic Qualifiers: Substance use status: uncomplicated Qualified Code(s): F14.20 - Cocaine dependence, uncomplicated (3) Nicotine dependence Current Visit: No Status: Chronic Qualifiers: Nicotine product type: cigarettes Substance use status: in withdrawal Qualified Code(s): F17.213 - Nicotine dependence, cigarettes, with withdrawal - AMA Did Patient Leave Against Medical Advice: No
--- NOTE | 2018-11-28 11:49 | DS ---
[facility] Rehab Discharge Summary - [facility] Rehab Discharge Summary Admission Date: 11/20/18 Discharge Date: 11/28/18 - History Present History: Cannabis dependence Pertinent Past History: History of Present Illness: 33 yo presents for ETOH detox and rehab. Alcohol use began at age 13. Became out of control at age 16. Currently 1 pint and beer x past few months. Has been trying to cut down. Heroin use began at age 25. Dibs and dabs - nasally. Currently on [facility]TP Program x 3 months. States on Suboxone 2 mg SL daily. States last took 2 days ago. States has been using heroin last 2 days. D Cocaine use began at age 22. Uses approx $ 20/day. Nicotine use began at age 8. Smokes 1 cig/day. Seizure r/t allergic medication reaction 2017. Denies blackouts or overdoses. Longest period of sobriety 3 years (1999-06) PMHx: OA (Rt foot/ankle); Asthma (Last [id number] yrs ago); GERD; RPR+; MHHx: Insomnia; Schizoaffective - on meds. Hasn't taken for 2-3 days. Denies thoughts of harming self or others. Hears voices. Voices loud and arguing. Last yesterday. Does not tell him to do anything. Occ visual hallucinations - last 2-3 days ago. Sees shadows. SHx: Unemployed. Living in a custodial residence. - Discharge Physical Exam Vital Signs: Vital Signs Temperature 98.2 F 11/28/18 06:29 Pulse Rate 78 11/28/18 06:29 Respiratory Rate 18 11/28/18 06:29 Blood Pressure 106/64 11/28/18 06:29 O2 Sat by Pulse Oximetry (%) Pertinent Admission Physical Exam Findings: - Physical General Appearance: No apparent distress HEENTM: Normocephalic, Respiratory: Lungs Clear, Neck: Supple Cardiology: S1, S2, Abdominal: Non Tender, Flat, Soft, +Bowel Sounds Musculoskeletal: Gait Steady, Full weight bearing, full ROM Neurological: air sampling and monitoring II-XII NML intact, Motor Strength 5/5 Integumentary: Dry, Color consistent throughout trunk and extremities, good turgor - Treatment Discharge Condition: Outpatient referral accepted Hospital Course: Will return to [facility] where he was receiving care prior to admission. - Medication Discharge Medications: Ambulatory Orders Quetiapine Fumarate [Seroquel] 100 mg PO AM 12/09/16 Zolpidem Tartrate [Ambien] 10 mg PO HS 11/05/17 Diphenhydramine [Benadryl Capsule -] 50 mg PO BID #60 capsule 07/04/18 Divalproex [Depakote -] 250 mg PO BID #60 tablet.ec 07/04/18 Divalproex [Depakote -] 500 mg PO BID #60 tablet.ec 07/04/18 Fluoxetine HCl [Prozac -] 10 mg PO DAILY #30 capsule 07/04/18 Quetiapine Fumarate [Seroquel -] 200 mg PO HS #30 tab 07/04/18 Buprenorphine/Naloxone [Suboxone 2Mg/0.5MG Sl Film -] 1 combo SL ONCE 11/16/18 Albuterol Sulfate Inhaler - [Ventolin HFA Inhaler -] 2 inh PO Q4H PRN #1 inhaler 11/28/18 - Medication-Assisted Treatment (MAT) Medication-Assisted Treatment (MAT): No - Discharge Instructions Diet, activity, other medical instructions: Diet:as tolerated Activity: as tolerated Other medical instructions: Follow up with medical provider within 2 weeks of discharge. Follow up with aftercare at [facility]. - Diagnosis (1) Alcohol dependence with uncomplicated withdrawal Current Visit: No Status: Chronic (2) Cocaine dependence Current Visit: No Status: Chronic Qualifiers: Substance use status: uncomplicated Qualified Code(s): F14.20 - Cocaine dependence, uncomplicated (3) Nicotine dependence Current Visit: No Status: Chronic Qualifiers: Nicotine product type: cigarettes Substance use status: uncomplicated Qualified Code(s): F17.210 - Nicotine dependence, cigarettes, uncomplicated (4) Asthma Current Visit: No Status: Chronic Qualifiers: Asthma severity: mild Asthma persistence: intermittent Asthma complication type: uncomplicated Qualified Code(s): J45.20 - Mild intermittent asthma, uncomplicated - Follow-up Referral Minutes to complete discharge: 20 - AMA Did Patient Leave Against Medical Advice: No Additional Comments: patient admitted to rehab on 11/20/2018- discharged on 11/28/2018
[2018-11-28] MEDS: PRENATAL VITAMINS W/ FOLIC ACID TABLET (FP) PO SCH (11:57)
[2018-11-28] MEDS: BUPRENORPHINE/NALOXONE 2 MG/0.5 MG FILM PACKET SL SCH (11:57)
[2018-11-28] MEDS: DIVALPROEX SODIUM 500 MG TABLET E.C. PO SCH (11:58)
[2018-11-28] MEDS: NICOTINE 14 MG/24 HOURS TOPICAL PATCH TD SCH (11:59)
[2018-11-28] MEDS: PANTOPRAZOLE 20 MG TABLET (FP) PO SCH (13:19)
== END 2018-11-28 12:00 | disposition home or self-care (01) | DRG 895 ==
LOC: YASAS 14:18 → Y3W 14:19
PROVIDERS: ADMIT Neuromusculoskeletal Medicine & OMM; ATTEND Neuromusculoskeletal Medicine & OMM
PROC: HZ42ZZZ Group Counseling for Substance Abuse Treatment, Cognitive-Behavioral (ICD-10-PCS; principal; 2018-11-20)
DX: F10.20 Alcohol dependence, uncomplicated (principal); F11.20 Opioid dependence, uncomplicated; F14.20 Cocaine dependence, uncomplicated; F12.20 Cannabis dependence, uncomplicated; F17.210 Nicotine dependence, cigarettes, uncomplicated; F25.9 Schizoaffective disorder, unspecified; G47.00 Insomnia, unspecified; K21.9 Gastro-esophageal reflux disease without esophagitis; M19.071 Primary osteoarthritis, right ankle and foot; A53.0 Latent syphilis, unspecified as early or late; Z87.09 Personal history of other diseases of the respiratory system; Z86.69 Personal history of other diseases of the nervous system and sense organs; Z59.0 Homelessness

== ENCOUNTER 2019-01-19 12:04 | Inpatient (IN) | payer OTHER ==
[2019-01-19 12:51] VITALS: BMI 22.2
--- NOTE | 2019-01-19 15:07 | HP ---
COWS - Scale Resting Pulse: 1= CA 81-100 Sweatin= No chills or Flushing Restless Observation: 0= Sits Still Pupil Size: 1= Pupils >than Normal Bone or Joint Aches: 0= None Runny Nose/ Eye Tearin= None GI Upset > 30mins: 0= None Tremor Observation: 0= None Yawning Observation: 0= None Anxiety or Irritability: 0= None Goose Flesh Skin: 0=Smooth Skin COWS Score: 2 CIWA Score Nausea/Vomitin-Mild Nausea/No Vomiting Muscle Tremors: 1-None Visible, but [place] Anxiety: 0-No Anxiety, at Ease Agitation: 0-Normal Activity Paroxysmal Sweats: No Perspiration Orientation: 0-Oriented Tacttile Disturbances: 1-Very Mild Itch/Numbness Auditory Disturbances: 0-None Visual Disturbances: 0-None Headache: 2-Mild CIWA-Ar Total Score: 5 - Admission Criteria OASAS Guidelines: Admission for Medically Managed Detox: Requires at least one of the followin. CIWA greater than 12 2. Seizures within the past 24 hours 3. Delirium tremens within the past 24 hours 4. Hallucinations within the past 24 hours 5. Acute intervention needed for co occurring medical disorder 6. Acute intervention needed for co occurring psychiatric disorder 7. Severe withdrawal that cannot be handled at a lower level of care (continued vomiting, continued diarrhea, abnormal vital signs) requiring intravenous medication and/or fluids 8. Admitting History and Physical - Smoking History Smoking history: Current some day smoker Have you smoked in the past 12 months: Yes Aproximately how many cigarettes per day: 1 If you are a former smoker, when did you quit?: 06/07/2018 - Alcohol/Substance Use Hx Alcohol Use: Yes Admission [facility] Chief Complaint: "detox alcohol" Allergies/Adverse Reactions: Allergies Allergy/AdvReac Type Severity Reaction Status Date / Time haloperidol [From Haldol] Allergy Severe stiffness Verified 01/19/19 12:40 No Known Drug Allergies Allergy Verified 01/19/19 12:40 risperidone [From Risperdal] AdvReac stiffness Verified 01/19/19 12:40 History of Present Illness: 33 year old male with a history of scleroris R ankle, asthma, GERD, RPR+ ( treated [address] [facility]), hallucinations/delusions, re[prtsseizure 1x from medication (haldol/risperdal, states it was more abnormal body movements and tongue movements), alcohol dependence here for detox. Recently in hospital for opioid use, malingering. Alcohol Use: last drink yesterday, 2 pints a day (vodka), started using at age 13, longest sobriety 3 years. Never had alcohol withdrawal seizures. Cocaine: uses 2x a month, sniffs it, started that at age 22. $20/day Heroin: last used 2 months ago, used to use every day; on program 2mg/day, Never overdosed. Never had withdrawal seizure Suboxone: [facility] OTP Program, did not take it today; took it 2 months ago Oxycodone: 1 pill every day Cigarettes: 2 cigarettes, started smoking at 8yo MHHx: Insomnia; Schizoaffective - on meds. Hasn't taken for 2-3 days. Denies thoughts of harming self or others. Hears voices. Voices loud and arguing. Last yesterday. Does not tell him to do anything. Occ visual hallucinations - last 2-3 days ago. Sees shadows. Surgical: never SHx: Unemployed. Living in a [facility] residence. Family: no known history of disease in the family; 1 child, has not talked to him - Ebola screening Have you traveled outside of the country in the last 21 days: No Have you had contact with anyone from an Ebola affected area: No Do you have a fever: No - Review of Systems Constitutional: No Symptoms Reported, Unintentional Wgt. Loss EENT: reports: Blurred Vision Respiratory: reports: Cough, Shortness of Breath, Productive cough Cardiac: reports: Lightheadedness GI: reports: Nausea : reports: No Symptoms Reported Musculoskeletal: reports: No Symptoms Reported Integumentary: reports: No Symptoms Reported Neuro: reports: Headache Endocrine: reports: No Symptoms Reported Hematology: reports: No Symptoms Reported Psychiatric: reports: Judgement Intact, Mood/Affect Appropiate, Orientated x3 Patient History - Patient Medical History Hx Anemia: No Hx Asthma: Yes Hx Chronic Obstructive Pulmonary Disease (COPD): No Hx Cancer: No Hx Cardiac Disorders: No Hx Congestive Heart Failure: No Hx Hypertension: No Hx Hypercholesterolemia: No Hx Pacemaker: No HX Cerebrovascular Accident: No Hx Seizures: Yes Hx Dementia: No Hx Diabetes: No Hx Gastrointestinal Disorders: No Hx Liver Disease: No Hx Genitourinary Disorders: No Hx Sexually Transmitted Disorders: No Hx Renal Disease (ESRD): No Hx Thyroid Disease: No Hx Human Immunodeficiency Virus (HIV): No (negative) Hx Hepatitis C: No Hx Depression: No Hx Suicide Attempt: No Hx Bipolar Disorder: Yes Hx Schizophrenia: Yes - Patient Surgical History Past Surgical History: No Hx Neurologic Surgery: No Hx Cataract Extraction: No Hx Cardiac Surgery: No Hx Lung Surgery: No Hx Breast Surgery: No Hx Breast Biopsy: No Hx Abdominal Surgery: No Hx Appendectomy: No Hx Cholecystectomy: No Hx Genitourinary Surgery: No Hx Section: No Hx Orthopedic Surgery: No Anesthesia Reaction: No - PPD History Date: 06/11/18 Results: 0 mm - Smoking Cessation Smoking history: Current some day smoker Have you smoked in the past 12 months: Yes Aproximately how many cigarettes per day: 1 If you are a former smoker, when did you quit?: 06/07/2018 Cigars Per Day: 0 Hx Chewing Tobacco Use: No Initiated information on smoking cessation: Yes 'Breaking Loose' booklet given: 01/19/19 - Substances abused Alcohol Substance route: Oral Frequency: Daily Amount used: VODKA 2PTS & 1 can beer Age of first use: 13 Date of last use: 01/18/19 Heroin Substance route: Inhalation Frequency: Daily Amount used: 4bags Age of first use: 25 Date of last use: 11/16/18 Admission Physical Exam [facility] - Vital Signs Vital Signs: Vital Signs - 24 hr 01/19/19 12:39 Temperature 97.0 F L Pulse Rate 59 L Respiratory 16 Rate Blood Pressure 107/72 - Physical General Appearance: Yes: Within Normal Limits HEENTM: Yes: Within Normal Limits Respiratory: Yes: Within Normal Limits, Lungs Clear Neck: Yes: Within Normal Limits Breast: Yes: Breast Exam Deferred Cardiology: Yes: Within Normal Limits, Regular Rhythm, Regular Rate Abdominal: Yes: Normal Bowel Sounds, Non Tender, Flat Back: Yes: Within Normal Limits Musculoskeletal: Yes: Within Normal Limits Neurological: Yes: secret service agent II-XII NML intact, Motor Strength 5/5, Normal Response, Depressed Affect Integumentary: Yes: Dry, Warm Cleared for Admission S - Detox or Rehab [facility] Level of Care: Medically Supervised Breathalyzer - Breathalyzer Breathalyzer: 0 Urine Drug Screen - Test Device Lot number: [id number] Expiration date: 09/02/20 - Control Is test valid?: Yes - Results Drug screen NEGATIVE: No Urine drug screen results: THC-Marijuana, SILVANA-Cocaine, OXY-Oxycodone Inpatient Rehab Admission - Rehab Decision to Admit Inpatient rehab admission?: Yes - Initial Determination Are CD services needed?: Yes Free of communicable disease: Yes Not in need of hospitalization: Yes - Rehab Admission Criteria Previous failed treatment: Yes Poor recovery environment: Yes Comorbidities: Yes Lacks judgement: Yes Patient is meeting Inpatient Rehab admission criteria:: Yes
--- NOTE | 2019-01-19 15:15 | PN ---
Teaching Attending Note Name of Resident: Mina Quinonez ATTENDING PHYSICIAN STATEMENT I saw and evaluated the patient. I reviewed the resident's note and discussed the case with the resident. I agree with the resident's findings and plan as documented. SUBJECTIVE: 33 year old male here for alcohol dependence , referred by [facility] for dx " malingering , opioid use , alcohol use " Alcohol Use: last drink yesterday, 2 pints a day (vodka), started using at age 13, longest sobriety 3 years. Never had alcohol withdrawal seizures. Cocaine: uses 2x a month via inhalation since age 22. $20/day Heroin: last used 2 months ago, used to use every day , previously on Buprenorphine 2 mg/day, never overdosed , denies withdrawal seizure Suboxone: [facility] OTP Program in the past . Oxycodone: 1 pill once / week Cigarettes: 2 cigarettes, first age of use 8 . benzo - denies use , evasive about Ambien rx. PMHX : R ankle frx, casted in 2016 , asthma, GERD, RPR+ (treated 2 years ago at [facility]), hallucinations/delusions, reports seizure 1x from medication (haldol/risperdal, states it was more abnormal body movements and tongue movements), MHHx: Insomnia; Schizoaffective - on meds, latest taken several days ago , was given meds in ER @ [facility] Benadryl, Prozac, Seroquel , denies SI / HI Reports AH / VH , states loud screaming voices no specific instructions, VH - shadows 2-3 days ago . SHx: Unemployed. [facility]. OBJECTIVE: wnwd ,evasive This report was requested by: Debbi Cota | Reference #: [id number] Others' Prescriptions Patient Name: Odilon Wing Date: 1985 Address: [address] [place] [address] Sex: Male Rx Written Rx Dispensed Drug Quantity Days Supply Prescriber Name 01/03/2019 01/11/2019 zolpidem tartrate 10 mg tablet 30 30 Mikey Bowden NP 12/12/2018 12/13/2018 zolpidem tartrate 10 mg tablet 30 30 Chayo Echeverria MD 11/03/2018 11/07/2018 zolpidem tartrate 10 mg tablet 30 30 Chayo Echeverria MD 10/03/2018 10/04/2018 zolpidem tartrate 5 mg tablet 30 30 Chayo Echeverria MD 08/16/2018 08/16/2018 buprenorphine-naloxone 2-0.5 mg sl tablet 7 7 MunDigna ordoñez MD 08/12/2018 08/12/2018 buprenorphine-naloxone 2-0.5 mg sl tablet 4 4 MunDigna ordoñez MD 05/25/2018 05/26/2018 zolpidem tartrate 10 mg tablet 30 30 Marcial Quigley 04/25/2018 04/25/2018 zolpidem tartrate 10 mg tablet 30 30 Calderon Bryant 03/23/2018 03/23/2018 zolpidem tartrate 10 mg tablet 30 30 Chayo Echeverria MD 02/21/2018 02/22/2018 zolpidem tartrate 10 mg tablet 30 30 Chayo Echeverria MD 01/21/2018 01/25/2018 zolpidem tartrate 10 mg tablet 30 30 Chayo Echeverria MD ASSESSMENT AND PLAN: Alcohol use disorder /opiate use disorder / Cocaine use disorder / Cannabis use disorder - rehab
[2019-01-19] MEDS ORDERED: MAGNESIUM HYDROX 2400MG/30ML ORAL SUSPENSION 30 ML CUP PO PRN (15:30)
[2019-01-19] MEDS ORDERED: IBUPROFEN 400 MG TABLET (FP) PO PRN (15:30)
[2019-01-19] MEDS ORDERED: guaiFENesin 200 MG/10 ML 10 ML UNIT-DOSE CUPS PO PRN (15:30)
[2019-01-19] MEDS ORDERED: P-EPHED 60MG/TRIPROLIDI 2.5MG TABLET PO PRN (15:30)
[2019-01-19] MEDS ORDERED: MAG HYDROX/AL HYDROX/SIMETH 30 ML UNIT-DOSE CUP PO PRN (15:30)
[2019-01-19] MEDS ORDERED: MAGNESIUM CITRATE 300 ML BOTTLE PO PRN (15:30)
[2019-01-19] MEDS ORDERED: MENTHOL/PHENOL 1 EACH UD MM PRN (15:30)
[2019-01-19] MEDS ORDERED: LOPERAMIDE HCL 2 MG CAPSULE PO PRN (15:30)
[2019-01-19] MEDS ORDERED: ALBUTEROL SO4 8 GM HFA INHALER IH PRN (17:44)
[2019-01-19] MEDS: THIAMINE HCL 100 MG TABLET (FP) PO SCH (21:22)
[2019-01-19] MEDS: MELATONIN 5 MG TABLETS PO PRN (21:22)
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
[2019-01-20] MEDS ORDERED: DIVALPROEX SODIUM 500 MG TABLET E.C. PO SCH (11:15)
[2019-01-20 12:59] LABS: HEMATOCRIT 41.2 % (35.4-49); HEMOGLOBIN 13.6 GM/dL (11.7-16.9); MCH 29.3 pg (25.7-33.7); MCHC 32.9 g/dl (32.0-35.9); MEAN CELL VOLUME 88.9 fl (80-96); MEAN PLT VOLUME 8.6 fl (7.5-11.1); PLATELET COUNT 249 K/MM3 (134-434); RBC 4.63 M/mm3 (4.00-5.60); RDW 13.7 % (11.9-15.9); WHITE BLOOD COUNT 3.9 K/mm3 (4.0-10.0)
[2019-01-20 13:10] LABS: ALBUMIN 3.8 g/dl (3.4-5.0); BILIRUBIN,TOTAL 0.4 mg/dL (0.2-1); BLOOD UREA NITROGEN 10.1 mg/dL (7-18); CALCIUM 9.1 mg/dL (8.5-10.1); CREATININE 0.9 mg/dL (0.55-1.3); POTASSIUM 3.8 mmol/L (3.5-5.1); TOT PROT 7.8 g/dl (6.4-8.2)
[2019-01-20] MEDS ORDERED: DIVALPROEX SODIUM 500 MG TABLET E.C. ONE ×2 (13:38→19:48)
[2019-01-20] MEDS ORDERED: DIVALPROEX SODIUM 250 MG TABLET E.C. ONE ×2 (13:38→19:48)
[2019-01-20] MEDS: DIVALPROEX 500 MG, DIVALPROEX 250 MG PO SCH ×2 (13:39→21:57)
[2019-01-20] MEDS: diphenhydrAMINE HCL 50 MG CAPSULE PO SCH ×2 (13:39→21:57)
[2019-01-20] MEDS: QUEtiapine FUMARATE 100 MG TABLET (FP) PO SCH (13:40)
[2019-01-20] MEDS: PRENATAL VITAMINS W/ FOLIC ACID TABLET (FP) PO SCH (13:44)
[2019-01-20] MEDS ORDERED: PT OWN MED DRAWER 7, Y5N ONE (13:54)
[2019-01-20] MEDS: FLUoxetine HCL 10 MG CAPSULE (FP) PO SCH (13:59)
[2019-01-20] MEDS: QUEtiapine FUMARATE 200 MG TABLET PO SCH (21:58)
[2019-01-20] MEDS: THIAMINE HCL 100 MG TABLET (FP) PO SCH (21:58)
[2019-01-21] MEDS ORDERED: DIVALPROEX SODIUM 500 MG TABLET E.C. ONE ×2 (08:54→19:23)
[2019-01-21] MEDS ORDERED: DIVALPROEX SODIUM 250 MG TABLET E.C. ONE ×2 (08:55→19:23)
[2019-01-21] MEDS: FLUoxetine HCL 10 MG CAPSULE (FP) PO SCH (10:11)
[2019-01-21] MEDS: QUEtiapine FUMARATE 100 MG TABLET (FP) PO SCH (10:11)
[2019-01-21] MEDS: DIVALPROEX 500 MG, DIVALPROEX 250 MG PO SCH ×2 (10:11→21:16)
[2019-01-21] MEDS: PRENATAL VITAMINS W/ FOLIC ACID TABLET (FP) PO SCH (10:11)
[2019-01-21] MEDS: diphenhydrAMINE HCL 50 MG CAPSULE PO SCH ×2 (10:11→21:16)
[2019-01-21 11:00] LABS: RPR REACTIVE 1:1 (NONREACTIVE)
[2019-01-21 11:06] LABS: TREPONEMA ANTIBODY PREVIOUSLY REACTIVE (NONREACTIVE)
[2019-01-21] MEDS: THIAMINE HCL 100 MG TABLET (FP) PO SCH (21:15)
[2019-01-21] MEDS: MELATONIN 5 MG TABLETS PO PRN (21:16)
[2019-01-21] MEDS: QUEtiapine FUMARATE 200 MG TABLET PO SCH (21:16)
[2019-01-22] MEDS ORDERED: DIVALPROEX SODIUM 500 MG TABLET E.C. ONE ×2 (08:44→19:29)
[2019-01-22] MEDS ORDERED: DIVALPROEX SODIUM 250 MG TABLET E.C. ONE ×2 (08:44→19:29)
[2019-01-22] MEDS: diphenhydrAMINE HCL 50 MG CAPSULE PO SCH ×2 (11:18→21:31)
[2019-01-22] MEDS: DIVALPROEX 500 MG, DIVALPROEX 250 MG PO SCH ×2 (11:18→21:31)
[2019-01-22] MEDS: QUEtiapine FUMARATE 100 MG TABLET (FP) PO SCH (11:18)
[2019-01-22] MEDS: PRENATAL VITAMINS W/ FOLIC ACID TABLET (FP) PO SCH (11:18)
[2019-01-22] MEDS: FLUoxetine HCL 10 MG CAPSULE (FP) PO SCH (11:18)
[2019-01-22] MEDS: THIAMINE HCL 100 MG TABLET (FP) PO SCH (21:31)
[2019-01-22] MEDS: QUEtiapine FUMARATE 200 MG TABLET PO SCH (21:31)
[2019-01-22] MEDS: MELATONIN 5 MG TABLETS PO PRN (21:31)
[2019-01-23] MEDS ORDERED: DIVALPROEX SODIUM 250 MG TABLET E.C. ONE ×2 (09:09→19:11)
[2019-01-23] MEDS ORDERED: DIVALPROEX SODIUM 500 MG TABLET E.C. ONE ×2 (09:09→19:11)
[2019-01-23] MEDS ORDERED: PT OWN MED DRAWER 7, Y5N ONE (09:10)
[2019-01-23] MEDS: QUEtiapine FUMARATE 100 MG TABLET (FP) PO SCH (10:46)
[2019-01-23] MEDS: diphenhydrAMINE HCL 50 MG CAPSULE PO SCH ×2 (10:46→21:34)
[2019-01-23] MEDS: DIVALPROEX 500 MG, DIVALPROEX 250 MG PO SCH ×2 (10:46→21:33)
[2019-01-23] MEDS: PRENATAL VITAMINS W/ FOLIC ACID TABLET (FP) PO SCH (10:47)
[2019-01-23] MEDS: FLUoxetine HCL 10 MG CAPSULE (FP) PO SCH (10:47)
[2019-01-23] MEDS: ACETAMINOPHEN 325 MG TABLET (FP) PO PRN (14:51)
[2019-01-23] MEDS: THIAMINE HCL 100 MG TABLET (FP) PO SCH (21:33)
[2019-01-23] MEDS: QUEtiapine FUMARATE 200 MG TABLET PO SCH (21:34)
[2019-01-24] MEDS ORDERED: DIVALPROEX SODIUM 500 MG TABLET E.C. ONE ×2 (09:20→19:36)
[2019-01-24] MEDS ORDERED: DIVALPROEX SODIUM 250 MG TABLET E.C. ONE ×2 (09:20→19:36)
[2019-01-24] MEDS: DIVALPROEX 500 MG, DIVALPROEX 250 MG PO SCH ×2 (09:31→21:13)
[2019-01-24] MEDS: diphenhydrAMINE HCL 50 MG CAPSULE PO SCH ×2 (09:31→21:13)
[2019-01-24] MEDS: FLUoxetine HCL 10 MG CAPSULE (FP) PO SCH (09:31)
[2019-01-24] MEDS: QUEtiapine FUMARATE 100 MG TABLET (FP) PO SCH (09:31)
[2019-01-24] MEDS: PRENATAL VITAMINS W/ FOLIC ACID TABLET (FP) PO SCH (09:31)
--- NOTE | 2019-01-24 15:11 | PN ---
[facility] Progress Note Note: Patient with +RPR, discussed with resident, who recommended treatment. Patient states he was treated for syphilis 4 years ago, and that he could be re- infected at the present time. Also reports that he did not complete treatment at that time. Laboratory Tests 01/20/19 01/20/19 01/20/19 09:00 09:00 09:00 WBC 3.9 L RBC 4.63 Hgb 13.6 Hct 41.2 MCV 88.9 MCH 29.3 MCHC 32.9 RDW 13.7 Plt Count 249 D MPV 8.6 Sodium 141 Potassium 3.8 Chloride 102 Carbon Dioxide 33 H Anion Gap 6 L BUN 10.1 Creatinine 0.9 Est GFR (CKD-EPI)AfAm 128.70 Est GFR (CKD-EPI)NonAf 111.04 Random Glucose 105 Calcium 9.1 Total Bilirubin 0.4 AST 19 ALT 25 Alkaline Phosphatase 76 Total Protein 7.8 Albumin 3.8 Valproic Acid RPR Titer Reactive 1:1 H T.pallidum Ab (MHA) Previously reactive 01/20/19 11:50 WBC RBC Hgb Hct MCV MCH MCHC RDW Plt Count MPV Sodium Potassium Chloride Carbon Dioxide Anion Gap BUN Creatinine Est GFR (CKD-EPI)AfAm Est GFR (CKD-EPI)NonAf Random Glucose Calcium Total Bilirubin AST ALT Alkaline Phosphatase Total Protein Albumin Valproic Acid < 3.0 L RPR Titer T.pallidum Ab (MHA)
[2019-01-24] MEDS: QUEtiapine FUMARATE 200 MG TABLET PO SCH (21:13)
[2019-01-24] MEDS: MELATONIN 5 MG TABLETS PO PRN (21:13)
[2019-01-24] MEDS: THIAMINE HCL 100 MG TABLET (FP) PO SCH (21:13)
[2019-01-25] MEDS ORDERED: DIVALPROEX SODIUM 250 MG TABLET E.C. ONE ×2 (09:08→19:03)
[2019-01-25] MEDS ORDERED: DIVALPROEX SODIUM 500 MG TABLET E.C. ONE ×2 (09:08→19:02)
[2019-01-25] MEDS: QUEtiapine FUMARATE 100 MG TABLET (FP) PO SCH (10:12)
[2019-01-25] MEDS: PRENATAL VITAMINS W/ FOLIC ACID TABLET (FP) PO SCH (10:12)
[2019-01-25] MEDS: FLUoxetine HCL 10 MG CAPSULE (FP) PO SCH (10:12)
[2019-01-25] MEDS: diphenhydrAMINE HCL 50 MG CAPSULE PO SCH ×2 (10:12→21:33)
[2019-01-25] MEDS: DIVALPROEX 500 MG, DIVALPROEX 250 MG PO SCH ×2 (10:12→21:33)
[2019-01-25] MEDS ORDERED: PENICILLIN G BENZATHINE 2,400,000 UNIT/4 ML PFS IM ONE (15:08)
[2019-01-25] MEDS: THIAMINE HCL 100 MG TABLET (FP) PO SCH (21:33)
[2019-01-25] MEDS: QUEtiapine FUMARATE 200 MG TABLET PO SCH (21:33)
[2019-01-25] MEDS: MELATONIN 5 MG TABLETS PO PRN (21:33)
[2019-01-26] MEDS ORDERED: DIVALPROEX SODIUM 250 MG TABLET E.C. ONE ×2 (09:22→19:25)
[2019-01-26] MEDS ORDERED: DIVALPROEX SODIUM 500 MG TABLET E.C. ONE ×2 (09:22→19:25)
[2019-01-26] MEDS: DIVALPROEX 500 MG, DIVALPROEX 250 MG PO SCH ×2 (11:06→21:20)
[2019-01-26] MEDS: PRENATAL VITAMINS W/ FOLIC ACID TABLET (FP) PO SCH (11:06)
[2019-01-26] MEDS: QUEtiapine FUMARATE 100 MG TABLET (FP) PO SCH (11:07)
[2019-01-26] MEDS: diphenhydrAMINE HCL 50 MG CAPSULE PO SCH ×2 (11:07→21:20)
[2019-01-26] MEDS: FLUoxetine HCL 10 MG CAPSULE (FP) PO SCH (11:07)
[2019-01-26] MEDS: THIAMINE HCL 100 MG TABLET (FP) PO SCH (21:20)
[2019-01-26] MEDS: QUEtiapine FUMARATE 200 MG TABLET PO SCH (21:20)
[2019-01-26] MEDS: MELATONIN 5 MG TABLETS PO PRN (21:20)
[2019-01-27] MEDS ORDERED: DIVALPROEX SODIUM 500 MG TABLET E.C. ONE ×2 (09:02→19:28)
[2019-01-27] MEDS ORDERED: DIVALPROEX SODIUM 250 MG TABLET E.C. ONE ×2 (09:02→19:28)
[2019-01-27] MEDS: DIVALPROEX 500 MG, DIVALPROEX 250 MG PO SCH ×2 (11:07→21:40)
[2019-01-27] MEDS: diphenhydrAMINE HCL 50 MG CAPSULE PO SCH ×2 (11:07→21:39)
[2019-01-27] MEDS: FLUoxetine HCL 10 MG CAPSULE (FP) PO SCH (11:07)
[2019-01-27] MEDS: QUEtiapine FUMARATE 100 MG TABLET (FP) PO SCH (11:07)
[2019-01-27] MEDS: PRENATAL VITAMINS W/ FOLIC ACID TABLET (FP) PO SCH (11:08)
[2019-01-27] MEDS ORDERED: PT OWN MED DRAWER 7, Y5N ONE (19:29)
[2019-01-27] MEDS: THIAMINE HCL 100 MG TABLET (FP) PO SCH ×2 (21:39→21:50)
[2019-01-27] MEDS: QUEtiapine FUMARATE 200 MG TABLET PO SCH (21:39)
[2019-01-27] MEDS: METHOCARBAMOL 500 MG TABLET PO SCH (21:42)
[2019-01-27] MEDS: MELATONIN 5 MG TABLETS PO PRN (21:43)
[2019-01-28] MEDS ORDERED: DIVALPROEX SODIUM 250 MG TABLET E.C. ONE ×2 (09:04→20:23)
[2019-01-28] MEDS ORDERED: DIVALPROEX SODIUM 500 MG TABLET E.C. ONE ×2 (09:04→20:23)
[2019-01-28] MEDS: PRENATAL VITAMINS W/ FOLIC ACID TABLET (FP) PO SCH (10:15)
[2019-01-28] MEDS: FLUoxetine HCL 10 MG CAPSULE (FP) PO SCH (10:15)
[2019-01-28] MEDS: QUEtiapine FUMARATE 100 MG TABLET (FP) PO SCH (10:15)
[2019-01-28] MEDS: METHOCARBAMOL 500 MG TABLET PO SCH ×2 (10:15→22:21)
[2019-01-28] MEDS: diphenhydrAMINE HCL 50 MG CAPSULE PO SCH ×2 (10:15→22:21)
[2019-01-28] MEDS: DIVALPROEX 500 MG, DIVALPROEX 250 MG PO SCH ×2 (10:15→22:21)
[2019-01-28] MEDS: ACETAMINOPHEN 325 MG TABLET (FP) PO PRN (10:26)
[2019-01-28] MEDS: THIAMINE HCL 100 MG TABLET (FP) PO SCH (22:21)
[2019-01-28] MEDS: QUEtiapine FUMARATE 200 MG TABLET PO SCH (22:21)
[2019-01-28] MEDS: MELATONIN 5 MG TABLETS PO PRN (22:24)
[2019-01-29] MEDS ORDERED: DIVALPROEX SODIUM 500 MG TABLET E.C. ONE (09:07)
[2019-01-29] MEDS ORDERED: DIVALPROEX SODIUM 250 MG TABLET E.C. ONE (09:07)
[2019-01-29] MEDS: DIVALPROEX 500 MG, DIVALPROEX 250 MG PO SCH ×2 (10:02→21:47)
[2019-01-29] MEDS: PRENATAL VITAMINS W/ FOLIC ACID TABLET (FP) PO SCH (10:02)
[2019-01-29] MEDS: diphenhydrAMINE HCL 50 MG CAPSULE PO SCH ×2 (10:02→21:47)
[2019-01-29] MEDS: FLUoxetine HCL 10 MG CAPSULE (FP) PO SCH (10:02)
[2019-01-29] MEDS: METHOCARBAMOL 500 MG TABLET PO SCH ×2 (10:02→21:47)
[2019-01-29] MEDS: QUEtiapine FUMARATE 100 MG TABLET (FP) PO SCH (10:02)
[2019-01-29] MEDS: THIAMINE HCL 100 MG TABLET (FP) PO SCH (21:47)
[2019-01-29] MEDS: QUEtiapine FUMARATE 200 MG TABLET PO SCH (21:47)
[2019-01-29] MEDS: MELATONIN 5 MG TABLETS PO PRN (21:49)
[2019-01-30] MEDS ORDERED: DIVALPROEX SODIUM 500 MG TABLET E.C. ONE ×2 (11:09→18:48)
[2019-01-30] MEDS ORDERED: DIVALPROEX SODIUM 250 MG TABLET E.C. ONE ×2 (11:09→18:48)
[2019-01-30] MEDS: diphenhydrAMINE HCL 50 MG CAPSULE PO SCH ×2 (11:23→21:25)
[2019-01-30] MEDS: FLUoxetine HCL 10 MG CAPSULE (FP) PO SCH (11:24)
[2019-01-30] MEDS: DIVALPROEX 500 MG, DIVALPROEX 250 MG PO SCH ×2 (11:24→21:25)
[2019-01-30] MEDS: PRENATAL VITAMINS W/ FOLIC ACID TABLET (FP) PO SCH (11:24)
[2019-01-30] MEDS: METHOCARBAMOL 500 MG TABLET PO SCH ×2 (11:25→21:26)
[2019-01-30] MEDS: QUEtiapine FUMARATE 100 MG TABLET (FP) PO SCH (11:25)
[2019-01-30] MEDS: MELATONIN 5 MG TABLETS PO PRN (21:25)
[2019-01-30] MEDS: QUEtiapine FUMARATE 200 MG TABLET PO SCH (21:25)
[2019-01-30] MEDS: THIAMINE HCL 100 MG TABLET (FP) PO SCH (21:26)
[2019-01-31] MEDS: METHOCARBAMOL 500 MG TABLET PO SCH ×3 (06:26→21:10)
[2019-01-31] MEDS ORDERED: DIVALPROEX SODIUM 500 MG TABLET E.C. ONE ×2 (09:07→19:13)
[2019-01-31] MEDS ORDERED: DIVALPROEX SODIUM 250 MG TABLET E.C. ONE ×2 (09:07→19:13)
[2019-01-31] MEDS: FLUoxetine HCL 10 MG CAPSULE (FP) PO SCH (10:36)
[2019-01-31] MEDS: diphenhydrAMINE HCL 50 MG CAPSULE PO SCH ×2 (10:36→21:10)
[2019-01-31] MEDS: QUEtiapine FUMARATE 100 MG TABLET (FP) PO SCH (10:36)
[2019-01-31] MEDS: DIVALPROEX 500 MG, DIVALPROEX 250 MG PO SCH ×2 (10:36→21:10)
[2019-01-31] MEDS: PRENATAL VITAMINS W/ FOLIC ACID TABLET (FP) PO SCH (10:37)
[2019-01-31] MEDS: ACETAMINOPHEN 325 MG TABLET (FP) PO PRN (10:38)
[2019-01-31] MEDS: THIAMINE HCL 100 MG TABLET (FP) PO SCH (21:10)
[2019-01-31] MEDS: QUEtiapine FUMARATE 200 MG TABLET PO SCH (21:10)
[2019-01-31] MEDS: MELATONIN 5 MG TABLETS PO PRN (21:10)
[2019-02-01] MEDS: METHOCARBAMOL 500 MG TABLET PO SCH ×3 (06:36→21:26)
[2019-02-01] MEDS ORDERED: DIVALPROEX SODIUM 250 MG TABLET E.C. ONE ×2 (08:54→19:27)
[2019-02-01] MEDS ORDERED: DIVALPROEX SODIUM 500 MG TABLET E.C. ONE ×2 (08:54→19:27)
[2019-02-01] MEDS: PRENATAL VITAMINS W/ FOLIC ACID TABLET (FP) PO SCH (10:15)
[2019-02-01] MEDS: QUEtiapine FUMARATE 100 MG TABLET (FP) PO SCH (10:15)
[2019-02-01] MEDS: diphenhydrAMINE HCL 50 MG CAPSULE PO SCH ×2 (10:15→21:25)
[2019-02-01] MEDS: FLUoxetine HCL 10 MG CAPSULE (FP) PO SCH (10:15)
[2019-02-01] MEDS: DIVALPROEX 500 MG, DIVALPROEX 250 MG PO SCH ×2 (10:16→21:25)
[2019-02-01] MEDS: QUEtiapine FUMARATE 200 MG TABLET PO SCH (21:25)
[2019-02-01] MEDS: MELATONIN 5 MG TABLETS PO PRN (21:25)
[2019-02-01] MEDS: THIAMINE HCL 100 MG TABLET (FP) PO SCH (21:26)
[2019-02-02] MEDS: METHOCARBAMOL 500 MG TABLET PO SCH (06:14)
[2019-02-02 06:58] VITALS: BP 106/61; PULSE 67; TEMP 97.5
--- NOTE | 2019-02-02 09:07 | DS ---
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 Alcohol Use: 2 pints a day (vodka), started using at age 13, longest sobriety 3 years. Never had alcohol withdrawal seizures. Cocaine: uses 2x a month, sniffs it, started that at age 22. $20/day Heroin: used to use every day; Never overdosed. Never had withdrawal seizure Suboxone: [facility], did not take it today; took it 2 months ago Oxycodone: 1 pill every day Cigarettes: 2 cigarettes, started smoking at 8yo MHHx: Insomnia; Schizoaffective - on meds. Denies thoughts of harming self or others. Hears voices. Voices loud and arguing. Does not tell him to do anything. Occ visual hallucinations - Sees shadows. Surgical: never SHx: Unemployed. Living in a assisted residence. Family: no known history of disease in the family; 1 child - Discharge Physical Exam Vital Signs: Vital Signs Temperature 97.5 F L 02/02/19 06:57 Pulse Rate 67 02/02/19 06:57 Respiratory Rate 18 02/02/19 06:57 Blood Pressure 106/61 02/02/19 06:57 O2 Sat by Pulse Oximetry (%) Pertinent Admission Physical Exam Findings: - Physical General Appearance: no apparent distress; flat affect HEENTM: normocephalic, moist mucus membranes, PERRLA Respiratory: Lungs Clear Neck: supple Cardiology: s1 s2 Abdominal: +Bowel Sounds, Non Tender, Flat Musculoskeletal: full weight bearing, full ROM, steady gait Neurological: Yes: associate professor II-XII NML intact, - Treatment Discharge Condition: Outpatient referral accepted (Patient will return to [facility] for aftercare. Medically stable for discharge.) Hospital Course: patient attended groups, had 1:1 session with counselor, was seen by psychiatric service. He was adherent to his medication regimen and treatment plan. He was treated with PCN 24,000,000 units for a positive RPR. - Medication Discharge Medications: Ambulatory Orders Quetiapine Fumarate [Seroquel -] 100 mg PO HS 12/09/16 Zolpidem Tartrate [Ambien] 10 mg PO HS 11/05/17 Diphenhydramine [Benadryl Capsule -] 50 mg PO BID #60 capsule 07/04/18 Fluoxetine HCl [Prozac -] 10 mg PO DAILY #30 capsule 07/04/18 Divalproex [Depakote -] 750 mg PO BID 01/19/19 Quetiapine Fumarate [Seroquel -] 200 mg PO DAILY 01/19/19 Albuterol Sulfate Inhaler - [Ventolin HFA Inhaler -] 2 inh PO Q4H PRN #1 inhaler 02/02/19 - Medication-Assisted Treatment (MAT) Medication-Assisted Treatment (MAT): No - Discharge Instructions Diet, activity, other medical instructions: Diet: as tolerated Activity: as tolerated Other medical instructions: Please follow up with aftercare referral. - Diagnosis (1) Cocaine abuse Current Visit: Yes Status: Chronic (2) Alcohol dependence Current Visit: No Status: Chronic Qualifiers: Substance use status: uncomplicated Qualified Code(s): F10.20 - Alcohol dependence, uncomplicated (3) Opioid dependence Current Visit: No Status: Chronic Qualifiers: Substance use status: uncomplicated Qualified Code(s): F11.20 - Opioid dependence, uncomplicated (4) Positive RPR test Current Visit: No Status: Resolved - Follow-up Referral Minutes to complete discharge: 20 - AMA Did Patient Leave Against Medical Advice: No
[2019-02-02] MEDS ORDERED: DIVALPROEX SODIUM 250 MG TABLET E.C. ONE (09:09)
[2019-02-02] MEDS ORDERED: DIVALPROEX SODIUM 500 MG TABLET E.C. ONE (09:09)
--- NOTE | 2019-02-02 10:02 | PN ---
[facility] Progress Note Note: Patient is scheduled for discharge totoday. Scripts for 30 days supply of medications( Seroquel 100mg/day & 200 mg/hs, Depakote 750 mg/bid, Prozac 10 mg/ day) [facility] at[address] [place] [id number]
[2019-02-02] MEDS: QUEtiapine FUMARATE 100 MG TABLET (FP) PO SCH (10:20)
[2019-02-02] MEDS: diphenhydrAMINE HCL 50 MG CAPSULE PO SCH (10:20)
[2019-02-02] MEDS: DIVALPROEX 500 MG, DIVALPROEX 250 MG PO SCH (10:21)
[2019-02-02] MEDS: FLUoxetine HCL 10 MG CAPSULE (FP) PO SCH (10:21)
[2019-02-02] MEDS: PRENATAL VITAMINS W/ FOLIC ACID TABLET (FP) PO SCH (10:21)
== END 2019-02-02 10:35 | disposition home or self-care (01) | DRG 895 ==
LOC: YASAS 12:04 → Y3W 17:06
PROVIDERS: ADMIT Neuromusculoskeletal Medicine & OMM; ATTEND Neuromusculoskeletal Medicine & OMM
PROC: HZ42ZZZ Group Counseling for Substance Abuse Treatment, Cognitive-Behavioral (ICD-10-PCS; principal; 2019-01-19)
DX: F10.20 Alcohol dependence, uncomplicated (principal); F11.20 Opioid dependence, uncomplicated; F14.20 Cocaine dependence, uncomplicated; F19.282 Other psychoactive substance dependence with psychoactive substance-induced sleep disorder; F12.20 Cannabis dependence, uncomplicated; F17.210 Nicotine dependence, cigarettes, uncomplicated; F25.0 Schizoaffective disorder, bipolar type; F19.24 Other psychoactive substance dependence with psychoactive substance-induced mood disorder; F31.9 Bipolar disorder, unspecified; J45.20 Mild intermittent asthma, uncomplicated; K21.9 Gastro-esophageal reflux disease without esophagitis; R76.11 Nonspecific reaction to tuberculin skin test without active tuberculosis; Z86.69 Personal history of other diseases of the nervous system and sense organs; Z86.19 Personal history of other infectious and parasitic diseases; Z88.8 Allergy status to other drugs, medicaments and biological substances
CPT/HCPCS: 36415; 80053; 80164; 85027; 86593; 86780

== ENCOUNTER 2019-03-01 14:16 | Inpatient (IN) | payer OTHER ==
[2019-03-01 15:34] VITALS: BMI 23.6
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
[2019-03-01] MEDS ORDERED: ACETAMINOPHEN 325 MG TABLET (FP) PO PRN (16:49)
[2019-03-01] MEDS ORDERED: IBUPROFEN 400 MG TABLET (FP) PO PRN (16:49)
[2019-03-01] MEDS ORDERED: LOPERAMIDE HCL 2 MG CAPSULE PO PRN (16:49)
[2019-03-01] MEDS ORDERED: P-EPHED 60MG/TRIPROLIDI 2.5MG TABLET PO PRN (16:49)
[2019-03-01] MEDS ORDERED: MAGNESIUM CITRATE 300 ML BOTTLE PO PRN (16:49)
[2019-03-01] MEDS ORDERED: MENTHOL/PHENOL 1 EACH UD MM PRN (16:49)
[2019-03-01] MEDS ORDERED: guaiFENesin 200 MG/10 ML 10 ML UNIT-DOSE CUPS PO PRN (16:49)
[2019-03-01] MEDS ORDERED: MAG HYDROX/AL HYDROX/SIMETH 30 ML UNIT-DOSE CUP PO PRN (16:49)
[2019-03-01] MEDS ORDERED: MAGNESIUM HYDROX 2400MG/30ML ORAL SUSPENSION 30 ML CUP PO PRN (16:49)
[2019-03-01] MEDS ORDERED: hydrOXYzine PAMOATE 25 MG CAPSULE (FP) PO PRN (16:49)
--- NOTE | 2019-03-01 16:50 | PN ---
Teaching Attending Note Name of Resident: Nickie Winslow ATTENDING PHYSICIAN STATEMENT I saw and evaluated the patient. I reviewed the resident's note and discussed the case with the resident. I agree with the resident's findings and plan as documented. SUBJECTIVE:33 year old male here for alcohol dependence , referred by [facility] for dx " malingering , opioid use , alcohol use " 03/01/19 , reports relapsed 1 week ago . Alcohol Use: last drink yesterday, 2 pints a day (vodka), started using at age 13, longest sobriety 3 years. Never had alcohol withdrawal seizures. Cocaine: uses 2x a month via inhalation since age 22. $20/day Heroin: last used 2 months ago, used to use every day , previously on Buprenorphine 2 mg/day, never overdosed , denies withdrawal seizure Suboxone: [facility] Program in the past . Cigarettes: 2 cigarettes /day , first age of use 8 . benzo - denies use , evasive about Ambien rx. 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 SHx: Unemployed. Living in alf @ [facility] . OBJECTIVE: wnwd Vital Signs - 24 hr 03/01/19 03/01/19 15:14 15:47 Temperature 98.0 F 98.0 F Pulse Rate 82 82 Respiratory 20 20 Rate Blood Pressure 102/64 102/64 This report was requested by: Debbi Cota | Reference #: [id number] Others' Prescriptions Patient Name: Odilon Wing Date: 1985 Address: [address] [place] [address] Sex: Male Rx Written Rx Dispensed Drug Quantity Days Supply Prescriber Name 02/07/2019 02/07/2019 zolpidem tartrate 10 mg tablet 30 30 Dusenbury, Mikey MORA 01/03/2019 01/11/2019 zolpidem tartrate 10 mg tablet 30 30 Dennise Mikey VELAZCO 12/12/2018 12/13/2018 zolpidem tartrate 10 mg tablet 30 30 Chayo Echeverria MD 11/03/2018 11/07/2018 zolpidem tartrate 10 mg tablet 30 30 Chayo Echeverria MD 10/03/2018 10/04/2018 zolpidem tartrate 5 mg tablet 30 30 JackiChayo chicas MD 08/16/2018 08/16/2018 buprenorphine-naloxone 2-0.5 mg sl tablet 7 7 Digna Mackay MD 08/12/2018 08/12/2018 buprenorphine-naloxone 2-0.5 mg sl tablet 4 4 Digna Mackay MD 05/25/2018 05/26/2018 zolpidem tartrate 10 mg tablet 30 30 Marcial Quigley 04/25/2018 04/25/2018 zolpidem tartrate 10 mg tablet 30 30 Calderon Bryant 03/23/2018 03/23/2018 zolpidem tartrate 10 mg tablet 30 30 Chayo Echeverria MD ASSESSMENT AND PLAN: AUD /Cocaine use d/o - rehab
[2019-03-01] MEDS ORDERED: ALBUTEROL SO4 8 GM HFA INHALER IH PRN (17:04)
[2019-03-01] MEDS: THIAMINE HCL 100 MG TABLET (FP) PO SCH (21:41)
[2019-03-01] MEDS: MELATONIN 5 MG TABLETS PO PRN (21:42)
[2019-03-01] MEDS ORDERED: PATIENT'S OWN MEDICATION (NON-FORMULARY) (Zolpidem Tartrate [Ambien] 10 MG) PO SCH (22:00)
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
[2019-03-02] MEDS: PRENATAL VITAMINS W/ FOLIC ACID TABLET (FP) PO SCH (10:10)
[2019-03-02 13:01] LABS: HEMATOCRIT 40.1 % (35.4-49); HEMOGLOBIN 13.2 GM/dL (11.7-16.9); MCH 29.4 pg (25.7-33.7); MCHC 32.8 g/dl (32.0-35.9); MEAN CELL VOLUME 89.5 fl (80-96); MEAN PLT VOLUME 8.8 fl (7.5-11.1); PLATELET COUNT 164 K/MM3 (134-434); RBC 4.48 M/mm3 (4.00-5.60); RDW 15.5 % (11.9-15.9); WHITE BLOOD COUNT 5.3 K/mm3 (4.0-10.0)
[2019-03-02 13:03] LABS: PH,URINE 6.5 (5.0-8.0); URINE APPEARANCE CLEAR; URINE BILIRUBIN NEGATIVE (NEGATIVE); URINE COLOR YELLOW; URINE GLUCOSE (UA) NEGATIVE (NEGATIVE); URINE KETONE NEGATIVE (NEGATIVE); URINE LEUK ESTERASE NEGATIVE (NEGATIVE); URINE NITRITE NEGATIVE (NEGATIVE); URINE PROTEIN NEGATIVE (NEGATIVE); URINE UROBILINOGEN 0.2 mg/dL (0.2-1.0)
[2019-03-02 13:46] LABS: ALBUMIN 3.4 g/dl (3.4-5.0); BILIRUBIN,TOTAL 0.3 mg/dL (0.2-1); BLOOD UREA NITROGEN 13.6 mg/dL (7-18); CALCIUM 8.6 mg/dL (8.5-10.1); POTASSIUM 3.8 mmol/L (3.5-5.1); TOT PROT 6.6 g/dl (6.4-8.2)
[2019-03-02] MEDS: FLUoxetine HCL 10 MG CAPSULE (FP) PO SCH (14:40)
[2019-03-02] MEDS: DIVALPROEX SODIUM 250 MG TABLET E.C. PO SCH ×2 (14:40→21:27)
[2019-03-02] MEDS: THIAMINE HCL 100 MG TABLET (FP) PO SCH (21:27)
[2019-03-02] MEDS: MELATONIN 5 MG TABLETS PO PRN (21:28)
[2019-03-02] MEDS ORDERED: QUEtiapine FUMARATE 200 MG TABLET PO SCH (22:00)
[2019-03-03 07:27] VITALS: BP 121/73; PULSE 59; TEMP 97.8
[2019-03-03 09:34] LABS: RPR REACTIVE 1:1 (NONREACTIVE)
[2019-03-03 09:35] LABS: TREPONEMA ANTIBODY PREVIOUSLY REACTIVE (NONREACTIVE)
[2019-03-03] MEDS ORDERED: QUEtiapine FUMARATE 100 MG TABLET (FP) PO SCH (10:00)
[2019-03-03] MEDS: DIVALPROEX SODIUM 250 MG TABLET E.C. PO SCH (10:15)
[2019-03-03] MEDS: PRENATAL VITAMINS W/ FOLIC ACID TABLET (FP) PO SCH (10:15)
[2019-03-03] MEDS: FLUoxetine HCL 10 MG CAPSULE (FP) PO SCH (10:16)
--- NOTE | 2019-03-03 10:59 | PN ---
[facility] Progress Note Note: Patient is discharged today. Scripts for 30 days supply of medications(Prozac 10 mg/day, Depakote 750 mg/bid, Seroquel 100 mg/day & 200 mg/hs) [facility] electronically transmitted to [facility] at [address] [place] [id number]
--- NOTE | 2019-03-03 11:14 | DS ---
[facility] Rehab Discharge Summary - [facility] Rehab Discharge Summary Admission Date: 03/01/19 Discharge Date: 03/03/19 - History Present History: Alcohol dependence, Cannabis dependence Pertinent Past History: 3 y/o M with history of alcohol and cocaine use , heroin (in suboxone program at [facility]), and marijuana. Pt was recently discharged from rehab in january 2019.Been drinking since 16 yrs of age. Pt usually drinks about 2 pints of vodka daily with last drink being yesterday of 1L of vodka. no history of blackout. or withdrawal seizures but he does get seizures from haldol and risperidone. For his cocaine use, Pt has been using about 20$ worth daily or every other day for 11 yrs and only snorts it no injection. On and off use of heroin since he started the suboxone program in august 2018. Denies any hx of overdose. Marijuana use once a month. occasional cigarette smokers ( about 1 cig every other day) PMH: asthma, scleroris R ankle, GERD, RPR+ (treated 2 years ago at [facility] ) Psych HX: schizoaffective bipolar type on medication PSH:none Social Hx: lives in penitentiary in [facility], unemployed currently - Discharge Physical Exam Vital Signs: Vital Signs Temperature 97.8 F 03/03/19 07:26 Pulse Rate 59 L 03/03/19 07:26 Respiratory Rate 16 03/03/19 07:26 Blood Pressure 121/73 03/03/19 07:26 O2 Sat by Pulse Oximetry (%) Pertinent Admission Physical Exam Findings: General: NAD HEENT: PERRLA, moist mucous membrane LUNG: clear b/l HEART: s1 s2 Abdomen : +BS, neuro: CN 2-12 grossly intact - Treatment Discharge Condition: Outpatient referral accepted (medically stable for discharge. Patient will return to penitentiary.) - Medication Discharge Medications: Ambulatory Orders Zolpidem Tartrate [Ambien] 10 mg PO HS 11/05/17 Albuterol Sulfate Inhaler - [Ventolin HFA Inhaler -] 2 inh PO Q4H PRN #1 inhaler 02/02/19 Diphenhydramine [Benadryl Capsule -] 50 mg PO BID #60 capsule 02/02/19 Divalproex [Depakote -] 250 mg PO BID #60 tablet.ec 11/29/19 Divalproex [Depakote -] 500 mg PO BID #60 tablet.ec 03/03/19 Fluoxetine HCl [Prozac -] 10 mg PO DAILY #30 capsule 03/03/19 Quetiapine Fumarate [Seroquel -] 100 mg PO DAILY #30 tablet 03/03/19 Quetiapine Fumarate [Seroquel -] 200 mg PO HS #30 tablet 03/03/19 - Medication-Assisted Treatment (MAT) Medication-Assisted Treatment (MAT): No - Discharge Instructions Diet, activity, other medical instructions: Diet: as tolerated Activity: as tolerated Other medical instructions: Please follow up with aftercare program. - Diagnosis (1) Alcohol dependence Current Visit: Yes Status: Chronic - Follow-up Referral Minutes to complete discharge: 20 - AMA Did Patient Leave Against Medical Advice: No Additional Comments: patient with early discharge due to in family.
== END 2019-03-03 12:08 | disposition home or self-care (01) | DRG 895 ==
LOC: YASAS 14:16 → Y3W 17:08
PROVIDERS: ADMIT Neuromusculoskeletal Medicine & OMM; ATTEND Neuromusculoskeletal Medicine & OMM
PROC: HZ42ZZZ Group Counseling for Substance Abuse Treatment, Cognitive-Behavioral (ICD-10-PCS; principal; 2019-03-01)
DX: F10.20 Alcohol dependence, uncomplicated (principal); F11.20 Opioid dependence, uncomplicated; F14.20 Cocaine dependence, uncomplicated; F19.282 Other psychoactive substance dependence with psychoactive substance-induced sleep disorder; F12.20 Cannabis dependence, uncomplicated; F17.210 Nicotine dependence, cigarettes, uncomplicated; F25.0 Schizoaffective disorder, bipolar type; F31.9 Bipolar disorder, unspecified; J45.909 Unspecified asthma, uncomplicated; K21.9 Gastro-esophageal reflux disease without esophagitis; M19.071 Primary osteoarthritis, right ankle and foot; R76.11 Nonspecific reaction to tuberculin skin test without active tuberculosis; Z86.19 Personal history of other infectious and parasitic diseases; Z91.5 Personal history of self-harm; Z88.8 Allergy status to other drugs, medicaments and biological substances; Z59.0 Homelessness
CPT/HCPCS: 36415; 80053; 80164; 81003; 85027; 86593; 86780; 87389

== ENCOUNTER 2019-03-30 11:08 | Inpatient (IN) | payer OTHER ==
[2019-03-30 12:02] VITALS: BMI 24.3
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
[2019-03-30] MEDS ORDERED: hydrOXYzine PAMOATE 25 MG CAPSULE (FP) PO PRN (13:27)
[2019-03-30] MEDS ORDERED: diazePAM 5 MG TABLET PO PRN (13:27)
[2019-03-30] MEDS ORDERED: MENTHOL/PHENOL 1 EACH UD MM PRN (13:27)
[2019-03-30] MEDS ORDERED: IBUPROFEN 400 MG TABLET (FP) PO PRN (13:27)
[2019-03-30] MEDS ORDERED: METHOCARBAMOL 500 MG TABLET PO PRN (13:27)
[2019-03-30] MEDS ORDERED: MAGNESIUM HYDROX 2400MG/30ML ORAL SUSPENSION 30 ML CUP PO PRN (13:27)
[2019-03-30] MEDS ORDERED: MELATONIN 5 MG TABLETS PO PRN (13:27)
[2019-03-30] MEDS ORDERED: ACETAMINOPHEN 325 MG TABLET (FP) PO PRN ×2 (13:27)
[2019-03-30] MEDS ORDERED: BISMUTH SUBSALICYLATE 262 MG/15 ML BTL PO PRN (13:27)
[2019-03-30] MEDS ORDERED: MAG HYDROX/AL HYDROX/SIMETH 30 ML UNIT-DOSE CUP PO PRN (13:27)
[2019-03-30] MEDS ORDERED: MAGNESIUM CITRATE 300 ML BOTTLE PO PRN (13:27)
[2019-03-30] MEDS ORDERED: ALBUTEROL SO4 8 GM HFA INHALER IH PRN (13:29)
[2019-03-30] MEDS: diazePAM 5 MG TABLET PO SCH ×2 (15:19→22:27)
[2019-03-30 16:05] LABS: HEMOGLOBIN 13.1 GM/dL (11.7-16.9); MCH 28.9 pg (25.7-33.7); MCHC 32.7 g/dl (32.0-35.9); MEAN CELL VOLUME 88.5 fl (80-96); MEAN PLT VOLUME 9.1 fl (7.5-11.1); PLATELET COUNT 193 K/MM3 (134-434); RBC 4.53 M/mm3 (4.00-5.60); RDW 15.5 % (11.9-15.9); WHITE BLOOD COUNT 4.3 K/mm3 (4.0-10.0)
[2019-03-30 16:14] LABS: ALBUMIN 3.6 g/dl (3.4-5.0); BILIRUBIN,TOTAL 0.1 mg/dL (0.2-1); BLOOD UREA NITROGEN 19.7 mg/dL (7-18); CALCIUM 8.6 mg/dL (8.5-10.1); CREATININE 0.9 mg/dL (0.55-1.3); POTASSIUM 4.4 mmol/L (3.5-5.1); TOT PROT 7.2 g/dl (6.4-8.2)
[2019-03-30] MEDS ORDERED: diphenhydrAMINE HCL 25 MG CAPSULE (FP) PO ONE (20:19)
[2019-03-30] MEDS ORDERED: THIAMINE HCL 100 MG TABLET (FP) PO SCH (22:00)
[2019-03-30] MEDS: diphenhydrAMINE HCL 50 MG CAPSULE PO SCH (22:27)
[2019-03-31] MEDS: diazePAM 5 MG TABLET PO SCH ×2 (05:24→16:11)
[2019-03-31] MEDS ORDERED: diphenhydrAMINE HCL 25 MG CAPSULE (FP) PO ONE (09:11)
[2019-03-31 09:15] VITALS: TEMP 97.1
[2019-03-31] MEDS ORDERED: PRENATAL VITAMINS W/ FOLIC ACID TABLET (FP) PO SCH (10:00)
--- NOTE | 2019-03-31 10:05 | PN ---
[facility] CIWA - CIWA Score Nausea/Vomitin-No Nausea/No Vomiting Muscle Tremors: 2 Anxiety: 3 Agitation: 0-Normal Activity Paroxysmal Sweats: 3 Orientation: 0-Oriented Tacttile Disturbances: 1-Very Mild Itch/Numbness Auditory Disturbances: 0-None Visual Disturbances: 0-None Headache: 2-Mild CIWA-Ar Total Score: 11 S Progress Note (SOAP) Subjective: c/o anxiety, muscle aches, sweats, headache, and shakes. Objective: 03/31/19 10:04 Vital Signs 03/31/19 03/31/19 03/31/19 03:30 06:06 09:12 Temperature 97 F L 97.1 F L Pulse Rate 68 79 Respiratory 18 16 17 Rate Blood Pressure 103/65 107/62 Laboratory Last Values WBC 4.3 K/mm3 (4.0-10.0) 03/30/19 13:35 RBC 4.53 M/mm3 (4.00-5.60) 03/30/19 13:35 Hgb 13.1 GM/dL (11.7-16.9) 03/30/19 13:35 Hct 40.0 % (35.4-49) 03/30/19 13:35 MCV 88.5 fl (80-96) 03/30/19 13:35 MCH 28.9 pg (25.7-33.7) 03/30/19 13:35 MCHC 32.7 g/dl (32.0-35.9) 03/30/19 13:35 RDW 15.5 % (11.9-15.9) 03/30/19 13:35 Plt Count 193 K/MM3 (134-434) 03/30/19 13:35 MPV 9.1 fl (7.5-11.1) 03/30/19 13:35 Sodium 141 mmol/L (136-145) 03/30/19 13:35 Potassium 4.4 mmol/L (3.5-5.1) 03/30/19 13:35 Chloride 108 mmol/L (98-107) H 03/30/19 13:35 Carbon Dioxide 29 mmol/L (21-32) 03/30/19 13:35 Anion Gap 4 MMOL/L (8-16) L 03/30/19 13:35 BUN 19.7 mg/dL (7-18) H 03/30/19 13:35 Creatinine 0.9 mg/dL (0.55-1.3) 03/30/19 13:35 Est GFR (CKD-EPI)AfAm 128.70 03/30/19 13:35 Est GFR (CKD-EPI)NonAf 111.04 03/30/19 13:35 Random Glucose 75 mg/dL (74-106) 03/30/19 13:35 Calcium 8.6 mg/dL (8.5-10.1) 03/30/19 13:35 Total Bilirubin 0.1 mg/dL (0.2-1) L 03/30/19 13:35 AST 17 U/L (15-37) 03/30/19 13:35 ALT 24 U/L (13-61) 03/30/19 13:35 Alkaline Phosphatase 61 U/L (45-117) 03/30/19 13:35 Total Protein 7.2 g/dl (6.4-8.2) 03/30/19 13:35 Albumin 3.6 g/dl (3.4-5.0) 03/30/19 13:35 Labs noted. Assessment: 03/31/19 10:04 AOX3, in no acute respiratory distress. Full ROM, ambulating in the unit. Withdrawal symptoms. Plan: continue detox.
[2019-03-31] MEDS: diphenhydrAMINE HCL 50 MG CAPSULE PO SCH (10:32)
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
[2019-03-31 14:06] LABS: RPR REACTIVE 1:1 (NONREACTIVE)
[2019-03-31 14:08] LABS: TREPONEMA ANTIBODY PREVIOUSLY REACTIVE (NONREACTIVE)
[2019-03-31 17:09] VITALS: BP 113/67; PULSE 68
[2019-03-31] MEDS ORDERED: DIVALPROEX SODIUM 250 MG TABLET E.C. PO SCH (22:00)
[2019-03-31] MEDS ORDERED: DIVALPROEX SODIUM 500 MG TABLET E.C. PO SCH (22:00)
[2019-03-31] MEDS ORDERED: QUEtiapine FUMARATE 200 MG TABLET PO SCH (22:00)
--- NOTE | 2019-03-31 23:37 | DS ---
[facility] Detox Discharge Summary Admission Date: 03/30/19 Discharge Date: 03/31/19 - History Present History: Alcohol Dependence, Opioid Dependence (Abuse) Additional Comments: Presented seeking alcohol detox. Pertinent Past History: Hx suicidal tendencies, nicotine use disorder, opioid abuse. - Physical Exam Results Vital Signs: Vital Signs Temperature 97.1 F L 03/31/19 17:08 Pulse Rate 68 03/31/19 17:08 Respiratory Rate 18 03/31/19 17:08 Blood Pressure 113/67 03/31/19 17:08 O2 Sat by Pulse Oximetry (%) Pertinent Admission Physical Exam Findings: Admitted w/alcohol withdrawal symptoms. Laboratory Last Values WBC 4.3 K/mm3 (4.0-10.0) 03/30/19 13:35 RBC 4.53 M/mm3 (4.00-5.60) 03/30/19 13:35 Hgb 13.1 GM/dL (11.7-16.9) 03/30/19 13:35 Hct 40.0 % (35.4-49) 03/30/19 13:35 MCV 88.5 fl (80-96) 03/30/19 13:35 MCH 28.9 pg (25.7-33.7) 03/30/19 13:35 MCHC 32.7 g/dl (32.0-35.9) 03/30/19 13:35 RDW 15.5 % (11.9-15.9) 03/30/19 13:35 Plt Count 193 K/MM3 (134-434) 03/30/19 13:35 MPV 9.1 fl (7.5-11.1) 03/30/19 13:35 Sodium 141 mmol/L (136-145) 03/30/19 13:35 Potassium 4.4 mmol/L (3.5-5.1) 03/30/19 13:35 Chloride 108 mmol/L (98-107) H 03/30/19 13:35 Carbon Dioxide 29 mmol/L (21-32) 03/30/19 13:35 Anion Gap 4 MMOL/L (8-16) L 03/30/19 13:35 BUN 19.7 mg/dL (7-18) H 03/30/19 13:35 Creatinine 0.9 mg/dL (0.55-1.3) 03/30/19 13:35 Est GFR (CKD-EPI)AfAm 128.70 03/30/19 13:35 Est GFR (CKD-EPI)NonAf 111.04 03/30/19 13:35 Random Glucose 75 mg/dL (74-106) 03/30/19 13:35 Calcium 8.6 mg/dL (8.5-10.1) 03/30/19 13:35 Total Bilirubin 0.1 mg/dL (0.2-1) L 03/30/19 13:35 AST 17 U/L (15-37) 03/30/19 13:35 ALT 24 U/L (13-61) 03/30/19 13:35 Alkaline Phosphatase 61 U/L (45-117) 03/30/19 13:35 Total Protein 7.2 g/dl (6.4-8.2) 03/30/19 13:35 Albumin 3.6 g/dl (3.4-5.0) 03/30/19 13:35 RPR Titer Reactive 1:1 (NONREACTIVE) H 03/30/19 13:35 T.pallidum Ab (MHA) Previously reactive (NONREACTIVE) 03/30/19 13:35 Labs reviewed. - Treatment Hospital Course: Discharged Condition Good (Patient refused to wait to see CHILD CAREGIVER. Informed that patient denies suicidal ideations and was informed of overdose risks and prevention.) - Medication Discharge Medications: Ambulatory Orders Zolpidem Tartrate [Ambien] 10 mg PO HS 11/05/17 Albuterol Sulfate Inhaler - [Ventolin HFA Inhaler -] 2 inh PO Q4H PRN #1 inhaler 02/02/19 Divalproex [Depakote -] 250 mg PO BID #60 tablet.ec 03/03/19 Divalproex [Depakote -] 500 mg PO BID #60 tablet.ec 03/03/19 Quetiapine Fumarate [Seroquel -] 100 mg PO DAILY #30 tablet 03/03/19 Quetiapine Fumarate [Seroquel -] 200 mg PO HS #30 tablet 03/03/19 Diphenhydramine [Benadryl Capsule -] 50 mg PO BID 03/30/19 Fluoxetine HCl [Prozac -] 20 mg PO DAILY 03/30/19 - Diagnosis (1) Alcohol dependence with uncomplicated withdrawal Status: Acute (2) History of suicidal tendencies Status: Acute (3) Cocaine dependence Status: Chronic Qualifiers: Substance use status: uncomplicated Qualified Code(s): F14.20 - Cocaine dependence, uncomplicated (4) History of asthma Status: Chronic (5) Nicotine dependence Status: Chronic Qualifiers: Nicotine product type: cigarettes Substance use status: uncomplicated Qualified Code(s): F17.210 - Nicotine dependence, cigarettes, uncomplicated (6) Opioid use disorder Status: Chronic - AMA Did Patient Leave Against Medical Advice: Yes
[2019-04-01] MEDS ORDERED: diazePAM 5 MG TABLET PO SCH (06:00)
[2019-04-01] MEDS ORDERED: FLUoxetine HCL 20 MG CAPSULE (FP) PO SCH (10:00)
[2019-04-01] MEDS ORDERED: QUEtiapine FUMARATE 100 MG TABLET (FP) PO SCH (10:00)
[2019-04-01] MEDS ORDERED: FLUoxetine HCL 10 MG TABLET PO SCH (10:00)
[2019-04-01] MEDS ORDERED: buPROPion HCL 75 MG TABLET PO SCH (10:00)
[2019-04-02] MEDS ORDERED: diazePAM 5 MG TABLET PO ONE (06:00)
== END 2019-03-31 19:15 | disposition home or self-care (01) | DRG 897 ==
LOC: YASAS 11:08 → Y3N 13:46
PROVIDERS: ADMIT Allergy & Immunology; ATTEND Allergy & Immunology
PROC: HZ2ZZZZ Detoxification Services for Substance Abuse Treatment (ICD-10-PCS; principal; 2019-03-30)
DX: F10.230 Alcohol dependence with withdrawal, uncomplicated (principal); F14.20 Cocaine dependence, uncomplicated; F11.10 Opioid abuse, uncomplicated; F17.210 Nicotine dependence, cigarettes, uncomplicated; F19.24 Other psychoactive substance dependence with psychoactive substance-induced mood disorder; F25.9 Schizoaffective disorder, unspecified; G47.00 Insomnia, unspecified; K21.9 Gastro-esophageal reflux disease without esophagitis; J45.20 Mild intermittent asthma, uncomplicated; Z88.8 Allergy status to other drugs, medicaments and biological substances; Z86.69 Personal history of other diseases of the nervous system and sense organs; Z87.438 Personal history of other diseases of male genital organs
CPT/HCPCS: 36415; 80053; 85027; 86593; 86780

== ENCOUNTER 2019-06-07 10:13 | Inpatient (IN) | payer OTHER ==
--- NOTE | 2019-06-07 10:25 | BHS.RME ---
Substance Use & Tx History - Substance Use History Alcohol Substance amount: 1pint vodka or bacardi Frequency of use: Daily Substance route: Oral Date of Last Use: 06/07/19 (2am) Opiates (Heroin) Substance amount: 2 bags Frequency of use: Daily Substance route: Inhalation (ex: sniffing or snorting) Date of Last Use: 06/07/19 (1am) Cocaine (Powder) Substance amount: $20 Frequency of use: Daily Substance route: Inhalation (ex: sniffing or snorting) Date of Last Use: 06/07/19 Cannabis Substance amount: 1blunt Frequency of use: Daily Substance route: Smoking Date of Last Use: 06/06/19 Physical/Psych/Mental Status - Behavior General Behavior: Decreased activity Eye Contact: Normal - Cooperativeness Cooperativeness: Cooperative - Thinking Thought Processes: Tight, Logical, Goal Directed, Loosened Thought content: Future oriented - Physical Health Problems Is patient presently having any pain?: No Does patient presently have any injuries (include location): No Does patient currently have a fever: No Is patient : No COWS - Scale Resting Pulse: 1= [place] 81-100 (no withdrawals due to use this morning.) Sweatin= Chills/Flushing Restless Observation: 1= Difficult to Sit Still Bone or Joint Aches: 1= Mild Discomfort Runny Nose/ Eye Tearin= None GI Upset > 30mins: 1= Stomach Cramp Tremor Observation: 0= None Yawning Observation: 0= None Anxiety or Irritability: 1=Feels Anxious/Irritable Goose Flesh Skin: 0=Smooth Skin CIWA Nausea/Vomitin-No Nausea/No Vomiting Muscle Tremors: 1-None Visible, but [place] Anxiety: 3 Agitation: 1-Slight > Activity Paroxysmal Sweats: No Perspiration Orientation: 0-Oriented Tacttile Disturbances: 0-None Auditory Disturbances: 0-None Visual Disturbances: 0-None Headache: 0-None Present (not yet in withdrawals due to use early this morning.) CIWA-Ar Total Score: 5
[2019-06-07 11:21] VITALS: BMI 25.1
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
[2019-06-07] MEDS ORDERED: chlordiazePOXIDE HCL 25 MG CAPSULE PO PRN (12:00)
[2019-06-07] MEDS ORDERED: MENTHOL/PHENOL 1 EACH UD MM PRN (12:00)
[2019-06-07] MEDS ORDERED: MAG HYDROX/AL HYDROX/SIMETH 30 ML UNIT-DOSE CUP PO PRN (12:00)
[2019-06-07] MEDS ORDERED: MAGNESIUM HYDROX 2400MG/30ML ORAL SUSPENSION 30 ML CUP PO PRN (12:00)
[2019-06-07] MEDS ORDERED: ACETAMINOPHEN 325 MG TABLET (FP) PO PRN ×2 (12:00)
[2019-06-07] MEDS ORDERED: MAGNESIUM CITRATE 300 ML BOTTLE PO PRN (12:00)
[2019-06-07] MEDS ORDERED: BISMUTH SUBSALICYLATE 262 MG/15 ML BTL PO PRN (12:00)
[2019-06-07] MEDS ORDERED: NICOTINE POLACRILEX 2 MG GUM BUC PRN (12:00)
[2019-06-07] MEDS ORDERED: cloNIDine HCL 0.1 MG TABLET PO PRN (12:00)
[2019-06-07] MEDS ORDERED: METHADONE HCL 10 MG TABLET (FOR DETOX USE ONLY) PO ONE (12:00)
[2019-06-07] MEDS ORDERED: ALBUTEROL SO4 HFA INHALER IH PRN (12:03)
[2019-06-07] MEDS ORDERED: ONDANSETRON *ODT* 4 MG TABLET SL ONE (12:15)
[2019-06-07] MEDS ORDERED: hydrOXYzine PAMOATE 25 MG CAPSULE (FP) PO SCH (14:00)
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
[2019-06-07] MEDS ORDERED: hydrOXYzine PAMOATE 25 MG CAPSULE (FP) PO PRN (15:07)
[2019-06-07 15:23] LABS: HEMATOCRIT 43.3 % (35.4-49); HEMOGLOBIN 14.2 GM/dL (11.7-16.9); MCH 29.6 pg (25.7-33.7); MCHC 32.9 g/dl (32.0-35.9); MEAN CELL VOLUME 90.2 fl (80-96); MEAN PLT VOLUME 8.6 fl (7.5-11.1); PLATELET COUNT 238 K/MM3 (134-434); RDW 14.8 % (11.9-15.9); WHITE BLOOD COUNT 9.7 K/mm3 (4.0-10.0)
[2019-06-07 15:41] LABS: ALBUMIN 4.2 g/dl (3.4-5.0); BILIRUBIN,TOTAL 0.6 mg/dL (0.2-1); BLOOD UREA NITROGEN 25.5 mg/dL (7-18); POTASSIUM 4.3 mmol/L (3.5-5.1); TOT PROT 8.2 g/dl (6.4-8.2)
[2019-06-07] MEDS: chlordiazePOXIDE HCL 25 MG CAPSULE PO SCH ×2 (17:35→22:13)
[2019-06-07] MEDS: IBUPROFEN 400 MG TABLET (FP) PO PRN (17:38)
[2019-06-07] MEDS ORDERED: SUVOREXANT 10 MG TABLET PO PRN (22:00)
[2019-06-07] MEDS: DIVALPROEX SODIUM 500 MG TABLET E.C. PO SCH (22:13)
[2019-06-07] MEDS: THIAMINE HCL 100 MG TABLET (FP) PO SCH (22:13)
[2019-06-07] MEDS: MELATONIN 5 MG TABLETS PO SCH (22:41)
[2019-06-07] MEDS: METHOCARBAMOL 500 MG TABLET PO PRN (22:48)
[2019-06-07] MEDS: QUEtiapine FUMARATE 200 MG TABLET PO SCH (22:51)
[2019-06-08] MEDS: chlordiazePOXIDE HCL 25 MG CAPSULE PO SCH ×4 (07:51→22:14)
[2019-06-08] MEDS ORDERED: METHADONE (DETOX) 20 MG, METHADONE (DETOX) 5 MG PO ONE (10:00)
[2019-06-08] MEDS ORDERED: METHADONE HCL 5 MG TABLET (FOR DETOX USE ONLY) ONE (10:09)
[2019-06-08] MEDS ORDERED: METHADONE HCL 10 MG TABLET (FOR DETOX USE ONLY) ONE (10:10)
--- NOTE | 2019-06-08 10:46 | PN ---
S CIWA - CIWA Score Nausea/Vomitin Muscle Tremors: 2 Anxiety: 2 Agitation: 2 Paroxysmal Sweats: No Perspiration Orientation: 0-Oriented Tacttile Disturbances: 1-Very Mild Itch/Numbness Auditory Disturbances: 0-None Visual Disturbances: 0-None Headache: 2-Mild CIWA-Ar Total Score: 11 BHS COWS - Scale Resting Pulse: 0= [place] 80 or Below Sweatin= No chills or Flushing Restless Observation: 1= Difficult to Sit Still Pupil Size: 1= Pupils >than Normal Bone or Joint Aches: 1= Mild Discomfort Runny Nose/ Eye Tearin= Nasal Congestion GI Upset > 30mins: 1= Stomach Cramp Tremor Observation of Outstretched Hands: 2= Slight Tremor Visible Yawning Observation: 1= 1-2x During Session Anxiety or Irritability: 2=Irritable/Anxious Goose Flesh Skin: 0=Smooth Skin COWS Score: 10 S Progress Note (SOAP) Subjective: alert,irritable,anxious,interrupted sleep,tremor,pain in the body and back Objective: 06/08/19 10:44 Vital Signs Temperature 97.7 F 06/08/19 08:43 Pulse Rate 88 06/08/19 08:43 Respiratory Rate 18 06/08/19 08:43 Blood Pressure 97/62 06/08/19 08:43 O2 Sat by Pulse Oximetry (%) 06/08/19 10:44 Laboratory Last Values WBC 9.7 K/mm3 (4.0-10.0) 06/07/19 12:05 RBC 4.80 M/mm3 (4.00-5.60) 06/07/19 12:05 Hgb 14.2 GM/dL (11.7-16.9) 06/07/19 12:05 Hct 43.3 % (35.4-49) 06/07/19 12:05 MCV 90.2 fl (80-96) 06/07/19 12:05 MCH 29.6 pg (25.7-33.7) 06/07/19 12:05 MCHC 32.9 g/dl (32.0-35.9) 06/07/19 12:05 RDW 14.8 % (11.9-15.9) 06/07/19 12:05 Plt Count 238 K/MM3 (134-434) D 06/07/19 12:05 MPV 8.6 fl (7.5-11.1) 06/07/19 12:05 Sodium 142 mmol/L (136-145) 06/07/19 12:05 Potassium 4.3 mmol/L (3.5-5.1) 06/07/19 12:05 Chloride 108 mmol/L (98-107) H 06/07/19 12:05 Carbon Dioxide 28 mmol/L (21-32) 06/07/19 12:05 Anion Gap 6 MMOL/L (8-16) L 06/07/19 12:05 BUN 25.5 mg/dL (7-18) H 06/07/19 12:05 Creatinine 1.0 mg/dL (0.55-1.3) 06/07/19 12:05 Est GFR (CKD-EPI)AfAm 113.31 06/07/19 12:05 Est GFR (CKD-EPI)NonAf 97.76 06/07/19 12:05 Random Glucose 98 mg/dL (74-106) 06/07/19 12:05 Calcium 9.0 mg/dL (8.5-10.1) 06/07/19 12:05 Total Bilirubin 0.6 mg/dL (0.2-1) 06/07/19 12:05 AST 63 U/L (15-37) H 06/07/19 12:05 ALT 35 U/L (13-61) 06/07/19 12:05 Alkaline Phosphatase 67 U/L (45-117) 06/07/19 12:05 Total Protein 8.2 g/dl (6.4-8.2) 06/07/19 12:05 Albumin 4.2 g/dl (3.4-5.0) 06/07/19 12:05 Assessment: 06/08/19 10:45 withdrawal symptom Plan: continue detox methadone and librium regimen,encourage oral fluid,repeat cmp,inr in am
[2019-06-08] MEDS: PRENATAL VITAMINS W/ FOLIC ACID TABLET (FP) PO SCH (11:43)
[2019-06-08] MEDS: DIVALPROEX SODIUM 500 MG TABLET E.C. PO SCH ×2 (11:43→22:14)
[2019-06-08] MEDS: FLUoxetine HCL 20 MG CAPSULE PO SCH (11:43)
[2019-06-08] MEDS: NICOTINE 7 MG/24 HOURS TOPICAL PATCH TD SCH (11:43)
[2019-06-08 14:27] LABS: RPR REACTIVE 1:1 (NONREACTIVE)
[2019-06-08 14:28] LABS: TREPONEMA ANTIBODY PREVIOUSLY REACTIVE (NONREACTIVE)
[2019-06-08] MEDS ORDERED: TRIMETHOBENZAMIDE HCL 200MG/2ML INJ IM ONE (19:00)
[2019-06-08] MEDS: QUEtiapine FUMARATE 200 MG TABLET PO SCH (22:14)
[2019-06-08] MEDS: THIAMINE HCL 100 MG TABLET (FP) PO SCH (22:14)
[2019-06-08] MEDS: IBUPROFEN 400 MG TABLET (FP) PO PRN (22:21)
[2019-06-08] MEDS: MELATONIN 5 MG TABLETS PO SCH (22:22)
[2019-06-09] MEDS: chlordiazePOXIDE HCL 25 MG CAPSULE PO SCH ×4 (05:28→23:18)
[2019-06-09] MEDS ORDERED: METHADONE HCL 10 MG TABLET (FOR DETOX USE ONLY) PO ONE (10:00)
[2019-06-09 10:44] LABS: ALBUMIN 3.2 g/dl (3.4-5.0); BILIRUBIN,TOTAL 0.6 mg/dL (0.2-1); BLOOD UREA NITROGEN 12.4 mg/dL (7-18); CALCIUM 8.4 mg/dL (8.5-10.1); CREATININE 0.9 mg/dL (0.55-1.3); INR 0.85 (0.83-1.09); POTASSIUM 4.2 mmol/L (3.5-5.1); TOT PROT 6.6 g/dl (6.4-8.2)
[2019-06-09] MEDS: FLUoxetine HCL 20 MG CAPSULE PO SCH (10:51)
[2019-06-09] MEDS: PRENATAL VITAMINS W/ FOLIC ACID TABLET (FP) PO SCH (10:51)
[2019-06-09] MEDS: NICOTINE 7 MG/24 HOURS TOPICAL PATCH TD SCH (10:51)
[2019-06-09] MEDS: buPROPion HCL 75 MG TABLET PO SCH (10:51)
[2019-06-09] MEDS: DIVALPROEX SODIUM 500 MG TABLET E.C. PO SCH ×2 (10:51→23:18)
[2019-06-09] MEDS: METHOCARBAMOL 500 MG TABLET PO PRN (11:06)
[2019-06-09] MEDS: IBUPROFEN 400 MG TABLET (FP) PO PRN (11:06)
--- NOTE | 2019-06-09 11:46 | PN ---
[facility] CIWA - CIWA Score Nausea/Vomitin-Mild Nausea/No Vomiting Muscle Tremors: 1-None Visible, but [place] Anxiety: 2 Agitation: 2 Paroxysmal Sweats: No Perspiration Orientation: 0-Oriented Tacttile Disturbances: 1-Very Mild Itch/Numbness Auditory Disturbances: 0-None Visual Disturbances: 0-None Headache: 1-Very Mild CIWA-Ar Total Score: 8 BHS COWS - Scale Resting Pulse: 0= [place] 80 or Below Sweatin= No chills or Flushing Restless Observation: 1= Difficult to Sit Still Pupil Size: 1= Pupils >than Normal Bone or Joint Aches: 1= Mild Discomfort Runny Nose/ Eye Tearin= Nasal Congestion GI Upset > 30mins: 1= Stomach Cramp Tremor Observation of Outstretched Hands: 2= Slight Tremor Visible Yawning Observation: 1= 1-2x During Session Anxiety or Irritability: 2=Irritable/Anxious Goose Flesh Skin: 0=Smooth Skin COWS Score: 10 S Progress Note (SOAP) Subjective: alert,irritable,anxiuos,interrupted sleep,pain in the body and back Objective: 06/09/19 11:45 Vital Signs Temperature 97.7 F 06/09/19 08:55 Pulse Rate 71 06/09/19 08:55 Respiratory Rate 20 06/09/19 08:55 Blood Pressure 119/64 06/09/19 08:55 O2 Sat by Pulse Oximetry (%) Laboratory Last Values WBC 9.7 K/mm3 (4.0-10.0) 06/07/19 12:05 RBC 4.80 M/mm3 (4.00-5.60) 06/07/19 12:05 Hgb 14.2 GM/dL (11.7-16.9) 06/07/19 12:05 Hct 43.3 % (35.4-49) 06/07/19 12:05 MCV 90.2 fl (80-96) 06/07/19 12:05 MCH 29.6 pg (25.7-33.7) 06/07/19 12:05 MCHC 32.9 g/dl (32.0-35.9) 06/07/19 12:05 RDW 14.8 % (11.9-15.9) 06/07/19 12:05 Plt Count 238 K/MM3 (134-434) D 06/07/19 12:05 MPV 8.6 fl (7.5-11.1) 06/07/19 12:05 PT with INR 10.00 SEC (9.7-13.0) 06/09/19 07:45 INR 0.85 (0.83-1.09) 06/09/19 07:45 Sodium 139 mmol/L (136-145) 06/09/19 07:45 Potassium 4.2 mmol/L (3.5-5.1) 06/09/19 07:45 Chloride 99 mmol/L (98-107) 06/09/19 07:45 Carbon Dioxide 36 mmol/L (21-32) H 06/09/19 07:45 Anion Gap 4 MMOL/L (8-16) L 06/09/19 07:45 BUN 12.4 mg/dL (7-18) 06/09/19 07:45 Creatinine 0.9 mg/dL (0.55-1.3) 06/09/19 07:45 Est GFR (CKD-EPI)AfAm 128.70 06/09/19 07:45 Est GFR (CKD-EPI)NonAf 111.04 06/09/19 07:45 Random Glucose 101 mg/dL (74-106) 06/09/19 07:45 Calcium 8.4 mg/dL (8.5-10.1) L 06/09/19 07:45 Total Bilirubin 0.6 mg/dL (0.2-1) 06/09/19 07:45 AST 26 U/L (15-37) 06/09/19 07:45 ALT 24 U/L (13-61) 06/09/19 07:45 Alkaline Phosphatase 52 U/L (45-117) 06/09/19 07:45 Total Protein 6.6 g/dl (6.4-8.2) 06/09/19 07:45 Albumin 3.2 g/dl (3.4-5.0) L 06/09/19 07:45 RPR Titer Reactive 1:1 (NONREACTIVE) H 06/08/19 09:00 T.pallidum Ab (MHA) Previously reactive (NONREACTIVE) 06/08/19 09:00 patient was treated for syphilis 4 years ago Assessment: 06/09/19 11:46 withdrawal symptom Plan: continue detox with methadone and librium
[2019-06-09] MEDS: MELATONIN 5 MG TABLETS PO SCH (23:17)
[2019-06-09] MEDS: QUEtiapine FUMARATE 200 MG TABLET PO SCH (23:18)
[2019-06-09] MEDS: THIAMINE HCL 100 MG TABLET (FP) PO SCH (23:18)
[2019-06-10] MEDS ORDERED: chlordiazePOXIDE HCL 10 MG CAPSULE PO PRN
[2019-06-10] MEDS: chlordiazePOXIDE HCL 10 MG CAPSULE PO SCH ×4 (06:54→23:22)
[2019-06-10] MEDS ORDERED: METHADONE HCL 5 MG TABLET (FOR DETOX USE ONLY) ONE (09:10)
[2019-06-10] MEDS ORDERED: METHADONE HCL 10 MG TABLET (FOR DETOX USE ONLY) ONE (09:11)
[2019-06-10] MEDS ORDERED: METHADONE (DETOX) 10 MG, METHADONE (DETOX) 5 MG PO ONE (10:00)
[2019-06-10] MEDS: DIVALPROEX SODIUM 500 MG TABLET E.C. PO SCH ×2 (10:25→22:26)
[2019-06-10] MEDS: PRENATAL VITAMINS W/ FOLIC ACID TABLET (FP) PO SCH (10:25)
[2019-06-10] MEDS: buPROPion HCL 75 MG TABLET PO SCH (10:26)
[2019-06-10] MEDS: FLUoxetine HCL 20 MG CAPSULE PO SCH (10:26)
[2019-06-10] MEDS: NICOTINE 7 MG/24 HOURS TOPICAL PATCH TD SCH (10:35)
--- NOTE | 2019-06-10 12:10 | PN ---
S CIWA - CIWA Score Nausea/Vomitin-Mild Nausea/No Vomiting Muscle Tremors: 1-None Visible, but [place] Anxiety: 2 Agitation: 2 Orientation: 0-Oriented Tacttile Disturbances: 1-Very Mild Itch/Numbness Auditory Disturbances: 0-None Visual Disturbances: 0-None Headache: 1-Very Mild BHS COWS - Scale Resting Pulse: 0= [place] 80 or Below Sweatin= No chills or Flushing Restless Observation: 1= Difficult to Sit Still Pupil Size: 1= Pupils >than Normal Bone or Joint Aches: 1= Mild Discomfort Runny Nose/ Eye Tearin= Nasal Congestion GI Upset > 30mins: 1= Stomach Cramp Tremor Observation of Outstretched Hands: 1= Tremor [place], Not Seen Yawning Observation: 1= 1-2x During Session Anxiety or Irritability: 2=Irritable/Anxious Goose Flesh Skin: 0=Smooth Skin COWS Score: 9 S Progress Note (SOAP) Subjective: alert,irritable,anxious,interrupted sleep,pain in the body and back Objective: 06/10/19 12:08 Vital Signs Temperature 99.4 F 06/10/19 08:39 Pulse Rate 94 H 06/10/19 08:39 Respiratory Rate 18 06/10/19 08:39 Blood Pressure 111/61 06/10/19 08:39 O2 Sat by Pulse Oximetry (%) Laboratory Last Values WBC 9.7 K/mm3 (4.0-10.0) 06/07/19 12:05 RBC 4.80 M/mm3 (4.00-5.60) 06/07/19 12:05 Hgb 14.2 GM/dL (11.7-16.9) 06/07/19 12:05 Hct 43.3 % (35.4-49) 06/07/19 12:05 MCV 90.2 fl (80-96) 06/07/19 12:05 MCH 29.6 pg (25.7-33.7) 06/07/19 12:05 MCHC 32.9 g/dl (32.0-35.9) 06/07/19 12:05 RDW 14.8 % (11.9-15.9) 06/07/19 12:05 Plt Count 238 K/MM3 (134-434) D 06/07/19 12:05 MPV 8.6 fl (7.5-11.1) 06/07/19 12:05 PT with INR 10.00 SEC (9.7-13.0) 06/09/19 07:45 INR 0.85 (0.83-1.09) 06/09/19 07:45 Sodium 139 mmol/L (136-145) 06/09/19 07:45 Potassium 4.2 mmol/L (3.5-5.1) 06/09/19 07:45 Chloride 99 mmol/L (98-107) 06/09/19 07:45 Carbon Dioxide 36 mmol/L (21-32) H 06/09/19 07:45 Anion Gap 4 MMOL/L (8-16) L 06/09/19 07:45 BUN 12.4 mg/dL (7-18) 06/09/19 07:45 Creatinine 0.9 mg/dL (0.55-1.3) 06/09/19 07:45 Est GFR (CKD-EPI)AfAm 128.70 06/09/19 07:45 Est GFR (CKD-EPI)NonAf 111.04 06/09/19 07:45 Random Glucose 101 mg/dL (74-106) 06/09/19 07:45 Calcium 8.4 mg/dL (8.5-10.1) L 06/09/19 07:45 Total Bilirubin 0.6 mg/dL (0.2-1) 06/09/19 07:45 AST 26 U/L (15-37) 06/09/19 07:45 ALT 24 U/L (13-61) 06/09/19 07:45 Alkaline Phosphatase 52 U/L (45-117) 06/09/19 07:45 Total Protein 6.6 g/dl (6.4-8.2) 06/09/19 07:45 Albumin 3.2 g/dl (3.4-5.0) L 06/09/19 07:45 RPR Titer Reactive 1:1 (NONREACTIVE) H 06/08/19 09:00 T.pallidum Ab (MHA) Previously reactive (NONREACTIVE) 06/08/19 09:00 Assessment: 06/10/19 12:09 withdrawal symptom Plan: continue detox methadone and librium regimen
[2019-06-10] MEDS: THIAMINE HCL 100 MG TABLET (FP) PO SCH (22:27)
[2019-06-10] MEDS: QUEtiapine FUMARATE 200 MG TABLET PO SCH (23:22)
[2019-06-10] MEDS: MELATONIN 5 MG TABLETS PO SCH (23:23)
[2019-06-11] MEDS: chlordiazePOXIDE HCL 10 MG CAPSULE PO SCH ×2 (06:17→18:38)
[2019-06-11] MEDS ORDERED: METHADONE HCL 10 MG TABLET (FOR DETOX USE ONLY) PO ONE (10:00)
[2019-06-11] MEDS: buPROPion HCL 75 MG TABLET PO SCH (10:43)
[2019-06-11] MEDS: DIVALPROEX SODIUM 500 MG TABLET E.C. PO SCH ×2 (10:43→22:31)
[2019-06-11] MEDS: FLUoxetine HCL 20 MG CAPSULE PO SCH (10:43)
[2019-06-11] MEDS: NICOTINE 7 MG/24 HOURS TOPICAL PATCH TD SCH (10:43)
[2019-06-11] MEDS: PRENATAL VITAMINS W/ FOLIC ACID TABLET (FP) PO SCH (10:43)
--- NOTE | 2019-06-11 12:00 | PN ---
[facility] CIWA - CIWA Score Nausea/Vomitin-No Nausea/No Vomiting Muscle Tremors: None Anxiety: 1-Mildly Anxious Agitation: 0-Normal Activity Paroxysmal Sweats: No Perspiration Orientation: 0-Oriented Tacttile Disturbances: 0-None Auditory Disturbances: 0-None Visual Disturbances: 0-None Headache: 0-None Present CIWA-Ar Total Score: 1 [facility] COWS - Scale Resting Pulse: 0= [place] 80 or Below Sweatin= No chills or Flushing Restless Observation: 1= Difficult to Sit Still Pupil Size: 0= Normal to Room Light Bone or Joint Aches: 0= None Runny Nose/ Eye Tearin= Nasal Congestion GI Upset > 30mins: 0= None Tremor Observation of Outstretched Hands: 0= None Yawning Observation: 1= 1-2x During Session Anxiety or Irritability: 0= None Goose Flesh Skin: 0=Smooth Skin COWS Score: 3 [facility] Progress Note (SOAP) Subjective: feeling better tired little anxiety Objective: 06/11/19 12:08 Vital Signs Temperature 98.1 F 06/11/19 09:12 Pulse Rate 77 06/11/19 09:12 Respiratory Rate 18 06/11/19 09:12 Blood Pressure 117/68 06/11/19 09:12 O2 Sat by Pulse Oximetry (%) aaox3 ambulating no acute distress Assessment: 06/11/19 12:08 withdrawals Plan: continue detox d/c in am
[2019-06-11] MEDS: QUEtiapine FUMARATE 200 MG TABLET PO SCH (22:32)
[2019-06-11] MEDS: THIAMINE HCL 100 MG TABLET (FP) PO SCH (22:32)
[2019-06-11] MEDS: MELATONIN 5 MG TABLETS PO SCH (22:32)
[2019-06-12] MEDS ORDERED: chlordiazePOXIDE HCL 10 MG CAPSULE PO ONE (05:00)
[2019-06-12] MEDS ORDERED: METHADONE HCL 5 MG TABLET (FOR DETOX USE ONLY) PO ONE (06:00)
--- NOTE | 2019-06-12 09:25 | DS ---
[facility] Detox Discharge Summary Admission Date: 06/07/19 Discharge Date: 06/12/19 - History Present History: Alcohol Dependence, Cannabis Dependence, Cocaine Dependence, Opioid Dependence - Physical Exam Results Vital Signs: Vital Signs Temperature 97.5 F L 06/12/19 05:40 Pulse Rate 70 06/12/19 05:40 Respiratory Rate 18 06/12/19 05:40 Blood Pressure 138/75 06/12/19 05:40 O2 Sat by Pulse Oximetry (%) Pertinent Admission Physical Exam Findings: Vital Signs Temperature 97.5 F L 06/12/19 05:40 Pulse Rate 70 06/12/19 05:40 Respiratory Rate 18 06/12/19 05:40 Blood Pressure 138/75 06/12/19 05:40 O2 Sat by Pulse Oximetry (%) Laboratory Tests 06/07/19 06/07/19 06/08/19 12:05 12:05 09:00 WBC 9.7 RBC 4.80 Hgb 14.2 Hct 43.3 MCV 90.2 MCH 29.6 MCHC 32.9 RDW 14.8 Plt Count 238 D MPV 8.6 PT with INR INR Sodium 142 Potassium 4.3 Chloride 108 H Carbon Dioxide 28 Anion Gap 6 L BUN 25.5 H Creatinine 1.0 Est GFR (CKD-EPI)AfAm 113.31 Est GFR (CKD-EPI)NonAf 97.76 Random Glucose 98 Calcium 9.0 Total Bilirubin 0.6 AST 63 H ALT 35 Alkaline Phosphatase 67 Total Protein 8.2 Albumin 4.2 RPR Titer Reactive 1:1 H T.pallidum Ab (MHA) Previously reactive 06/09/19 06/09/19 07:45 07:45 WBC RBC Hgb Hct MCV MCH MCHC RDW Plt Count MPV PT with INR 10.00 INR 0.85 Sodium 139 Potassium 4.2 Chloride 99 Carbon Dioxide 36 H Anion Gap 4 L BUN 12.4 Creatinine 0.9 Est GFR (CKD-EPI)AfAm 128.70 Est GFR (CKD-EPI)NonAf 111.04 Random Glucose 101 Calcium 8.4 L Total Bilirubin 0.6 AST 26 ALT 24 Alkaline Phosphatase 52 Total Protein 6.6 Albumin 3.2 L RPR Titer T.pallidum Ab (MHA) aaox3 ambulating no acute distress lungs CTA - Treatment Hospital Course: Detox Protocol Followed, Detoxed Safely, Responded well, Discharged Condition Good, Rehab Referral Accepted - Medication Discharge Medications: Ambulatory Orders Zolpidem Tartrate [Ambien] 10 mg PO HS 11/05/17 Albuterol Sulfate Inhaler - [Ventolin HFA Inhaler -] 2 inh PO Q4H PRN #1 inhaler 02/02/19 Divalproex [Depakote -] 250 mg PO BID #60 tablet.ec 03/03/19 Divalproex [Depakote -] 500 mg PO BID #60 tablet.ec 03/03/19 Quetiapine Fumarate [Seroquel -] 100 mg PO DAILY #30 tablet 03/03/19 Quetiapine Fumarate [Seroquel -] 200 mg PO HS #30 tablet 03/03/19 Fluoxetine HCl [Prozac -] 20 mg PO DAILY 03/30/19 - Diagnosis (1) Alcohol dependence with uncomplicated withdrawal Current Visit: Yes Status: Chronic (2) Cannabis dependence Current Visit: Yes Status: Chronic (3) Opioid dependence with withdrawal Current Visit: Yes Status: Acute (4) Nicotine dependence Current Visit: Yes Status: Chronic Qualifiers: Nicotine product type: cigarettes Substance use status: uncomplicated Qualified Code(s): F17.210 - Nicotine dependence, cigarettes, uncomplicated (5) Cocaine dependence Current Visit: Yes Status: Chronic Qualifiers: Substance use status: uncomplicated Qualified Code(s): F14.20 - Cocaine dependence, uncomplicated (6) Substance-induced sleep disorder Current Visit: No Status: Acute (7) Asthma Current Visit: No Status: Chronic Qualifiers: Asthma severity: mild Asthma persistence: intermittent Asthma complication type: uncomplicated Qualified Code(s): J45.20 - Mild intermittent asthma, uncomplicated (8) Cannabis dependence Current Visit: No Status: Chronic (9) GERD (gastroesophageal reflux disease) Current Visit: Yes Status: Chronic Qualifiers: Esophagitis presence: without esophagitis Qualified Code(s): K21.9 - Gastro-esophageal reflux disease without esophagitis (10) History of asthma Current Visit: No Status: Chronic (11) Insomnia Current Visit: No Status: Chronic (12) Opioid dependence on agonist therapy Current Visit: No Status: Chronic (13) Opioid use disorder Current Visit: No Status: Chronic (14) Osteoarthritis of right ankle Current Visit: No Status: Chronic Qualifiers: Osteoarthritis type: unspecified Qualified Code(s): M19.071 - Primary osteoarthritis, right ankle and foot (15) Schizoaffective disorder Current Visit: No Status: Chronic Qualifiers: Schizoaffective disorder type: bipolar Qualified Code(s): F25.0 - Schizoaffective disorder, bipolar type (16) Substance induced mood disorder Current Visit: No Status: Chronic (17) Psychiatric disorder Current Visit: No Status: Suspected (18) Substance induced mood disorder Current Visit: No Status: Suspected (19) Fracture of left upper extremity Current Visit: No Status: Resolved Qualifiers: Encounter type: sequela Fracture type: closed Qualified Code(s): S42.302S - Unspecified fracture of shaft of humerus, left arm, sequela (20) Fracture of right lower extremity Current Visit: No Status: Resolved Qualifiers: Encounter type: initial encounter Fracture type: closed Qualified Code(s): S82.91XA - Unspecified fracture of right lower leg, initial encounter for closed fracture (21) History of syphilis Current Visit: No Status: Resolved (22) Positive RPR test Current Visit: No Status: Resolved (23) Bipolar disorder Current Visit: No Status: Ruled-out Qualifiers: Most recent bipolar episode type: most recent episode unspecified type (24) Bipolar disorder Current Visit: No Status: Ruled-out - AMA Did Patient Leave Against Medical Advice: No
[2019-06-12] MEDS: PRENATAL VITAMINS W/ FOLIC ACID TABLET (FP) PO SCH (10:26)
[2019-06-12] MEDS: DIVALPROEX SODIUM 500 MG TABLET E.C. PO SCH (10:26)
[2019-06-12] MEDS: NICOTINE 7 MG/24 HOURS TOPICAL PATCH TD SCH (10:26)
[2019-06-12] MEDS: FLUoxetine HCL 20 MG CAPSULE PO SCH (10:27)
[2019-06-12] MEDS: buPROPion HCL 75 MG TABLET PO SCH (10:27)
[2019-06-12 10:45] VITALS: BP 106/56; PULSE 79; TEMP 96.9
== END 2019-06-12 12:20 | disposition other institution (70) | DRG 897 ==
LOC: YASAS 10:13 → Y6N 12:07
PROVIDERS: ADMIT Allergy & Immunology; ATTEND Allergy & Immunology
PROC: HZ2ZZZZ Detoxification Services for Substance Abuse Treatment (ICD-10-PCS; principal; 2019-06-07)
DX: F10.230 Alcohol dependence with withdrawal, uncomplicated (principal); F14.20 Cocaine dependence, uncomplicated; F11.23 Opioid dependence with withdrawal; F12.20 Cannabis dependence, uncomplicated; F17.210 Nicotine dependence, cigarettes, uncomplicated; F19.24 Other psychoactive substance dependence with psychoactive substance-induced mood disorder; F25.0 Schizoaffective disorder, bipolar type; J45.20 Mild intermittent asthma, uncomplicated; K21.9 Gastro-esophageal reflux disease without esophagitis; G47.00 Insomnia, unspecified; M19.071 Primary osteoarthritis, right ankle and foot; Z62.810 Personal history of physical and sexual abuse in childhood; Z86.19 Personal history of other infectious and parasitic diseases; Z56.0 Unemployment, unspecified; Z88.8 Allergy status to other drugs, medicaments and biological substances; Z91.5 Personal history of self-harm
CPT/HCPCS: 36415; 80053; 85027; 85610; 86593; 86780

== ENCOUNTER 2019-11-05 13:41 | Inpatient (IN) | payer OTHER ==
[2019-11-05 16:17] VITALS: BMI 24.7
--- NOTE | 2019-11-05 16:50 | BHS.RME ---
Substance Use & Tx History - Substance Use History Alcohol Substance amount: 2pints of bacardi/3 of 12 ozs of beer Substance route: Oral Date of Last Use: 11/05/19 Cocaine- Powder Substance amount: 20$ to 50$ Frequency of use: Daily Substance route: Inhalation (ex: sniffing or snorting) Date of Last Use: 11/04/19 - Last Treatment Date of last treatment: 06/07/19 to 06/12/19 [facility], Where was last treatment: Rehab Physical/Psych/Mental Status - Behavior Eye Contact: Normal - Cooperativeness Cooperativeness: Cooperative - Thinking Thought Processes: Logical Thought content: Future oriented - Physical Health Problems Is patient presently having any pain?: No Does patient presently have any injuries (include location): No Does patient currently have a fever: No CIWA Nausea/Vomitin Muscle Tremors: 3 Anxiety: 3 Agitation: 3 Paroxysmal Sweats: 1-Minimal Palms Moist Orientation: 0-Oriented Tacttile Disturbances: 1-Very Mild Itch/Numbness Auditory Disturbances: 0-None Visual Disturbances: 0-None Headache: 2-Mild CIWA-Ar Total Score: 15
--- NOTE | 2019-11-05 17:02 | HP ---
CIWA Score Nausea/Vomitin Muscle Tremors: 3 Anxiety: 3 Agitation: 3 Paroxysmal Sweats: 1-Minimal Palms Moist Orientation: 0-Oriented Tacttile Disturbances: 1-Very Mild Itch/Numbness Auditory Disturbances: 0-None Visual Disturbances: 0-None Headache: 2-Mild CIWA-Ar Total Score: 15 - Admission Criteria OASAS Guidelines: Admission for Medically Managed Detox: Requires at least one of the followin. CIWA greater than 12 2. Seizures within the past 24 hours 3. Delirium tremens within the past 24 hours 4. Hallucinations within the past 24 hours 5. Acute intervention needed for co occurring medical disorder 6. Acute intervention needed for co occurring psychiatric disorder 7. Severe withdrawal that cannot be handled at a lower level of care (continued vomiting, continued diarrhea, abnormal vital signs) requiring intravenous medication and/or fluids 8. Admitting History and Physical - Admission Chief Complaint: i need help to stop drinking alcohol,cocaine dependence,on subxone History of Present Illness: this 34 years old male with alcohol and cocaine dependence also stated suboxone 2mg/0.5 mg tab last taken 2 days ago, unable to identified on i stop History Source: Patient, Caregiver - Past Medical History BANQUET DIRECTOR: Yes: Seizure Pulmonary: Yes: Asthma Psych: Yes: Other (scizoaffective) - Past Surgical History Past Surgical History: Yes: None - Smoking History Smoking history: Current some day smoker Have you smoked in the past 12 months: Yes Aproximately how many cigarettes per day: 1 If you are a former smoker, when did you quit?: 06/07/2018 - Alcohol/Substance Use Hx Alcohol Use: Yes History of Substance Use: reports: Cocaine Date of Last Use: 11/05/19 - Social History Usual Living Arrangement: Yes: Alone Do you think of yourself as: Straight/Heterosexual ADL: Support Services Occupation: unemployed History of Recent Travel: No Other Social History: unemployed,no legal issue,positive eye lock tender Admission ROS BHS - HPI Chief Complaint: i need help o stop drinking alcohol,cocaine,stated on suboxone maintenance Allergies/Adverse Reactions: Allergies Allergy/AdvReac Type Severity Reaction Status Date / Time haloperidol [From Haldol] Allergy Severe stiffness Verified 11/05/19 17:05 risperidone [From Risperdal] AdvReac stiffness Verified 11/05/19 17:05 History of Present Illness: this 34 years old male with alcohol and cocaine dependence seeking detox,also stated on suboxone tab 2 mgs/0.5 mg ,unable to identified by i stop Exam Limitations: No Limitations - Ebola screening Have you traveled outside of the country in the last 21 days: No Have you had contact with anyone from an Ebola affected area: No Have you been sick,other than usual withdrawal symptoms: No Do you have a fever: No - Review of Systems Constitutional: Malaise, Night Sweats, Changes in sleep, Weakness EENT: reports: Tearing, Nose Congestion Respiratory: reports: No Symptoms reported Cardiac: reports: No Symptoms Reported GI: reports: Nausea, Poor Appetite, Abdominal cramping Musculoskeletal: reports: No Symptoms Reported Integumentary: reports: Dryness Neuro: reports: Seizure, Tremors Endocrine: reports: No Symptoms Reported Hematology: reports: No Symptoms Reported Psychiatric: reports: No Sypmtoms Reported, Judgement Intact, Mood/Affect Appropiate, Orientated x3, other (schizoaffective disorder) Other Systems: Reviewed and Negative Patient History - Patient Medical History Hx Anemia: No Hx Asthma: Yes (on albuterol inhaler) Hx Chronic Obstructive Pulmonary Disease (COPD): No Hx Cancer: No Hx Cardiac Disorders: No Hx Congestive Heart Failure: No Hx Hypertension: No Hx Hypercholesterolemia: No Hx Pacemaker: No HX Cerebrovascular Accident: No Hx Seizures: No Hx Dementia: No Hx Diabetes: No Hx Gastrointestinal Disorders: No Hx Liver Disease: No Hx Genitourinary Disorders: No Hx Sexually Transmitted Disorders: Yes (hx of syphilis last 10 yrs ago but stated that he got only 2 tx .) Hx Renal Disease (ESRD): No Hx Thyroid Disease: No Hx Human Immunodeficiency Virus (HIV): No (negative 11/21 negative) Hx Hepatitis C: No Hx Depression: No Hx Suicide Attempt: No Hx Bipolar Disorder: Yes Hx Schizophrenia: No Other Medical History: scizoaffective disorder,no suicidal,no homicidal - Patient Surgical History Past Surgical History: No Hx Neurologic Surgery: No Hx Cataract Extraction: No Hx Cardiac Surgery: No Hx Lung Surgery: No Hx Breast Surgery: No Hx Breast Biopsy: No Hx Abdominal Surgery: No Hx Appendectomy: No Hx Cholecystectomy: No Hx Genitourinary Surgery: No Hx Section: No Hx Orthopedic Surgery: Yes (left forearm @ 8yrs old & right hand 2018) Anesthesia Reaction: No - PPD History Previous Implant?: Yes Documented Results: Negative w/o proof Date: 06/11/18 Results: 0 mm PPD to be Administered?: Yes - Smoking Cessation Smoking history: Current some day smoker Have you smoked in the past 12 months: Yes Aproximately how many cigarettes per day: 1 If you are a former smoker, when did you quit?: 06/07/2018 Cigars Per Day: 0 Hx Chewing Tobacco Use: No Initiated information on smoking cessation: Yes 'Breaking Loose' booklet given: 11/05/19 - Substance & Tx. History Hx Alcohol Use: Yes Hx Substance Use: Yes Substance Use Type: Alcohol, Cocaine Hx Substance Use Treatment: Yes ([facility] 06/07/19 to 06/12/19,06/12/19 to 07/10/19) - Substances abused Alcohol Substance route: Oral Frequency: Daily Amount used: 2 pints of bacardi/3 of 12 ozs of beer Age of first use: 16 Date of last use: 11/04/19 Cocaine Substance route: Inhalation Frequency: Daily Amount used: 20$ to 50$ Age of first use: 22 Date of last use: 11/04/19 Admission Physical Exam S - Vital Signs Vital Signs: Vital Signs - 24 hr 11/05/19 16:16 Temperature 97.7 F Pulse Rate 62 Respiratory 20 Rate Blood Pressure 113/78 - Physical General Appearance: Yes: Moderate Distress, Tremorous, Irritable, Sweating, Anxious HEENTM: Yes: Normal ENT Inspection, ZURI, Pharynx Normal Respiratory: Yes: Lungs Clear, Normal Breath Sounds, No Respiratory Distress Neck: Yes: Within Normal Limits, Supple, Trachea in good position Breast: Yes: Within Normal Limits Cardiology: Yes: Within Normal Limits, Regular Rhythm, Regular Rate, S1, S2 Abdominal: Yes: Within Normal Limits, Normal Bowel Sounds, Soft Genitourinary: Yes: Within Normal Limits Back: Yes: Muscle Spasm Musculoskeletal: Yes: Back pain, Muscle Pain Extremities: Yes: Tremors Integumentary: Yes: Dry Lymphatic: Yes: Within Normal Limits - Diagnostic (1) Alcohol dependence with uncomplicated withdrawal Current Visit: No Status: Chronic (2) Asthma Current Visit: No Status: Chronic Qualifiers: Asthma severity: mild Asthma persistence: intermittent Asthma complication type: uncomplicated Qualified Code(s): J45.20 - Mild intermittent asthma, uncomplicated (3) Cocaine dependence Current Visit: No Status: Chronic Qualifiers: Substance use status: uncomplicated Qualified Code(s): F14.20 - Cocaine dependence, uncomplicated (4) Schizoaffective disorder Current Visit: No Status: Chronic Qualifiers: Schizoaffective disorder type: bipolar Qualified Code(s): F25.0 - Schizoaffective disorder, bipolar type Comment: Self-reported history. (5) History of syphilis Current Visit: No Status: Resolved (6) Encounter for monitoring Suboxone maintenance therapy Current Visit: Yes Status: Acute Cleared for Admission [facility] - Detox or Rehab [facility] Level of Care: Medically Managed Detox Regimen/Protocol: Ativan Breathalyzer - Breathalyzer Breathalyzer: 0 Urine Drug Screen - Test Device Lot number: [id number] Expiration date: 07/11/21 - Control Is test valid?: Yes - Results Drug screen NEGATIVE: No Urine drug screen results: SILVANA-Cocaine, BUP-Suboxone Inpatient Rehab Admission - Rehab Decision to Admit Inpatient rehab admission?: No
[2019-11-05] MEDS ORDERED: ONDANSETRON *ODT* 4 MG TABLET SL ONE (17:19)
[2019-11-05] MEDS ORDERED: ACETAMINOPHEN 325 MG TABLET (FP) PO PRN ×2 (17:19)
[2019-11-05] MEDS ORDERED: LORazepam 1 MG TABLET PO PRN (17:19)
[2019-11-05] MEDS ORDERED: MAGNESIUM CITRATE 300 ML BOTTLE PO PRN (17:19)
[2019-11-05] MEDS ORDERED: BISMUTH SUBSALICYLATE 524 MG/30 ML UD PO PRN (17:19)
[2019-11-05] MEDS ORDERED: IBUPROFEN 400 MG TABLET (FP) PO PRN (17:19)
[2019-11-05] MEDS ORDERED: MAG HYDROX/AL HYDROX/SIMETH 30 ML UNIT-DOSE CUP PO PRN (17:19)
[2019-11-05] MEDS ORDERED: MAGNESIUM HYDROX 2400MG/30ML ORAL SUSPENSION 30 ML CUP PO PRN (17:19)
[2019-11-05] MEDS ORDERED: MENTHOL/PHENOL 1 EACH UD MM PRN (17:19)
[2019-11-05] MEDS ORDERED: NICOTINE POLACRILEX 2 MG GUM BUC PRN (17:19)
[2019-11-05] MEDS ORDERED: METHOCARBAMOL 500 MG TABLET PO PRN (17:19)
[2019-11-05] MEDS ORDERED: ALBUTEROL SO4 HFA INHALER IH PRN (17:24)
[2019-11-05] MEDS: hydrOXYzine PAMOATE 25 MG CAPSULE (FP) PO SCH ×2 (18:13→22:33)
[2019-11-05] MEDS: TOLNAFTATE 1% CREAM 15 GM TUBE TP SCH (22:31)
[2019-11-05] MEDS: THIAMINE HCL 100 MG TABLET (FP) PO SCH (22:31)
[2019-11-05] MEDS: LORazepam 2 MG TABLET PO SCH (22:31)
[2019-11-05] MEDS: MELATONIN 5 MG TABLETS PO SCH (22:33)
[2019-11-06] MEDS: LORazepam 2 MG TABLET PO SCH ×4 (07:34→22:25)
[2019-11-06] MEDS: hydrOXYzine PAMOATE 25 MG CAPSULE (FP) PO SCH (07:35)
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
--- NOTE | 2019-11-06 10:12 | PN ---
S CIWA - CIWA Score Nausea/Vomitin-No Nausea/No Vomiting Muscle Tremors: 3 Anxiety: 3 Agitation: 3 Paroxysmal Sweats: 3 Orientation: 0-Oriented Tacttile Disturbances: 0-None Auditory Disturbances: 0-None Visual Disturbances: 0-None Headache: 0-None Present CIWA-Ar Total Score: 12 [facility] Progress Note (SOAP) Subjective: sweats shakes muscle cramping interrupted sleep agitation body aches Objective: 11/06/19 10:11 Vital Signs Temperature 96.9 F L 11/06/19 08:47 Pulse Rate 65 11/06/19 08:47 Respiratory Rate 16 11/06/19 08:47 Blood Pressure 115/62 11/06/19 08:47 O2 Sat by Pulse Oximetry (%) 100 11/06/19 05:33 labs pending aaox3 ambulating no acute distress Assessment: 11/06/19 10:11 withdrawals Plan: continue detox increase fluids ISTOP reviewed pt is in fact on suboxone 2mg/0.5mg qdaily. will order flexiril ordered motrin 800mg
[2019-11-06] MEDS ORDERED: CYCLOBENZAPRINE HCL 10 MG TABLET (FP) PO PRN (10:25)
[2019-11-06] MEDS ORDERED: IBUPROFEN 400 MG TABLET (FP) PO PRN (10:25)
[2019-11-06 11:03] LABS: HEMATOCRIT 38.5 % (35.4-49); HEMOGLOBIN 12.4 GM/dL (11.7-16.9); MCH 28.1 pg (25.7-33.7); MCHC 32.1 g/dl (32.0-35.9); MEAN CELL VOLUME 87.8 fl (80-96); MEAN PLT VOLUME 8.5 fl (7.5-11.1); PLATELET COUNT 282 K/MM3 (134-434); RBC 4.39 M/mm3 (4.00-5.60); RDW 15.1 % (11.9-15.9); WHITE BLOOD COUNT 4.5 K/mm3 (4.0-10.0)
[2019-11-06 11:20] LABS: ALBUMIN 3.3 g/dl (3.4-5.0); BILIRUBIN,TOTAL 0.2 mg/dL (0.2-1); BLOOD UREA NITROGEN 17.3 mg/dL (7-18); CALCIUM 8.8 mg/dL (8.5-10.1); POTASSIUM 4.3 mmol/L (3.5-5.1); TOT PROT 7.4 g/dl (6.4-8.2)
[2019-11-06] MEDS: TOLNAFTATE 1% CREAM 15 GM TUBE TP SCH ×2 (11:50→22:26)
[2019-11-06] MEDS: BUPRENORPHINE/NALOXONE 4 MG/1 MG FILM PACKET SL SCH (11:50)
[2019-11-06] MEDS: DIVALPROEX SODIUM 250 MG TABLET E.C. PO SCH ×2 (11:50→22:24)
[2019-11-06] MEDS: DIVALPROEX SODIUM 500 MG TABLET E.C. PO SCH ×2 (11:50→22:24)
[2019-11-06] MEDS: QUEtiapine FUMARATE 100 MG TABLET (FP) PO SCH ×2 (11:50→11:56)
[2019-11-06] MEDS: NICOTINE 7 MG/24 HOURS TOPICAL PATCH TD SCH (11:50)
[2019-11-06] MEDS: PRENATAL VITAMINS W/ FOLIC ACID TABLET (FP) PO SCH (11:50)
[2019-11-06] MEDS: FLUoxetine HCL 10 MG CAPSULE PO SCH (11:50)
[2019-11-06] MEDS: buPROPion HCL 75 MG TABLET PO SCH (11:51)
[2019-11-06] MEDS: MELATONIN 5 MG TABLETS PO SCH (22:24)
[2019-11-06] MEDS: THIAMINE HCL 100 MG TABLET (FP) PO SCH (22:25)
[2019-11-06] MEDS: hydrOXYzine PAMOATE 25 MG CAPSULE (FP) PO PRN (22:32)
[2019-11-06] MEDS: QUEtiapine FUMARATE 200 MG TABLET PO SCH (22:37)
[2019-11-07] MEDS: LORazepam 1 MG TABLET PO SCH ×4 (05:51→22:15)
--- NOTE | 2019-11-07 11:07 | PN ---
[facility] CIWA - CIWA Score Nausea/Vomitin-No Nausea/No Vomiting Muscle Tremors: 3 Anxiety: 2 Agitation: 2 Paroxysmal Sweats: 2 Orientation: 0-Oriented Tacttile Disturbances: 0-None Auditory Disturbances: 0-None Visual Disturbances: 0-None Headache: 0-None Present CIWA-Ar Total Score: 9 S Progress Note (SOAP) Subjective: sweats tired Objective: 11/07/19 11:07 Vital Signs Temperature 97.2 F L 11/07/19 08:37 Pulse Rate 70 11/07/19 08:37 Respiratory Rate 18 11/07/19 08:37 Blood Pressure 112/63 11/07/19 08:37 O2 Sat by Pulse Oximetry (%) 98 11/07/19 08:37 Laboratory Tests 11/05/19 11/06/19 11/06/19 17:30 08:05 08:05 WBC 4.5 RBC 4.39 Hgb 12.4 Hct 38.5 MCV 87.8 MCH 28.1 MCHC 32.1 RDW 15.1 Plt Count 282 MPV 8.5 Sodium Potassium Chloride Carbon Dioxide Anion Gap BUN Creatinine Est GFR (CKD-EPI)AfAm Est GFR (CKD-EPI)NonAf Random Glucose Calcium Total Bilirubin AST ALT Alkaline Phosphatase Total Protein Albumin Valproic Acid Syphilis Serology Reactive A* RPR Titer COVID-19 ([facility]) Not detected 11/06/19 11/06/19 11/06/19 08:05 08:05 10:10 WBC RBC Hgb Hct MCV MCH MCHC RDW Plt Count MPV Sodium 140 Potassium 4.3 Chloride 105 Carbon Dioxide 31 Anion Gap 4 L BUN 17.3 Creatinine 1.0 Est GFR (CKD-EPI)AfAm 112.51 Est GFR (CKD-EPI)NonAf 97.08 Random Glucose 100 Calcium 8.8 Total Bilirubin 0.2 AST 16 ALT 16 Alkaline Phosphatase 77 Total Protein 7.4 Albumin 3.3 L Valproic Acid 3.8 L Syphilis Serology RPR Titer Reactive 1:1 H COVID-19 ([facility]) labs noted aaox3 ambulating no acute distress Assessment: 11/07/19 11:09 withdrawal sx Plan: continue detox increase fluids
[2019-11-07] MEDS: NICOTINE 7 MG/24 HOURS TOPICAL PATCH TD SCH (11:14)
[2019-11-07] MEDS: DIVALPROEX SODIUM 500 MG TABLET E.C. PO SCH ×2 (14:26→22:15)
[2019-11-07] MEDS: DIVALPROEX SODIUM 250 MG TABLET E.C. PO SCH ×2 (14:26→22:15)
[2019-11-07] MEDS: QUEtiapine FUMARATE 100 MG TABLET (FP) PO SCH (14:27)
[2019-11-07] MEDS: FLUoxetine HCL 10 MG CAPSULE PO SCH (14:27)
[2019-11-07] MEDS: PRENATAL VITAMINS W/ FOLIC ACID TABLET (FP) PO SCH (14:27)
[2019-11-07] MEDS: BUPRENORPHINE/NALOXONE 4 MG/1 MG FILM PACKET SL SCH (14:27)
[2019-11-07] MEDS: TOLNAFTATE 1% CREAM 15 GM TUBE TP SCH ×2 (14:28→22:17)
[2019-11-07] MEDS: buPROPion HCL 75 MG TABLET PO SCH (14:28)
[2019-11-07] MEDS: THIAMINE HCL 100 MG TABLET (FP) PO SCH (22:15)
[2019-11-07] MEDS: QUEtiapine FUMARATE 200 MG TABLET PO SCH (22:15)
[2019-11-07] MEDS: MELATONIN 5 MG TABLETS PO SCH (22:18)
[2019-11-07] MEDS: hydrOXYzine PAMOATE 25 MG CAPSULE (FP) PO PRN (22:21)
[2019-11-08] MEDS ORDERED: LORazepam 0.5 MG TABLET PO PRN
[2019-11-08] MEDS: LORazepam 0.5 MG TABLET PO SCH ×4 (06:33→22:07)
[2019-11-08] MEDS: QUEtiapine FUMARATE 100 MG TABLET (FP) PO SCH (10:34)
[2019-11-08] MEDS: buPROPion HCL 75 MG TABLET PO SCH (10:34)
[2019-11-08] MEDS: DIVALPROEX SODIUM 500 MG TABLET E.C. PO SCH ×2 (10:34→22:08)
[2019-11-08] MEDS: DIVALPROEX SODIUM 250 MG TABLET E.C. PO SCH ×2 (10:34→22:08)
[2019-11-08] MEDS: BUPRENORPHINE/NALOXONE 4 MG/1 MG FILM PACKET SL SCH (10:34)
[2019-11-08] MEDS: FLUoxetine HCL 10 MG CAPSULE PO SCH (10:35)
[2019-11-08] MEDS: NICOTINE 7 MG/24 HOURS TOPICAL PATCH TD SCH (10:35)
[2019-11-08] MEDS: PRENATAL VITAMINS W/ FOLIC ACID TABLET (FP) PO SCH (10:35)
[2019-11-08] MEDS: hydrOXYzine PAMOATE 25 MG CAPSULE (FP) PO PRN (10:40)
[2019-11-08] MEDS ORDERED: diphenhydrAMINE HCL 25 MG CAPSULE (FP) PO PRN (11:08)
--- NOTE | 2019-11-08 11:14 | PN ---
[facility] CIWA - CIWA Score Nausea/Vomitin-No Nausea/No Vomiting Muscle Tremors: 2 Anxiety: 1-Mildly Anxious Agitation: 0-Normal Activity Paroxysmal Sweats: No Perspiration Orientation: 0-Oriented Tacttile Disturbances: 0-None Auditory Disturbances: 0-None Visual Disturbances: 0-None Headache: 0-None Present CIWA-Ar Total Score: 3 BHS Progress Note (SOAP) Subjective: sweats I dont want visitril I prefer benadryl. Objective: 11/08/19 11:13 Vital Signs Temperature 97.1 F L 11/08/19 05:45 Pulse Rate 70 11/08/19 05:45 Respiratory Rate 18 11/08/19 05:45 Blood Pressure 105/51 L 11/08/19 05:45 O2 Sat by Pulse Oximetry (%) 97 11/08/19 05:45 aaox3 ambulating no acute distress Assessment: 11/08/19 11:13 mild withdrawals Plan: visitril d/c benadryl 25mg BID prn ordered increase fluids d/c in am
[2019-11-08] MEDS: TOLNAFTATE 1% CREAM 15 GM TUBE TP SCH ×2 (12:11→22:12)
[2019-11-08] MEDS: QUEtiapine FUMARATE 200 MG TABLET PO SCH (22:08)
[2019-11-08] MEDS: THIAMINE HCL 100 MG TABLET (FP) PO SCH (22:08)
[2019-11-08] MEDS: MELATONIN 5 MG TABLETS PO SCH (22:08)
[2019-11-08 23:22] VITALS: PULSE 89
[2019-11-09] MEDS ORDERED: LORazepam 0.5 MG TABLET PO ONE (05:00)
[2019-11-09 06:32] VITALS: BP 112/74; TEMP 97.3
--- NOTE | 2019-11-09 08:27 | DS ---
[facility] Detox Discharge Summary Admission Date: 11/05/19 Discharge Date: 11/09/19 - History Present History: Alcohol Dependence, Cannabis Dependence, Cocaine Dependence - Physical Exam Results Vital Signs: Vital Signs Temperature 97.3 F L 11/09/19 05:36 Pulse Rate 89 11/09/19 05:36 Respiratory Rate 20 11/09/19 05:36 Blood Pressure 112/74 11/09/19 05:36 O2 Sat by Pulse Oximetry (%) 99 11/09/19 05:36 Pertinent Admission Physical Exam Findings: Vital Signs Temperature 97.3 F L 11/09/19 05:36 Pulse Rate 89 11/09/19 05:36 Respiratory Rate 20 11/09/19 05:36 Blood Pressure 112/74 11/09/19 05:36 O2 Sat by Pulse Oximetry (%) 99 11/09/19 05:36 Laboratory Tests 11/05/19 11/06/19 11/06/19 17:30 08:05 08:05 WBC 4.5 RBC 4.39 Hgb 12.4 Hct 38.5 MCV 87.8 MCH 28.1 MCHC 32.1 RDW 15.1 Plt Count 282 MPV 8.5 Sodium Potassium Chloride Carbon Dioxide Anion Gap BUN Creatinine Est GFR (CKD-EPI)AfAm Est GFR (CKD-EPI)NonAf Random Glucose Calcium Total Bilirubin AST ALT Alkaline Phosphatase Total Protein Albumin Valproic Acid Syphilis Serology Reactive A* RPR Titer COVID-19 ([facility]) Not detected 11/06/19 11/06/19 11/06/19 08:05 08:05 10:10 WBC RBC Hgb Hct MCV MCH MCHC RDW Plt Count MPV Sodium 140 Potassium 4.3 Chloride 105 Carbon Dioxide 31 Anion Gap 4 L BUN 17.3 Creatinine 1.0 Est GFR (CKD-EPI)AfAm 112.51 Est GFR (CKD-EPI)NonAf 97.08 Random Glucose 100 Calcium 8.8 Total Bilirubin 0.2 AST 16 ALT 16 Alkaline Phosphatase 77 Total Protein 7.4 Albumin 3.3 L Valproic Acid 3.8 L Syphilis Serology RPR Titer Reactive 1:1 H COVID-19 ([facility]) aaox3 ambulating no acute distress lungs CTA - Treatment Hospital Course: Detox Protocol Followed, Detoxed Safely, Responded well, Discharged Condition Good, Rehab Referral Accepted - Medication Discharge Medications: Ambulatory Orders Albuterol Sulfate Inhaler - [Ventolin HFA Inhaler -] 2 inh PO Q4H PRN #1 inhaler 02/02/19 Bupropion HCl [Wellbutrin -] 75 mg PO DAILY #30 tablet 07/09/19 Diphenhydramine [Benadryl Capsule -] 50 mg PO BID #60 capsule 07/09/19 Divalproex [Depakote -] 250 mg PO BID #60 tablet.ec 07/09/19 Divalproex [Depakote -] 500 mg PO BID #60 tablet.ec 07/09/19 Fluoxetine HCl [Prozac -] 20 mg PO DAILY #30 capsule 07/09/19 Quetiapine Fumarate [Seroquel -] 100 mg PO DAILY #30 tablet 07/09/19 Quetiapine Fumarate [Seroquel -] 200 mg PO HS #30 tablet 07/09/19 Suboxone 2Mg/0.5MG Sl Film - 1 tablet PO BID 11/05/19 - Diagnosis (1) Encounter for monitoring Suboxone maintenance therapy Current Visit: Yes Status: Chronic (2) Nicotine dependence Current Visit: Yes Status: Chronic Qualifiers: Nicotine product type: cigarettes Substance use status: uncomplicated Qualified Code(s): F17.210 - Nicotine dependence, cigarettes, uncomplicated (3) Substance-induced sleep disorder Current Visit: No Status: Acute (4) Alcohol dependence with uncomplicated withdrawal Current Visit: Yes Status: Chronic (5) Asthma Current Visit: Yes Status: Chronic Qualifiers: Asthma severity: mild Asthma persistence: intermittent Asthma complication type: uncomplicated Qualified Code(s): J45.20 - Mild intermittent asthma, uncomplicated (6) Cannabis dependence Current Visit: Yes Status: Chronic (7) Cocaine dependence Current Visit: Yes Status: Chronic Qualifiers: Substance use status: uncomplicated Qualified Code(s): F14.20 - Cocaine dependence, uncomplicated (8) Insomnia Current Visit: No Status: Chronic (9) Nicotine dependence Current Visit: Yes Status: Chronic Qualifiers: Nicotine product type: cigarettes Substance use status: uncomplicated Qualified Code(s): F17.210 - Nicotine dependence, cigarettes, uncomplicated (10) Schizoaffective disorder Current Visit: No Status: Chronic Qualifiers: Schizoaffective disorder type: bipolar Qualified Code(s): F25.0 - Schizoaffective disorder, bipolar type (11) Psychiatric disorder Current Visit: No Status: Suspected (12) Substance induced mood disorder Current Visit: No Status: Suspected (13) Fracture of left upper extremity Current Visit: No Status: Resolved Qualifiers: Encounter type: sequela Fracture type: closed Qualified Code(s): S42.302S - Unspecified fracture of shaft of humerus, left arm, sequela (14) Fracture of right lower extremity Current Visit: No Status: Resolved Qualifiers: Encounter type: initial encounter Fracture type: closed Qualified Code(s): S82.91XA - Unspecified fracture of right lower leg, initial encounter for closed fracture (15) History of syphilis Current Visit: No Status: Resolved (16) Positive RPR test Current Visit: No Status: Resolved (17) Bipolar disorder Current Visit: No Status: Ruled-out Qualifiers: Most recent bipolar episode type: most recent episode unspecified type - AMA Did Patient Leave Against Medical Advice: No
[2019-11-09] MEDS: FLUoxetine HCL 10 MG CAPSULE PO SCH (10:29)
[2019-11-09] MEDS: buPROPion HCL 75 MG TABLET PO SCH (10:30)
[2019-11-09] MEDS: BUPRENORPHINE/NALOXONE 4 MG/1 MG FILM PACKET SL SCH (10:30)
[2019-11-09] MEDS: DIVALPROEX SODIUM 500 MG TABLET E.C. PO SCH (10:30)
[2019-11-09] MEDS: PRENATAL VITAMINS W/ FOLIC ACID TABLET (FP) PO SCH (10:30)
[2019-11-09] MEDS: NICOTINE 7 MG/24 HOURS TOPICAL PATCH TD SCH (10:30)
[2019-11-09] MEDS: DIVALPROEX SODIUM 250 MG TABLET E.C. PO SCH (10:30)
[2019-11-09] MEDS: QUEtiapine FUMARATE 100 MG TABLET (FP) PO SCH (10:30)
[2019-11-09] MEDS: TOLNAFTATE 1% CREAM 15 GM TUBE TP SCH (10:30)
== END 2019-11-09 11:27 | disposition other institution (70) | DRG 897 ==
LOC: YASAS 13:41 → Y6N 17:07
PROVIDERS: ADMIT Allergy & Immunology; ATTEND Allergy & Immunology
PROC: HZ2ZZZZ Detoxification Services for Substance Abuse Treatment (ICD-10-PCS; principal; 2019-11-05)
DX: F10.230 Alcohol dependence with withdrawal, uncomplicated (principal); F11.20 Opioid dependence, uncomplicated; F14.20 Cocaine dependence, uncomplicated; F19.282 Other psychoactive substance dependence with psychoactive substance-induced sleep disorder; F12.20 Cannabis dependence, uncomplicated; F17.210 Nicotine dependence, cigarettes, uncomplicated; F25.0 Schizoaffective disorder, bipolar type; F19.24 Other psychoactive substance dependence with psychoactive substance-induced mood disorder; J45.20 Mild intermittent asthma, uncomplicated; G47.00 Insomnia, unspecified; K21.9 Gastro-esophageal reflux disease without esophagitis; Z87.438 Personal history of other diseases of male genital organs; Z86.69 Personal history of other diseases of the nervous system and sense organs; Z88.8 Allergy status to other drugs, medicaments and biological substances
CPT/HCPCS: 36415; 80053; 80164; 85027; 86593; 86780; Q0162; U0003

== ENCOUNTER 2019-11-09 11:07 | Inpatient (IN) | payer OTHER ==
[2019-11-09] MEDS ORDERED: NICOTINE POLACRILEX 2 MG GUM BUC PRN (13:05)
[2019-11-09] MEDS ORDERED: LOPERAMIDE HCL 2 MG CAPSULE PO PRN (13:05)
[2019-11-09] MEDS ORDERED: P-EPHED 60MG/TRIPROLIDI 2.5MG TABLET PO PRN (13:05)
[2019-11-09] MEDS ORDERED: MAGNESIUM CITRATE 300 ML BOTTLE PO PRN (13:05)
[2019-11-09] MEDS ORDERED: guaiFENesin 200 MG/10 ML 10 ML UNIT-DOSE CUPS PO PRN (13:05)
[2019-11-09] MEDS ORDERED: MAGNESIUM HYDROX 2400MG/30ML ORAL SUSPENSION 30 ML CUP PO PRN (13:05)
[2019-11-09] MEDS ORDERED: MENTHOL/PHENOL 1 EACH UD MM PRN (13:05)
[2019-11-09] MEDS ORDERED: ALBUTEROL SO4 HFA INHALER IH PRN (13:06)
[2019-11-09] MEDS ORDERED: PT OWN MED DRAWER 7, Y5N ONE (16:00)
[2019-11-09] MEDS: CYCLOBENZAPRINE HCL 10 MG TABLET (FP) PO PRN (16:39)
[2019-11-09] MEDS: MELATONIN 5 MG TABLETS PO SCH (21:16)
[2019-11-09] MEDS: hydrOXYzine PAMOATE 25 MG CAPSULE (FP) PO PRN (21:16)
[2019-11-09] MEDS: THIAMINE HCL 100 MG TABLET (FP) PO SCH (21:16)
[2019-11-09] MEDS ORDERED: DIVALPROEX SODIUM 250 MG TABLET E.C. ONE (21:17)
[2019-11-09] MEDS: QUEtiapine FUMARATE 200 MG TABLET PO SCH (21:17)
[2019-11-09] MEDS ORDERED: DIVALPROEX SODIUM 500 MG TABLET E.C. ONE (21:17)
[2019-11-09] MEDS: DIVALPROEX 500 MG, DIVALPROEX 250 MG PO SCH (21:17)
[2019-11-09] MEDS: ACETAMINOPHEN 325 MG TABLET (FP) PO PRN (21:21)
[2019-11-09] MEDS ORDERED: DIVALPROEX SODIUM 500 MG TABLET E.C. PO SCH (22:00)
[2019-11-10] MEDS: hydrOXYzine PAMOATE 25 MG CAPSULE (FP) PO PRN ×3 (01:45→22:07)
[2019-11-10] MEDS: MAG HYDROX/AL HYDROX/SIMETH 30 ML UNIT-DOSE CUP PO PRN ×2 (04:39→12:43)
[2019-11-10] MEDS ORDERED: DIVALPROEX SODIUM 250 MG TABLET E.C. ONE ×2 (09:19→19:45)
[2019-11-10] MEDS ORDERED: DIVALPROEX SODIUM 500 MG TABLET E.C. ONE ×2 (09:19→19:45)
[2019-11-10] MEDS: DIVALPROEX 500 MG, DIVALPROEX 250 MG PO SCH ×2 (10:07→22:04)
[2019-11-10] MEDS: PRENATAL VITAMINS W/ FOLIC ACID TABLET (FP) PO SCH (10:07)
[2019-11-10] MEDS: BUPRENORPHINE/NALOXONE 4 MG/1 MG FILM PACKET SL SCH ×2 (10:08→10:09)
[2019-11-10] MEDS: QUEtiapine FUMARATE 100 MG TABLET (FP) PO SCH (10:08)
[2019-11-10] MEDS: buPROPion HCL 75 MG TABLET PO SCH (10:08)
[2019-11-10] MEDS ORDERED: PT OWN MED DRAWER 7, Y5N ONE (10:09)
[2019-11-10] MEDS: FLUoxetine HCL 10 MG CAPSULE PO SCH (10:09)
[2019-11-10] MEDS: CYCLOBENZAPRINE HCL 10 MG TABLET (FP) PO PRN ×2 (10:13→22:08)
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
[2019-11-10] MEDS: THIAMINE HCL 100 MG TABLET (FP) PO SCH (22:04)
[2019-11-10] MEDS: QUEtiapine FUMARATE 200 MG TABLET PO SCH (22:04)
[2019-11-10] MEDS: MELATONIN 5 MG TABLETS PO SCH (22:04)
[2019-11-11] MEDS ORDERED: DIVALPROEX SODIUM 500 MG TABLET E.C. ONE ×2 (09:22→20:05)
[2019-11-11] MEDS ORDERED: DIVALPROEX SODIUM 250 MG TABLET E.C. ONE ×2 (09:22→20:06)
[2019-11-11] MEDS ORDERED: PT OWN MED DRAWER 7, Y5N ONE (09:23)
[2019-11-11] MEDS: DIVALPROEX 500 MG, DIVALPROEX 250 MG PO SCH ×2 (10:03→21:59)
[2019-11-11] MEDS: buPROPion HCL 75 MG TABLET PO SCH (10:03)
[2019-11-11] MEDS: FLUoxetine HCL 10 MG CAPSULE PO SCH (10:03)
[2019-11-11] MEDS: PRENATAL VITAMINS W/ FOLIC ACID TABLET (FP) PO SCH (10:04)
[2019-11-11] MEDS: BUPRENORPHINE/NALOXONE 4 MG/1 MG FILM PACKET SL SCH (10:04)
[2019-11-11] MEDS: CYCLOBENZAPRINE HCL 10 MG TABLET (FP) PO PRN ×2 (10:05→21:59)
[2019-11-11] MEDS: hydrOXYzine PAMOATE 25 MG CAPSULE (FP) PO PRN (10:05)
[2019-11-11] MEDS: QUEtiapine FUMARATE 100 MG TABLET (FP) PO SCH (10:06)
[2019-11-11] MEDS: QUEtiapine FUMARATE 200 MG TABLET PO SCH (21:59)
[2019-11-11] MEDS: diphenhydrAMINE HCL 25 MG CAPSULE (FP) PO SCH (22:00)
[2019-11-11] MEDS: MELATONIN 5 MG TABLETS PO SCH (22:00)
[2019-11-11] MEDS: THIAMINE HCL 100 MG TABLET (FP) PO SCH (22:01)
[2019-11-12] MEDS ORDERED: DIVALPROEX SODIUM 250 MG TABLET E.C. ONE ×2 (08:25→21:01)
[2019-11-12] MEDS ORDERED: DIVALPROEX SODIUM 500 MG TABLET E.C. ONE ×2 (08:25→21:00)
[2019-11-12] MEDS: diphenhydrAMINE HCL 25 MG CAPSULE (FP) PO SCH ×2 (10:00→22:24)
[2019-11-12] MEDS: PRENATAL VITAMINS W/ FOLIC ACID TABLET (FP) PO SCH (10:00)
[2019-11-12] MEDS: DIVALPROEX 500 MG, DIVALPROEX 250 MG PO SCH ×2 (10:00→22:24)
[2019-11-12] MEDS: FLUoxetine HCL 10 MG CAPSULE PO SCH (10:01)
[2019-11-12] MEDS: QUEtiapine FUMARATE 100 MG TABLET (FP) PO SCH (10:01)
[2019-11-12] MEDS: buPROPion HCL 75 MG TABLET PO SCH (10:02)
[2019-11-12] MEDS: BUPRENORPHINE/NALOXONE 4 MG/1 MG FILM PACKET SL SCH (10:02)
[2019-11-12] MEDS: CYCLOBENZAPRINE HCL 10 MG TABLET (FP) PO PRN ×2 (10:04→22:26)
[2019-11-12] MEDS ORDERED: PT OWN MED DRAWER 7, Y5N ONE (20:05)
[2019-11-12] MEDS: QUEtiapine FUMARATE 200 MG TABLET PO SCH (22:24)
[2019-11-12] MEDS: THIAMINE HCL 100 MG TABLET (FP) PO SCH (22:24)
[2019-11-12] MEDS: MELATONIN 5 MG TABLETS PO SCH (22:24)
[2019-11-13] MEDS: buPROPion HCL 75 MG TABLET PO SCH (10:15)
[2019-11-13] MEDS: FLUoxetine HCL 10 MG CAPSULE PO SCH (10:15)
[2019-11-13] MEDS: PRENATAL VITAMINS W/ FOLIC ACID TABLET (FP) PO SCH (10:15)
[2019-11-13] MEDS: diphenhydrAMINE HCL 25 MG CAPSULE (FP) PO SCH ×2 (10:15→21:13)
[2019-11-13] MEDS: QUEtiapine FUMARATE 100 MG TABLET (FP) PO SCH (10:16)
[2019-11-13] MEDS: BUPRENORPHINE/NALOXONE 4 MG/1 MG FILM PACKET SL SCH (10:17)
[2019-11-13] MEDS: CYCLOBENZAPRINE HCL 10 MG TABLET (FP) PO PRN ×2 (10:19→21:19)
[2019-11-13] MEDS: DIVALPROEX 500 MG, DIVALPROEX 250 MG PO SCH ×2 (11:00→21:13)
[2019-11-13] MEDS ORDERED: DIVALPROEX SODIUM 500 MG TABLET E.C. ONE (19:39)
[2019-11-13] MEDS ORDERED: DIVALPROEX SODIUM 250 MG TABLET E.C. ONE (19:40)
[2019-11-13] MEDS: MELATONIN 5 MG TABLETS PO SCH (21:13)
[2019-11-13] MEDS: QUEtiapine FUMARATE 200 MG TABLET PO SCH (21:14)
[2019-11-13] MEDS: THIAMINE HCL 100 MG TABLET (FP) PO SCH (21:14)
[2019-11-13] MEDS: MAG HYDROX/AL HYDROX/SIMETH 30 ML UNIT-DOSE CUP PO PRN (21:15)
[2019-11-14] MEDS ORDERED: DIVALPROEX SODIUM 500 MG TABLET E.C. ONE (08:55)
[2019-11-14] MEDS ORDERED: PT OWN MED DRAWER 7, Y5N ONE (08:56)
[2019-11-14] MEDS ORDERED: DIVALPROEX SODIUM 250 MG TABLET E.C. ONE (08:56)
[2019-11-14] MEDS: DIVALPROEX 500 MG, DIVALPROEX 250 MG PO SCH ×2 (10:04→21:11)
[2019-11-14] MEDS: PRENATAL VITAMINS W/ FOLIC ACID TABLET (FP) PO SCH (10:05)
[2019-11-14] MEDS: QUEtiapine FUMARATE 100 MG TABLET (FP) PO SCH (10:05)
[2019-11-14] MEDS: FLUoxetine HCL 10 MG CAPSULE PO SCH (10:05)
[2019-11-14] MEDS: buPROPion HCL 75 MG TABLET PO SCH (10:05)
[2019-11-14] MEDS: diphenhydrAMINE HCL 25 MG CAPSULE (FP) PO SCH ×2 (10:05→21:10)
[2019-11-14] MEDS: BUPRENORPHINE/NALOXONE 4 MG/1 MG FILM PACKET SL SCH (10:05)
[2019-11-14] MEDS: CYCLOBENZAPRINE HCL 10 MG TABLET (FP) PO PRN ×2 (10:09→21:10)
[2019-11-14] MEDS: QUEtiapine FUMARATE 200 MG TABLET PO SCH (21:10)
[2019-11-14] MEDS: MELATONIN 5 MG TABLETS PO SCH (21:14)
[2019-11-14] MEDS: THIAMINE HCL 100 MG TABLET (FP) PO SCH (21:14)
[2019-11-15] MEDS: IBUPROFEN 400 MG TABLET (FP) PO PRN ×2 (06:50→20:39)
[2019-11-15] MEDS: CYCLOBENZAPRINE HCL 10 MG TABLET (FP) PO PRN ×2 (07:18→21:17)
[2019-11-15] MEDS: buPROPion HCL 75 MG TABLET PO SCH (10:05)
[2019-11-15] MEDS: DIVALPROEX 500 MG, DIVALPROEX 250 MG PO SCH ×2 (10:05→21:17)
[2019-11-15] MEDS: FLUoxetine HCL 10 MG CAPSULE PO SCH (10:05)
[2019-11-15] MEDS: PRENATAL VITAMINS W/ FOLIC ACID TABLET (FP) PO SCH (10:05)
[2019-11-15] MEDS: diphenhydrAMINE HCL 25 MG CAPSULE (FP) PO SCH ×2 (10:05→21:16)
[2019-11-15] MEDS: QUEtiapine FUMARATE 100 MG TABLET (FP) PO SCH (10:05)
[2019-11-15] MEDS: BUPRENORPHINE/NALOXONE 4 MG/1 MG FILM PACKET SL SCH (10:10)
[2019-11-15] MEDS ORDERED: DIVALPROEX SODIUM 250 MG TABLET E.C. ONE (20:30)
[2019-11-15] MEDS ORDERED: DIVALPROEX SODIUM 500 MG TABLET E.C. ONE (20:30)
[2019-11-15] MEDS: MELATONIN 5 MG TABLETS PO SCH (21:16)
[2019-11-15] MEDS: THIAMINE HCL 100 MG TABLET (FP) PO SCH (21:17)
[2019-11-15] MEDS: QUEtiapine FUMARATE 200 MG TABLET PO SCH (21:17)
[2019-11-16] MEDS: MAG HYDROX/AL HYDROX/SIMETH 30 ML UNIT-DOSE CUP PO PRN ×2 (00:30→14:36)
[2019-11-16] MEDS: buPROPion HCL 75 MG TABLET PO SCH (10:29)
[2019-11-16] MEDS: QUEtiapine FUMARATE 100 MG TABLET (FP) PO SCH (10:30)
[2019-11-16] MEDS: FLUoxetine HCL 10 MG CAPSULE PO SCH (10:30)
[2019-11-16] MEDS: diphenhydrAMINE HCL 25 MG CAPSULE (FP) PO SCH ×2 (10:31→21:47)
[2019-11-16] MEDS: PRENATAL VITAMINS W/ FOLIC ACID TABLET (FP) PO SCH ×2 (10:31→10:37)
[2019-11-16] MEDS: IBUPROFEN 400 MG TABLET (FP) PO PRN (10:35)
[2019-11-16] MEDS: DIVALPROEX 500 MG, DIVALPROEX 250 MG PO SCH ×2 (11:18→22:33)
[2019-11-16] MEDS ORDERED: BUPRENORPHINE/NALOXONE 4 MG/1 MG FILM PACKET SL ONE (11:30)
[2019-11-16] MEDS: ACETAMINOPHEN 325 MG TABLET (FP) PO PRN (14:36)
[2019-11-16] MEDS: CYCLOBENZAPRINE HCL 10 MG TABLET (FP) PO PRN ×2 (14:36→22:33)
[2019-11-16] MEDS: THIAMINE HCL 100 MG TABLET (FP) PO SCH (21:47)
[2019-11-16] MEDS: MELATONIN 5 MG TABLETS PO SCH (21:47)
[2019-11-16] MEDS: QUEtiapine FUMARATE 200 MG TABLET PO SCH (21:47)
[2019-11-17] MEDS: IBUPROFEN 400 MG TABLET (FP) PO PRN ×3 (01:51→21:53)
[2019-11-17] MEDS: buPROPion HCL 75 MG TABLET PO SCH (10:24)
[2019-11-17] MEDS: DIVALPROEX 500 MG, DIVALPROEX 250 MG PO SCH ×2 (10:24→21:49)
[2019-11-17] MEDS: BUPRENORPHINE/NALOXONE 4 MG/1 MG FILM PACKET SL SCH (10:24)
[2019-11-17] MEDS: diphenhydrAMINE HCL 25 MG CAPSULE (FP) PO SCH ×2 (10:24→21:49)
[2019-11-17] MEDS: FLUoxetine HCL 10 MG CAPSULE PO SCH (10:24)
[2019-11-17] MEDS: QUEtiapine FUMARATE 100 MG TABLET (FP) PO SCH (10:25)
[2019-11-17] MEDS: PRENATAL VITAMINS W/ FOLIC ACID TABLET (FP) PO SCH (10:27)
[2019-11-17] MEDS: CYCLOBENZAPRINE HCL 10 MG TABLET (FP) PO PRN ×2 (10:29→21:53)
--- NOTE | 2019-11-17 15:31 | HP ---
[facility] Rehab Assess/Revision - Admission History Admitted to Rehab from: [address] Date of Admission to Rehab: 11/10/19 - Vital signs Vital Signs: Vital Signs Period Temp Pulse Resp BP Sys/Ruiz Pulse Ox Last 24 Hr 97.7 F 71 18 113/71 95-95 - Findings Detox History & Physical reviewed: Yes Concur with findings: Yes Comments/Additional Findings: Admitted to [facility]hab [facility] on 11/10/[address] [place] [address] after detox. Inpatient Rehab Admission - Rehab Decision to Admit Inpatient rehab admission?: Yes - Initial Determination Are CD services needed?: Yes Free of communicable disease: Yes Not in need of hospitalization: Yes - Rehab Admission Criteria Previous failed treatment: Yes Poor recovery environment: Yes Comorbidities: Yes Lacks judgement: Yes Patient is meeting Inpatient Rehab admission criteria:: Yes
--- NOTE | 2019-11-17 15:35 | PN ---
[facility] Progress Note Note: S:c/o itchy feet. hx foot/nail fungus. requesting cream. Vital Signs - 24 hr 11/17/19 07:00 Temperature 97.7 F Pulse Rate 71 Respiratory 18 Rate Blood Pressure 113/71 O2 Sat by Pulse 95 Oximetry (%) PE/ Feet:dry, nails brownish/dry cracked nails A:Tinea Pedis P:Clotrimazole cream 1 % apply BID as directed
[2019-11-17] MEDS: THIAMINE HCL 100 MG TABLET (FP) PO SCH (21:50)
[2019-11-17] MEDS: QUEtiapine FUMARATE 200 MG TABLET PO SCH (21:50)
[2019-11-17] MEDS: MELATONIN 5 MG TABLETS PO SCH (21:50)
[2019-11-17] MEDS: CLOTRIMAZOLE 1% CREAM 15 GM TUBE TP SCH (21:56)
[2019-11-18] MEDS: BUPRENORPHINE/NALOXONE 4 MG/1 MG FILM PACKET SL SCH (10:19)
[2019-11-18] MEDS: QUEtiapine FUMARATE 100 MG TABLET (FP) PO SCH (10:19)
[2019-11-18] MEDS: buPROPion HCL 75 MG TABLET PO SCH (10:19)
[2019-11-18] MEDS: diphenhydrAMINE HCL 25 MG CAPSULE (FP) PO SCH ×2 (10:19→21:16)
[2019-11-18] MEDS: PRENATAL VITAMINS W/ FOLIC ACID TABLET (FP) PO SCH (10:19)
[2019-11-18] MEDS: DIVALPROEX 500 MG, DIVALPROEX 250 MG PO SCH ×2 (10:20→21:15)
[2019-11-18] MEDS: FLUoxetine HCL 10 MG CAPSULE PO SCH (10:20)
[2019-11-18] MEDS: CLOTRIMAZOLE 1% CREAM 15 GM TUBE TP SCH ×2 (10:21→21:18)
[2019-11-18] MEDS: CYCLOBENZAPRINE HCL 10 MG TABLET (FP) PO PRN ×2 (10:22→21:16)
[2019-11-18] MEDS: IBUPROFEN 400 MG TABLET (FP) PO PRN ×2 (10:24→21:17)
[2019-11-18] MEDS: QUEtiapine FUMARATE 200 MG TABLET PO SCH (21:16)
[2019-11-18] MEDS: THIAMINE HCL 100 MG TABLET (FP) PO SCH (21:17)
[2019-11-18] MEDS: MELATONIN 5 MG TABLETS PO SCH (21:18)
[2019-11-19] MEDS: diphenhydrAMINE HCL 25 MG CAPSULE (FP) PO SCH ×2 (10:07→21:31)
[2019-11-19] MEDS: buPROPion HCL 75 MG TABLET PO SCH (10:07)
[2019-11-19] MEDS: DIVALPROEX 500 MG, DIVALPROEX 250 MG PO SCH ×2 (10:07→21:31)
[2019-11-19] MEDS: FLUoxetine HCL 10 MG CAPSULE PO SCH (10:07)
[2019-11-19] MEDS: QUEtiapine FUMARATE 100 MG TABLET (FP) PO SCH (10:08)
[2019-11-19] MEDS: PRENATAL VITAMINS W/ FOLIC ACID TABLET (FP) PO SCH (10:08)
[2019-11-19] MEDS: BUPRENORPHINE/NALOXONE 4 MG/1 MG FILM PACKET SL SCH (10:09)
[2019-11-19] MEDS: CLOTRIMAZOLE 1% CREAM 15 GM TUBE TP SCH ×2 (10:09→21:35)
[2019-11-19] MEDS: IBUPROFEN 400 MG TABLET (FP) PO PRN ×2 (10:10→21:33)
[2019-11-19] MEDS: CYCLOBENZAPRINE HCL 10 MG TABLET (FP) PO PRN ×2 (10:10→21:32)
[2019-11-19] MEDS: QUEtiapine FUMARATE 200 MG TABLET PO SCH (21:34)
[2019-11-19] MEDS: MELATONIN 5 MG TABLETS PO SCH (21:35)
[2019-11-19] MEDS: THIAMINE HCL 100 MG TABLET (FP) PO SCH (21:36)
[2019-11-20] MEDS: CYCLOBENZAPRINE HCL 10 MG TABLET (FP) PO PRN ×2 (08:41→21:52)
[2019-11-20] MEDS: IBUPROFEN 400 MG TABLET (FP) PO PRN ×2 (08:41→21:53)
[2019-11-20] MEDS: BUPRENORPHINE/NALOXONE 4 MG/1 MG FILM PACKET SL SCH (10:24)
[2019-11-20] MEDS: buPROPion HCL 75 MG TABLET PO SCH (10:24)
[2019-11-20] MEDS: DIVALPROEX 500 MG, DIVALPROEX 250 MG PO SCH ×2 (10:25→21:50)
[2019-11-20] MEDS: QUEtiapine FUMARATE 100 MG TABLET (FP) PO SCH (10:25)
[2019-11-20] MEDS: diphenhydrAMINE HCL 25 MG CAPSULE (FP) PO SCH ×2 (10:25→21:48)
[2019-11-20] MEDS: FLUoxetine HCL 10 MG CAPSULE PO SCH (10:25)
[2019-11-20] MEDS: PRENATAL VITAMINS W/ FOLIC ACID TABLET (FP) PO SCH (10:25)
[2019-11-20] MEDS: CLOTRIMAZOLE 1% CREAM 15 GM TUBE TP SCH ×2 (10:28→21:48)
[2019-11-20] MEDS ORDERED: hydrOXYzine PAMOATE 25 MG CAPSULE (FP) PO PRN (11:57)
[2019-11-20] MEDS: QUEtiapine FUMARATE 200 MG TABLET PO SCH (21:48)
[2019-11-20] MEDS: MELATONIN 5 MG TABLETS PO SCH (21:48)
[2019-11-20] MEDS: THIAMINE HCL 100 MG TABLET (FP) PO SCH (21:48)
[2019-11-21] MEDS: IBUPROFEN 400 MG TABLET (FP) PO PRN ×3 (06:40→21:39)
[2019-11-21] MEDS: BUPRENORPHINE/NALOXONE 4 MG/1 MG FILM PACKET SL SCH (10:50)
[2019-11-21] MEDS: diphenhydrAMINE HCL 25 MG CAPSULE (FP) PO SCH ×2 (10:52→21:37)
[2019-11-21] MEDS: QUEtiapine FUMARATE 100 MG TABLET (FP) PO SCH (10:52)
[2019-11-21] MEDS: buPROPion HCL 75 MG TABLET PO SCH (10:52)
[2019-11-21] MEDS: FLUoxetine HCL 10 MG CAPSULE PO SCH (10:52)
[2019-11-21] MEDS: DIVALPROEX 500 MG, DIVALPROEX 250 MG PO SCH ×2 (10:52→21:36)
[2019-11-21] MEDS: PRENATAL VITAMINS W/ FOLIC ACID TABLET (FP) PO SCH (10:53)
[2019-11-21] MEDS: CLOTRIMAZOLE 1% CREAM 15 GM TUBE TP SCH ×2 (10:53→21:37)
[2019-11-21] MEDS: CYCLOBENZAPRINE HCL 10 MG TABLET (FP) PO PRN ×2 (11:44→21:40)
[2019-11-21] MEDS: MELATONIN 5 MG TABLETS PO SCH (21:36)
[2019-11-21] MEDS: QUEtiapine FUMARATE 200 MG TABLET PO SCH (21:37)
[2019-11-21] MEDS: THIAMINE HCL 100 MG TABLET (FP) PO SCH (21:43)
[2019-11-22 07:14] VITALS: TEMP 97.8
[2019-11-22] MEDS: BUPRENORPHINE/NALOXONE 4 MG/1 MG FILM PACKET SL SCH (10:23)
[2019-11-22] MEDS: buPROPion HCL 75 MG TABLET PO SCH (10:24)
[2019-11-22] MEDS: diphenhydrAMINE HCL 25 MG CAPSULE (FP) PO SCH ×2 (10:24→21:26)
[2019-11-22] MEDS: FLUoxetine HCL 10 MG CAPSULE PO SCH (10:24)
[2019-11-22] MEDS: DIVALPROEX 500 MG, DIVALPROEX 250 MG PO SCH ×2 (10:24→21:26)
[2019-11-22] MEDS: CLOTRIMAZOLE 1% CREAM 15 GM TUBE TP SCH ×2 (10:24→21:25)
[2019-11-22] MEDS: QUEtiapine FUMARATE 100 MG TABLET (FP) PO SCH (10:24)
[2019-11-22] MEDS: PRENATAL VITAMINS W/ FOLIC ACID TABLET (FP) PO SCH (10:25)
[2019-11-22] MEDS: CYCLOBENZAPRINE HCL 10 MG TABLET (FP) PO PRN ×2 (10:28→21:26)
[2019-11-22] MEDS: IBUPROFEN 400 MG TABLET (FP) PO PRN ×2 (10:28→21:27)
--- NOTE | 2019-11-22 11:58 | PN ---
[facility] Progress Note Note: Patient Medication Verification from [employer]IST record: Others' Prescriptions Patient Name: Odilon Keita Date: 1985 Address: [address] [place] [id number]: Male Rx Written Rx Dispensed Drug Quantity Days Supply Prescriber Name Payment Method Dispenser 10/10/2019 10/13/2019 buprenorphine-naloxone 2-0.5 mg sl tablet 60 30 Digna Mackay MD [facility] 10/10/2019 10/13/2019 zolpidem tartrate 10 mg tablet 30 30 Chayo Echeverria MD [facility] 09/10/2019 09/12/2019 zolpidem tartrate 10 mg tablet 30 30 Chayo Echeverria MD [facility] 09/12/2019 09/12/2019 buprenorphine-naloxone 2-0.5 mg sl tablet 60 30 MunDigna ordoñez MD [facility] 08/29/2019 08/29/2019 buprenorphine-naloxone 2-0.5 mg sl tablet 30 15 MunDigna ordoñez MD [facility] 08/15/2019 08/15/2019 buprenorphine-naloxone 2-0.5 mg sl tablet 30 15 Digna Mackay MD [facility] 08/07/2019 08/11/2019 zolpidem tartrate 10 mg tablet 30 30 Chayo Echeverria MD [facility] 07/25/2019 07/31/2019 buprenorphine-naloxone 2-0.5 mg sl tablet 15 15 MunDigna ordoñez MD [facility] 07/11/2019 07/25/2019 buprenorphine-naloxone 8-2 mg sl film 7 7 Lily Merrill ([employer]) [facility] 07/10/2019 07/10/2019 zolpidem tartrate 10 mg tablet 30 30 Mikey Bowden NP [facility] 07/10/2019 07/10/2019 buprenorphine-naloxone 2-0.5 mg sl tablet 15 15 Digna Mackay MD [facility] 05/08/2019 05/09/2019 zolpidem tartrate 10 mg tablet 30 30 Chayo Echeverria MD [facility] 04/09/2019 04/10/2019 zolpidem tartrate 10 mg tablet 30 30 Ned Greene [facility] 03/07/2019 03/10/2019 zolpidem tartrate 10 mg tablet 30 30 Chayo Echeverria MD [facility] 02/07/2019 02/07/2019 zolpidem tartrate 10 mg tablet 30 30 Mikey Bowden [employer] [facility] 01/03/2019 01/11/2019 zolpidem tartrate 10 mg tablet 30 30 Mikey Bowden [employer] [facility] 12/12/2018 12/13/2018 zolpidem tartrate 10 mg tablet 30 30 Chayo Echeverria MD [facility] * - Drugs marked with an asterisk are compound drugs. If the compound drug is made up of more than one controlled substance, then each controlled substance will be a separate row in the table. Click the Report Suspicious Activity button to report information related to controlled substance suspicious activity to the [place] [employer]. Click the Send Questions/Comments button to send questions about this report to the [place] [employer], or call . Click the Substance Use Disorder Treatment button to go to the Office of Addiction Services and Supports website, www.[place].gov or call . Pt is scheduled to discharge tomorrow and will be returning to his Suboxone provider. Suboxone 4/mg/1mg sl daily #14 days electronically sent to pt's pharmacy to pick out hand and make appointment to see his prescriber for further management
--- NOTE | 2019-11-22 15:14 | PN ---
[facility] Progress Note Note: Patient is scheduled for discharge tomorrow. Scripts for 30 days supply of medications(Prozac 10 mg/day, Wellbutrin 75 mg/day, Depakote 750 mg/bid, Seroquel 100 mg/day & 200 mg/hs) will be electronically transmitted to [facility], [address] [place] [id number]
[2019-11-22] MEDS: QUEtiapine FUMARATE 200 MG TABLET PO SCH (21:26)
[2019-11-22] MEDS: THIAMINE HCL 100 MG TABLET (FP) PO SCH (21:26)
[2019-11-22] MEDS: MELATONIN 5 MG TABLETS PO SCH (21:26)
[2019-11-23 06:56] VITALS: BP 117/76; PULSE 76
--- NOTE | 2019-11-23 08:32 | DS ---
[facility] Rehab Discharge Summary - [facility] Rehab Discharge Summary Admission Date: 11/09/19 Discharge Date: 11/23/19 - History Present History: Alcohol dependence, Cannabis dependence, Cocaine dependence Pertinent Past History: Asthma Hx fx Left upper and right lower extremities Schizoaffective disorder - Discharge Physical Exam Vital Signs: Vital Signs Temperature 97.8 F 11/23/19 06:54 Pulse Rate 76 11/23/19 06:54 Respiratory Rate 18 11/23/19 06:54 Blood Pressure 117/76 11/23/19 06:54 O2 Sat by Pulse Oximetry (%) 95 11/23/19 06:54 Alert o x 3 nad oob ambulating with steady gait; Active ROM all ext. cardiac:s1 s2, rrr lungs:ctab abdomen:soft,+bs,nt,nd Extremities:no edema,skin intact; Active FROM, all. Pertinent Admission Physical Exam Findings: Laboratory Tests 11/12/19 06:50 Valproic Acid 70.4 Unremarkable on admission from detox - Treatment Discharge Condition: Discharge condition good Hospital Course: [facility]. - Medication Discharge Medications: Ambulatory Orders Buprenorphine HCl/Naloxone HCl [Suboxone 4 mg-1 mg Sl Film] 1 each SL DAILY 11/09/19 Cyclobenzaprine HCl [Flexeril 10 mg] 10 mg PO TID PRN 11/09/19 Diphenhydramine [Benadryl Capsule -] 50 mg PO BID PRN 11/09/19 Divalproex [Depakote -] 750 mg PO BID 11/09/19 Albuterol Sulfate Inhaler - [Ventolin HFA Inhaler -] 2 inh PO Q4H PRN #1 inhaler 11/22/19 Buprenorphine HCl/Naloxone HCl [Suboxone 4 mg-1 mg Sl Film] 1 each SL DAILY #14 film MDD 1 11/22/19 Bupropion HCl [Wellbutrin -] 75 mg PO DAILY #30 tablet 11/22/19 Divalproex [Depakote -] 250 mg PO BID #60 tablet.ec 11/22/19 Divalproex [Depakote -] 500 mg PO BID #60 tablet.ec 11/22/19 Fluoxetine HCl [Prozac -] 10 mg PO DAILY #30 capsule 11/22/19 Quetiapine Fumarate [Seroquel -] 100 mg PO DAILY #30 tablet 11/22/19 Quetiapine Fumarate [Seroquel -] 200 mg PO HS #30 tablet 11/22/19 - Medication-Assisted Treatment (MAT) Medication-Assisted Treatment (MAT): Yes Medication Prescribed: Suboxone (Pt has Suboxone Clinic with Dr. Digna Mackay at: [facility] [address] [place] [address] .) MAT Follow-up Referral: As per Pt: Dr Mackay @ [facility] site on [facility]/ [place], [place]. - Discharge Instructions Diet, activity, other medical instructions: Diet:Regular Activity: oob ad matt Other medical instructions:Follow up with CD aftercare as scheduled. - Diagnosis (1) Alcohol use disorder Status: Chronic (2) Asthma Status: Chronic Qualifiers: Asthma severity: mild Asthma persistence: unspecified Asthma complication type: uncomplicated Qualified Code(s): J45.909 - Unspecified asthma, uncomplicated (3) Cannabis dependence Status: Chronic (4) Cocaine dependence Status: Chronic Qualifiers: Substance use status: uncomplicated Qualified Code(s): F14.20 - Cocaine dependence, uncomplicated (5) Encounter for monitoring Suboxone maintenance therapy Status: Chronic (6) Nicotine dependence Status: Chronic Qualifiers: Nicotine product type: cigarettes Substance use status: uncomplicated Qualified Code(s): F17.210 - Nicotine dependence, cigarettes, uncomplicated - Follow-up Referral Minutes to complete discharge: 25 - AMA Did Patient Leave Against Medical Advice: No Additional Comments: Called pt's Suboxone clinic and informed of Two weeks Rx for Suboxone 4 mg/1mg sl daiy #14 #0 refill given to pt to enable pt make appointment to follow up with his prescriber,Dr. Mackay at [facility]. Spoke with Ms Misti Valverde at above clinic phone number and relayed this information.
[2019-11-23] MEDS: buPROPion HCL 75 MG TABLET PO SCH (10:22)
[2019-11-23] MEDS: diphenhydrAMINE HCL 25 MG CAPSULE (FP) PO SCH (10:22)
[2019-11-23] MEDS: QUEtiapine FUMARATE 100 MG TABLET (FP) PO SCH (10:22)
[2019-11-23] MEDS: PRENATAL VITAMINS W/ FOLIC ACID TABLET (FP) PO SCH (10:23)
[2019-11-23] MEDS: DIVALPROEX 500 MG, DIVALPROEX 250 MG PO SCH (10:23)
[2019-11-23] MEDS: FLUoxetine HCL 10 MG CAPSULE PO SCH (10:23)
[2019-11-23] MEDS: CYCLOBENZAPRINE HCL 10 MG TABLET (FP) PO PRN (10:27)
[2019-11-23] MEDS: IBUPROFEN 400 MG TABLET (FP) PO PRN (10:28)
[2019-11-23] MEDS: CLOTRIMAZOLE 1% CREAM 15 GM TUBE TP SCH (10:31)
[2019-11-23] MEDS ORDERED: BUPRENORPHINE/NALOXONE 4 MG/1 MG FILM PACKET SL ONE (10:45)
== END 2019-11-23 10:30 | disposition home or self-care (01) | DRG 895 ==
LOC: YASAS 11:07 → Y3E 11:08 → Y5N 11-14 14:37
PROVIDERS: ADMIT Allergy & Immunology; ATTEND Allergy & Immunology
PROC: HZ42ZZZ Group Counseling for Substance Abuse Treatment, Cognitive-Behavioral (ICD-10-PCS; principal; 2019-11-09)
DX: F10.20 Alcohol dependence, uncomplicated (principal); F11.20 Opioid dependence, uncomplicated; F14.20 Cocaine dependence, uncomplicated; F12.20 Cannabis dependence, uncomplicated; F17.210 Nicotine dependence, cigarettes, uncomplicated; F25.0 Schizoaffective disorder, bipolar type; K21.9 Gastro-esophageal reflux disease without esophagitis; J45.909 Unspecified asthma, uncomplicated; G47.00 Insomnia, unspecified; B35.3 Tinea pedis; Z62.810 Personal history of physical and sexual abuse in childhood; Z86.69 Personal history of other diseases of the nervous system and sense organs; Z86.19 Personal history of other infectious and parasitic diseases; Z88.8 Allergy status to other drugs, medicaments and biological substances; Z56.0 Unemployment, unspecified
CPT/HCPCS: 80164

== ENCOUNTER 2019-12-14 09:50 | Inpatient (IN) | payer OTHER ==
--- NOTE | 2019-12-14 10:04 | BHS.RME ---
Substance Use & Tx History - Substance Use History Alcohol Substance amount: 1 can beer 16 oz Frequency of use: Daily Substance route: Oral Date of Last Use: 12/12/19 Cocaine- Powder Substance amount: $10-20 Frequency of use: Daily Substance route: Inhalation (ex: sniffing or snorting) Date of Last Use: 12/11/19 Heroin Substance amount: 1-2 bags Frequency of use: Once a month Substance route: Inhalation (ex: sniffing or snorting) Date of Last Use: 11/30/19 Ecstasy Substance amount: 2 tabs Frequency of use: Less than 5 times a year Substance route: Oral Date of Last Use: 12/12/19 Physical/Psych/Mental Status - Behavior Eye Contact: Normal - Cooperativeness Cooperativeness: Cooperative - Thinking Thought Processes: Tight, Logical, Goal Directed Thought content: Future oriented - Physical Health Problems Is patient presently having any pain?: No Does patient presently have any injuries (include location): No Does patient currently have a fever: No COWS - Scale Resting Pulse: 0= ID 80 or Below Sweatin= No chills or Flushing Restless Observation: 0= Sits Still Pupil Size: 0= Normal to Room Light Bone or Joint Aches: 0= None Runny Nose/ Eye Tearin= None GI Upset > 30mins: 0= None Tremor Observation: 0= None Yawning Observation: 0= None Anxiety or Irritability: 0= None Goose Flesh Skin: 0=Smooth Skin COWS Score: 0 CIWA Nausea/Vomitin-No Nausea/No Vomiting Muscle Tremors: None Anxiety: 0-No Anxiety, at Ease Agitation: 0-Normal Activity Paroxysmal Sweats: No Perspiration Orientation: 0-Oriented Tacttile Disturbances: 0-None Auditory Disturbances: 0-None Visual Disturbances: 0-None Headache: 0-None Present CIWA-Ar Total Score: 0
[2019-12-14 11:15] VITALS: BMI 26.8
--- NOTE | 2019-12-14 11:16 | HP ---
COWS - Scale Resting Pulse: 0= MO 80 or Below Sweatin= No chills or Flushing Restless Observation: 0= Sits Still Pupil Size: 0= Normal to Room Light Bone or Joint Aches: 0= None Runny Nose/ Eye Tearin= None GI Upset > 30mins: 0= None Tremor Observation: 0= None Yawning Observation: 0= None Anxiety or Irritability: 0= None Goose Flesh Skin: 0=Smooth Skin COWS Score: 0 CIWA Score Nausea/Vomitin-No Nausea/No Vomiting Muscle Tremors: None Anxiety: 0-No Anxiety, at Ease Agitation: 0-Normal Activity Paroxysmal Sweats: No Perspiration Orientation: 0-Oriented Tacttile Disturbances: 0-None Auditory Disturbances: 0-None Visual Disturbances: 0-None Headache: 0-None Present CIWA-Ar Total Score: 0 - Admission Criteria OASAS Guidelines: Admission for Medically Managed Detox: Requires at least one of the followin. CIWA greater than 12 2. Seizures within the past 24 hours 3. Delirium tremens within the past 24 hours 4. Hallucinations within the past 24 hours 5. Acute intervention needed for co occurring medical disorder 6. Acute intervention needed for co occurring psychiatric disorder 7. Severe withdrawal that cannot be handled at a lower level of care (continued vomiting, continued diarrhea, abnormal vital signs) requiring intravenous medication and/or fluids 8. Admitting History and Physical - Admission Chief Complaint: Mr. Wing is a 34 yo man who presents to [facility] asking for rehab admission for alcohol, cocaine, heroin and ecstasy use disorder. He is on maintenance Suboxone therapy. History of Present Illness: Mr. Wing is a 34 yo man who presents to [facility] asking for rehab admission for alcohol, cocaine, heroin and ecstasy use disorder. He is on maintenance Suboxone therapy. PMH: Asthma, right foot hariline fracture with residual pain, GERD, asthma, syphilis: treated PSH; none Psych: Schizoaffective, prior tx with Seroquel and Benadry, last taken 2-3 years ago. SA x 2: attempted hanging, gun SOC: JORDYN Velazquez Legal: none Pt was COVID tested on 12/12/19: negative Substance Use History Alcohol Substance amount: 1 can beer 16 oz Frequency of use: Daily Substance route: Oral Date of Last Use: 12/12/19 First use age 16y Cocaine- Powder Substance amount: $10-20 Frequency of use: Daily Substance route: Inhalation (ex: sniffing or snorting) Date of Last Use: 12/11/19 First use 22 yo Heroin Substance amount: 1-2 bags Frequency of use: Once a month Substance route: Inhalation (ex: sniffing or snorting) Date of Last Use: 11/30/19 First use 25 y Ecstasy Substance amount: 2 tabs Frequency of use: Less than 5 times a year Substance route: Oral Date of Last Use: 12/12/19 First use age 11 y Suboxone: 4/1 qd Odilon Wing Date: 1985 Address: [address] [place] [address] Sex: Male Rx Written Rx Dispensed Drug Quantity Days Supply Prescriber Name 12/04/2019 12/13/2019 buprenorphine-naloxone 2-0.5 mg sl tablet 30 15 MunDigna ordoñez MD 11/22/2019 12/01/2019 buprenorphine-naloxone 4-1 mg sl film 14 14 Bernice Foreman NP 11/26/2019 12/01/2019 zolpidem tartrate 10 mg tablet 30 30 Chayo Echeverria MD 10/10/2019 10/13/2019 buprenorphine-naloxone 2-0.5 mg sl tablet 60 30 MundDigna MD 10/10/2019 10/13/2019 zolpidem tartrate 10 mg tablet 30 30 JackiChayo MD 09/10/2019 09/12/2019 zolpidem tartrate 10 mg tablet 30 30 JackiChayo chicas MD 09/12/2019 09/12/2019 buprenorphine-naloxone 2-0.5 mg sl tablet 60 30 MundDigna MD 08/29/2019 08/29/2019 buprenorphine-naloxone 2-0.5 mg sl tablet 30 15 MunDigna ordoñez MD 08/15/2019 08/15/2019 buprenorphine-naloxone 2-0.5 mg sl tablet 30 15 MundDigna MD 08/07/2019 08/11/2019 zolpidem tartrate 10 mg tablet 30 30 JackiChayo MD 07/25/2019 07/31/2019 buprenorphine-naloxone 2-0.5 mg sl tablet 15 15 Mund, Digna MD 07/11/2019 07/25/2019 buprenorphine-naloxone 8-2 mg sl film 7 7 Lily Merrill ([employer]) 07/10/2019 07/10/2019 zolpidem tartrate 10 mg tablet 30 30 Mikey Bowden MORA 07/10/2019 07/10/2019 buprenorphine-naloxone 2-0.5 mg sl tablet 15 15 Digna Mackay MD 05/08/2019 05/09/2019 zolpidem tartrate 10 mg tablet 30 30 Chayo Echeverria MD 04/09/2019 04/10/2019 zolpidem tartrate 10 mg tablet 30 30 Ned Greene History Source: Patient Limitations to Obtaining History: No Limitations - Past Medical History SLOT EDITOR: Yes: Seizure Pulmonary: Yes: Asthma Psych: Yes: Other (scizoaffective) - Past Surgical History Past Surgical History: Yes: None - Smoking History Smoking history: Current some day smoker Have you smoked in the past 12 months: Yes Aproximately how many cigarettes per day: 1 If you are a former smoker, when did you quit?: 06/07/2018 - Alcohol/Substance Use Hx Alcohol Use: Yes History of Substance Use: reports: Cocaine Date of Last Use: 11/05/19 - Social History ADL: Support Services Occupation: unemployed History of Recent Travel: No Admission [facility] Allergies/Adverse Reactions: Allergies Allergy/AdvReac Type Severity Reaction Status Date / Time haloperidol [From Haldol] Allergy Severe stiffness Verified 12/14/19 10:53 risperidone [From Risperdal] AdvReac stiffness Verified 12/14/19 10:53 Exam Limitations: No Limitations - Ebola screening Have you traveled outside of the country in the last 21 days: No Have you been sick,other than usual withdrawal symptoms: No Do you have a fever: No - Review of Systems Constitutional: No Symptoms Reported EENT: reports: Other (feels as though there is water in his right ear) Respiratory: reports: No Symptoms reported Cardiac: reports: No Symptoms Reported GI: reports: No Symptoms Reported : reports: No Symptoms Reported Musculoskeletal: reports: Other (right ankle pain, post hairline fracture 5 years ago) Neuro: reports: No Symptoms reported Endocrine: reports: No Symptoms Reported Hematology: reports: No Symptoms Reported Psychiatric: reports: Anxious Patient History - Patient Medical History Hx Anemia: No Hx Asthma: Yes Hx Chronic Obstructive Pulmonary Disease (COPD): No Hx Cancer: No Hx Cardiac Disorders: No Hx Congestive Heart Failure: No Hx Hypertension: No Hx Hypercholesterolemia: No Hx Pacemaker: No HX Cerebrovascular Accident: No Hx Seizures: No Hx Dementia: No Hx Diabetes: No Hx Gastrointestinal Disorders: Yes (GERD) Hx Liver Disease: No Hx Genitourinary Disorders: No Hx Sexually Transmitted Disorders: Yes (Syphilis) Hx Renal Disease (ESRD): No Hx Thyroid Disease: No Hx Human Immunodeficiency Virus (HIV): No (negative 11/21 negative) Hx Hepatitis C: No Hx Depression: No Hx Suicide Attempt: Yes (1993 with a gun and 1994 hanging) Hx Bipolar Disorder: Yes Hx Schizophrenia: Yes - Patient Surgical History Past Surgical History: No Hx Neurologic Surgery: No Hx Cataract Extraction: No Hx Cardiac Surgery: No Hx Lung Surgery: No Hx Breast Surgery: No Hx Breast Biopsy: No Hx Abdominal Surgery: No Hx Appendectomy: No Hx Cholecystectomy: No Hx Genitourinary Surgery: No Hx Section: No Hx Orthopedic Surgery: Yes (left forearm @ 8yrs old & right hand 2018) Anesthesia Reaction: No - PPD History Date: 11/07/19 Results: 0mm - Smoking Cessation Smoking history: Current some day smoker Have you smoked in the past 12 months: Yes Aproximately how many cigarettes per day: 0 If you are a former smoker, when did you quit?: 06/07/2018 Cigars Per Day: 0 Hx Chewing Tobacco Use: No Initiated information on smoking cessation: No Admission Physical Exam BHS - Physical General Appearance: Yes: No Apparent Distress, Nourished HEENTM: Yes: EOMI, Hearing grossly Normal, Normocephalic, Normal Voice, Tm's normal Respiratory: Yes: Normal Breath Sounds, No Respiratory Distress, No Accessory Muscle Use Neck: Yes: Within Normal Limits, Supple Breast: Yes: Breast Exam Deferred Cardiology: Yes: Regular Rhythm, Regular Rate Abdominal: Yes: Normal Bowel Sounds, Non Tender, Flat, Soft Genitourinary: Yes: Other (deferred) Back: Yes: Normal Inspection Musculoskeletal: Yes: Gait Steady Extremities: Yes: Normal Inspection Neurological: Yes: Alert, Normal Response Integumentary: Yes: Normal Color, Dry, Warm - Diagnostic (1) Alcohol use disorder Current Visit: Yes Status: Acute Comment: 1. Plan to admit to rehab 2. Psychoeducation (2) Asthma Current Visit: No Status: Chronic Qualifiers: Asthma severity: mild Asthma persistence: unspecified Asthma complication type: uncomplicated Qualified Code(s): J45.909 - Unspecified asthma, uncomplicated Comment: 1. monitor clinically, not active at this time (3) Cocaine dependence Current Visit: Yes Status: Acute Qualifiers: Substance use status: uncomplicated Qualified Code(s): F14.20 - Cocaine dependence, uncomplicated Comment: 1. Substance use education while in rehab (4) Opioid dependence on agonist therapy Current Visit: No Status: Chronic Comment: 1. I Stop checked, will resume Suboxone / daily (5) Schizoaffective disorder Current Visit: No Status: Chronic Qualifiers: Schizoaffective disorder type: bipolar Qualified Code(s): F25.0 - Schizoaffective disorder, bipolar type Comment: Self-reported history. 1. prior tx with Seroquel and Benadryl 2. will have pt seen by Psychiatry (6) Fracture of right lower extremity Current Visit: No Status: Resolved Qualifiers: Encounter type: initial encounter Fracture type: closed Qualified Code(s): S82.91XA - Unspecified fracture of right lower leg, initial encounter for closed fracture Comment: 1. right ankle pain, will offer prn Tylenol or ibuprofen (7) History of syphilis Current Visit: No Status: Resolved Comment: 1. treated Cleared for Admission S - Detox or Rehab [facility] Level of Care: Medically Supervised Breathalyzer - Breathalyzer Breathalyzer: 0 Urine Drug Screen - Test Device Lot number: [id number] Expiration date: 07/11/21 - Control Is test valid?: Yes - Results Drug screen NEGATIVE: No Urine drug screen results: SILVANA-Cocaine, BUP-Suboxone Inpatient Rehab Admission - Rehab Decision to Admit Inpatient rehab admission?: Yes - Initial Determination Are CD services needed?: Yes Free of communicable disease: Yes Not in need of hospitalization: Yes - Rehab Admission Criteria Previous failed treatment: Yes Poor recovery environment: Yes Comorbidities: Yes Lacks judgement: Yes Patient is meeting Inpatient Rehab admission criteria:: Yes
[2019-12-14] MEDS ORDERED: ALBUTEROL SO4 HFA INHALER IH PRN (11:40)
[2019-12-14] MEDS ORDERED: MAG HYDROX/AL HYDROX/SIMETH 30 ML UNIT-DOSE CUP PO PRN (11:43)
[2019-12-14] MEDS ORDERED: P-EPHED 60MG/TRIPROLIDI 2.5MG TABLET PO PRN (11:43)
[2019-12-14] MEDS ORDERED: guaiFENesin 200 MG/10 ML 10 ML UNIT-DOSE CUPS PO PRN (11:43)
[2019-12-14] MEDS ORDERED: MAGNESIUM HYDROX 2400MG/30ML ORAL SUSPENSION 30 ML CUP PO PRN (11:43)
[2019-12-14] MEDS ORDERED: LOPERAMIDE HCL 2 MG CAPSULE PO PRN (11:43)
[2019-12-14] MEDS ORDERED: MAGNESIUM CITRATE 300 ML BOTTLE PO PRN (11:43)
[2019-12-14] MEDS: ACETAMINOPHEN 325 MG TABLET (FP) PO PRN (14:01)
[2019-12-14] MEDS: hydrOXYzine PAMOATE 25 MG CAPSULE (FP) PO SCH ×3 (14:04→21:46)
--- NOTE | 2019-12-14 15:13 | PN ---
[facility] Progress Note Note: Pt is a 34 y/o male admitted to rehab this afternoon through [facility]. Reports chronic pain to Right foot, Hx of fx of Tibia/fibula 4 yrs ago. Pt reports he is on Suboxone 4mg/1mg sl daily and has current Rx with him(#30 and has about 25-27 films balance). Claims he took only 2mg today. Pt appears very drowsy but oob around the unit with peers. Vital Signs - 24 hr 12/14/19 12/14/19 11:05 12:41 Temperature 97.3 F L 98.0 F Pulse Rate 73 67 Respiratory 20 18 Rate Blood Pressure 120/83 111/70 O2 Sat by Pulse 96 Oximetry (%) Alert o x 3 nad oob ambulating with a slight limp extremities:no edema; right ankle prominence New rehab pt Suboxone MAT Increase po fluids cont suboxone 4mg/1mg sl as directed Omar-Lundberg ointment apply to right ankle BID Motrin or Tylenol prn for pain Robaxin prn for muscle spasms maintain safety
[2019-12-14 17:36] LABS: HEMATOCRIT 39.3 % (35.4-49); HEMOGLOBIN 12.8 GM/dL (11.7-16.9); MCH 29.2 pg (25.7-33.7); MCHC 32.7 g/dl (32.0-35.9); MEAN CELL VOLUME 89.3 fl (80-96); MEAN PLT VOLUME 8.7 fl (7.5-11.1); PLATELET COUNT 239 K/MM3 (134-434); RDW 14.8 % (11.9-15.9); WHITE BLOOD COUNT 7.2 K/mm3 (4.0-10.0)
[2019-12-14 17:42] LABS: ALBUMIN 3.9 g/dl (3.4-5.0); BILIRUBIN,TOTAL 0.3 mg/dL (0.2-1); CALCIUM 9.2 mg/dL (8.5-10.1); TOT PROT 8.3 g/dl (6.4-8.2)
[2019-12-14 18:16] LABS: SICKLE CELL SCREEN NEGATIVE (NEGATIVE)
[2019-12-14] MEDS: THIAMINE HCL 100 MG TABLET (FP) PO SCH (21:47)
[2019-12-14] MEDS: MELATONIN 5 MG TABLETS PO SCH (21:47)
[2019-12-14] MEDS: IBUPROFEN 400 MG TABLET (FP) PO PRN (21:49)
[2019-12-14] MEDS: METHYL SALICYLATE/MENTHOL OINT 30 GM TUBE TP SCH (21:50)
[2019-12-15] MEDS: hydrOXYzine PAMOATE 25 MG CAPSULE (FP) PO SCH ×5 (07:53→21:41)
--- NOTE | 2019-12-15 10:10 | CONSULT ---
[facility] Psychiatric Consult - Data Date of interview: 12/15/19 Admission source: [facility] Identifying data: Patient is a 34 year old single male, father of one, unemployed, domiciled, and is supported by [facility]. This is one of multiple admissions for patient. Patient admitted to for alcohol dependence. Substance Abuse History: Smoking History. Smoking history: Current some day smoker. Have you smoked in the past 12 months: Yes. Aproximately how many cigarettes per day: 1. If you are a former smoker, when did you quit?: 06/07/2018. - Alcohol/Substance Use. Hx Alcohol Use: Yes. History of Substance Use: reports: Cocaine. Date of Last Use: 11/05/19 Medical History: Asthma, right foot hariline fracture with residual pain, GERD, asthma, Psychiatric History: Mr. Wing reports an extensive history of psychiatric hospitalizations beginning at age 17 years in which he was admitted to [facility] psychiatric unit and diagnosed with schizophrenia. Additional hospitalizations have occured at [facility] + [facility]. Diagnosis was later revised to Schizoaffective disorder. Patient is currently provided with psychiatric care at [facility] in the [place]. States that he is prescribed seroquel 100 mg daily /200 mg HS ( but states that he takes seroquel 200mg in the morning and 100mg HS as 200mg causes him to sleep in late) + depakote 750 mg/bid + prozac 10 mg/day + wellbutrin 75 mg/day + benadryl 25 mg/bid. Patient reports a remote history of suicide attempts (shooting/hanging at age [age]). Mr Wing reports most recently taking his medications two days ago. At present patient denies auditory/ visual hallucinations, suicidal/ homicidal ideation. Physical/Sexual Abuse/Trauma History: denies. Mental Status Exam - Mental Status Exam Alert and Oriented to: Time, Place, Person Cognitive Function: Good Patient Appearance: Well Groomed Mood: Withdrawn Affect: Mood Congruent Patient Behavior: Appropriate, Cooperative Speech Pattern: Appropriate Voice Loudness: Normal Thought Process: Goal Oriented Thought Disorder: Not Present Hallucinations: Denies Suicidal Ideation: Denies Homicidal Ideation: Denies Insight/Judgement: Poor Sleep: Poorly Appetite: Fair Muscle strength/Tone: Normal Gait/Station: Normal Psychiatric Findings - Problem List ([place] 1, 2,3) (1) Alcohol use disorder Status: Chronic Comment: 1. Plan to admit to rehab 2. Psychoeducation (2) Cocaine dependence Status: Chronic Qualifiers: Substance use status: uncomplicated Qualified Code(s): F14.20 - Cocaine dependence, uncomplicated Comment: 1. Substance use education while in rehab (3) Opioid dependence on agonist therapy Status: Chronic Comment: 1. I Stop checked, will resume Suboxone 4/ daily (4) Schizoaffective disorder Status: Chronic Qualifiers: Schizoaffective disorder type: bipolar Qualified Code(s): F25.0 - Schizoaffective disorder, bipolar type Comment: Self-reported history. 1. prior tx with Seroquel and Benadryl 2. will have pt seen by Psychiatry - Initial Treatment Plan Initial Treatment Plan: Psychoeducation provided. Detoxification in progress. Will order Seroquel 150mg BID + Wellbutrin 75mg daily + Prozac 10mg daily + Benadryl 25mg BID. Will order Valproic acid level on 12/16/19. Benefits and side effects discussed. Verbal consent given.
[2019-12-15] MEDS ORDERED: diphenhydrAMINE HCL 50 MG CAPSULE PO PRN (10:17)
[2019-12-15] MEDS: PRENATAL VITAMINS W/ FOLIC ACID TABLET (FP) PO SCH (10:42)
[2019-12-15] MEDS: METHYL SALICYLATE/MENTHOL OINT 30 GM TUBE TP SCH ×2 (10:42→21:40)
[2019-12-15] MEDS: BUPRENORPHINE/NALOXONE 4 MG/1 MG FILM PACKET SL SCH (11:39)
[2019-12-15] MEDS: buPROPion HCL 75 MG TABLET PO SCH (11:39)
[2019-12-15] MEDS: DIVALPROEX SODIUM 250 MG TABLET E.C. PO SCH ×2 (11:39→21:40)
[2019-12-15] MEDS: FLUoxetine HCL 10 MG CAPSULE PO SCH (11:39)
[2019-12-15] MEDS: QUEtiapine FUMARATE 50 MG TABLET PO SCH ×2 (11:40→21:41)
[2019-12-15] MEDS: diphenhydrAMINE HCL 25 MG CAPSULE (FP) PO PRN (11:46)
--- NOTE | 2019-12-15 13:55 | PN ---
[facility] Progress Note Note: Laboratory Tests 12/14/19 12/14/19 12/14/19 11:15 11:15 11:15 WBC 7.2 RBC 4.40 Hgb 12.8 Hct 39.3 MCV 89.3 MCH 29.2 MCHC 32.7 RDW 14.8 Plt Count 239 MPV 8.7 Sickle Cell Screen Negative Sodium 143 Potassium 4.0 Chloride 106 Carbon Dioxide 34 H Anion Gap 3 L BUN 12.0 Creatinine 1.0 Est GFR (CKD-EPI)AfAm 112.51 Est GFR (CKD-EPI)NonAf 97.08 Random Glucose 68 L Calcium 9.2 Total Bilirubin 0.3 AST 57 H ALT 104 H Alkaline Phosphatase 88 Total Protein 8.3 H Albumin 3.9 Syphilis Serology Reactive A* RPR Titer 12/14/19 11:15 WBC RBC Hgb Hct MCV MCH MCHC RDW Plt Count MPV Sickle Cell Screen Sodium Potassium Chloride Carbon Dioxide Anion Gap BUN Creatinine Est GFR (CKD-EPI)AfAm Est GFR (CKD-EPI)NonAf Random Glucose Calcium Total Bilirubin AST ALT Alkaline Phosphatase Total Protein Albumin Syphilis Serology RPR Titer Reactive 1:1 H RPR previously reactive.
[2019-12-15] MEDS: MELATONIN 5 MG TABLETS PO SCH (21:41)
[2019-12-15] MEDS: THIAMINE HCL 100 MG TABLET (FP) PO SCH (21:41)
[2019-12-16] MEDS: hydrOXYzine PAMOATE 25 MG CAPSULE (FP) PO SCH ×5 (07:12→21:29)
[2019-12-16] MEDS: PRENATAL VITAMINS W/ FOLIC ACID TABLET (FP) PO SCH (10:41)
[2019-12-16] MEDS: BUPRENORPHINE/NALOXONE 4 MG/1 MG FILM PACKET SL SCH (10:41)
[2019-12-16] MEDS: buPROPion HCL 75 MG TABLET PO SCH (10:41)
[2019-12-16] MEDS: QUEtiapine FUMARATE 50 MG TABLET PO SCH ×2 (10:42→21:28)
[2019-12-16] MEDS: FLUoxetine HCL 10 MG CAPSULE PO SCH (10:42)
[2019-12-16] MEDS: DIVALPROEX SODIUM 250 MG TABLET E.C. PO SCH ×2 (10:42→21:29)
[2019-12-16] MEDS: METHYL SALICYLATE/MENTHOL OINT 30 GM TUBE TP SCH ×2 (10:44→21:30)
[2019-12-16] MEDS: IBUPROFEN 400 MG TABLET (FP) PO PRN (10:46)
[2019-12-16] MEDS: ACETAMINOPHEN 325 MG TABLET (FP) PO PRN (16:38)
[2019-12-16] MEDS: METHOCARBAMOL 500 MG TABLET PO PRN (21:28)
[2019-12-16] MEDS: MELATONIN 5 MG TABLETS PO SCH (21:29)
[2019-12-16] MEDS: THIAMINE HCL 100 MG TABLET (FP) PO SCH (21:30)
[2019-12-16 22:18] LABS: PH,URINE 6.5 (5.0-8.0); URINE APPEARANCE CLEAR; URINE BILIRUBIN NEGATIVE (NEGATIVE); URINE COLOR YELLOW; URINE GLUCOSE (UA) NEGATIVE (NEGATIVE); URINE KETONE TRACE (NEGATIVE); URINE LEUK ESTERASE NEGATIVE (NEGATIVE); URINE NITRITE NEGATIVE (NEGATIVE); URINE PROTEIN NEGATIVE (NEGATIVE); URINE UROBILINOGEN 0.2 mg/dL (0.2-1.0)
[2019-12-17] MEDS: hydrOXYzine PAMOATE 25 MG CAPSULE (FP) PO SCH ×5 (07:07→21:35)
[2019-12-17] MEDS: buPROPion HCL 75 MG TABLET PO SCH (10:25)
[2019-12-17] MEDS: QUEtiapine FUMARATE 50 MG TABLET PO SCH ×2 (10:25→21:33)
[2019-12-17] MEDS: BUPRENORPHINE/NALOXONE 4 MG/1 MG FILM PACKET SL SCH (10:26)
[2019-12-17] MEDS: PRENATAL VITAMINS W/ FOLIC ACID TABLET (FP) PO SCH (10:26)
[2019-12-17] MEDS: DIVALPROEX SODIUM 250 MG TABLET E.C. PO SCH ×2 (10:26→21:33)
[2019-12-17] MEDS: FLUoxetine HCL 10 MG CAPSULE PO SCH (10:26)
[2019-12-17] MEDS: METHYL SALICYLATE/MENTHOL OINT 30 GM TUBE TP SCH ×2 (10:27→21:35)
[2019-12-17] MEDS ORDERED: MASKS NR ONE (19:30)
[2019-12-17] MEDS ORDERED: QUEtiapine FUMARATE 25 MG TABLET ONE (20:46)
[2019-12-17] MEDS: MELATONIN 5 MG TABLETS PO SCH (21:33)
[2019-12-17] MEDS: diphenhydrAMINE HCL 25 MG CAPSULE (FP) PO PRN (21:34)
[2019-12-17] MEDS: THIAMINE HCL 100 MG TABLET (FP) PO SCH (21:35)
[2019-12-17] MEDS: IBUPROFEN 400 MG TABLET (FP) PO PRN (21:36)
[2019-12-18] MEDS: hydrOXYzine PAMOATE 25 MG CAPSULE (FP) PO SCH ×5 (06:49→22:05)
[2019-12-18] MEDS: buPROPion HCL 75 MG TABLET PO SCH (10:53)
[2019-12-18] MEDS: DIVALPROEX SODIUM 250 MG TABLET E.C. PO SCH ×2 (10:53→22:04)
[2019-12-18] MEDS: BUPRENORPHINE/NALOXONE 4 MG/1 MG FILM PACKET SL SCH (10:53)
[2019-12-18] MEDS: PRENATAL VITAMINS W/ FOLIC ACID TABLET (FP) PO SCH (10:54)
[2019-12-18] MEDS: METHYL SALICYLATE/MENTHOL OINT 30 GM TUBE TP SCH ×2 (10:54→22:06)
[2019-12-18] MEDS: FLUoxetine HCL 10 MG CAPSULE PO SCH (10:55)
[2019-12-18] MEDS: QUEtiapine FUMARATE 50 MG TABLET PO SCH ×2 (10:56→22:04)
[2019-12-18] MEDS: IBUPROFEN 400 MG TABLET (FP) PO PRN (10:56)
[2019-12-18] MEDS: MELATONIN 5 MG TABLETS PO SCH (22:04)
[2019-12-18] MEDS: diphenhydrAMINE HCL 25 MG CAPSULE (FP) PO PRN (22:05)
[2019-12-18] MEDS: THIAMINE HCL 100 MG TABLET (FP) PO SCH (22:05)
[2019-12-18] MEDS: METHOCARBAMOL 500 MG TABLET PO PRN (22:05)
[2019-12-19] MEDS: hydrOXYzine PAMOATE 25 MG CAPSULE (FP) PO SCH ×5 (06:57→21:48)
[2019-12-19] MEDS: BUPRENORPHINE/NALOXONE 4 MG/1 MG FILM PACKET SL SCH (10:43)
[2019-12-19] MEDS: FLUoxetine HCL 10 MG CAPSULE PO SCH (10:43)
[2019-12-19] MEDS: buPROPion HCL 75 MG TABLET PO SCH (10:43)
[2019-12-19] MEDS: DIVALPROEX SODIUM 250 MG TABLET E.C. PO SCH ×2 (10:43→21:48)
[2019-12-19] MEDS: METHYL SALICYLATE/MENTHOL OINT 30 GM TUBE TP SCH ×2 (10:44→21:50)
[2019-12-19] MEDS: QUEtiapine FUMARATE 50 MG TABLET PO SCH ×2 (10:44→21:49)
[2019-12-19] MEDS: diphenhydrAMINE HCL 25 MG CAPSULE (FP) PO PRN (10:47)
[2019-12-19] MEDS: PRENATAL VITAMINS W/ FOLIC ACID TABLET (FP) PO SCH (10:49)
[2019-12-19] MEDS ORDERED: MASKS NR ONE (11:10)
[2019-12-19] MEDS: IBUPROFEN 400 MG TABLET (FP) PO PRN (21:49)
[2019-12-19] MEDS: THIAMINE HCL 100 MG TABLET (FP) PO SCH (21:50)
[2019-12-19] MEDS: MELATONIN 5 MG TABLETS PO SCH (21:50)
[2019-12-19] MEDS: METHOCARBAMOL 500 MG TABLET PO PRN (21:51)
[2019-12-20] MEDS: hydrOXYzine PAMOATE 25 MG CAPSULE (FP) PO SCH ×5 (06:47→21:59)
[2019-12-20] MEDS: FLUoxetine HCL 10 MG CAPSULE PO SCH (12:03)
[2019-12-20] MEDS: DIVALPROEX SODIUM 250 MG TABLET E.C. PO SCH ×2 (12:03→21:58)
[2019-12-20] MEDS: buPROPion HCL 75 MG TABLET PO SCH (12:03)
[2019-12-20] MEDS: METHYL SALICYLATE/MENTHOL OINT 30 GM TUBE TP SCH ×2 (12:04→22:00)
[2019-12-20] MEDS: QUEtiapine FUMARATE 50 MG TABLET PO SCH ×2 (12:04→21:58)
[2019-12-20] MEDS: PRENATAL VITAMINS W/ FOLIC ACID TABLET (FP) PO SCH (12:04)
[2019-12-20] MEDS: BUPRENORPHINE/NALOXONE 4 MG/1 MG FILM PACKET SL SCH (12:04)
[2019-12-20] MEDS: IBUPROFEN 400 MG TABLET (FP) PO PRN (12:14)
[2019-12-20] MEDS: THIAMINE HCL 100 MG TABLET (FP) PO SCH (21:59)
[2019-12-20] MEDS: diphenhydrAMINE HCL 25 MG CAPSULE (FP) PO PRN (21:59)
[2019-12-20] MEDS: MELATONIN 5 MG TABLETS PO SCH (22:00)
[2019-12-20] MEDS: METHOCARBAMOL 500 MG TABLET PO PRN (22:00)
[2019-12-20] MEDS: ACETAMINOPHEN 325 MG TABLET (FP) PO PRN (22:00)
[2019-12-21] MEDS: hydrOXYzine PAMOATE 25 MG CAPSULE (FP) PO SCH ×5 (07:07→21:23)
[2019-12-21] MEDS: METHOCARBAMOL 500 MG TABLET PO PRN ×3 (07:21→21:22)
[2019-12-21] MEDS: QUEtiapine FUMARATE 50 MG TABLET PO SCH ×2 (10:38→21:22)
[2019-12-21] MEDS: DIVALPROEX SODIUM 250 MG TABLET E.C. PO SCH ×2 (10:38→21:22)
[2019-12-21] MEDS: buPROPion HCL 75 MG TABLET PO SCH (10:39)
[2019-12-21] MEDS: BUPRENORPHINE/NALOXONE 4 MG/1 MG FILM PACKET SL SCH (10:39)
[2019-12-21] MEDS: FLUoxetine HCL 10 MG CAPSULE PO SCH (10:39)
[2019-12-21] MEDS: METHYL SALICYLATE/MENTHOL OINT 30 GM TUBE TP SCH ×2 (10:39→21:23)
[2019-12-21] MEDS: PRENATAL VITAMINS W/ FOLIC ACID TABLET (FP) PO SCH (10:39)
[2019-12-21] MEDS: ACETAMINOPHEN 325 MG TABLET (FP) PO PRN ×2 (10:41→21:24)
[2019-12-21] MEDS: IBUPROFEN 400 MG TABLET (FP) PO PRN (18:22)
[2019-12-21] MEDS: THIAMINE HCL 100 MG TABLET (FP) PO SCH (21:22)
[2019-12-21] MEDS: MELATONIN 5 MG TABLETS PO SCH (21:23)
[2019-12-22] MEDS: hydrOXYzine PAMOATE 25 MG CAPSULE (FP) PO SCH ×5 (06:41→22:11)
[2019-12-22] MEDS: IBUPROFEN 400 MG TABLET (FP) PO PRN ×2 (06:43→22:14)
[2019-12-22] MEDS: METHOCARBAMOL 500 MG TABLET PO PRN (06:43)
[2019-12-22] MEDS: DIVALPROEX SODIUM 250 MG TABLET E.C. PO SCH ×2 (10:51→22:12)
[2019-12-22] MEDS: buPROPion HCL 75 MG TABLET PO SCH (10:51)
[2019-12-22] MEDS: QUEtiapine FUMARATE 50 MG TABLET PO SCH ×2 (10:51→22:11)
[2019-12-22] MEDS: FLUoxetine HCL 10 MG CAPSULE PO SCH (10:51)
[2019-12-22] MEDS: BUPRENORPHINE/NALOXONE 4 MG/1 MG FILM PACKET SL SCH (10:52)
[2019-12-22] MEDS: METHYL SALICYLATE/MENTHOL OINT 30 GM TUBE TP SCH ×2 (10:52→22:16)
[2019-12-22] MEDS: PRENATAL VITAMINS W/ FOLIC ACID TABLET (FP) PO SCH (10:53)
[2019-12-22] MEDS: ACETAMINOPHEN 325 MG TABLET (FP) PO PRN (11:08)
[2019-12-22] MEDS: THIAMINE HCL 100 MG TABLET (FP) PO SCH (22:11)
[2019-12-22] MEDS: MELATONIN 5 MG TABLETS PO SCH (22:12)
[2019-12-22] MEDS: CYCLOBENZAPRINE HCL 10 MG TABLET (FP) PO PRN (22:13)
[2019-12-23] MEDS: hydrOXYzine PAMOATE 25 MG CAPSULE (FP) PO SCH ×5 (06:50→21:55)
[2019-12-23] MEDS: IBUPROFEN 400 MG TABLET (FP) PO PRN ×3 (06:52→21:56)
[2019-12-23] MEDS: CYCLOBENZAPRINE HCL 10 MG TABLET (FP) PO PRN ×3 (06:53→21:55)
[2019-12-23] MEDS: METHYL SALICYLATE/MENTHOL OINT 30 GM TUBE TP SCH ×2 (10:36→21:55)
[2019-12-23] MEDS: BUPRENORPHINE/NALOXONE 4 MG/1 MG FILM PACKET SL SCH (10:36)
[2019-12-23] MEDS: PRENATAL VITAMINS W/ FOLIC ACID TABLET (FP) PO SCH (10:37)
[2019-12-23] MEDS: buPROPion HCL 75 MG TABLET PO SCH (10:37)
[2019-12-23] MEDS: QUEtiapine FUMARATE 50 MG TABLET PO SCH ×2 (10:37→21:55)
[2019-12-23] MEDS: FLUoxetine HCL 10 MG CAPSULE PO SCH (10:37)
[2019-12-23] MEDS: DIVALPROEX SODIUM 250 MG TABLET E.C. PO SCH ×2 (10:37→21:55)
[2019-12-23] MEDS: ACETAMINOPHEN 325 MG TABLET (FP) PO PRN (10:40)
[2019-12-23] MEDS: THIAMINE HCL 100 MG TABLET (FP) PO SCH (21:57)
[2019-12-23] MEDS: MELATONIN 5 MG TABLETS PO SCH (21:57)
[2019-12-24] MEDS: hydrOXYzine PAMOATE 25 MG CAPSULE (FP) PO SCH ×5 (06:36→21:57)
[2019-12-24] MEDS: CYCLOBENZAPRINE HCL 10 MG TABLET (FP) PO PRN ×3 (06:36→21:57)
[2019-12-24] MEDS: IBUPROFEN 400 MG TABLET (FP) PO PRN ×2 (06:37→13:29)
[2019-12-24] MEDS: QUEtiapine FUMARATE 50 MG TABLET PO SCH ×2 (10:36→22:01)
[2019-12-24] MEDS: PRENATAL VITAMINS W/ FOLIC ACID TABLET (FP) PO SCH (10:36)
[2019-12-24] MEDS: BUPRENORPHINE/NALOXONE 4 MG/1 MG FILM PACKET SL SCH (10:36)
[2019-12-24] MEDS: buPROPion HCL 75 MG TABLET PO SCH (10:36)
[2019-12-24] MEDS: DIVALPROEX SODIUM 250 MG TABLET E.C. PO SCH ×2 (10:37→21:57)
[2019-12-24] MEDS: FLUoxetine HCL 10 MG CAPSULE PO SCH (10:37)
[2019-12-24] MEDS: METHYL SALICYLATE/MENTHOL OINT 30 GM TUBE TP SCH ×2 (10:37→21:57)
[2019-12-24] MEDS: diphenhydrAMINE HCL 25 MG CAPSULE (FP) PO PRN (10:39)
[2019-12-24] MEDS: ACETAMINOPHEN 325 MG TABLET (FP) PO PRN ×2 (10:40→21:57)
[2019-12-24] MEDS ORDERED: QUEtiapine FUMARATE 25 MG TABLET ONE (20:11)
[2019-12-24] MEDS: THIAMINE HCL 100 MG TABLET (FP) PO SCH (22:00)
[2019-12-24] MEDS: MELATONIN 5 MG TABLETS PO SCH (22:01)
[2019-12-25] MEDS: hydrOXYzine PAMOATE 25 MG CAPSULE (FP) PO SCH ×5 (06:21→21:45)
[2019-12-25] MEDS: CYCLOBENZAPRINE HCL 10 MG TABLET (FP) PO PRN ×2 (06:23→21:45)
[2019-12-25] MEDS: buPROPion HCL 75 MG TABLET PO SCH (09:46)
[2019-12-25] MEDS: QUEtiapine FUMARATE 50 MG TABLET PO SCH ×2 (09:46→21:45)
[2019-12-25] MEDS: BUPRENORPHINE/NALOXONE 4 MG/1 MG FILM PACKET SL SCH (09:46)
[2019-12-25] MEDS: DIVALPROEX SODIUM 250 MG TABLET E.C. PO SCH ×2 (09:47→21:45)
[2019-12-25] MEDS: METHYL SALICYLATE/MENTHOL OINT 30 GM TUBE TP SCH ×2 (09:48→21:46)
[2019-12-25] MEDS: PRENATAL VITAMINS W/ FOLIC ACID TABLET (FP) PO SCH (09:48)
[2019-12-25] MEDS: FLUoxetine HCL 10 MG CAPSULE PO SCH (09:48)
[2019-12-25] MEDS: IBUPROFEN 400 MG TABLET (FP) PO PRN (09:49)
[2019-12-25] MEDS: MELATONIN 5 MG TABLETS PO SCH (21:45)
[2019-12-25] MEDS: THIAMINE HCL 100 MG TABLET (FP) PO SCH (21:47)
[2019-12-26] MEDS: hydrOXYzine PAMOATE 25 MG CAPSULE (FP) PO SCH ×5 (08:06→21:45)
[2019-12-26] MEDS: BUPRENORPHINE/NALOXONE 4 MG/1 MG FILM PACKET SL SCH (11:08)
[2019-12-26] MEDS: DIVALPROEX SODIUM 250 MG TABLET E.C. PO SCH ×2 (11:08→21:41)
[2019-12-26] MEDS: QUEtiapine FUMARATE 50 MG TABLET PO SCH ×2 (11:08→21:41)
[2019-12-26] MEDS: FLUoxetine HCL 10 MG CAPSULE PO SCH (11:08)
[2019-12-26] MEDS: buPROPion HCL 75 MG TABLET PO SCH (11:09)
[2019-12-26] MEDS: METHYL SALICYLATE/MENTHOL OINT 30 GM TUBE TP SCH ×2 (11:09→21:44)
[2019-12-26] MEDS: PRENATAL VITAMINS W/ FOLIC ACID TABLET (FP) PO SCH (11:09)
[2019-12-26] MEDS: CYCLOBENZAPRINE HCL 10 MG TABLET (FP) PO PRN ×2 (11:11→21:41)
[2019-12-26] MEDS: IBUPROFEN 400 MG TABLET (FP) PO PRN ×2 (11:12→21:43)
[2019-12-26] MEDS: THIAMINE HCL 100 MG TABLET (FP) PO SCH (21:41)
[2019-12-26] MEDS: diphenhydrAMINE HCL 25 MG CAPSULE (FP) PO PRN (21:41)
[2019-12-26] MEDS: MELATONIN 5 MG TABLETS PO SCH (21:44)
[2019-12-27] MEDS: CYCLOBENZAPRINE HCL 10 MG TABLET (FP) PO PRN ×2 (06:30→21:46)
[2019-12-27] MEDS: hydrOXYzine PAMOATE 25 MG CAPSULE (FP) PO SCH ×5 (06:30→21:45)
[2019-12-27] MEDS: buPROPion HCL 75 MG TABLET PO SCH (09:35)
[2019-12-27] MEDS: DIVALPROEX SODIUM 250 MG TABLET E.C. PO SCH ×2 (09:35→21:45)
[2019-12-27] MEDS: METHYL SALICYLATE/MENTHOL OINT 30 GM TUBE TP SCH ×2 (09:35→21:45)
[2019-12-27] MEDS: QUEtiapine FUMARATE 50 MG TABLET PO SCH ×2 (09:35→21:46)
[2019-12-27] MEDS: PRENATAL VITAMINS W/ FOLIC ACID TABLET (FP) PO SCH (09:36)
[2019-12-27] MEDS: FLUoxetine HCL 10 MG CAPSULE PO SCH (09:36)
[2019-12-27] MEDS: IBUPROFEN 400 MG TABLET (FP) PO PRN ×2 (09:37→21:45)
[2019-12-27] MEDS: BUPRENORPHINE/NALOXONE 4 MG/1 MG FILM PACKET SL SCH (10:47)
--- NOTE | 2019-12-27 11:04 | PN ---
[facility] Progress Note Note: Patient is scheduled for discharge tomorrow. Scripts for 30 days supply of medications(Seroquel 150 mg/bid, Wellbutrin 75 mg/day, Prozac 10 mg/day, benadryl 25 mg/bid) will be electronically transmitted to [facility] [address] [place] [address]
[2019-12-27] MEDS: THIAMINE HCL 100 MG TABLET (FP) PO SCH (21:47)
[2019-12-27] MEDS: MELATONIN 5 MG TABLETS PO SCH (21:47)
[2019-12-28] MEDS: hydrOXYzine PAMOATE 25 MG CAPSULE (FP) PO SCH ×2 (07:12→09:46)
[2019-12-28 07:25] VITALS: BP 119/76; PULSE 77; TEMP 97.3
[2019-12-28] MEDS: buPROPion HCL 75 MG TABLET PO SCH (09:46)
[2019-12-28] MEDS: BUPRENORPHINE/NALOXONE 4 MG/1 MG FILM PACKET SL SCH (09:46)
[2019-12-28] MEDS: PRENATAL VITAMINS W/ FOLIC ACID TABLET (FP) PO SCH (09:46)
[2019-12-28] MEDS: QUEtiapine FUMARATE 50 MG TABLET PO SCH (09:46)
[2019-12-28] MEDS: FLUoxetine HCL 10 MG CAPSULE PO SCH (09:46)
[2019-12-28] MEDS: DIVALPROEX SODIUM 250 MG TABLET E.C. PO SCH (09:47)
[2019-12-28] MEDS: METHYL SALICYLATE/MENTHOL OINT 30 GM TUBE TP SCH (09:49)
--- NOTE | 2019-12-28 10:52 | DS ---
[facility] Rehab Discharge Summary - [facility] Rehab Discharge Summary Admission Date: 12/14/19 Discharge Date: 12/28/19 - History Present History: Alcohol dependence, Cannabis dependence, Cocaine dependence Pertinent Past History: Asthma Hx Fx left upper extremity Schizoaffective Disorder - Discharge Physical Exam Vital Signs: Vital Signs Temperature 97.3 F L 12/28/19 07:24 Pulse Rate 77 12/28/19 07:24 Respiratory Rate 18 12/28/19 07:24 Blood Pressure 119/76 12/28/19 07:24 O2 Sat by Pulse Oximetry (%) 98 12/28/19 07:24 Pertinent Admission Physical Exam Findings: Laboratory Tests 12/14/19 12/14/19 12/14/19 11:15 11:15 11:15 WBC 7.2 RBC 4.40 Hgb 12.8 Hct 39.3 MCV 89.3 MCH 29.2 MCHC 32.7 RDW 14.8 Plt Count 239 MPV 8.7 Sickle Cell Screen Negative Sodium 143 Potassium 4.0 Chloride 106 Carbon Dioxide 34 H Anion Gap 3 L BUN 12.0 Creatinine 1.0 Est GFR (CKD-EPI)AfAm 112.51 Est GFR (CKD-EPI)NonAf 97.08 Random Glucose 68 L Calcium 9.2 Total Bilirubin 0.3 AST 57 H ALT 104 H Alkaline Phosphatase 88 Total Protein 8.3 H Albumin 3.9 Urine Color Urine Appearance Urine pH Ur Specific [place] Urine Protein Urine Glucose (UA) Urine Ketones Urine Blood Urine Nitrite Urine Bilirubin Urine Urobilinogen Ur Leukocyte Esterase Valproic Acid Syphilis Serology Reactive A* RPR Titer 12/14/19 12/16/19 12/16/19 11:15 05:50 22:00 WBC RBC Hgb Hct MCV MCH MCHC RDW Plt Count MPV Sickle Cell Screen Sodium Potassium Chloride Carbon Dioxide Anion Gap BUN Creatinine Est GFR (CKD-EPI)AfAm Est GFR (CKD-EPI)NonAf Random Glucose Calcium Total Bilirubin AST ALT Alkaline Phosphatase Total Protein Albumin Urine Color Yellow Urine Appearance Clear Urine pH 6.5 Ur Specific [place] 1.016 Urine Protein Negative Urine Glucose (UA) Negative Urine Ketones Trace H Urine Blood Negative Urine Nitrite Negative Urine Bilirubin Negative Urine Urobilinogen 0.2 Ur Leukocyte Esterase Negative Valproic Acid < 3.0 L Syphilis Serology RPR Titer Reactive 1:1 H - Treatment Discharge Condition: Discharge condition good, Rehabilitated safely, Responded well, Outpatient referral accepted Hospital Course: Pt is a 34 y/o male with a hx of JENNIFER admitted to rehab and discharged today. Pt met with his counselor and referred to [facility] for CD aftercare. - Medication Discharge Medications: Ambulatory Orders Buprenorphine HCl/Naloxone HCl [Suboxone 4 mg-1 mg Sl Film] 1 each SL DAILY 11/09/19 Cyclobenzaprine HCl [Flexeril 10 mg] 10 mg PO TID PRN 11/09/19 Divalproex [Depakote -] 750 mg PO BID 11/09/19 Albuterol Sulfate Inhaler - [Ventolin HFA Inhaler -] 2 inh PO Q4H PRN #1 inhaler 11/22/19 Bupropion HCl [Wellbutrin -] 75 mg PO DAILY #30 tablet 12/27/19 Diphenhydramine [Benadryl Capsule -] 50 mg PO BID PRN #60 cap 12/27/19 Fluoxetine HCl [Prozac -] 10 mg PO DAILY #30 capsule 12/27/19 Quetiapine Fumarate [Seroquel -] 50 mg PO BID #30 tablet 12/27/19 Quetiapine Fumarate [Seroquel -] 100 mg PO DAILY #30 tablet 12/27/19 - Medication-Assisted Treatment (MAT) Medication-Assisted Treatment (MAT): Yes Medication Prescribed: Suboxone MAT Follow-up Referral: [facility] MAT program - Discharge Instructions Diet, activity, other medical instructions: Diet:Regular Activity: oob ad matt Other medical instructions:follow up with CD aftercare recommendation as scheduled. Follow up with primary care with your PCP, [facility]. - Diagnosis (1) Alcohol use disorder Status: Chronic (2) Cocaine dependence Status: Chronic Qualifiers: Substance use status: uncomplicated Qualified Code(s): F14.20 - Cocaine dependence, uncomplicated (3) Asthma Status: Chronic Qualifiers: Asthma severity: unspecified severity Asthma persistence: unspecified Asthma complication type: uncomplicated Qualified Code(s): J45.909 - Unspecified asthma, uncomplicated (4) Cannabis dependence Status: Chronic (5) Encounter for monitoring Suboxone maintenance therapy Status: Chronic (6) Nicotine dependence Status: Chronic Qualifiers: Nicotine product type: cigarettes Substance use status: uncomplicated Qualified Code(s): F17.210 - Nicotine dependence, cigarettes, uncomplicated (7) History of syphilis Status: Resolved (8) Schizoaffective disorder Status: Chronic Qualifiers: Schizoaffective disorder type: bipolar Qualified Code(s): F25.0 - Schizoaffective disorder, bipolar type - Follow-up Referral Minutes to complete discharge: 20 - AMA Did Patient Leave Against Medical Advice: No Additional Comments: Pt reports he has own Suboxone and will follow up with his suboxone provider after discharge at [facility] MAT program.
== END 2019-12-28 10:00 | disposition home or self-care (01) | DRG 895 ==
LOC: YASAS 09:50 → Y5N 11:14
PROVIDERS: ADMIT Allergy & Immunology; ATTEND Allergy & Immunology
PROC: HZ42ZZZ Group Counseling for Substance Abuse Treatment, Cognitive-Behavioral (ICD-10-PCS; principal; 2019-12-14)
DX: F10.20 Alcohol dependence, uncomplicated (principal); F14.20 Cocaine dependence, uncomplicated; F11.20 Opioid dependence, uncomplicated; F12.20 Cannabis dependence, uncomplicated; F17.210 Nicotine dependence, cigarettes, uncomplicated; F25.0 Schizoaffective disorder, bipolar type; J45.909 Unspecified asthma, uncomplicated; K21.9 Gastro-esophageal reflux disease without esophagitis; R26.89 Other abnormalities of gait and mobility; Z86.19 Personal history of other infectious and parasitic diseases; Z87.81 Personal history of (healed) traumatic fracture; Z51.81 Encounter for therapeutic drug level monitoring; Z79.899 Other long term (current) drug therapy; Z91.5 Personal history of self-harm
CPT/HCPCS: 36415; 80053; 80164; 81003; 85027; 85660; 86593; 86780

== ENCOUNTER 2022-04-14 11:53 | Inpatient (IN) | payer OTHER ==
[2022-04-14 12:16] VITALS: BMI 27.9
[2022-04-14] MEDS ORDERED: MAG HYDROX/AL HYDROX/SIMETH 30 ML UNIT-DOSE CUP PO PRN (14:42)
[2022-04-14] MEDS ORDERED: NICOTINE 10 MG CARTRIDGE (INHALER) IH PRN (14:42)
[2022-04-14] MEDS ORDERED: IBUPROFEN 400 MG TABLET (FP) PO PRN (14:42)
[2022-04-14] MEDS ORDERED: DICYCLOMINE HCL 10 MG CAPSULE PO PRN (14:42)
[2022-04-14] MEDS ORDERED: NICOTINE POLACRILEX 2 MG GUM BUC PRN (14:42)
[2022-04-14] MEDS ORDERED: ONDANSETRON *ODT* 4 MG TABLET SL PRN (14:42)
[2022-04-14] MEDS ORDERED: IBUPROFEN 600 MG TABLET (FP) PO PRN (14:42)
[2022-04-14] MEDS ORDERED: hydrOXYzine PAMOATE 25 MG CAPSULE (FP) PO PRN (14:42)
[2022-04-14] MEDS ORDERED: LOPERAMIDE HCL 2 MG CAPSULE PO PRN (14:42)
[2022-04-14] MEDS ORDERED: MAGNESIUM HYDROX 2400MG/30ML ORAL SUSPENSION 30 ML CUP PO PRN (14:42)
[2022-04-14] MEDS ORDERED: BISMUTH SUBSALICYLATE 262 MG/15 ML BTL PO PRN (14:42)
[2022-04-14] MEDS ORDERED: NALOXONE HCL (KLOXXADO) 8 MG SPRAY NS PRN (14:42)
[2022-04-14] MEDS ORDERED: BENZOCAINE/MENTHOL (CHLORASEPTIC ) LOZENGE MM PRN (14:42)
[2022-04-14] MEDS ORDERED: POLYETHYLENE GLYCOL (HEALTHYLAX) 3350 17 GM PACKET PO PRN (14:42)
[2022-04-14] MEDS ORDERED: ACETAMINOPHEN 325 MG TABLET (FP) PO PRN ×2 (14:42)
[2022-04-14] MEDS ORDERED: ALBUTEROL SO4 HFA INHALER IH PRN (15:52)
[2022-04-14] MEDS: THIAMINE HCL 100 MG TABLET (FP) PO SCH (22:31)
[2022-04-14] MEDS: MELATONIN 5 MG TABLETS PO SCH (22:31)
[2022-04-15] MEDS: PRENATAL VITAMINS W/ FOLIC ACID TABLET (FP) PO SCH (10:10)
[2022-04-15] MEDS: METHOCARBAMOL 500 MG TABLET PO PRN (10:11)
[2022-04-15] MEDS: DIVALPROEX SODIUM 250 MG TABLET E.C. PO SCH ×2 (10:44→22:35)
[2022-04-15] MEDS: QUEtiapine FUMARATE 100 MG TABLET (FP) PO SCH ×2 (10:45→11:22)
[2022-04-15] MEDS: BUPRENORPHINE/NALOXONE 2 MG/0.5 MG FILM PACKET SL SCH ×2 (10:46→22:36)
[2022-04-15] MEDS: buPROPion HCL 75 MG TABLET PO SCH (10:50)
[2022-04-15] MEDS: FLUoxetine HCL 10 MG CAPSULE PO SCH (10:51)
[2022-04-15 12:59] LABS: HEMATOCRIT 42.5 % (35.4-49); HEMOGLOBIN 13.9 GM/dL (11.7-16.9); MCH 29.1 pg (25.7-33.7); MCHC 32.6 g/dl (32.0-35.9); MEAN PLT VOLUME 9.5 fl (7.5-11.1); PLATELET COUNT 229 10^3/uL (134-434); RBC 4.77 M/mm3 (4.00-5.60); RDW 14.3 % (11.9-15.9); WHITE BLOOD COUNT 5.2 K/mm3 (4.0-10.0)
[2022-04-15 13:15] LABS: ALBUMIN 3.4 g/dl (3.4-5.0); BLOOD UREA NITROGEN 14.5 mg/dL (7-18)
[2022-04-15 13:17] LABS: BILIRUBIN,TOTAL 0.4 mg/dL (0.2-1); CREATININE 1.1 mg/dL (0.55-1.3)
[2022-04-15 13:18] LABS: TOT PROT 7.1 g/dl (6.4-8.2)
[2022-04-15] MEDS: diazePAM 5 MG TABLET PO SCH ×2 (17:26→22:35)
[2022-04-15] MEDS: THIAMINE HCL 100 MG TABLET (FP) PO SCH (22:35)
[2022-04-15] MEDS: QUEtiapine FUMARATE 200 MG TABLET PO SCH (22:35)
[2022-04-15] MEDS: MELATONIN 5 MG TABLETS PO SCH (23:36)
[2022-04-16] MEDS: diazePAM 5 MG TABLET PO SCH ×3 (06:28→22:35)
[2022-04-16] MEDS: PRENATAL VITAMINS W/ FOLIC ACID TABLET (FP) PO SCH (10:49)
[2022-04-16] MEDS: METHOCARBAMOL 500 MG TABLET PO PRN (10:49)
[2022-04-16] MEDS: DIVALPROEX SODIUM 250 MG TABLET E.C. PO SCH ×2 (10:49→22:35)
[2022-04-16] MEDS: FLUoxetine HCL 10 MG CAPSULE PO SCH (10:49)
[2022-04-16] MEDS: buPROPion HCL 75 MG TABLET PO SCH (10:50)
[2022-04-16] MEDS: BUPRENORPHINE/NALOXONE 2 MG/0.5 MG FILM PACKET SL SCH ×2 (10:50→22:36)
[2022-04-16] MEDS: QUEtiapine FUMARATE 100 MG TABLET (FP) PO SCH (10:55)
[2022-04-16] MEDS: THIAMINE HCL 100 MG TABLET (FP) PO SCH (22:35)
[2022-04-16] MEDS ORDERED: diphenhydrAMINE HCL 25 MG CAPSULE (FP) PO ONE (22:40)
[2022-04-16] MEDS: QUEtiapine FUMARATE 200 MG TABLET PO SCH (22:52)
[2022-04-16] MEDS: MELATONIN 5 MG TABLETS PO SCH (22:52)
[2022-04-17] MEDS: diazePAM 5 MG TABLET PO SCH ×2 (06:01→17:33)
[2022-04-17] MEDS: PRENATAL VITAMINS W/ FOLIC ACID TABLET (FP) PO SCH (10:28)
[2022-04-17] MEDS: DIVALPROEX SODIUM 250 MG TABLET E.C. PO SCH ×2 (10:29→22:25)
[2022-04-17] MEDS: QUEtiapine FUMARATE 100 MG TABLET (FP) PO SCH (10:29)
[2022-04-17] MEDS: BUPRENORPHINE/NALOXONE 2 MG/0.5 MG FILM PACKET SL SCH ×2 (10:30→22:26)
[2022-04-17] MEDS: diphenhydrAMINE HCL 50 MG CAPSULE PO SCH ×2 (10:30→22:26)
[2022-04-17] MEDS: FLUoxetine HCL 10 MG CAPSULE PO SCH (11:20)
[2022-04-17] MEDS: buPROPion HCL 75 MG TABLET PO SCH (11:20)
[2022-04-17] MEDS: THIAMINE HCL 100 MG TABLET (FP) PO SCH (22:25)
[2022-04-17] MEDS: MELATONIN 5 MG TABLETS PO SCH (22:25)
[2022-04-17] MEDS: QUEtiapine FUMARATE 200 MG TABLET PO SCH (22:26)
[2022-04-18] MEDS ORDERED: diazePAM 5 MG TABLET PO ONE (06:00)
[2022-04-18] MEDS: BUPRENORPHINE/NALOXONE 2 MG/0.5 MG FILM PACKET SL SCH (10:24)
[2022-04-18] MEDS: PRENATAL VITAMINS W/ FOLIC ACID TABLET (FP) PO SCH (11:06)
[2022-04-18] MEDS: diphenhydrAMINE HCL 50 MG CAPSULE PO SCH (11:06)
[2022-04-18] MEDS: QUEtiapine FUMARATE 100 MG TABLET (FP) PO SCH (11:07)
[2022-04-18] MEDS: DIVALPROEX SODIUM 250 MG TABLET E.C. PO SCH (11:14)
[2022-04-18] MEDS: buPROPion HCL 75 MG TABLET PO SCH (11:52)
[2022-04-18] MEDS: FLUoxetine HCL 10 MG CAPSULE PO SCH (11:52)
[2022-04-18 13:36] VITALS: BP 110/67; PULSE 73; RESP 18; TEMP 96.9
== END 2022-04-18 15:47 | disposition other institution (70) | DRG 897 ==
LOC: YASAS 11:53 → Y6N 14:53
PROVIDERS: ADMIT Allergy & Immunology; ATTEND Surgery
PROC: HZ2ZZZZ Detoxification Services for Substance Abuse Treatment (ICD-10-PCS; principal; 2022-04-14)
DX: F10.230 Alcohol dependence with withdrawal, uncomplicated (principal); F14.20 Cocaine dependence, uncomplicated; F16.20 Hallucinogen dependence, uncomplicated; F19.280 Other psychoactive substance dependence with psychoactive substance-induced anxiety disorder; F15.10 Other stimulant abuse, uncomplicated; F17.210 Nicotine dependence, cigarettes, uncomplicated; F25.0 Schizoaffective disorder, bipolar type; G40.909 Epilepsy, unspecified, not intractable, without status epilepticus; J45.909 Unspecified asthma, uncomplicated; K21.9 Gastro-esophageal reflux disease without esophagitis; Z28.310 Unvaccinated for COVID-19; Z28.9 Immunization not carried out for unspecified reason
CPT/HCPCS: 36415; 80053; 83036; 85027; 86593; 86780; C9803-CS; U0003; U0005

== ENCOUNTER 2022-04-18 15:55 | Inpatient (IN) | payer OTHER ==
[2022-04-18] MEDS ORDERED: P-EPHED 60MG/TRIPROLIDI 2.5MG TABLET PO PRN (18:45)
[2022-04-18] MEDS ORDERED: BENZOCAINE/MENTHOL (CHLORASEPTIC ) LOZENGE MM PRN (18:45)
[2022-04-18] MEDS ORDERED: POLYETHYLENE GLYCOL (HEALTHYLAX) 3350 17 GM PACKET PO PRN (18:45)
[2022-04-18] MEDS ORDERED: ACETAMINOPHEN 325 MG TABLET (FP) PO PRN (18:45)
[2022-04-18] MEDS ORDERED: hydrOXYzine PAMOATE 25 MG CAPSULE (FP) PO PRN (18:45)
[2022-04-18] MEDS ORDERED: guaiFENesin 200 MG/10 ML 10 ML UNIT-DOSE CUPS PO PRN (18:45)
[2022-04-18] MEDS ORDERED: NICOTINE 10 MG CARTRIDGE (INHALER) IH PRN (18:45)
[2022-04-18] MEDS ORDERED: LOPERAMIDE HCL 2 MG CAPSULE PO PRN (18:45)
[2022-04-18] MEDS ORDERED: ALBUTEROL SO4 HFA INHALER IH PRN (18:53)
[2022-04-18] MEDS: DIVALPROEX 250 MG, DIVALPROEX 500 MG PO SCH (21:56)
[2022-04-18] MEDS: BUPRENORPHINE/NALOXONE 2 MG/0.5 MG FILM PACKET SL SCH (21:57)
[2022-04-18] MEDS: THIAMINE HCL 100 MG TABLET (FP) PO SCH (21:57)
[2022-04-18] MEDS: QUEtiapine FUMARATE 200 MG TABLET PO SCH (21:57)
[2022-04-18] MEDS ORDERED: DIVALPROEX SODIUM 500 MG TABLET E.C. PO SCH (22:00)
[2022-04-18] MEDS ORDERED: MELATONIN 5 MG TABLETS PO SCH (22:00)
[2022-04-18] MEDS: diphenhydrAMINE HCL 25 MG CAPSULE (FP) PO PRN (22:04)
[2022-04-19] MEDS: QUEtiapine FUMARATE 100 MG TABLET (FP) PO SCH (09:59)
[2022-04-19] MEDS: buPROPion HCL 75 MG TABLET PO SCH (09:59)
[2022-04-19] MEDS: DIVALPROEX 250 MG, DIVALPROEX 500 MG PO SCH ×2 (09:59→21:50)
[2022-04-19] MEDS: PRENATAL VITAMINS W/ FOLIC ACID TABLET (FP) PO SCH (09:59)
[2022-04-19] MEDS: NICOTINE 7 MG/24 HOURS TOPICAL PATCH TD SCH (10:00)
[2022-04-19] MEDS: FLUoxetine HCL 10 MG CAPSULE PO SCH (10:00)
[2022-04-19] MEDS: BUPRENORPHINE/NALOXONE 2 MG/0.5 MG FILM PACKET SL SCH ×2 (10:01→21:51)
[2022-04-19] MEDS: diphenhydrAMINE HCL 25 MG CAPSULE (FP) PO PRN (10:02)
[2022-04-19] MEDS: QUEtiapine FUMARATE 200 MG TABLET PO SCH (21:50)
[2022-04-19] MEDS: diphenhydrAMINE HCL 25 MG CAPSULE (FP) PO SCH (21:51)
[2022-04-19] MEDS: THIAMINE HCL 100 MG TABLET (FP) PO SCH (21:51)
[2022-04-20] MEDS: buPROPion HCL 75 MG TABLET PO SCH (09:44)
[2022-04-20] MEDS: QUEtiapine FUMARATE 100 MG TABLET (FP) PO SCH (09:44)
[2022-04-20] MEDS: diphenhydrAMINE HCL 25 MG CAPSULE (FP) PO SCH ×2 (09:45→21:31)
[2022-04-20] MEDS: DIVALPROEX 250 MG, DIVALPROEX 500 MG PO SCH ×2 (09:45→21:31)
[2022-04-20] MEDS: FLUoxetine HCL 10 MG CAPSULE PO SCH (09:45)
[2022-04-20] MEDS: BUPRENORPHINE/NALOXONE 2 MG/0.5 MG FILM PACKET SL SCH ×2 (09:46→21:32)
[2022-04-20] MEDS: NICOTINE 7 MG/24 HOURS TOPICAL PATCH TD SCH (09:46)
[2022-04-20] MEDS: PRENATAL VITAMINS W/ FOLIC ACID TABLET (FP) PO SCH (09:46)
[2022-04-20] MEDS: QUEtiapine FUMARATE 200 MG TABLET PO SCH (21:31)
[2022-04-20] MEDS: THIAMINE HCL 100 MG TABLET (FP) PO SCH (21:31)
[2022-04-20] MEDS: MAG HYDROX/AL HYDROX/SIMETH 30 ML UNIT-DOSE CUP PO PRN (22:29)
[2022-04-21] MEDS: PRENATAL VITAMINS W/ FOLIC ACID TABLET (FP) PO SCH (09:44)
[2022-04-21] MEDS: FLUoxetine HCL 10 MG CAPSULE PO SCH (09:44)
[2022-04-21] MEDS: QUEtiapine FUMARATE 100 MG TABLET (FP) PO SCH (09:44)
[2022-04-21] MEDS: DIVALPROEX 250 MG, DIVALPROEX 500 MG PO SCH ×2 (09:44→21:38)
[2022-04-21] MEDS: NICOTINE 7 MG/24 HOURS TOPICAL PATCH TD SCH (09:44)
[2022-04-21] MEDS: diphenhydrAMINE HCL 25 MG CAPSULE (FP) PO SCH ×2 (09:44→21:37)
[2022-04-21] MEDS: buPROPion HCL 75 MG TABLET PO SCH (09:44)
[2022-04-21] MEDS: BUPRENORPHINE/NALOXONE 2 MG/0.5 MG FILM PACKET SL SCH ×2 (09:44→21:41)
[2022-04-21] MEDS: VITAMINS A AND D TOPICAL OINTMENT 60 GM TUBE TP SCH (18:03)
[2022-04-21] MEDS: THIAMINE HCL 100 MG TABLET (FP) PO SCH (21:37)
[2022-04-21] MEDS: CYCLOBENZAPRINE HCL 10 MG TABLET (FP) PO PRN (21:37)
[2022-04-21] MEDS: QUEtiapine FUMARATE 200 MG TABLET PO SCH (21:37)
[2022-04-21] MEDS: IBUPROFEN 400 MG TABLET (FP) PO PRN (21:41)
[2022-04-21] MEDS: MAG HYDROX/AL HYDROX/SIMETH 30 ML UNIT-DOSE CUP PO PRN (22:39)
[2022-04-22] MEDS: VITAMINS A AND D TOPICAL OINTMENT 60 GM TUBE TP SCH ×4 (00:05→18:50)
[2022-04-22] MEDS: DIVALPROEX 250 MG, DIVALPROEX 500 MG PO SCH ×2 (09:35→21:13)
[2022-04-22] MEDS: BUPRENORPHINE/NALOXONE 2 MG/0.5 MG FILM PACKET SL SCH ×2 (09:35→21:14)
[2022-04-22] MEDS: diphenhydrAMINE HCL 25 MG CAPSULE (FP) PO SCH ×2 (09:35→21:13)
[2022-04-22] MEDS: buPROPion HCL 75 MG TABLET PO SCH (09:36)
[2022-04-22] MEDS: NICOTINE 7 MG/24 HOURS TOPICAL PATCH TD SCH (09:36)
[2022-04-22] MEDS: FLUoxetine HCL 10 MG CAPSULE PO SCH (09:36)
[2022-04-22] MEDS: PRENATAL VITAMINS W/ FOLIC ACID TABLET (FP) PO SCH (09:36)
[2022-04-22] MEDS: QUEtiapine FUMARATE 100 MG TABLET (FP) PO SCH (09:36)
[2022-04-22] MEDS: QUEtiapine FUMARATE 200 MG TABLET PO SCH (21:13)
[2022-04-22] MEDS: THIAMINE HCL 100 MG TABLET (FP) PO SCH (21:13)
[2022-04-22] MEDS: CYCLOBENZAPRINE HCL 10 MG TABLET (FP) PO PRN (21:13)
[2022-04-23] MEDS: VITAMINS A AND D TOPICAL OINTMENT 60 GM TUBE TP SCH ×4 (00:15→18:51)
[2022-04-23] MEDS: FLUoxetine HCL 10 MG CAPSULE PO SCH (09:28)
[2022-04-23] MEDS: BUPRENORPHINE/NALOXONE 2 MG/0.5 MG FILM PACKET SL SCH ×2 (09:28→21:25)
[2022-04-23] MEDS: QUEtiapine FUMARATE 100 MG TABLET (FP) PO SCH (09:28)
[2022-04-23] MEDS: diphenhydrAMINE HCL 25 MG CAPSULE (FP) PO SCH ×2 (09:28→21:24)
[2022-04-23] MEDS: PRENATAL VITAMINS W/ FOLIC ACID TABLET (FP) PO SCH (09:28)
[2022-04-23] MEDS: DIVALPROEX 250 MG, DIVALPROEX 500 MG PO SCH ×2 (09:29→21:24)
[2022-04-23] MEDS: NICOTINE 7 MG/24 HOURS TOPICAL PATCH TD SCH (09:30)
[2022-04-23] MEDS: buPROPion HCL 75 MG TABLET PO SCH (11:15)
[2022-04-23] MEDS: CYCLOBENZAPRINE HCL 10 MG TABLET (FP) PO PRN (21:24)
[2022-04-23] MEDS: THIAMINE HCL 100 MG TABLET (FP) PO SCH (21:24)
[2022-04-23] MEDS: QUEtiapine FUMARATE 200 MG TABLET PO SCH (21:24)
[2022-04-24] MEDS: VITAMINS A AND D TOPICAL OINTMENT 60 GM TUBE TP SCH ×4 (00:05→18:26)
[2022-04-24] MEDS: IBUPROFEN 400 MG TABLET (FP) PO PRN (06:37)
[2022-04-24] MEDS: buPROPion HCL 75 MG TABLET PO SCH (09:33)
[2022-04-24] MEDS: PRENATAL VITAMINS W/ FOLIC ACID TABLET (FP) PO SCH (09:33)
[2022-04-24] MEDS: FLUoxetine HCL 10 MG CAPSULE PO SCH (09:33)
[2022-04-24] MEDS: QUEtiapine FUMARATE 100 MG TABLET (FP) PO SCH (09:34)
[2022-04-24] MEDS: DIVALPROEX 250 MG, DIVALPROEX 500 MG PO SCH ×2 (09:34→21:14)
[2022-04-24] MEDS: diphenhydrAMINE HCL 25 MG CAPSULE (FP) PO SCH ×2 (09:34→21:15)
[2022-04-24] MEDS: NICOTINE 7 MG/24 HOURS TOPICAL PATCH TD SCH (09:35)
[2022-04-24] MEDS: BUPRENORPHINE/NALOXONE 2 MG/0.5 MG FILM PACKET SL SCH ×2 (09:35→21:15)
[2022-04-24] MEDS: MAGNESIUM HYDROX 2400MG/30ML ORAL SUSPENSION 30 ML CUP PO PRN (14:22)
[2022-04-24] MEDS: MAG HYDROX/AL HYDROX/SIMETH 30 ML UNIT-DOSE CUP PO PRN ×2 (14:22→21:16)
[2022-04-24] MEDS: QUEtiapine FUMARATE 200 MG TABLET PO SCH (21:15)
[2022-04-24] MEDS: THIAMINE HCL 100 MG TABLET (FP) PO SCH (21:15)
[2022-04-25] MEDS: VITAMINS A AND D TOPICAL OINTMENT 60 GM TUBE TP SCH ×4 (00:10→17:35)
[2022-04-25] MEDS: DIVALPROEX 250 MG, DIVALPROEX 500 MG PO SCH ×2 (09:59→21:26)
[2022-04-25] MEDS: buPROPion HCL 75 MG TABLET PO SCH (09:59)
[2022-04-25] MEDS: diphenhydrAMINE HCL 25 MG CAPSULE (FP) PO SCH ×2 (09:59→21:26)
[2022-04-25] MEDS: QUEtiapine FUMARATE 100 MG TABLET (FP) PO SCH (09:59)
[2022-04-25] MEDS: NICOTINE 7 MG/24 HOURS TOPICAL PATCH TD SCH (09:59)
[2022-04-25] MEDS: PRENATAL VITAMINS W/ FOLIC ACID TABLET (FP) PO SCH (09:59)
[2022-04-25] MEDS: FLUoxetine HCL 10 MG CAPSULE PO SCH (09:59)
[2022-04-25] MEDS: BUPRENORPHINE/NALOXONE 2 MG/0.5 MG FILM PACKET SL SCH ×2 (09:59→21:27)
[2022-04-25] MEDS: MAG HYDROX/AL HYDROX/SIMETH 30 ML UNIT-DOSE CUP PO PRN (10:02)
[2022-04-25] MEDS: THIAMINE HCL 100 MG TABLET (FP) PO SCH (21:26)
[2022-04-25] MEDS: CYCLOBENZAPRINE HCL 10 MG TABLET (FP) PO PRN (21:26)
[2022-04-25] MEDS: QUEtiapine FUMARATE 200 MG TABLET PO SCH (21:26)
[2022-04-26] MEDS: VITAMINS A AND D TOPICAL OINTMENT 60 GM TUBE TP SCH ×4 (00:35→18:50)
[2022-04-26] MEDS: QUEtiapine FUMARATE 100 MG TABLET (FP) PO SCH (09:38)
[2022-04-26] MEDS: buPROPion HCL 75 MG TABLET PO SCH (09:38)
[2022-04-26] MEDS: NICOTINE 7 MG/24 HOURS TOPICAL PATCH TD SCH (09:38)
[2022-04-26] MEDS: FLUoxetine HCL 10 MG CAPSULE PO SCH (09:38)
[2022-04-26] MEDS: DIVALPROEX 250 MG, DIVALPROEX 500 MG PO SCH ×2 (09:38→21:31)
[2022-04-26] MEDS: PRENATAL VITAMINS W/ FOLIC ACID TABLET (FP) PO SCH (09:38)
[2022-04-26] MEDS: diphenhydrAMINE HCL 25 MG CAPSULE (FP) PO SCH ×2 (09:38→21:31)
[2022-04-26] MEDS: BUPRENORPHINE/NALOXONE 2 MG/0.5 MG FILM PACKET SL SCH ×2 (09:38→21:32)
[2022-04-26] MEDS: MAGNESIUM HYDROX 2400MG/30ML ORAL SUSPENSION 30 ML CUP PO PRN (09:39)
[2022-04-26] MEDS: QUEtiapine FUMARATE 200 MG TABLET PO SCH (21:31)
[2022-04-26] MEDS: THIAMINE HCL 100 MG TABLET (FP) PO SCH (21:31)
[2022-04-26] MEDS: MAG HYDROX/AL HYDROX/SIMETH 30 ML UNIT-DOSE CUP PO PRN (21:33)
[2022-04-27] MEDS: VITAMINS A AND D TOPICAL OINTMENT 60 GM TUBE TP SCH ×4 (00:15→17:37)
[2022-04-27] MEDS: MAGNESIUM HYDROX 2400MG/30ML ORAL SUSPENSION 30 ML CUP PO PRN (06:33)
[2022-04-27] MEDS: buPROPion HCL 75 MG TABLET PO SCH (10:04)
[2022-04-27] MEDS: QUEtiapine FUMARATE 100 MG TABLET (FP) PO SCH (10:04)
[2022-04-27] MEDS: FLUoxetine HCL 10 MG CAPSULE PO SCH (10:04)
[2022-04-27] MEDS: DIVALPROEX 250 MG, DIVALPROEX 500 MG PO SCH ×2 (10:04→21:33)
[2022-04-27] MEDS: PRENATAL VITAMINS W/ FOLIC ACID TABLET (FP) PO SCH (10:04)
[2022-04-27] MEDS: diphenhydrAMINE HCL 25 MG CAPSULE (FP) PO SCH ×2 (10:04→21:32)
[2022-04-27] MEDS: BUPRENORPHINE/NALOXONE 2 MG/0.5 MG FILM PACKET SL SCH ×2 (10:04→21:32)
[2022-04-27] MEDS: NICOTINE 7 MG/24 HOURS TOPICAL PATCH TD SCH (10:05)
[2022-04-27] MEDS ORDERED: NICOTINE 7 MG/24 HOURS TOPICAL PATCH TD PRN (12:41)
[2022-04-27] MEDS: QUEtiapine FUMARATE 200 MG TABLET PO SCH (21:32)
[2022-04-27] MEDS: THIAMINE HCL 100 MG TABLET (FP) PO SCH (21:32)
[2022-04-28] MEDS: VITAMINS A AND D TOPICAL OINTMENT 60 GM TUBE TP SCH ×4 (00:05→18:50)
[2022-04-28] MEDS: MAGNESIUM HYDROX 2400MG/30ML ORAL SUSPENSION 30 ML CUP PO PRN (06:20)
[2022-04-28] MEDS: QUEtiapine FUMARATE 100 MG TABLET (FP) PO SCH (09:35)
[2022-04-28] MEDS: PRENATAL VITAMINS W/ FOLIC ACID TABLET (FP) PO SCH (09:35)
[2022-04-28] MEDS: FLUoxetine HCL 10 MG CAPSULE PO SCH (09:35)
[2022-04-28] MEDS: BUPRENORPHINE/NALOXONE 2 MG/0.5 MG FILM PACKET SL SCH ×2 (09:35→21:18)
[2022-04-28] MEDS: buPROPion HCL 75 MG TABLET PO SCH (09:35)
[2022-04-28] MEDS: diphenhydrAMINE HCL 25 MG CAPSULE (FP) PO SCH ×2 (09:35→21:18)
[2022-04-28] MEDS: DIVALPROEX 250 MG, DIVALPROEX 500 MG PO SCH ×2 (09:36→21:18)
[2022-04-28] MEDS: THIAMINE HCL 100 MG TABLET (FP) PO SCH (21:18)
[2022-04-28] MEDS: QUEtiapine FUMARATE 200 MG TABLET PO SCH (21:18)
[2022-04-29] MEDS: VITAMINS A AND D TOPICAL OINTMENT 60 GM TUBE TP SCH ×4 (00:10→18:53)
[2022-04-29] MEDS: buPROPion HCL 75 MG TABLET PO SCH (09:27)
[2022-04-29] MEDS: QUEtiapine FUMARATE 100 MG TABLET (FP) PO SCH (09:27)
[2022-04-29] MEDS: diphenhydrAMINE HCL 25 MG CAPSULE (FP) PO SCH ×2 (09:27→21:26)
[2022-04-29] MEDS: BUPRENORPHINE/NALOXONE 2 MG/0.5 MG FILM PACKET SL SCH ×2 (09:27→21:28)
[2022-04-29] MEDS: FLUoxetine HCL 10 MG CAPSULE PO SCH (09:27)
[2022-04-29] MEDS: DIVALPROEX 250 MG, DIVALPROEX 500 MG PO SCH ×2 (09:27→21:25)
[2022-04-29] MEDS: PRENATAL VITAMINS W/ FOLIC ACID TABLET (FP) PO SCH (09:27)
[2022-04-29] MEDS: THIAMINE HCL 100 MG TABLET (FP) PO SCH (21:25)
[2022-04-29] MEDS: QUEtiapine FUMARATE 200 MG TABLET PO SCH (21:25)
[2022-04-29] MEDS: CYCLOBENZAPRINE HCL 10 MG TABLET (FP) PO PRN (21:25)
[2022-04-30] MEDS: VITAMINS A AND D TOPICAL OINTMENT 60 GM TUBE TP SCH ×4 (00:05→18:30)
[2022-04-30] MEDS: QUEtiapine FUMARATE 100 MG TABLET (FP) PO SCH (09:19)
[2022-04-30] MEDS: buPROPion HCL 75 MG TABLET PO SCH (09:19)
[2022-04-30] MEDS: PRENATAL VITAMINS W/ FOLIC ACID TABLET (FP) PO SCH (09:19)
[2022-04-30] MEDS: diphenhydrAMINE HCL 25 MG CAPSULE (FP) PO SCH ×2 (09:19→21:28)
[2022-04-30] MEDS: FLUoxetine HCL 10 MG CAPSULE PO SCH (09:19)
[2022-04-30] MEDS: BUPRENORPHINE/NALOXONE 2 MG/0.5 MG FILM PACKET SL SCH ×2 (09:19→21:29)
[2022-04-30] MEDS: DIVALPROEX 250 MG, DIVALPROEX 500 MG PO SCH ×2 (09:19→21:28)
[2022-04-30] MEDS: THIAMINE HCL 100 MG TABLET (FP) PO SCH (21:28)
[2022-04-30] MEDS: QUEtiapine FUMARATE 200 MG TABLET PO SCH (21:28)
[2022-04-30] MEDS: CYCLOBENZAPRINE HCL 10 MG TABLET (FP) PO PRN (21:28)
[2022-05-01] MEDS: VITAMINS A AND D TOPICAL OINTMENT 60 GM TUBE TP SCH ×5 (01:29→23:51)
[2022-05-01] MEDS: buPROPion HCL 75 MG TABLET PO SCH (09:53)
[2022-05-01] MEDS: DIVALPROEX 250 MG, DIVALPROEX 500 MG PO SCH ×2 (09:53→21:58)
[2022-05-01] MEDS: PRENATAL VITAMINS W/ FOLIC ACID TABLET (FP) PO SCH (09:53)
[2022-05-01] MEDS: FLUoxetine HCL 10 MG CAPSULE PO SCH (09:54)
[2022-05-01] MEDS: diphenhydrAMINE HCL 25 MG CAPSULE (FP) PO SCH ×2 (09:54→21:58)
[2022-05-01] MEDS: QUEtiapine FUMARATE 100 MG TABLET (FP) PO SCH (09:54)
[2022-05-01] MEDS: BUPRENORPHINE/NALOXONE 2 MG/0.5 MG FILM PACKET SL SCH ×2 (09:55→21:58)
[2022-05-01] MEDS: QUEtiapine FUMARATE 200 MG TABLET PO SCH (21:57)
[2022-05-01] MEDS: THIAMINE HCL 100 MG TABLET (FP) PO SCH (21:57)
[2022-05-02] MEDS: VITAMINS A AND D TOPICAL OINTMENT 60 GM TUBE TP SCH ×3 (06:38→18:44)
[2022-05-02] MEDS: DIVALPROEX 250 MG, DIVALPROEX 500 MG PO SCH ×2 (10:08→21:49)
[2022-05-02] MEDS: diphenhydrAMINE HCL 25 MG CAPSULE (FP) PO SCH ×2 (10:08→21:49)
[2022-05-02] MEDS: buPROPion HCL 75 MG TABLET PO SCH (10:09)
[2022-05-02] MEDS: FLUoxetine HCL 10 MG CAPSULE PO SCH (10:09)
[2022-05-02] MEDS: QUEtiapine FUMARATE 100 MG TABLET (FP) PO SCH (10:09)
[2022-05-02] MEDS: PRENATAL VITAMINS W/ FOLIC ACID TABLET (FP) PO SCH (10:09)
[2022-05-02] MEDS: BUPRENORPHINE/NALOXONE 2 MG/0.5 MG FILM PACKET SL SCH ×2 (10:10→21:50)
[2022-05-02] MEDS: QUEtiapine FUMARATE 200 MG TABLET PO SCH (21:49)
[2022-05-02] MEDS: THIAMINE HCL 100 MG TABLET (FP) PO SCH (21:50)
[2022-05-03] MEDS: VITAMINS A AND D TOPICAL OINTMENT 60 GM TUBE TP SCH ×4 (00:10→18:21)
[2022-05-03] MEDS: diphenhydrAMINE HCL 25 MG CAPSULE (FP) PO SCH ×2 (09:31→21:18)
[2022-05-03] MEDS: DIVALPROEX 250 MG, DIVALPROEX 500 MG PO SCH ×2 (09:32→21:19)
[2022-05-03] MEDS: PRENATAL VITAMINS W/ FOLIC ACID TABLET (FP) PO SCH (09:32)
[2022-05-03] MEDS: BUPRENORPHINE/NALOXONE 2 MG/0.5 MG FILM PACKET SL SCH ×2 (09:32→21:19)
[2022-05-03] MEDS: buPROPion HCL 75 MG TABLET PO SCH (09:32)
[2022-05-03] MEDS: FLUoxetine HCL 10 MG CAPSULE PO SCH (09:32)
[2022-05-03] MEDS: QUEtiapine FUMARATE 100 MG TABLET (FP) PO SCH (09:32)
[2022-05-03] MEDS: QUEtiapine FUMARATE 200 MG TABLET PO SCH (21:18)
[2022-05-03] MEDS: THIAMINE HCL 100 MG TABLET (FP) PO SCH (21:19)
[2022-05-04] MEDS: VITAMINS A AND D TOPICAL OINTMENT 60 GM TUBE TP SCH ×4 (00:15→18:35)
[2022-05-04] MEDS: DIVALPROEX 250 MG, DIVALPROEX 500 MG PO SCH ×2 (09:43→21:07)
[2022-05-04] MEDS: BUPRENORPHINE/NALOXONE 2 MG/0.5 MG FILM PACKET SL SCH ×2 (09:43→21:09)
[2022-05-04] MEDS: PRENATAL VITAMINS W/ FOLIC ACID TABLET (FP) PO SCH (09:43)
[2022-05-04] MEDS: buPROPion HCL 75 MG TABLET PO SCH (09:43)
[2022-05-04] MEDS: diphenhydrAMINE HCL 25 MG CAPSULE (FP) PO SCH ×2 (09:43→21:07)
[2022-05-04] MEDS: FLUoxetine HCL 10 MG CAPSULE PO SCH (09:44)
[2022-05-04] MEDS: QUEtiapine FUMARATE 100 MG TABLET (FP) PO SCH (09:44)
[2022-05-04] MEDS: QUEtiapine FUMARATE 200 MG TABLET PO SCH (21:07)
[2022-05-04] MEDS: THIAMINE HCL 100 MG TABLET (FP) PO SCH (21:08)
[2022-05-05] MEDS: VITAMINS A AND D TOPICAL OINTMENT 60 GM TUBE TP SCH ×4 (00:15→19:29)
[2022-05-05 07:12] VITALS: RESP 18
[2022-05-05] MEDS: QUEtiapine FUMARATE 100 MG TABLET (FP) PO SCH (10:12)
[2022-05-05] MEDS: PRENATAL VITAMINS W/ FOLIC ACID TABLET (FP) PO SCH (10:12)
[2022-05-05] MEDS: BUPRENORPHINE/NALOXONE 2 MG/0.5 MG FILM PACKET SL SCH ×2 (10:12→21:11)
[2022-05-05] MEDS: DIVALPROEX 250 MG, DIVALPROEX 500 MG PO SCH ×2 (10:12→21:10)
[2022-05-05] MEDS: FLUoxetine HCL 10 MG CAPSULE PO SCH (10:13)
[2022-05-05] MEDS: buPROPion HCL 75 MG TABLET PO SCH (10:13)
[2022-05-05] MEDS: diphenhydrAMINE HCL 25 MG CAPSULE (FP) PO SCH ×2 (10:13→21:10)
[2022-05-05] MEDS: THIAMINE HCL 100 MG TABLET (FP) PO SCH (21:10)
[2022-05-05] MEDS: QUEtiapine FUMARATE 200 MG TABLET PO SCH (21:10)
[2022-05-06] MEDS: VITAMINS A AND D TOPICAL OINTMENT 60 GM TUBE TP SCH ×2 (00:10→06:21)
[2022-05-06 06:51] VITALS: BP 112/75; PULSE 79; TEMP 97.3
[2022-05-06] MEDS: diphenhydrAMINE HCL 25 MG CAPSULE (FP) PO SCH (10:36)
[2022-05-06] MEDS: DIVALPROEX 250 MG, DIVALPROEX 500 MG PO SCH (10:36)
[2022-05-06] MEDS: BUPRENORPHINE/NALOXONE 2 MG/0.5 MG FILM PACKET SL SCH (10:36)
[2022-05-06] MEDS: buPROPion HCL 75 MG TABLET PO SCH (10:37)
[2022-05-06] MEDS: QUEtiapine FUMARATE 100 MG TABLET (FP) PO SCH (10:37)
[2022-05-06] MEDS: FLUoxetine HCL 10 MG CAPSULE PO SCH (10:37)
[2022-05-06] MEDS: PRENATAL VITAMINS W/ FOLIC ACID TABLET (FP) PO SCH (10:37)
== END 2022-05-06 10:49 | disposition home or self-care (01) | DRG 895 ==
LOC: YASAS 15:55 → Y3W 15:58
PROVIDERS: ADMIT Allergy & Immunology; ATTEND Psychiatry & Neurology Pain Medicine
PROC: HZ42ZZZ Group Counseling for Substance Abuse Treatment, Cognitive-Behavioral (ICD-10-PCS; principal; 2022-04-18)
DX: F10.20 Alcohol dependence, uncomplicated (principal); F11.20 Opioid dependence, uncomplicated; F14.20 Cocaine dependence, uncomplicated; F15.20 Other stimulant dependence, uncomplicated; F16.20 Hallucinogen dependence, uncomplicated; F19.282 Other psychoactive substance dependence with psychoactive substance-induced sleep disorder; E72.20 Disorder of urea cycle metabolism, unspecified; F12.20 Cannabis dependence, uncomplicated; F17.210 Nicotine dependence, cigarettes, uncomplicated; F25.9 Schizoaffective disorder, unspecified; F19.24 Other psychoactive substance dependence with psychoactive substance-induced mood disorder; J45.909 Unspecified asthma, uncomplicated; K21.9 Gastro-esophageal reflux disease without esophagitis; K30 Functional dyspepsia; M62.838 Other muscle spasm; R60.0 Localized edema; L85.3 Xerosis cutis; Z86.19 Personal history of other infectious and parasitic diseases
CPT/HCPCS: 36415; 80164; 82140; 86803; 93005; 93010

== ENCOUNTER 2023-03-11 09:59 | Inpatient (IN) | payer OTHER ==
[2023-03-11 10:51] VITALS: BMI 22.8
[2023-03-11] MEDS ORDERED: MAG HYDROX/AL HYDROX/SIMETH 30 ML UNIT-DOSE CUP PO PRN (13:42)
[2023-03-11] MEDS ORDERED: P-EPHED 60MG/TRIPROLIDI 2.5MG TABLET PO PRN (13:42)
[2023-03-11] MEDS ORDERED: BENZONATATE 200 MG CAPSULE PO PRN (13:42)
[2023-03-11] MEDS ORDERED: IBUPROFEN 600 MG TABLET (FP) PO PRN (13:42)
[2023-03-11] MEDS ORDERED: NALOXONE HCL 0.4 MG/ML VIAL IM PRN (13:42)
[2023-03-11] MEDS ORDERED: ACETAMINOPHEN 325 MG TABLET (FP) PO PRN (13:42)
[2023-03-11] MEDS ORDERED: guaiFENesin 600 MG TABLET.ER (FP) PO PRN (13:42)
[2023-03-11] MEDS ORDERED: MAGNESIUM HYDROX 2400MG/30ML ORAL SUSPENSION 30 ML CUP PO PRN (13:42)
[2023-03-11] MEDS ORDERED: IBUPROFEN 400 MG TABLET (FP) PO PRN (13:42)
[2023-03-11] MEDS ORDERED: POLYETHYLENE GLYCOL (HEALTHYLAX) 3350 17 GM PACKET PO PRN (13:42)
[2023-03-11] MEDS ORDERED: COLLOIDAL OATMEAL 1 BAR EACH TP PRN (13:42)
[2023-03-11] MEDS ORDERED: LOPERAMIDE HCL 2 MG CAPSULE PO PRN (13:42)
[2023-03-11] MEDS ORDERED: NALOXONE HCL (KLOXXADO) 8 MG SPRAY NS PRN (13:42)
[2023-03-11] MEDS ORDERED: BENZOCAINE/MENTHOL (CHLORASEPTIC ) LOZENGE MM PRN (13:42)
[2023-03-11] MEDS: THIAMINE HCL 100 MG TABLET (FP) PO SCH (21:20)
[2023-03-11] MEDS ORDERED: MELATONIN 5 MG TABLETS PO SCH (22:00)
[2023-03-12] MEDS ORDERED: TUBERCULIN PPD 5 TU/0.1ML VIAL ID ONE (09:01)
[2023-03-12 10:32] LABS: POTASSIUM 4.1 mmol/L (3.5-5.1)
[2023-03-12 10:34] LABS: HEMATOCRIT 40.4 % (35.4-49); HEMOGLOBIN 13.1 GM/dL (11.7-16.9); MCH 29.5 pg (25.7-33.7); MCHC 32.4 g/dl (32.0-35.9); MEAN CELL VOLUME 91.1 fl (80-96); MEAN PLT VOLUME 9.1 fl (7.5-11.1); PLATELET COUNT 184 10^3/uL (134-434); RBC 4.43 M/mm3 (4.00-5.60); RDW 14.3 % (11.9-15.9); WHITE BLOOD COUNT 4.2 K/mm3 (4.0-10.0)
[2023-03-12] MEDS: PRENATAL VITAMINS W/ FOLIC ACID TABLET (FP) PO SCH (10:42)
[2023-03-12 10:44] LABS: ALBUMIN 3.2 g/dl (3.4-5.0); BLOOD UREA NITROGEN 8.2 mg/dL (7-18); CALCIUM 8.7 mg/dL (8.5-10.1)
[2023-03-12 10:48] LABS: BILIRUBIN,TOTAL 0.4 mg/dL (0.2-1); CREATININE 0.9 mg/dL (0.55-1.3); TOT PROT 6.3 g/dl (6.4-8.2)
[2023-03-12 16:52] LABS: SYPHILIS W/ RPR CONF REACTIVE (NONREACTIVE)
[2023-03-12] MEDS: THIAMINE HCL 100 MG TABLET (FP) PO SCH (21:30)
[2023-03-12] MEDS: diphenhydrAMINE HCL 25 MG CAPSULE (FP) PO SCH (21:31)
[2023-03-12] MEDS: DIVALPROEX SODIUM 500 MG TABLET E.C. PO SCH (21:31)
[2023-03-12] MEDS: QUEtiapine FUMARATE 100 MG TABLET (FP) PO SCH (21:31)
[2023-03-13] MEDS ORDERED: FLUoxetine HCL 10 MG CAPSULE PO SCH (10:00)
[2023-03-13] MEDS: FLUoxetine HCL 10 MG CAPSULE PO SCH (10:37)
[2023-03-13] MEDS: PRENATAL VITAMINS W/ FOLIC ACID TABLET (FP) PO SCH (10:37)
[2023-03-13] MEDS: DIVALPROEX SODIUM 500 MG TABLET E.C. PO SCH ×2 (10:37→21:14)
[2023-03-13] MEDS: THIAMINE HCL 100 MG TABLET (FP) PO SCH (21:13)
[2023-03-13] MEDS: QUEtiapine FUMARATE 100 MG TABLET (FP) PO SCH (21:13)
[2023-03-13] MEDS: diphenhydrAMINE HCL 25 MG CAPSULE (FP) PO SCH (21:13)
[2023-03-14] MEDS: PRENATAL VITAMINS W/ FOLIC ACID TABLET (FP) PO SCH (10:19)
[2023-03-14] MEDS: DIVALPROEX SODIUM 500 MG TABLET E.C. PO SCH ×2 (10:19→21:12)
[2023-03-14] MEDS: FLUoxetine HCL 10 MG CAPSULE PO SCH (10:20)
[2023-03-14] MEDS: diphenhydrAMINE HCL 25 MG CAPSULE (FP) PO SCH (21:12)
[2023-03-14] MEDS: THIAMINE HCL 100 MG TABLET (FP) PO SCH (21:12)
[2023-03-14] MEDS: QUEtiapine FUMARATE 100 MG TABLET (FP) PO SCH (21:12)
[2023-03-15] MEDS: PRENATAL VITAMINS W/ FOLIC ACID TABLET (FP) PO SCH (10:38)
[2023-03-15] MEDS: DIVALPROEX SODIUM 500 MG TABLET E.C. PO SCH ×2 (10:38→21:42)
[2023-03-15] MEDS: FLUoxetine HCL 10 MG CAPSULE PO SCH (10:39)
[2023-03-15] MEDS: THIAMINE HCL 100 MG TABLET (FP) PO SCH (21:41)
[2023-03-15] MEDS: QUEtiapine FUMARATE 100 MG TABLET (FP) PO SCH (21:42)
[2023-03-15] MEDS: diphenhydrAMINE HCL 25 MG CAPSULE (FP) PO SCH (21:42)
[2023-03-16] MEDS: FLUoxetine HCL 10 MG CAPSULE PO SCH (10:28)
[2023-03-16] MEDS: PRENATAL VITAMINS W/ FOLIC ACID TABLET (FP) PO SCH (10:28)
[2023-03-16] MEDS: DIVALPROEX SODIUM 500 MG TABLET E.C. PO SCH ×2 (10:28→21:19)
[2023-03-16 18:48] LABS: PH,URINE 8.5 (5.0-8.0); URINE APPEARANCE TURBID; URINE BILIRUBIN NEGATIVE (NEGATIVE); URINE COLOR YELLOW; URINE GLUCOSE (UA) NEGATIVE (NEGATIVE); URINE KETONE TRACE (NEGATIVE); URINE LEUK ESTERASE NEGATIVE (NEGATIVE); URINE NITRITE NEGATIVE (NEGATIVE); URINE PROTEIN NEGATIVE (NEGATIVE); URINE UROBILINOGEN 0.2 mg/dL (0.2-1.0)
[2023-03-16] MEDS: QUEtiapine FUMARATE 100 MG TABLET (FP) PO SCH (21:19)
[2023-03-16] MEDS: diphenhydrAMINE HCL 25 MG CAPSULE (FP) PO SCH (21:19)
[2023-03-16] MEDS: THIAMINE HCL 100 MG TABLET (FP) PO SCH (21:19)
[2023-03-17] MEDS: PRENATAL VITAMINS W/ FOLIC ACID TABLET (FP) PO SCH (10:56)
[2023-03-17] MEDS: DIVALPROEX SODIUM 500 MG TABLET E.C. PO SCH ×2 (10:56→21:12)
[2023-03-17] MEDS: FLUoxetine HCL 10 MG CAPSULE PO SCH (10:56)
[2023-03-17] MEDS: QUEtiapine FUMARATE 100 MG TABLET (FP) PO SCH (21:12)
[2023-03-17] MEDS: diphenhydrAMINE HCL 25 MG CAPSULE (FP) PO SCH (21:12)
[2023-03-17] MEDS: THIAMINE HCL 100 MG TABLET (FP) PO SCH (21:12)
[2023-03-18] MEDS: DIVALPROEX SODIUM 500 MG TABLET E.C. PO SCH ×2 (10:06→21:13)
[2023-03-18] MEDS: PRENATAL VITAMINS W/ FOLIC ACID TABLET (FP) PO SCH (10:06)
[2023-03-18] MEDS: FLUoxetine HCL 10 MG CAPSULE PO SCH (10:06)
[2023-03-18] MEDS: diphenhydrAMINE HCL 25 MG CAPSULE (FP) PO SCH (21:13)
[2023-03-18] MEDS: THIAMINE HCL 100 MG TABLET (FP) PO SCH (21:13)
[2023-03-18] MEDS: QUEtiapine FUMARATE 100 MG TABLET (FP) PO SCH (21:13)
[2023-03-19 07:27] VITALS: RESP 17
[2023-03-19 08:02] VITALS: BP 105/59; PULSE 80; TEMP 97.1
== END 2023-03-19 10:21 | disposition home or self-care (01) | DRG 895 ==
LOC: YASAS 09:59 → Y3W 14:00
PROVIDERS: ADMIT Allergy & Immunology; ATTEND Psychiatry & Neurology Pain Medicine
PROC: HZ42ZZZ Group Counseling for Substance Abuse Treatment, Cognitive-Behavioral (ICD-10-PCS; principal; 2023-03-11)
DX: F14.20 Cocaine dependence, uncomplicated (principal); F11.20 Opioid dependence, uncomplicated; F10.10 Alcohol abuse, uncomplicated; F12.20 Cannabis dependence, uncomplicated; F17.210 Nicotine dependence, cigarettes, uncomplicated; F25.9 Schizoaffective disorder, unspecified; F19.24 Other psychoactive substance dependence with psychoactive substance-induced mood disorder; K21.9 Gastro-esophageal reflux disease without esophagitis; Z86.69 Personal history of other diseases of the nervous system and sense organs; Z86.19 Personal history of other infectious and parasitic diseases; Z28.310 Unvaccinated for COVID-19; Z28.9 Immunization not carried out for unspecified reason
CPT/HCPCS: 36415; 71046-TC-FY; 80053; 80164; 81003; 82962; 85027; 86593; 86780; 86803; 87635; 87811

== ENCOUNTER 2023-10-08 10:46 | Inpatient (IN) | payer OTHER ==
[2023-10-08 12:19] VITALS: BMI 22.4
[2023-10-08] MEDS ORDERED: IBUPROFEN 600 MG TABLET (FP) PO PRN (12:32)
[2023-10-08] MEDS ORDERED: ACETAMINOPHEN 325 MG TABLET (FP) PO PRN (12:32)
[2023-10-08] MEDS ORDERED: MAG HYDROX/AL HYDROX/SIMETH 30 ML UNIT-DOSE CUP PO PRN (12:32)
[2023-10-08] MEDS ORDERED: LOPERAMIDE HCL 2 MG CAPSULE PO PRN (12:32)
[2023-10-08] MEDS ORDERED: BENZOCAINE/MENTHOL (CHLORASEPTIC ) LOZENGE MM PRN (12:32)
[2023-10-08] MEDS ORDERED: NALOXONE HCL 0.4 MG/ML VIAL IM PRN (12:32)
[2023-10-08] MEDS ORDERED: NICOTINE POLACRILEX 2 MG GUM BUC PRN (12:32)
[2023-10-08] MEDS ORDERED: guaiFENesin 600 MG TABLET.ER (FP) PO PRN (12:32)
[2023-10-08] MEDS ORDERED: BENZONATATE 200 MG CAPSULE PO PRN (12:32)
[2023-10-08] MEDS ORDERED: NALOXONE (NARCAN) HCL 4 MG/0.1 ML SPRAY NS PRN (12:32)
[2023-10-08] MEDS ORDERED: hydrOXYzine PAMOATE 25 MG CAPSULE (FP) PO PRN (12:32)
[2023-10-08] MEDS ORDERED: NICOTINE POLACRILEX 2 MG LOZENGE BC PRN (12:32)
[2023-10-08] MEDS ORDERED: POLYETHYLENE GLYCOL (HEALTHYLAX) 3350 17 GM PACKET PO PRN (12:32)
[2023-10-08] MEDS ORDERED: IBUPROFEN 400 MG TABLET (FP) PO PRN (12:32)
[2023-10-08] MEDS ORDERED: MAGNESIUM HYDROX 2400MG/30ML ORAL SUSPENSION 30 ML CUP PO PRN (12:32)
[2023-10-08] MEDS ORDERED: ALBUTEROL SO4 HFA INHALER IH PRN (12:33)
[2023-10-08] MEDS: MELATONIN 5 MG TABLETS PO SCH (21:14)
[2023-10-08] MEDS: THIAMINE 100 MG TABLET PO SCH (21:14)
[2023-10-09 00:53] LABS: PH,URINE 7.5 (5.0-8.0); URINE APPEARANCE CLEAR; URINE BILIRUBIN NEGATIVE (NEGATIVE); URINE COLOR YELLOW; URINE GLUCOSE (UA) NEGATIVE (NEGATIVE); URINE KETONE NEGATIVE (NEGATIVE); URINE LEUK ESTERASE NEGATIVE (NEGATIVE); URINE NITRITE NEGATIVE (NEGATIVE); URINE PROTEIN NEGATIVE (NEGATIVE)
[2023-10-09] MEDS: PRENATAL VITAMINS W/ FOLIC ACID TABLET (FP) PO SCH (10:31)
[2023-10-09] MEDS: QUEtiapine FUMARATE 200 MG TABLET PO SCH (21:55)
[2023-10-10] MEDS: FLUoxetine HCL 10 MG CAPSULE PO SCH (10:49)
[2023-10-10] MEDS: QUEtiapine FUMARATE 100 MG TABLET (FP) PO SCH (10:49)
[2023-10-11] MEDS ORDERED: diphenhydrAMINE HCL 25 MG CAPSULE (FP) PO ONE ×2 (10:57→21:13)
[2023-10-11] MEDS: diphenhydrAMINE HCL 25 MG CAPSULE (FP) PO PRN (10:58)
[2023-10-11] MEDS: diphenhydrAMINE HCL 50 MG CAPSULE PO PRN (10:59)
[2023-10-12] MEDS ORDERED: diphenhydrAMINE HCL 25 MG CAPSULE (FP) PO ONE (20:12)
[2023-10-13] MEDS ORDERED: diphenhydrAMINE HCL 25 MG CAPSULE (FP) PO ONE (21:08)
[2023-10-14 07:07] VITALS: RESP 18
[2023-10-14] MEDS ORDERED: diphenhydrAMINE HCL 25 MG CAPSULE (FP) PO ONE (22:03)
[2023-10-15] MEDS ORDERED: diphenhydrAMINE HCL 25 MG CAPSULE (FP) PO ONE (20:48)
[2023-10-16] MEDS ORDERED: diphenhydrAMINE HCL 25 MG CAPSULE (FP) PO ONE ×2 (09:47→21:27)
[2023-10-17] MEDS ORDERED: diphenhydrAMINE HCL 25 MG CAPSULE (FP) PO ONE ×2 (09:43→21:39)
[2023-10-18 07:12] VITALS: BP 101/66; PULSE 69; TEMP 97.2
== END 2023-10-18 09:50 | disposition home or self-care (01) | DRG 895 ==
LOC: YASAS 10:46 → Y5N 13:40
PROVIDERS: ADMIT Allergy & Immunology; ATTEND Psychiatry & Neurology Pain Medicine
PROC: HZ42ZZZ Group Counseling for Substance Abuse Treatment, Cognitive-Behavioral (ICD-10-PCS; principal; 2023-10-08)
DX: F10.20 Alcohol dependence, uncomplicated (principal); F14.20 Cocaine dependence, uncomplicated; F12.20 Cannabis dependence, uncomplicated; F17.210 Nicotine dependence, cigarettes, uncomplicated; F25.0 Schizoaffective disorder, bipolar type; F19.24 Other psychoactive substance dependence with psychoactive substance-induced mood disorder; Z86.19 Personal history of other infectious and parasitic diseases; Z88.8 Allergy status to other drugs, medicaments and biological substances
CPT/HCPCS: 80305; 80307; 81003

== ENCOUNTER 2024-03-02 11:45 | Inpatient (IN) | payer OTHER ==
[2024-03-02 12:47] VITALS: BMI 25.8
[2024-03-02] MEDS ORDERED: CYCLOBENZAPRINE HCL 10 MG TABLET (FP) PO PRN (13:49)
[2024-03-02] MEDS ORDERED: guaiFENesin 600 MG TABLET.ER (FP) PO PRN (13:51)
[2024-03-02] MEDS ORDERED: MAGNESIUM HYDROX 2400MG/30ML ORAL SUSPENSION 30 ML CUP PO PRN (13:51)
[2024-03-02] MEDS ORDERED: LOPERAMIDE HCL 2 MG CAPSULE PO PRN (13:51)
[2024-03-02] MEDS ORDERED: BENZOCAINE/MENTHOL (CHLORASEPTIC ) LOZENGE MM PRN (13:51)
[2024-03-02] MEDS ORDERED: NALOXONE (NARCAN) HCL 4 MG/0.1 ML SPRAY NS PRN (13:51)
[2024-03-02] MEDS ORDERED: ACETAMINOPHEN 325 MG TABLET (FP) PO PRN (13:51)
[2024-03-02] MEDS ORDERED: IBUPROFEN 400 MG TABLET (FP) PO PRN (13:51)
[2024-03-02] MEDS ORDERED: MAG HYDROX/AL HYDROX/SIMETH 30 ML UNIT-DOSE CUP PO PRN (13:51)
[2024-03-02] MEDS ORDERED: BISMUTH SUBSALICYLATE 524 MG/30 ML PO PRN (13:51)
[2024-03-02] MEDS ORDERED: IBUPROFEN 600 MG TABLET (FP) PO PRN (13:51)
[2024-03-02] MEDS ORDERED: POLYETHYLENE GLYCOL (HEALTHYLAX) 3350 17 GM PACKET PO PRN (13:51)
[2024-03-02] MEDS ORDERED: ONDANSETRON *ODT* 4 MG TABLET SL PRN (13:51)
[2024-03-02] MEDS ORDERED: BENZONATATE 200 MG CAPSULE PO PRN (13:51)
[2024-03-02] MEDS ORDERED: DICYCLOMINE HCL 10 MG CAPSULE PO PRN (13:51)
[2024-03-02] MEDS ORDERED: DIVALPROEX SODIUM 500 MG TABLET E.C. PO SCH (14:00)
[2024-03-02] MEDS: DIVALPROEX *ER* 250 MG, DIVALPROEX *ER* 500 MG PO SCH ×2 (17:48→17:56)
[2024-03-02] MEDS ORDERED: QUEtiapine FUMARATE 100 MG TABLET (FP) PO ONE (20:00)
[2024-03-02] MEDS: METHOCARBAMOL 500 MG TABLET PO PRN (23:08)
[2024-03-02] MEDS: hydrOXYzine PAMOATE 25 MG CAPSULE (FP) PO PRN (23:08)
[2024-03-02] MEDS: MIRTAZAPINE 15 MG TABLET (FP) PO SCH (23:08)
[2024-03-02] MEDS: THIAMINE 100 MG TABLET PO SCH (23:32)
[2024-03-02] MEDS: MELATONIN 5 MG TABLETS PO SCH (23:32)
[2024-03-02] MEDS: QUEtiapine FUMARATE 100 MG TABLET (FP) PO ONE ×2 (23:34)
[2024-03-03] MEDS: FAMOTIDINE 20 MG TABLET PO SCH (09:27)
[2024-03-03 09:37] LABS: CHLORIDE 106 mmol/L (98-107); POTASSIUM 4.1 mmol/L (3.5-5.1); SODIUM 140 mmol/L (136-145)
[2024-03-03 09:39] LABS: HEMATOCRIT 38.7 % (35.4-49); HEMOGLOBIN 12.4 GM/dL (11.7-16.9); MCH 29.2 pg (25.7-33.7); MCHC 32.1 g/dl (32.0-35.9); PLATELET COUNT 288 10^3/uL (134-434); RBC 4.25 M/mm3 (4.00-5.60); RDW 15.1 % (11.9-15.9); WHITE BLOOD COUNT 7.3 K/mm3 (4.0-10.0)
[2024-03-03 09:43] LABS: CALCIUM 8.8 mg/dL (8.5-10.1)
[2024-03-03 09:44] LABS: ALBUMIN 2.9 g/dl (3.4-5.0); ANION GAP 4 mmol/L (4-13); BLOOD UREA NITROGEN 14.4 mg/dL (7-18); CO2 29 mmol/L (21-32); GLUCOSE,RANDOM 127 mg/dL (74-106)
[2024-03-03 09:48] LABS: BILIRUBIN,TOTAL 0.2 mg/dL (0.2-1); CREATININE 0.8 mg/dL (0.55-1.3); SGOT/AST 24 U/L (15-37); SGPT/ALT 29 U/L (13-61)
[2024-03-03 09:49] LABS: TOT PROT 6.8 g/dl (6.4-8.2)
[2024-03-03 09:50] LABS: ALK PHOS 80 U/L (45-117)
[2024-03-03] MEDS: diphenhydrAMINE HCL 50 MG CAPSULE PO PRN (09:56)
[2024-03-03] MEDS: QUEtiapine FUMARATE 100 MG TABLET (FP) PO SCH (09:56)
[2024-03-03] MEDS: PRENATAL VITAMINS W/ FOLIC ACID TABLET (FP) PO SCH (09:57)
[2024-03-03] MEDS: LACTULOSE 20 GM/30 ML UDC (FOR ORAL USE ONLY) PO SCH (13:23)
[2024-03-03] MEDS: DIVALPROEX SODIUM 250 MG TABLET E.C. PO SCH (13:53)
[2024-03-03] MEDS: FLUoxetine HCL 10 MG CAPSULE PO SCH (13:54)
[2024-03-04 13:36] VITALS: BP 102/71; PULSE 88; RESP 18; TEMP 97.6
== END 2024-03-04 13:51 | disposition other institution (70) | DRG 897 ==
LOC: YASAS 11:45 → Y6N 13:57
PROVIDERS: ADMIT Allergy & Immunology; ATTEND Surgery
PROC: HZ2ZZZZ Detoxification Services for Substance Abuse Treatment (ICD-10-PCS; principal; 2024-03-02)
DX: F10.230 Alcohol dependence with withdrawal, uncomplicated (principal); F14.20 Cocaine dependence, uncomplicated; F19.282 Other psychoactive substance dependence with psychoactive substance-induced sleep disorder; F12.20 Cannabis dependence, uncomplicated; F17.210 Nicotine dependence, cigarettes, uncomplicated; F25.9 Schizoaffective disorder, unspecified; F31.9 Bipolar disorder, unspecified; J45.909 Unspecified asthma, uncomplicated; K21.9 Gastro-esophageal reflux disease without esophagitis
CPT/HCPCS: 36415; 80053; 80164; 80305; 80307; 82140; 85027; 86480; 86593; 86780; 87811; 93005; 93010

== ENCOUNTER 2024-03-04 13:54 | Inpatient (IN) | payer OTHER ==
[2024-03-04] MEDS ORDERED: guaiFENesin 600 MG TABLET.ER (FP) PO PRN (18:18)
[2024-03-04] MEDS ORDERED: BENZONATATE 200 MG CAPSULE PO PRN (18:18)
[2024-03-04] MEDS ORDERED: BENZOCAINE/MENTHOL (CHLORASEPTIC ) LOZENGE MM PRN (18:18)
[2024-03-04] MEDS ORDERED: NALOXONE (NARCAN) HCL 4 MG/0.1 ML SPRAY NS PRN (18:18)
[2024-03-04] MEDS ORDERED: MAGNESIUM HYDROX 2400MG/30ML ORAL SUSPENSION 30 ML CUP PO PRN (18:18)
[2024-03-04] MEDS ORDERED: IBUPROFEN 600 MG TABLET (FP) PO PRN (18:18)
[2024-03-04] MEDS ORDERED: IBUPROFEN 400 MG TABLET (FP) PO PRN (18:18)
[2024-03-04] MEDS ORDERED: LOPERAMIDE HCL 2 MG CAPSULE PO PRN (18:18)
[2024-03-04] MEDS ORDERED: MAG HYDROX/AL HYDROX/SIMETH 30 ML UNIT-DOSE CUP PO PRN (18:18)
[2024-03-04] MEDS ORDERED: ACETAMINOPHEN 325 MG TABLET (FP) PO PRN (18:18)
[2024-03-04] MEDS ORDERED: POLYETHYLENE GLYCOL (HEALTHYLAX) 3350 17 GM PACKET PO PRN (18:18)
[2024-03-04] MEDS ORDERED: NALOXONE HCL 0.4 MG/ML VIAL IVPUSH PRN (18:18)
[2024-03-04] MEDS ORDERED: ALBUTEROL SO4 HFA INHALER IH PRN (18:19)
[2024-03-04] MEDS ORDERED: MELATONIN 5 MG TABLETS PO SCH (22:00)
[2024-03-04] MEDS: MIRTAZAPINE 15 MG TABLET (FP) PO SCH (22:17)
[2024-03-04] MEDS: DIVALPROEX SODIUM 250 MG TABLET E.C. PO ONE (22:17)
[2024-03-04] MEDS: METHOCARBAMOL 500 MG TABLET PO PRN (22:18)
[2024-03-04] MEDS: THIAMINE 100 MG TABLET PO SCH (22:18)
[2024-03-04] MEDS: diphenhydrAMINE HCL 25 MG CAPSULE (FP) PO ONE (22:42)
[2024-03-04] MEDS: QUEtiapine FUMARATE 200 MG TABLET PO SCH (22:42)
[2024-03-05] MEDS: PRENATAL VITAMINS W/ FOLIC ACID TABLET (FP) PO SCH (10:45)
[2024-03-05] MEDS: FAMOTIDINE 20 MG TABLET PO SCH (10:45)
[2024-03-06] MEDS: DIVALPROEX SODIUM 250 MG TABLET E.C. PO SCH (09:31)
[2024-03-06] MEDS: MIRTAZAPINE 15 MG TABLET (FP) PO SCH (09:31)
[2024-03-06] MEDS: FLUoxetine HCL 10 MG CAPSULE PO SCH (09:32)
[2024-03-06] MEDS: QUEtiapine FUMARATE 100 MG TABLET (FP) PO SCH (09:32)
[2024-03-06] MEDS: hydrOXYzine PAMOATE 25 MG CAPSULE (FP) PO PRN (21:25)
[2024-03-06] MEDS: QUEtiapine FUMARATE 200 MG TABLET PO SCH (21:25)
[2024-03-07] MEDS ORDERED: diphenhydrAMINE HCL 25 MG CAPSULE (FP) PO ONE (19:38)
[2024-03-07] MEDS: diphenhydrAMINE HCL 50 MG CAPSULE PO PRN (21:21)
[2024-03-09 06:43] VITALS: RESP 16
[2024-03-09] MEDS ORDERED: PRENATAL VITAMINS W/ FOLIC ACID TABLET (FP) PO PRN (10:59)
[2024-03-11] MEDS ORDERED: diphenhydrAMINE HCL 25 MG CAPSULE (FP) PO ONE ×2 (09:32→19:28)
[2024-03-11] MEDS: METHOCARBAMOL 500 MG TABLET PO PRN (15:34)
[2024-03-12] MEDS ORDERED: diphenhydrAMINE HCL 25 MG CAPSULE (FP) PO ONE ×2 (10:05→19:15)
[2024-03-13 06:35] VITALS: BP 92/62; PULSE 84; TEMP 97.7
[2024-03-13] MEDS: NALOXONE (NYS OPIOID OVERDOSE PROGRAM) 4 MG/0.1 ML SPRAY NS SCH (13:30)
== END 2024-03-13 13:41 | disposition home or self-care (01) | DRG 895 ==
LOC: YASAS 13:54 → Y3NR 13:55 → Y3E 03-06 10:51
PROVIDERS: ADMIT Surgery; ATTEND Psychiatry & Neurology Pain Medicine
PROC: HZ42ZZZ Group Counseling for Substance Abuse Treatment, Cognitive-Behavioral (ICD-10-PCS; principal; 2024-03-04)
DX: F10.20 Alcohol dependence, uncomplicated (principal); F14.20 Cocaine dependence, uncomplicated; F17.210 Nicotine dependence, cigarettes, uncomplicated; F25.0 Schizoaffective disorder, bipolar type; G47.00 Insomnia, unspecified; J45.909 Unspecified asthma, uncomplicated; Z86.19 Personal history of other infectious and parasitic diseases; Z88.8 Allergy status to other drugs, medicaments and biological substances
CPT/HCPCS: 36415; 86803

== ENCOUNTER 2024-11-27 11:01 | Inpatient (IN) | payer OTHER ==
[2024-11-27 12:22] VITALS: BMI 27.2
[2024-11-27] MEDS ORDERED: NALOXONE (NARCAN) HCL 4 MG/0.1 ML SPRAY NS PRN (14:56)
[2024-11-27] MEDS ORDERED: POLYETHYLENE GLYCOL (HEALTHYLAX) 3350 17 GM PACKET PO PRN (14:56)
[2024-11-27] MEDS ORDERED: IBUPROFEN 400 MG TABLET (FP) PO PRN (14:56)
[2024-11-27] MEDS ORDERED: MAGNESIUM HYDROX 2400MG/30ML ORAL SUSPENSION 30 ML CUP PO PRN (14:56)
[2024-11-27] MEDS ORDERED: guaiFENesin 600 MG TABLET.ER (FP) PO PRN (14:56)
[2024-11-27] MEDS ORDERED: MAG HYDROX/AL HYDROX/SIMETH 30 ML UNIT-DOSE CUP PO PRN (14:56)
[2024-11-27] MEDS ORDERED: BENZOCAINE/MENTHOL (CHLORASEPTIC ) LOZENGE MM PRN (14:56)
[2024-11-27] MEDS ORDERED: ACETAMINOPHEN 325 MG TABLET (FP) PO PRN (14:56)
[2024-11-27] MEDS ORDERED: LOPERAMIDE HCL 2 MG CAPSULE PO PRN (14:56)
[2024-11-27] MEDS ORDERED: BENZONATATE 200 MG CAPSULE PO PRN (14:56)
[2024-11-27] MEDS ORDERED: PRENATAL VITAMINS W/ FOLIC ACID TABLET (FP) PO ONE (15:49)
[2024-11-27] MEDS ORDERED: IBUPROFEN 600 MG TABLET (FP) PO ONE (15:49)
[2024-11-27] MEDS: PRENATAL VITAMINS W/ FOLIC ACID TABLET (FP) PO SCH (15:50)
[2024-11-27] MEDS: IBUPROFEN 600 MG TABLET (FP) PO PRN (15:51)
[2024-11-27 20:28] LABS: URINE APPEARANCE CLEAR; URINE BILIRUBIN NEGATIVE (NEGATIVE); URINE COLOR YELLOW; URINE GLUCOSE (UA) NEGATIVE (NEGATIVE); URINE KETONE NEGATIVE (NEGATIVE); URINE LEUK ESTERASE NEGATIVE (NEGATIVE); URINE NITRITE NEGATIVE (NEGATIVE); URINE PROTEIN NEGATIVE (NEGATIVE); URINE UROBILINOGEN 0.2 mg/dL (0.2-1.0)
[2024-11-27] MEDS: THIAMINE 100 MG TABLET PO SCH (21:59)
[2024-11-27] MEDS: MELATONIN 5 MG TABLETS PO SCH (21:59)
[2024-11-27] MEDS: hydrOXYzine PAMOATE 25 MG CAPSULE (FP) PO PRN (22:00)
[2024-11-28 11:28] LABS: MCHC 31.8 g/dl (32.3-36.5); MEAN CELL VOLUME 91.7 fl (79.0-92.2); MEAN PLT VOLUME 11.2 fl (9.4-12.4); RDW 14.4 % (12.0-15.6)
[2024-11-28] MEDS: DIVALPROEX SODIUM 250 MG TABLET E.C. PO SCH (12:23)
[2024-11-28 12:31] LABS: GLUCOSE,RANDOM 109.0 mg/dL (74-106)
[2024-11-28 12:32] LABS: TOT PROT 6.3 g/dl (6.4-8.2)
[2024-11-28 12:33] LABS: CO2 28.0 mmol/L (21-32)
[2024-11-28 12:34] LABS: ALK PHOS 58.0 U/L (40-150)
[2024-11-28 12:37] LABS: CREATININE 0.86 mg/dL (0.55-1.3); SGOT/AST 26.0 U/L (5-34); SGPT/ALT 19.0 U/L (0-55)
[2024-11-28 12:41] LABS: HCV DIAGNOSTIC IN-HOUSE W/RFLX NON-REACTIVE (NONREACTIVE); SYPHILIS W/ RPR CONF REACTIVE (NONREACTIVE)
[2024-11-28] MEDS: diphenhydrAMINE HCL 25 MG CAPSULE (FP) PO SCH (21:12)
[2024-11-28] MEDS: QUEtiapine FUMARATE 100 MG TABLET (FP) PO SCH (21:12)
[2024-11-28] MEDS: DIVALPROEX SODIUM 500 MG TABLET E.C. PO SCH (21:12)
[2024-11-29] MEDS: diphenhydrAMINE HCL 25 MG CAPSULE (FP) PO SCH (10:23)
[2024-11-29] MEDS: QUEtiapine FUMARATE 100 MG TABLET (FP) PO SCH (10:23)
[2024-11-29] MEDS: DIVALPROEX SODIUM 250 MG TABLET E.C. PO SCH (12:51)
[2024-11-29 14:49] LABS: RPR REFLEX REACTIVE 1:1 (NONREACTIVE)
[2024-11-30] MEDS: DIVALPROEX SODIUM 250 MG TABLET E.C. PO SCH (14:13)
[2024-12-01] MEDS: MIRTAZAPINE 15 MG TABLET (FP) PO SCH (21:19)
[2024-12-04 05:40] VITALS: RESP 16
[2024-12-07 05:56] VITALS: BP 109/69; PULSE 86; TEMP 96.9
== END 2024-12-07 18:00 | disposition home or self-care (01) | DRG 895 ==
LOC: YASAS 11:01 → Y3NR 15:53 → Y3W 11-28 10:28
PROVIDERS: ADMIT Allergy & Immunology; ATTEND Psychiatry & Neurology Pain Medicine
PROC: HZ42ZZZ Group Counseling for Substance Abuse Treatment, Cognitive-Behavioral (ICD-10-PCS; principal; 2024-11-27)
DX: F14.20 Cocaine dependence, uncomplicated (principal); F19.282 Other psychoactive substance dependence with psychoactive substance-induced sleep disorder; F12.20 Cannabis dependence, uncomplicated; F10.20 Alcohol dependence, uncomplicated; F17.210 Nicotine dependence, cigarettes, uncomplicated; F25.0 Schizoaffective disorder, bipolar type; J45.909 Unspecified asthma, uncomplicated; K21.9 Gastro-esophageal reflux disease without esophagitis
CPT/HCPCS: 36415; 71046-TC-FY; 80053; 80164; 81003; 85027; 86480; 86593; 86780; 86803; 93005; 93010